=== PATIENT | female | born 1955 | race Two or more races ===

== ENCOUNTER 2018-07-08 11:31 | Inpatient (IN) | payer OTHER ==
--- NOTE | 2018-07-08 12:05 | ED ---
General Adult HPI <Zoltan Watt - Last Filed: 07/08/18 12:47> - General Source: patient, EMS, RN notes reviewed Mode of arrival: EMS Limitations: no limitations <Bryce Marshall - Last Filed: 07/08/18 12:53> - General Stated complaint: Abnormal Labs Time Seen by Provider: 07/08/18 11:36 - History of Present Illness Initial comments: This a 63-year-old female presents emergency department has a transfer from [facility] for elevated troponin. Patient states she has not felt well all week and states that this morning she got dizzy, diaphoretic, felt that she was in a pass out. She states she never loss conscious. Patient denied any chest pain or shortness of breath. Patient states she went to the hospital in which she had a complete workup and found to have and troponin of 0.124. She continues any current chest pain. Patient was given metoprolol, aspirin and started on heparin. Patient states she just feels rundown, denies weakness. Denies any headache or dizziness. Denies any abdominal pain this time. She does have a known history of hypertension though she has not been to a physician in a while. (Bryce Marshall) - Related Data Home Medications Medication Instructions Recorded Confirmed Acetaminophen Tab [Tylenol Tab] 1,000 mg PO Q6HR PRN 07/08/18 07/08/18 Valsartan/Hydrochlorothiazide 1 tab PO DAILY 07/08/18 07/08/18 [Diovan Hct 160-25 mg Tablet] Vitamin B Complex 1 cap PO DAILY 07/08/18 07/08/18 Allergies Allergy/AdvReac Type Severity Reaction Status Date / Time No Known Allergies Allergy Unverified 07/08/18 12:34 Review of Systems ROS Other: All systems not noted in ROS Statement are negative. <Zoltan Watt - Last Filed: 07/08/18 12:47> ROS Other: All systems not noted in ROS Statement are negative. <Bryce Marshall - Last Filed: 07/08/18 12:53> ROS Statement: Those systems with pertinent positive or pertinent negative responses have been documented in the HPI. General Exam General appearance: alert, in no apparent distress Head exam: Present: atraumatic, normocephalic, normal inspection Eye exam: Present: normal appearance, PERRL, EOMI. Absent: scleral icterus, conjunctival injection, periorbital swelling ENT exam: Present: normal exam, normal oropharynx, mucous membranes moist Neck exam: Present: normal inspection, full ROM. Absent: tenderness, meningismus, lymphadenopathy Respiratory exam: Present: normal lung sounds bilaterally. Absent: respiratory distress, wheezes, rales, rhonchi, stridor Cardiovascular Exam: Present: regular rate, normal rhythm, normal heart sounds. Absent: systolic murmur, diastolic murmur, rubs, gallop, clicks GI/Abdominal exam: Present: soft, normal bowel sounds. Absent: distended, tenderness, guarding, rebound, rigid Neurological exam: Present: alert, oriented X3, CN II-XII intact Skin exam: Present: warm, dry, intact, normal color. 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 Case was also discussed with Dr. Meneses, who will admit covered for hospital call. (Zoltan Watt) EKG Findings - EKG Comments: EKG Findings:: EKG performed at 12:42 sinus bradycardia with a rate of 49 [place] 146 QRS 100 QT/QTC 536/484 <Bryce Marshall - Last Filed: 07/08/18 12:53> Medical Decision Making <Bryce Marshall - Last Filed: 07/08/18 12:53> - Medical Decision Making 63-year-old female presented for generalized weakness as a transfer for [facility] Patient had elevated troponin patient will be admitted for unsteady, further evaluation. (Bryce Marshall) Disposition <Zoltan Watt - Last Filed: 07/08/18 12:47> <Bryce Marshall - Last Filed: 07/08/18 12:53> Clinical Impression: NSTEMI (non-ST elevated myocardial infarction), Weakness Disposition: ADMITTED IP TO THIS HOSP Condition: Fair Referrals: None,Stated [Primary Care Provider] - 1-2 days
[2018-07-08] MEDS ORDERED: NITROGLYCERIN SL TABS 0.4 MG TAB SUBLINGUAL PRN (12:54)
[2018-07-08] MEDS: HEPARIN SOD,PORK IN 0.45% NACL 25,000 UNIT in 0.45% NACL 1 250ML.BAG IV SCH (14:02)
[2018-07-09 04:09] LABS: Platelet Count 232 k/uL (150-450)
[2018-07-09 04:57] LABS: Cholesterol 144 mg/dL (<200); HDL Cholesterol 33 mg/dL (40-60); LDL Cholesterol,Calculated 95 mg/dL (0-99); Triglycerides 79 mg/dL (<150)
[2018-07-09] MEDS ORDERED: ASPIRIN 325 MG TAB PO STA (08:21)
[2018-07-09] MEDS ORDERED: ATORVASTATIN 80 MG TAB PO STA (08:21)
[2018-07-09] MEDS ORDERED: ALPRAZolam 0.5 MG TAB PO PRN (08:21)
[2018-07-09] MEDS ORDERED: SODIUM CHLORIDE 0.9% 1,000 ML in EMPTY BAG 1 BAG IV ONE (08:21)
[2018-07-09] MEDS ORDERED: NITROGLYCERIN SL TABS 0.4 MG TAB SUBLINGUAL PRN (08:21)
[2018-07-09] MEDS ORDERED: ALPRAZolam 0.25 MG TAB PO PRN (08:21)
--- NOTE | 2018-07-09 08:32 | P.CRDCN ---
History of Present Illness Consult date: 07/09/18 Requesting physician: Juvencio Meneses Reason for Consult (text): Abnormal troponin Chief complaint: Diaphoresis, lightheadedness History of present illness: This is a pleasant 63-year-old female with family history of premature coronary artery disease, she states that her father had a myocardial infarction in his 40s, she has also unfortunately lost 2 daughters one at the age of 38 and 1 at the age of 42 who both had myocardial infarctions, recently the patient has been told to have hypertension, prior TIA, she does not follow regularly with the physician. She denies any diabetes or hyperlipidemia, she does smoke a pack of cigarettes per day. 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 According to the patient, she states that over the weekend she had a cough and mild chills, yesterday morning, patient was getting ready to go to work and became extremely diaphoretic, had cold sweats, with associated lightheadedness and mild nausea. She denies any chest discomfort, and her breathing overall was unchanged from her normal. Patient went to [facility], influenza A and B were negative. White blood cell count 5.4, hemoglobin 14.2, platelet count 310, sodium 128, potassium 3.4, BUN 10 creatinine 0.7, UA was negative. Troponin 0.124. Chest x-ray was performed at [place] which revealed small area trace amount of fluid, no evidence of infiltrate or vascular decompensation. EKG performed on arrival here showed a normal sinus rhythm with inferior Q waves suggestive of old inferior wall myocardial infarction. EKG performed on arrival here showed a marked sinus bradycardia with inferior Q waves. Troponins 0.10, 0.08 .10 on arrival here. At the time of my examination this morning, patient denies any chest discomfort, she continues to have a cough. Past Medical History Past Medical History: CVA/TIA, Hypertension Additional Past Medical History / Comment(s): Uterine Cancer, TIA History of Any Multi-Drug Resistant Organisms: None Reported Past Surgical History: Section, Cholecystectomy, Hysterectomy Additional Past Surgical History / Comment(s): Oophorectomy (laterality unknown to pt) d/t large benign tumor. Past Anesthesia/Blood Transfusion Reactions: No Reported Reaction Additional Past Anesthesia/Blood Transfusion Reaction / Comment(s): Pt has clausterphobia Smoking Status: Current every day smoker - Past Family History Father Family Medical History: Myocardial Infarction (IA) Additional Family Medical History / Comment(s): Father at the age of 45yrs from a IA. He also had caratid artery disease. Mother Family Medical History: Liver Disease Additional Family Medical History / Comment(s): Mother had nonalcholic cirrhosis of the liver. Medications and Allergies Home Medications Medication Instructions Recorded Confirmed Type Acetaminophen Tab [Tylenol Tab] 1,000 mg PO Q6HR PRN 07/08/18 07/08/18 History Valsartan/Hydrochlorothiazide 1 tab PO DAILY 07/08/18 07/08/18 History [Diovan Hct 160-25 mg Tablet] Vitamin B Complex 1 cap PO DAILY 07/08/18 07/08/18 History Allergies Allergy/AdvReac Type Severity Reaction Status Date / Time No Known Allergies Allergy Unverified 07/08/18 12:34 Physical Exam Vitals: Vital Signs Temp Pulse Pulse Pulse Resp BP BP 07/09/18 03:23 18 07/09/18 03:22 98.2 F 63 18 144/75 07/08/18 23:09 67 18 124/71 07/08/18 20:00 98.4 F 61 18 140/73 07/08/18 17:45 98.2 F 62 16 129/72 07/08/18 17:00 97.8 F 62 18 124/67 07/08/18 15:30 60 18 110/65 07/08/18 14:00 97.9 F 56 L 18 113/67 07/08/18 11:45 98.3 F 52 L 52 L 18 129/71 Pulse Ox 07/09/18 03:23 07/09/18 03:22 95 07/08/18 23:09 95 07/08/18 20:00 95 07/08/18 17:45 96 07/08/18 17:00 96 07/08/18 15:30 97 07/08/18 14:00 97 07/08/18 11:45 94 L Intake and Output 07/08/18 07/09/18 07/09/18 22:59 06:59 14:59 Intake Total 292.051 60.858 Balance 292.051 60.858 Intake: Intake, IV Titration 52.051 60.858 Amount Heparin Sod,Pork in 0.45% 52.051 60.858 NaCl 25,000 unit In 0.45 % NaCl 1 250ml.bag @ 12 UNITS/KG/HR 6.804 mls/hr IV .Q24H RUEL Rx#: [id number] Oral 240 Other: Voiding Method Toilet Toilet # Voids 1 2 PHYSICAL EXAMINATION: GENERAL: 63-year-old female in no acute distress at the time of my examination HEENT: Head is atraumatic, normocephalic. Pupils equal, round. Sclera anicteric. Conjunctiva are clear. Mucous membranes of the mouth are moist. Neck is supple. There is no elevated jugular venous pressure. Left carotid bruit is heard. HEART EXAMINATION: Heart S1 and S2 with systolic murmur is heard at the base CHEST EXAMINATION: Lungs reveal scattered wheezing throughout. ABDOMEN: Soft, nontender. Bowel sounds are heard. No organomegaly noted. EXTREMITIES: 2+ peripheral pulses with no evidence of peripheral edema and no calf tenderness noted. NEUROLOGIC patient is awake, alert and oriented 3 . . Results 07/09/18 03:47 Cardiac Enzymes 07/08/18 07/08/18 07/09/18 Range/Units 12:00 19:01 00:13 Troponin I 0.107 H* 0.089 H* 0.103 H* (0.000-0.034) ng/mL Coagulation 07/08/18 07/09/18 Range/Units 19:01 03:47 APTT 40.9 H 45.6 H (22.0-30.0) sec Lipids 07/09/18 Range/Units 03:47 Triglycerides 79 (<150) mg/dL Cholesterol 144 (<200) mg/dL HDL Cholesterol 33 L (40-60) mg/dL CBC 07/09/18 Range/Units 03:47 Plt Count 232 (150-450) k/uL Current Medications Generic Name Dose Route Start Last Admin Trade Name Freq PRN Reason Stop Dose Admin Aspirin 325 mg 07/09/18 09:00 Aspirin PO DAILY [facility] Heparin Sodium/Sodium Chloride 250 mls @ 6.804 mls/hr 07/08/18 13:00 07/09/18 05:21 25,000 unit/ Sodium Chloride IV 16 units/kg/hr .Q24H RUEL 9.072 mls/hr Titration Protocol 12 UNITS/KG/HR Nitroglycerin 0.4 mg 07/08/18 12:54 Nitrostat SUBLINGUAL Q5M PRN Chest Pain Intake and Output 07/08/18 07/09/18 07/09/18 22:59 06:59 14:59 Intake Total 292.051 60.858 Balance 292.051 60.858 Intake: Intake, IV Titration 52.051 60.858 Amount Heparin Sod,Pork in 0.45% 52.051 60.858 NaCl 25,000 unit In 0.45 % NaCl 1 250ml.bag @ 12 UNITS/KG/HR 6.804 mls/hr IV .Q24H RUEL Rx#: [id number] Oral 240 Other: Voiding Method Toilet Toilet # Voids 1 2 07/09/18 03:47 EKG Interpretations (text) EKG shows a normal sinus rhythm with inferior Q waves Assessment and Plan Plan: Assessment and plan #1 symptoms of a recent cough and chills, influenza A and B- #2 episode of diaphoresis with associated clamminess, nausea and lightheadedness. Abnormality in troponin noted, 0.1, 0.1, 0.08, 0.1. EKG shows a normal sinus rhythm with inferior Q waves suggestive of old inferior wall my ocardial infarction #3 hypertension #4 strong family history of premature coronary artery disease #5 nicotine dependence Plan We will obtain a stat echocardiogram with Doppler study. With the patient on 80 mg of Lipitor now continue aspirin and heparin, the patient had been initiated on a beta brianda at [place], because of bradycardia this is been discontinued. Patient has been advised to undergo cardiac catheterization for more definitive diagnosis, the risks and benefits were explained to the patient in detail and she is willing to proceed. This will be performed today by Dr. Nicole William. DNP note has been reviewed, I agree with a documented findings and plan of care. Patient was seen and examined.
--- NOTE | 2018-07-09 09:22 | ECHOF ---
Referral Reason:assess lvf MEASUREMENTS -------- HEIGHT: 162.6 cm WEIGHT: 56.7 kg BP: RVIDd: 2.1 cm (< 3.3) IVSd: 1.0 cm (0.6 - 1.1) LVIDd: 4.4 cm (3.9 - 5.3) LVPWd: 1.4 cm (0.6 - 1.1) IVSs: 1.5 cm LVIDs: 3.4 cm LVPWs: 1.3 cm LA Diam: 3.6 cm (2.7 - 3.8) LAESV Index (A-L): 15.25 ml/m Ao Diam: 2.7 cm (2.0 - 3.7) AV Cusp: 1.7 cm (1.5 - 2.6) LA Diam: 4.2 cm (2.7 - 3.8) MV EXCURSION: 16.312 mm (> 18.000) MV EF SLOPE: 59 mm/s (70 - 150) EPSS: 1.1 cm MV E [place]: 0.69 m/s MV DecT: 266 ms MV A [place]: 0.98 m/s MV E/A Ratio: 0.70 RAP: 5.00 mmHg RVSP: 12.89 mmHg FINDINGS -------- Sinus rhythm. This was a technically adequate study. The left ventricular size is normal. Left ventricular wall thickness is normal. Overall left vent ricular systolic function is mild-moderately impaired with, an EF between 40 - 45 %. Inferiorlatera l Hypokinesis The right ventricle is normal in size. The left atrial size is normal. Normal LA size by volume 22+/-6 ml/m2. The right atrial size is normal. The aortic valve is trileaflet, and appears structurally normal. No aortic stenosis or regurgitation. Mild mitral annular calcification present. Mild mitral regurgitation is present. Mild tricuspid regurgitation present. There is no evidence of pulmonary hypertension. The right v entricular systolic pressure, as measured by Doppler, is 12.89mmHg. There is no pulmonic regurgitation present. The aortic root size is normal. Normal inferior vena cava with normal inspiratory collapse consistent with estimated right atrial pre ssure of 5 mmHg. There is no pericardial effusion. CONCLUSIONS -------- 1. The left ventricular size is normal. 2. Left ventricular wall thickness is normal. 3. Overall left ventricular systolic function is mild-moderately impaired with, an EF between 40 - 45 %. 4. Inferiorlateral Hypokinesis 5. The right ventricle is normal in size. 6. The left atrial size is normal. 7. Normal LA size by volume 22+/-6 ml/m2. 8. The right atrial size is normal. 9. The aortic valve is trileaflet, and appears structurally normal. No aortic stenosis or regurgitati on. 10. Mild mitral annular calcification present. 11. Mild mitral regurgitation is present. 12. Mild tricuspid regurgitation present. 13. There is no evidence of pulmonary hypertension. 14. The right ventricular systolic pressure, as measured by Doppler, is 12.89mmHg. 15. There is no pulmonic regurgitation present. 16. The aortic root size is normal. 17. Normal inferior vena cava with normal inspiratory collapse consistent with estimated right atrial pressure of 5 mmHg. 18. There is no pericardial effusion. LIEUTENANT GENERAL: Britt Martin RDCS
--- NOTE | 2018-07-09 09:36 | US ---
EXAMINATION TYPE: US carotid duplex BILAT DATE OF EXAM: 07/09/2018 COMPARISON: NONE CLINICAL HISTORY: carotid bruit. Bruit, HTN per patient, stroke in 2012 EXAM MEASUREMENTS: RIGHT: Peak Systolic Velocity (PSV) cm/sec ----- Right CCA: 63.3 ----- Right ICA: 131.8 ----- Right ECA: 83.6 ICA/CCA ratio: 2.1 RIGHT: End Diastole cm/sec ----- Right CCA: 16.2 ----- Right ICA: 41.3 ----- Right ECA: 12.4 LEFT: Peak Systolic Velocity (PSV) cm/sec ----- Left CCA: 86.4 ----- Left ICA: 201.2 ----- Left ECA: 198.98 ICA/CCA ratio: 2.3 LEFT: End Diastole cm/sec ----- Left CCA: 29.2 ----- Left ICA: 57.2 ----- Left ECA: 29.3 VERTEBRALS (direction of flow): Right Vertebral: Antegrade Left Vertebral: Antegrade Rhythm: Normal Bilateral wall thickening. Bilateral significant stenosis. Plaque seen in bilateral bulbs and right prox ICA. Elevated right distal ICA, left Proximal ICA, left bulb and left ECA. IMPRESSION: 1. Bilateral atherosclerotic disease with the findings suggestive of a 50-69% stenosis bilaterally. Criteria for Assigning % of Stenosis / Diameter reduction (Estimation based on the indirect measurements of the internal carotid artery velocities (ICA PSV). 1. Normal (no stenosis)=ICA PSV < 125 cm/s: ratio < 2.0: ICA EDV<40 cm/s. 2. Less than 50% stenosis=ICA PSV < 125 cm/s: ratio < 2.0: ICA EDV<40 cm/s. 3. 50 to 69% stenosis=ICA PSV of 125 to 230 cm/s: ration 2.0 ? 4.0: ICA EDV 40-100 cm/s. 4. Greater than 70% stenosis to near occlusion= ICA PSV > 230 cm/s: ratio > 4.0: ICA EDV > 100 cm/s. 5. Near occlusion= ICA PSV velocities may be low or undetectable: variable ratio and ICA EDV. 6. Total occlusion=unable to detect flow.
[2018-07-09] MEDS ORDERED: MIDAZOLAM 2 MG/2 ML VIAL IVP ONE ×2 (11:09→11:15)
[2018-07-09] MEDS ORDERED: LIDOCAINE 1% INJ 10MG/ML (20 ML MDV) SQ ONE ×2 (11:12→11:25)
[2018-07-09] MEDS ORDERED: VERAPAMIL SYRINGE (5 MG/10 ML) INTRAARTER ONE ×2 (11:13→11:55)
[2018-07-09] MEDS ORDERED: IOPAMIDOL-370 100ML BTL INJ ONE (11:48)
[2018-07-09] MEDS ORDERED: IV FLUID CONTINUATION 1,000 ML IV ONE (11:48)
[2018-07-09] MEDS ORDERED: HEPARIN SODIUM 1,000 UN/ML (10ML VL) IV ONE (12:00)
[2018-07-09] MEDS ORDERED: MD COMMUNICATION TO PHARMACY 1 EACH MISC PO ONE (12:08)
[2018-07-09] MEDS ORDERED: RX INFO: IV CONTRAST WAS GIVEN 1 EACH MISC MISCELLANE PRN (12:20)
[2018-07-09 12:52] LABS: Basophils % (A) 1 %; Eosinophils # (A) 0.1 k/uL (0-0.7); Eosinophils % (A) 2 %; HCT 37.9 % (34.0-46.0); HGB 12.2 gm/dL (11.4-16.0); Lymphocytes # (A) 1.9 k/uL (1.0-4.8); Lymphocytes % (A) 48 %; MCH 29.2 pg (25.0-35.0); MCHC 32.3 g/dL (31.0-37.0); MCV 90.5 fL (80.0-100.0); Mean Platelet Volume 7.3; Monocytes # (A) 0.2 k/uL (0-1.0); Monocytes % (A) 6 %; Neutrophils # (A) 1.6 k/uL (1.3-7.7); Neutrophils % (A) 42 %; Platelet Count 225 k/uL (150-450); RBC 4.18 m/uL (3.80-5.40); RDW 13.1 % (11.5-15.5); WBC 3.9 k/uL (3.8-10.6)
[2018-07-09 13:08] LABS: INR 0.9 (<1.2); Partial Thromboplastin Time 70.2 sec (22.0-30.0); Prothrombin Time 10.2 sec (9.0-12.0)
[2018-07-09 13:15] LABS: ALT 33 U/L (9-52); AST 33 U/L (14-36); Albumin 3.3 g/dL (3.5-5.0); Alkaline Phosphatase 63 U/L (38-126); Anion Gap 8 mmol/L; Blood Urea Nitrogen 8 mg/dL (7-17); Calcium 8.1 mg/dL (8.4-10.2); Carbon Dioxide 19 mmol/L (22-30); Chloride 106 mmol/L (98-107); Glucose 78 mg/dL (74-99); Magnesium 1.7 mg/dL (1.6-2.3); Sodium 133 mmol/L (137-145); Total Bilirubin 0.5 mg/dL (0.2-1.3); Total Protein 6.1 g/dL (6.3-8.2)
[2018-07-09 13:17] LABS: Potassium 3.9 mmol/L (3.5-5.1)
--- NOTE | 2018-07-09 13:35 | HP ---
HISTORY AND PHYSICAL DATE OF ADMISSION: 07/08/2018 DATE OF SERVICE: 07/08/2018 PRESENTING COMPLAINT: Perspiring. HISTORY OF PRESENTING COMPLAINT: This is a 63-year-old patient who does not have a family doctor. She has had a TIA in the past. She is unsure if she has had a heart attack in the past, maybe once in the past, hypertension and had hysterectomy for uterine cancer. The patient is long- standing smoker. The patient did get short of breath, wheezing sometimes, cough sometimes. Yesterday she broke out in a sweat and felt she was going to pass out. There was no chest pain, no pressure, baseline short of breath, decided presented to [facility]. She had a bit of a troponin leak. EKG showed some Q-waves. She was transferred down here. Because of her presentation, Dr. Sandra William decided to take her down to the labor relations teacher. The patient was found to have triple-vessel disease and now cardiothoracic surgery was consulted for a bypass. The patient denies any chest pain. There was no palpitation and patient is normally active and gets around, though she does get short of breath. REVIEW OF SYSTEMS: CONSTITUTIONAL: Tired. HEENT: Nasal stuffiness. RESPIRATORY: As above. CARDIOVASCULAR: As above. GASTROINTESTINAL: None. GENITOURINARY: None. MUSCULOSKELETAL: None. DERMATOLOGIC: None. HEMATOLOGIC: None. LYMPHATIC: None. PSYCHIATRY: None. NEUROLOGICAL: None. PAST MEDICAL HISTORY: TIA, hypertension, uterine cancer. PAST SURGERY HISTORY: , cholecystectomy, hysterectomy with oophorectomy for benign tumor. PSYCH HISTORY: Claustrophobia. SOCIAL HISTORY: Lives alone. 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 Smokes a pack a day for over 40 years. No alcohol. Denies use of recreational drugs. FAMILY HISTORY: Father of heart attack age of , myocardial infarction. Also had carotid artery disease. HOME MEDICATIONS: 1. Vitamin B complex 1 capsule p.o. daily. 2. Diovan hydrochlorothiazide 160/25 one tablet p.o. daily. 3. Tylenol 1,000 mg q.6 p.r.n. ALLERGIES: None. PHYSICAL EXAMINATION: On examination, vital signs on presentation, temperature 98.3, pulse 52, respiratory 18, blood pressure 129/71, pulse ox 94% on room air. GENERAL APPEARANCE: Average build, lying in bed, tired appearing. EYES: Pupils equal. Conjunctivae normal. HENT: External appearance of nose and ears normal. Oral cavity normal. NECK: JVD not raised. Mass not palpable. RESPIRATORY: Effort normal. Some expiratory wheezing. CARDIOVASCULAR: First and second sounds normal. No edema. ABDOMEN: Soft, nontender. Liver and spleen not palpable. LYMPHATIC: No lymph node palpable in the neck and axilla. PSYCHIATRY: Alert and oriented x3. Mood and affect normal. NEUROLOGICAL: Pupils equal. Cranial nerves grossly intact. Power and sensation grossly intact. INVESTIGATIONS: Troponin 0.1, 0.08, 0.1. LDL 95. EKG tracing personally reviewed by me shows normal sinus rhythm with Q-waves in the inferior leads. ASSESSMENT: 1. Possible acute non-Q-wave myocardial infarction. 2. Severe triple-vessel coronary artery disease per cardiac catheterization. 3. Chronic obstructive pulmonary disease in a current smoker. 4. Chronic nicotine dependence. Patient is a cigarette smoker. 5. Essential hypertension. PLAN: Patient is currently on aspirin, Lipitor, Cozaar, Lopressor. Will also consult Pulmonary as she will need preop clearance for the same. Cardiothoracic team is already consulted by Cardiology. Care was discussed with the patient. The patient advised against smoking. Will give a nicotine patch. MMODL / IJN: [id number] /
--- NOTE | 2018-07-09 16:26 | CC ---
CARDIAC CATHETERIZATION REPORT DATE OF SERVICE: 07/08/2018 PROCEDURE: Left heart catheterization and coronary angiography. PERFORMED BY: Dr. Sandra William. SEDATION: Moderate conscious sedation time was 42 minutes. Patient was administered Versed and oxygen saturation, hemodynamics and EKG were monitored closely. CLINICAL INFORMATION: Vivian Quinones is a 63-year-old lady who has history of smoking and a very strong family history of CAD. Has not seen a physician in a few years, came into [facility] with symptoms of chest discomfort, just not feeling well, weak and coughing up. After she in the hospital at [place], she was transferred because of elevated troponin. She had nondescript chest tightness, pressure and some diaphoresis, felt dizzy and lightheaded. She did not quite have syncope. Because of nondescript chest tightness, generalized weakness, lack of energy and cough which she had flu workup performed and she was negative for influenza A and B. However, the troponin profile suggests myocardial injury suggestive of non-ST elevation OK and therefore she was advised coronary angiography. She does have history of hypertension, family history of CAD and history smoking. She takes valsartan 160/25 1 tab daily. Risks, benefits, options, rationale were explained and patient was advised coronary angiography. PROCEDURE NOTE: Under local anesthesia and strict aseptic precautions, a 6-Nicaraguan introducer was placed in the right radial artery. There was a significant amount of spasm. I had difficulty advancing the wire and after advance the wire, I could not advance the right Smitha catheter because of spasm in the brachial area. Therefore I abandoned the procedure and after attempting intra-arterial verapamil and nitroglycerin, I abandoned the procedure and then proceeded to perform the procedure from right femoral approach. Under local anesthesia and strict aseptic precautions, a 6-Nicaraguan introducer was placed in the right femoral artery. Using standard Smitha catheters, I performed coronary angiography and a pigtail catheter was used to perform an LV-gram. The catheter and sheath was taken out and Angio-Seal device used to secure hemostasis. The right radial artery hemostasis was secured using a Vasc band. Saturation in the fingers of the right hand was 92%. The patient was sent to the room in stable condition. Results were explained to her. Given her multivessel disease, she was advised aortocoronary bypass surgery to be performed hopefully in the next 4-5 days. There were no other family members available for me to talk to. CARDIAC CATHETERIZATION FINDINGS: The left ventricle end-diastolic pressure was about 15 mmHg without any gradient across aortic valve. CORONARY ANGIOGRAPHY FINDINGS: RIGHT CORONARY ARTERY: This is probably a codominant vessel that is diffusely diseased. In the proximal portion, there is a 99% stenosis with sluggish flow and distally PLV appears to be occluded. PDA has also some competitive flow and is a small caliber vessel for antegrade injection. This could be a codominant vessel. The RCA therefore is diffusely disease and perhaps recanalized vessel. Distal branches have diffuse diseased and there is competitive flow suggestive of focal collateralization of this vessel from the left system. LEFT MAIN CORONARY ARTERY: Short patent disease-free vessel with mild calcification. No significant disease. Bifurcates into LAD and circumflex. LEFT ANTERIOR DESCENDING CORONARY ARTERY: Fair caliber vessel had moderate calcification, in the midportion gives off a large diagonal branch which is probably larger than the LAD in caliber. The diagonal again is a secondary branch. The ostium of the diagonal has a 70% stenosis. The midportion of the diagonal has another 70% stenosis. The LAD as it comes off from the diagonal has another 70% stenosis and there is moderate calcification. Both LAD and diagonal are graftable vessels. LEFT POSTERIOR CIRCUMFLEX CORONARY ARTERY: This is a technically nondominant vessel, probably codominant vessel, has obtuse marginal that is totally occluded and fills late by collaterals. Distally there is also diffuse disease in the circumflex and its branches. It offers limited collaterals to the distal branches of the LAD. Circumflex distally has diffuse disease. Obtuse marginal is totally occluded. The obtuse marginal is actually filled by collaterals. LEFT VENTRICULOGRAM: This was performed in 30 degree SAENZ projection, revealed left ventricle that is mildly enlarged with severe akinesia involving the inferobasal and mid inferior wall. The inferoapical wall contracts well, antral wall contracts well. Ejection fraction is 40%. There is mild mitral regurgitation noted. FINAL IMPRESSION: This patient has significant triple-vessel disease with ejection fraction of 40% with inferior wall hypokinesia and mild mitral regurgitation with normal filling pressures. No gradient across the aortic valve. RCA is a recanalized vessel, probably a codominant or codominant vessel. Circumflex marginal is totally occluded. Filling late. LAD and diagonal have both calcified disease. RECOMMENDATION: I am recommending that we optimize the patient's pulmonary status and she will need aortocoronary bypass surgery with grafts to LAD, diagonal and possibly to the obtuse marginal branch and distal branches of RCA if possible. Findings were discussed with the patient. There was no family available. I reviewed the images with Dr. Ortega who will be seeing the patient in consultation. We will in the meantime, optimize her pulmonary status and seek input from high school art teacher as well. MMODL / IJN: [id number] /
--- NOTE | 2018-07-09 16:27 | P.GSCN ---
History of Present Illness Consult date: 07/09/18 Reason for Consult: Severe triple vessel coronary artery disease, surgical revascularization recommendations. Requesting physician: Young William History of present illness: This is a 63-year-old female patient who does not follow with a physician on a regular basis. She has a previous medical history of hypertension, TIA, uterine cancer, current tobacco dependence, and family history of premature coronary artery disease with father at 45 years old from myocardial infarction as well as 2 daughters from myocardial infarction, one at 38 years old and one at 42 years old. Apparently over the weekend she began having cough with mild chills. On the morning she was up getting ready for work when she became lightheaded, nauseous, and diaphoretic. She denies ever having chest discomfort or increased shortness of breath. She presented to [facility] for evaluation and treatment. Workup did not indicate any infectious process. Troponin was drawn and was 0.124. Chest x-ray was performed demonstrating trace amount of fluid, no evidence of infiltrate or vascular decompensation. The patient was transferred to [facility] secondary to elevation in troponin, repeat troponins upon arrival were 0.107, 0.089, 0.103, and EKG demonstrated Q waves in the inferior leads. She was recommended to undergo heart catheterization which was completed today by Dr. William and which demonstrated severe triple-vessel coronary artery disease. Consultation was placed to Dr. Ortega for surgical revascularization recommendations. Review of Systems Review of systems was completed and was negative except as noted in the HPI. Past Medical History Past Medical History: CVA/TIA, Hypertension Additional Past Medical History / Comment(s): Uterine Cancer, TIA History of Any Multi-Drug Resistant Organisms: None Reported Past Surgical History: Section, Cholecystectomy, Hysterectomy Additional Past Surgical History / Comment(s): Oophorectomy (laterality unknown to pt) d/t large benign tumor. Past Anesthesia/Blood Transfusion Reactions: No Reported Reaction Additional Past Anesthesia/Blood Transfusion Reaction / Comm: Pt has clausterphobia Past Psychological History: No Psychological Hx Reported Smoking Status: Current every day smoker Past Alcohol Use History: None Reported Past Drug Use History: None Reported - Past Family History Father Family Medical History: Myocardial Infarction (CO) Additional Family Medical History / Comment(s): Father at the age of 45yrs from a CO. He also had carotid artery disease. Mother Family Medical History: Liver Disease Additional Family Medical History / Comment(s): Mother had nonalcholic cirrhosis of the liver. Daughter(s) Family Medical History: Coronary Artery Disease (CAD), Myocardial Infarction (CO) Additional Family Medical History / Comment(s): One daughter at 38 and one at 42, both from myocardial infarction Medications and Allergies Home Medications Medication Instructions Recorded Confirmed Type Acetaminophen Tab [Tylenol Tab] 1,000 mg PO Q6HR PRN 07/08/18 07/08/18 History Valsartan/Hydrochlorothiazide 1 tab PO DAILY 07/08/18 07/08/18 History [Diovan Hct 160-25 mg Tablet] Vitamin B Complex 1 cap PO DAILY 07/08/18 07/08/18 History Allergies Allergy/AdvReac Type Severity Reaction Status Date / Time No Known Allergies Allergy Unverified 07/08/18 12:34 Surgical - Exam Vital Signs Temp Pulse Resp BP Pulse Ox 98.3 F 52 L 18 129/71 94 L 07/08/18 11:45 07/08/18 11:45 07/08/18 11:45 07/08/18 11:45 07/08/18 11:45 - General well developed, well nourished, no distress, no pain - Eyes PERRL, normal ocular movement - ENT no hearing loss - Neck no masses, no bruits, trachea midline - Respiratory Lungs sounds diminished bilaterally. Respirations even, nonlabored. Currently on room air with oxygen saturation 92%. No chest wall deformities. - Cardiovascular S1, S2 present. Regular rate and rhythm, sinus rhythm on telemetry. Palpable peripheral pulses bilaterally. No edema present. No calf pain or tenderness noted. No varicosities noted. - Abdomen Abdomen: soft, non tender, bowel sounds - Genitourinary Deferred - Rectum Deferred - Integumentary no rash, no growths - Neurologic normal coordination, normal sensation - Musculoskeletal normal posture - Psychiatric oriented to time, oriented to person, oriented to place, speech is normal, memory intact Results - Labs 07/09/18 12:30 07/09/18 12:30 Abnormal Lab Results - Last 24 Hours (Table) 07/08/18 07/08/18 07/09/18 Range/Units 19:01 19:01 00:13 APTT 40.9 H (22.0-30.0) sec Sodium (137-145) mmol/L Carbon Dioxide (22-30) mmol/L Creatinine (0.52-1.04) mg/dL Calcium (8.4-10.2) mg/dL Troponin I 0.089 H* 0.103 H* (0.000-0.034) ng/mL Total Protein (6.3-8.2) g/dL Albumin (3.5-5.0) g/dL HDL Cholesterol (40-60) mg/dL 07/09/18 07/09/18 07/09/18 Range/Units 03:47 03:47 12:30 APTT 45.6 H 70.2 H (22.0-30.0) sec Sodium (137-145) mmol/L Carbon Dioxide (22-30) mmol/L Creatinine (0.52-1.04) mg/dL Calcium (8.4-10.2) mg/dL Troponin I (0.000-0.034) ng/mL Total Protein (6.3-8.2) g/dL Albumin (3.5-5.0) g/dL HDL Cholesterol 33 L (40-60) mg/dL 07/09/18 Range/Units 12:30 APTT (22.0-30.0) sec Sodium 133 L (137-145) mmol/L Carbon Dioxide 19 L (22-30) mmol/L Creatinine 0.46 L (0.52-1.04) mg/dL Calcium 8.1 L (8.4-10.2) mg/dL Troponin I (0.000-0.034) ng/mL Total Protein 6.1 L (6.3-8.2) g/dL Albumin 3.3 L (3.5-5.0) g/dL HDL Cholesterol (40-60) mg/dL Diabetes panel 07/09/18 07/09/18 Range/Units 03:47 12:30 Sodium 133 L (137-145) mmol/L Potassium 3.9 (3.5-5.1) mmol/L Chloride 106 (98-107) mmol/L Carbon Dioxide 19 L (22-30) mmol/L BUN 8 (7-17) mg/dL Creatinine 0.46 L (0.52-1.04) mg/dL Glucose 78 (74-99) mg/dL Calcium 8.1 L (8.4-10.2) mg/dL AST 33 (14-36) U/L ALT 33 (9-52) U/L Alkaline Phosphatase 63 (38-126) U/L Total Protein 6.1 L (6.3-8.2) g/dL Albumin 3.3 L (3.5-5.0) g/dL Triglycerides 79 (<150) mg/dL HDL Cholesterol 33 L (40-60) mg/dL Thyroid panel 07/09/18 Range/Units 12:30 TSH 1.500 (0.465-4.680) mIU/L Calcium panel 07/09/18 Range/Units 12:30 Calcium 8.1 L (8.4-10.2) mg/dL Albumin 3.3 L (3.5-5.0) g/dL Pituitary panel 07/09/18 Range/Units 12:30 Sodium 133 L (137-145) mmol/L Potassium 3.9 (3.5-5.1) mmol/L Chloride 106 (98-107) mmol/L Carbon Dioxide 19 L (22-30) mmol/L BUN 8 (7-17) mg/dL Creatinine 0.46 L (0.52-1.04) mg/dL Glucose 78 (74-99) mg/dL Calcium 8.1 L (8.4-10.2) mg/dL TSH 1.500 (0.465-4.680) mIU/L Adrenal panel 07/09/18 Range/Units 12:30 Sodium 133 L (137-145) mmol/L Potassium 3.9 (3.5-5.1) mmol/L Chloride 106 (98-107) mmol/L Carbon Dioxide 19 L (22-30) mmol/L BUN 8 (7-17) mg/dL Creatinine 0.46 L (0.52-1.04) mg/dL Glucose 78 (74-99) mg/dL Calcium 8.1 L (8.4-10.2) mg/dL Total Bilirubin 0.5 (0.2-1.3) mg/dL AST 33 (14-36) U/L ALT 33 (9-52) U/L Alkaline Phosphatase 63 (38-126) U/L Total Protein 6.1 L (6.3-8.2) g/dL Albumin 3.3 L (3.5-5.0) g/dL - Imaging EKG: image reviewed Additional studies: Heart catheterization films reviewed with Dr. Ortega and Dr. William Assessment and Plan Assessment: 1. Severe triple-vessel coronary artery disease 2. Mild to moderately impaired left ventricular systolic function with EF 40- 45% 3. Hypertension 4. Bilateral internal carotid artery stenosis 50-69% 5. History of TIA 6. History of uterine cancer 7. Current tobacco dependence 8. Significant family history of premature coronary artery disease Plan: The patient was seen and examined at the bedside with Dr. Ortega. Chart/diagnostics were reviewed. The usual perioperative course for open-heart surgery was discussed in detail with the patient, risks and benefits were reviewed, all questions were answered. Preoperative testing was initiated. We recommend maximizing medical therapy with aspirin, statin, beta brianda therapy. Will calculate STS risk score and discuss with the patient once preoperative testing is completed. Continue preoperative teaching. Continue medical therapy per primary care service. More recommendations follow. Thank you Dr. William for this consult. We look forward to working with you in the care of your patient.
[2018-07-09] MEDS: IPRATROPIUM-ALBUTEROL 3 ML NEB INHALATION SCH ×2 (16:55→21:16)
[2018-07-09] MEDS: SODIUM CHLORIDE 0.9% 1,000 ML IV SCH (17:49)
[2018-07-09] MEDS: HEPARIN SOD,PORK IN 0.45% NACL 25,000 UNIT in 0.45% NACL 1 250ML.BAG IV SCH (17:50)
[2018-07-09] MEDS: NICOTINE 21MG/24HR PATCH TRANSDERM SCH (18:17)
--- NOTE | 2018-07-09 19:25 | XR ---
EXAMINATION TYPE: XR chest 2V DATE OF EXAM: 07/09/2018 COMPARISON: NONE HISTORY: Preop cardiac surgery TECHNIQUE: Frontal and lateral views of the chest are obtained. FINDINGS: There is no heart failure nor confluent pneumonic infiltrate. Costophrenic angles are robby r. There is some emphysematous changes in the upper lobes. Thoracic aorta is atheromatous. Bony thora x is intact. IMPRESSION: COPD. Normal heart.
[2018-07-09 19:28] LABS: Hemoglobin A1C 5.9 % (4.0-6.0)
[2018-07-09] MEDS: METOPROLOL TARTRATE 12.5 MG TAB PO SCH (20:35)
[2018-07-09] MEDS: LOSARTAN 50 MG TAB PO SCH (20:35)
[2018-07-09] MEDS: MUPIROCIN 2% OINT 22 GM TUBE NASAL SCH (20:43)
[2018-07-09 21:08] LABS: Hepatitis A Antibody IgM Non-Reactive (Non-Reactive); Hepatitis B Core IgM Non-Reactive (Non-Reactive)
[2018-07-09 22:04] LABS: Appearance,Urine Clear (Clear); Bilirubin,Urine Negative (Negative); Blood,Urine Small (Negative); Color,Urine Yellow; Glucose,Urine (UA) Negative (Negative); Ketones,Urine Negative (Negative); Leukocyte Esterase,Urine Negative (Negative); Mucus,Urine Rare /hpf; Nitrite,Urine Negative (Negative); PH, Urine 5.5 (5.0-8.0); Protein,Urine Negative (Negative); RBC,Urine 3 /hpf (0-5); Specific Gravity,Urine 1.022 (1.001-1.035); Squamous Epithelial Cell,Urine 1 /hpf (0-4); Urobilinogen,Urine <2.0 mg/dL (<2.0); WBC,Urine 1 /hpf (0-5)
[2018-07-10] MEDS: SODIUM CHLORIDE 0.9% 1,000 ML IV SCH (05:05)
[2018-07-10] MEDS: IPRATROPIUM-ALBUTEROL 3 ML NEB INHALATION SCH ×4 (05:27→20:52)
[2018-07-10 06:51] LABS: Basophils % (A) 1 %; Eosinophils # (A) 0.1 k/uL (0-0.7); Eosinophils % (A) 2 %; HCT 36.1 % (34.0-46.0); Lymphocytes % (A) 45 %; MCH 30.2 pg (25.0-35.0); MCHC 33.2 g/dL (31.0-37.0); Mean Platelet Volume 7.5; Monocytes # (A) 0.2 k/uL (0-1.0); Monocytes % (A) 5 %; Neutrophils # (A) 1.9 k/uL (1.3-7.7); Neutrophils % (A) 44 %; Platelet Count 241 k/uL (150-450); RBC 3.97 m/uL (3.80-5.40); RDW 13.5 % (11.5-15.5); WBC 4.3 k/uL (3.8-10.6)
[2018-07-10 07:01] LABS: Anion Gap 9 mmol/L; Blood Urea Nitrogen 6 mg/dL (7-17); Calcium 8.2 mg/dL (8.4-10.2); Carbon Dioxide 21 mmol/L (22-30); Chloride 103 mmol/L (98-107); Glucose 102 mg/dL (74-99); Potassium 3.2 mmol/L (3.5-5.1); Sodium 133 mmol/L (137-145)
[2018-07-10] MEDS ORDERED: POTASSIUM CHLORIDE ER 20 MEQ TAB.ER PO STA (07:15)
[2018-07-10] MEDS: NICOTINE 21MG/24HR PATCH TRANSDERM SCH (08:24)
[2018-07-10] MEDS: METOPROLOL TARTRATE 12.5 MG TAB PO SCH ×2 (08:24→20:35)
[2018-07-10] MEDS: ASPIRIN 81 MG PO SCH (08:24)
[2018-07-10] MEDS: SPIRONOLACTONE 25 MG TAB PO SCH (08:24)
[2018-07-10] MEDS: ATORVASTATIN 80 MG TAB PO SCH (08:24)
[2018-07-10] MEDS ORDERED: ASPIRIN 325 MG TAB PO SCH (09:00)
--- NOTE | 2018-07-10 11:37 | P.PN ---
Subjective Progress Note Date: 07/10/18 This is a pleasant 63-year-old female with family history of premature coronary artery disease, she states that her father had a myocardial infarction in his 40s, she has also unfortunately lost 2 daughters one at the age of 38 and 1 at the age of 42 who both had myocardial infarctions, recently the patient has been told to have hypertension, prior TIA, she does not follow regularly with the physician. She denies any diabetes or hyperlipidemia, she does smoke a pack of cigarettes per day. 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 According to the patient, she states that over the weekend she had a cough and mild chills, yesterday morning, patient was getting ready to go to work and became extremely diaphoretic, had cold sweats, with associated lightheadedness and mild nausea. She denies any chest discomfort, and her breathing overall was unchanged from her normal. Patient went to [facility], influenza A and B were negative. White blood cell count 5.4, hemoglobin 14.2, platelet count 310, sodium 128, potassium 3.4, BUN 10 creatinine 0.7, UA was negative. Troponin 0.124. Chest x-ray was performed at [place] which revealed small area trace amount of fluid, no evidence of infiltrate or vascular decompensation. EKG performed on arrival here showed a normal sinus rhythm with inferior Q waves suggestive of old inferior wall myocardial infarction. EKG performed on arrival here showed a marked sinus bradycardia with inferior Q waves. Troponins 0.10, 0.08 .10 on arrival here. At the time of my examination this morning, patient denies any chest discomfort, she continues to have a cough. 07/10/2018 Patient underwent a cardiac catheterization yesterday which revealed significant triple vessel disease with an ejection fraction of 40% with inferior wall hypokinesia and mild mitral regurgitation. Surgical consultation has been requested. Pulmonary consultation has also been requested. Patient was seen and examined this morning denies any chest pain or difficulty in breathing. Cough is improving.blood pressure 120/50 with a heart rate in the 60s, 97% on 2 L of oxygen.White blood cell count 4.3, hemoglobin 12.0, platelet count 241. Sodium 133, potassium 3.2, BUN 6 and creatinine 0.4. Objective - Vital Signs Vital signs: Vital Signs Temp 97.8 F 07/10/18 08:00 Pulse 63 07/10/18 08:00 Resp 18 07/10/18 08:00 BP 119/54 07/10/18 08:00 Pulse Ox 97 07/10/18 08:00 Intake & Output 07/09/18 07/10/18 07/10/18 18:59 06:59 18:59 Intake Total 680 63 360 Balance 680 63 360 Weight 63.8 kg Intake: IV 200 Intake, IV Titration 63 Amount Sodium Chloride 0.9% 1, 63 000 ml In Empty Bag 1 bag @ 1 ML/KG/HR 56.699 mls/ hr IV .[id number] ONE Rx#: [id number] Oral 480 360 Other: Voiding Method Toilet Toilet Toilet # Voids 2 2 - Exam PHYSICAL EXAMINATION: GENERAL: 63-year-old female in no acute distress at the time of my examination HEENT: Head is atraumatic, normocephalic. Pupils equal, round. Sclera anicteric. Conjunctiva are clear. Mucous membranes of the mouth are moist. Neck is supple. There is no elevated jugular venous pressure. Left carotid bruit is heard. HEART EXAMINATION: Heart S1 and S2 with systolic murmur is heard at the base CHEST EXAMINATION: Lungs reveal improvement in air entry bilaterally. ABDOMEN: Soft, nontender. Bowel sounds are heard. No organomegaly noted. EXTREMITIES: 2+ peripheral pulses with no evidence of peripheral edema and no calf tenderness noted. Right radial site and right groin are soft, no evidence of any hematoma. NEUROLOGIC patient is awake, alert and oriented 3 . - Labs CBC & Chem 7: 07/10/18 06:09 07/10/18 06:09 Labs: Abnormal Lab Results - Last 24 Hours (Table) 07/09/18 07/09/18 07/09/18 Range/Units 12:30 12:30 22:00 APTT 70.2 H (22.0-30.0) sec Sodium 133 L (137-145) mmol/L Potassium (3.5-5.1) mmol/L Carbon Dioxide 19 L (22-30) mmol/L BUN (7-17) mg/dL Creatinine 0.46 L (0.52-1.04) mg/dL Glucose (74-99) mg/dL Calcium 8.1 L (8.4-10.2) mg/dL Total Protein 6.1 L (6.3-8.2) g/dL Albumin 3.3 L (3.5-5.0) g/dL Urine Blood Small H (Negative) Urine Mucus Rare H (None) /hpf 07/10/18 07/10/18 Range/Units 00:45 06:09 APTT 47.9 H (22.0-30.0) sec Sodium 133 L (137-145) mmol/L Potassium 3.2 L (3.5-5.1) mmol/L Carbon Dioxide 21 L (22-30) mmol/L BUN 6 L (7-17) mg/dL Creatinine 0.47 L (0.52-1.04) mg/dL Glucose 102 H (74-99) mg/dL Calcium 8.2 L (8.4-10.2) mg/dL Total Protein (6.3-8.2) g/dL Albumin (3.5-5.0) g/dL Urine Blood (Negative) Urine Mucus (None) /hpf Microbiology - Last 24 Hours (Table) 07/09/18 22:00 Urine Culture - Preliminary Urine,Clean Catch Assessment and Plan Plan: Assessment and plan #1 symptoms of a recent cough and chills, influenza A and B- #2 episode of diaphoresis with associated clamminess, nausea and lightheadedness. Abnormality in troponin noted, 0.1, 0.1, 0.08, 0.1. EKG shows a normal sinus rhythm with inferior Q waves suggestive of old inferior wall myocardial infarction #3 hypertension #4 strong family history of premature coronary artery disease #5 nicotine dependence Plan Patient underwent a cardiac catheterization yesterday which revealed severe triple-vessel coronary artery disease and she has been referred for coronary artery bypass grafting surgery.we'll replace her potassium today, optimize lung status and patient then will undergo coronary artery bypass grafting surgery. DNP note has been reviewed, I agree with a documented findings and plan of care. Patient was seen and examined.
--- NOTE | 2018-07-10 13:35 | P.PN ---
Subjective Progress Note Date: 07/10/18 Principal diagnosis: Severe triple vessel coronary artery disease, mild to moderately impaired left ventricular systolic function with EF 40-45%, elevation in troponins likely non- STEMI. Bilateral internal carotid artery stenosis 50-69%. Previous medical history of hypertension, TIA, uterine cancer, current tobacco dependence, moderate COPD with preoperative FEV1 57% of predicted, and family history of premature coronary artery disease. The patient was seen and examined with Dr. Ortega. She is currently sitting up in bed in no acute distress. Denies chest pain, shortness of breath. Remains in normal sinus rhythm, hemodynamically stable. All questions answered. Objective - Vital Signs Vital signs: Vital Signs Temp 98.1 F 07/10/18 12:15 Pulse 78 07/10/18 13:08 Resp 18 07/10/18 12:15 BP 128/63 07/10/18 12:15 Pulse Ox 94 L 07/10/18 12:15 Intake & Output 07/09/18 07/10/18 07/10/18 18:59 06:59 18:59 Intake Total 680 63 360 Balance 680 63 360 Weight 63.8 kg Intake: IV 200 Intake, IV Titration 63 Amount Sodium Chloride 0.9% 1, 63 000 ml In Empty Bag 1 bag @ 1 ML/KG/HR 56.699 mls/ hr IV .[id number] ONE Rx#: [id number] Oral 480 360 Other: Voiding Method Toilet Toilet Toilet # Voids 2 2 1 - Constitutional General appearance: Present: cooperative, no acute distress - Respiratory Details: Lungs sounds diminished bilaterally. Respirations even, nonlabored. Currently on room air with oxygen saturation 94%. Able to achieve 2000 mL with her incentive spirometry. Strong cough. - Cardiovascular Details: S1, S2 present. Regular rate and rhythm, sinus rhythm on telemetry. Palpable peripheral pulses bilaterally. No edema present. No calf pain or tenderness noted. - Gastrointestinal Gastrointestinal Comment(s): Abdomen soft, nontender, nondistended. Active sounds present 4 quadrants. Tolerating diet. - Genitourinary Genitourinary Comment(s): continues to void clear, yellow urine. - Integumentary Integumentary Comment(s): Skin is warm and dry with evidence of good perfusion. - Neurologic Neurologic: Present: CNII-XII intact - Musculoskeletal Musculoskeletal: Present: gait normal, strength equal bilaterally - Psychiatric Psychiatric: Present: A&O x's 3, appropriate affect, intact judgment & insight - Allied health notes Allied health notes reviewed: nursing - Labs CBC & Chem 7: 07/10/18 06:09 07/10/18 06:09 Labs: Abnormal Lab Results - Last 24 Hours (Table) 07/09/18 07/10/18 07/10/18 Range/Units 22:00 00:45 06:09 APTT 47.9 H (22.0-30.0) sec Sodium 133 L (137-145) mmol/L Potassium 3.2 L (3.5-5.1) mmol/L Carbon Dioxide 21 L (22-30) mmol/L BUN 6 L (7-17) mg/dL Creatinine 0.47 L (0.52-1.04) mg/dL Glucose 102 H (74-99) mg/dL Calcium 8.2 L (8.4-10.2) mg/dL Urine Blood Small H (Negative) Urine Mucus Rare H (None) /hpf Microbiology - Last 24 Hours (Table) 07/09/18 22:00 Urine Culture - Preliminary Urine,Clean Catch - Imaging and Cardiology Chest x-ray: report reviewed, image reviewed Results of carotid Dopplers, lower extremity vein mapping and upper extremity arterial mapping were reviewed with Dr. Ortega Assessment and Plan Assessment: 1. Severe triple-vessel coronary artery disease 2. Mild to moderately impaired left ventricular systolic function with EF 40- 45% 3. Elevation troponins, likely non-STEMI 4. Hypertension 5. Bilateral internal carotid artery stenosis 50-69% 6. History of TIA 7. History of uterine cancer 8. Current tobacco dependence 9. Moderate COPD with preoperative FEV1 57% of predicted 10. Significant family history of premature coronary artery disease Plan: 1. Continue maximizing medical therapy with aspirin, statin, ARB, aldactone, beta brianda therapy. 2. Encourage smoking cessation. Encourage incentive spirometry use 10 times every hour while awake. 3. Continue to reinforce preoperative teaching. 4. Our plan is for coronary artery bypass graft surgery with left internal mammary artery and left radial artery harvest by Dr. Ortega next 07/15/2018. 5. Continue medical therapy per primary care, cardiology services. 6. Increase activity, ambulate in hallway. 7. More recommendations to follow. Time with Patient: Greater than 30
--- NOTE | 2018-07-10 15:06 | P.CNPUL ---
History of Present Illness Consult date: 07/10/18 Requesting physician: Juvencio Meneses Reason for consult: dyspnea, COPD, other (Preop evaluation for CABG) Chief complaint: Near syncope, dyspnea History of present illness: This is a very pleasant 63-year-old female patient who follows with Dr. Gonzalez as her primary care physician. She has a history of hypertension and chronic and ongoing tobacco dependence of 40+ years at 1 pack per day. She has not been seen by a design engineer marine equipment in the past. No home oxygen. No home inhalers. 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 On 07/08/2018 she was getting ready for work she broke out in a cold sweat and had a funny sensation across her chest and developed some shortness of breath. She drove herself to [place] emergency room where she was found to have elevated troponins and was transferred here for further evaluation. She had undergone cardiac catheterization yesterday and was found to have significant triple- vessel disease and impaired left ventricular systolic function with ejection fraction of 40%. There was inferior wall hypokinesia. She has been recommended coronary artery bypass surgery. She is seen today in consultation on the selective care unit. She is awake and alert in no acute distress. She denies any chest pain, palpitations lightheadedness or dizziness. No shortness of breath, cough or congestion. She is maintaining O2 saturations in the 90s on room air. She's afebrile. Hemodynamically stable. Chest x-ray reveals evidence of chronic obstructive pulmonary disease but no acute pulmonary process. Bedside spirometry readings are pending. She has been educated regarding the incentive spirometer. She is on bronchodilators. A NicoDerm patch is in place. Review of Systems REVIEW OF SYSTEMS: CONSTITUTIONAL: Denies any recent significant weight loss or weight gain. EYES: Denies change in vision. EARS, NOSE, MOUTH, THROAT: Denies headaches, denies sore throat. CARDIOVASCULAR: Denies chest pain, palpitations or syncopal episodes. RESPIRATORY: Positive for shortness of breath, cough, congestion no hemoptysis. GASTROINTESTINAL: Denies change in appetite, denies abdominal pain GENITOURINARY: Denies hematuria, denies infections. MUSKULOSKELETAL: Denies pain, denies swelling. INTEGUMENTARY: Denies rash, denies eczema. NEUROLOGICAL: Episode of near-syncope suspect cardiac in nature Denies recent memory loss, no recent seizure activity. PSYCHIATRIC: Denies anxiety, denies depression. HEMATOLOGIC/LYMPHATIC: Denies anemia, denies enlarged lymph nodes. Past Medical History Past Medical History: CVA/TIA, Hypertension Additional Past Medical History / Comment(s): Uterine Cancer, TIA History of Any Multi-Drug Resistant Organisms: None Reported Past Surgical History: Section, Cholecystectomy, Hysterectomy Additional Past Surgical History / Comment(s): Oophorectomy (laterality unknown to pt) d/t large benign tumor. Past Anesthesia/Blood Transfusion Reactions: No Reported Reaction Additional Past Anesthesia/Blood Transfusion Reaction / Comment(s): Pt has clausterphobia Past Psychological History: No Psychological Hx Reported Smoking Status: Current every day smoker Past Alcohol Use History: None Reported Past Drug Use History: None Reported - Past Family History Father Family Medical History: Myocardial Infarction ([place]) Additional Family Medical History / Comment(s): Father at the age of 45yrs from a [place]. He also had carotid artery disease. Mother Family Medical History: Liver Disease Additional Family Medical History / Comment(s): Mother had nonalcholic cirrhosis of the liver. Daughter(s) Family Medical History: Coronary Artery Disease (CAD), Myocardial Infarction ([place]) Additional Family Medical History / Comment(s): One daughter at 38 and one at 42, both from myocardial infarction Medications and Allergies Home Medications Medication Instructions Recorded Confirmed Type Acetaminophen Tab [Tylenol Tab] 1,000 mg PO Q6HR PRN 07/08/18 07/08/18 History Valsartan/Hydrochlorothiazide 1 tab PO DAILY 07/08/18 07/08/18 History [Diovan Hct 160-25 mg Tablet] Vitamin B Complex 1 cap PO DAILY 07/08/18 07/08/18 History Allergies Allergy/AdvReac Type Severity Reaction Status Date / Time No Known Allergies Allergy Unverified 07/08/18 12:34 Physical Exam Vitals: Vital Signs Temp Pulse Pulse Pulse Resp BP Pulse Ox 07/10/18 13:08 78 07/10/18 12:55 78 07/10/18 12:15 98.1 F 67 16 128/63 94 L 07/10/18 08:00 97.8 F 63 18 119/54 97 07/10/18 05:38 65 07/10/18 05:28 64 07/10/18 03:05 98.1 F 57 L 16 134/66 94 L 07/10/18 00:00 98.8 F 62 67 18 128/70 95 07/09/18 21:35 62 07/09/18 21:17 64 07/09/18 20:00 98.4 F 62 69 19 134/75 93 L 07/09/18 17:13 60 07/09/18 17:04 98 07/09/18 16:56 60 07/09/18 16:05 62 62 16 150/86 95 07/09/18 15:05 61 16 147/86 95 Intake and Output 07/09/18 07/10/18 07/10/18 22:59 06:59 14:59 Intake Total 480 63 360 Balance 480 63 360 Intake: Intake, IV Titration 63 Amount Sodium Chloride 0.9% 1, 63 000 ml In Empty Bag 1 bag @ 1 ML/KG/HR 56.699 mls/ hr IV .[id number] ONE Rx#: [id number] Oral 480 360 Other: Voiding Method Toilet Toilet Toilet # Voids 2 1 Weight 63.8 kg GENERAL EXAM: Alert, active, comfortable in no apparent distress. On room air. HEAD: Normocephalic. EYES: Normal reaction of pupils, equal size. NOSE: Clear with pink turbinates. THROAT: No erythema or exudates. NECK: No masses, no JVD. CHEST: No chest wall deformity. LUNGS: Equal air entry with no crackles, wheeze, rhonchi or dullness. Diminished. CVS: S1 and S2 normal with no audible murmur, regular rhythm. ABDOMEN: No hepatosplenomegaly, normal bowel sounds, no guarding or rigidity. SPINE: No scoliosis or deformity SKIN: No rashes CENTRAL NERVOUS SYSTEM: No focal deficits, tone is normal in all 4 extremities. EXTREMITIES: There is no peripheral edema. No clubbing, no cyanosis. Peripheral pulses are intact. Results - Laboratory Findings CBC and BMP: 07/10/18 06:09 07/10/18 06:09 PT/INR, D-dimer PT 10.2 sec (9.0-12.0) 07/09/18 12:30 INR 0.9 (<1.2) 07/09/18 12:30 Abnormal lab findings: Abnormal Labs 07/08/18 07/08/18 07/08/18 12:00 19:01 19:01 APTT 40.9 H Sodium Potassium Carbon Dioxide BUN Creatinine Glucose Calcium Troponin I 0.107 H* 0.089 H* Total Protein Albumin HDL Cholesterol Urine Blood Urine Mucus 07/09/18 07/09/18 07/09/18 00:13 03:47 03:47 APTT 45.6 H Sodium Potassium Carbon Dioxide BUN Creatinine Glucose Calcium Troponin I 0.103 H* Total Protein Albumin HDL Cholesterol 33 L Urine Blood Urine Mucus 07/09/18 07/09/18 07/09/18 12:30 12:30 22:00 APTT 70.2 H Sodium 133 L Potassium Carbon Dioxide 19 L BUN Creatinine 0.46 L Glucose Calcium 8.1 L Troponin I Total Protein 6.1 L Albumin 3.3 L HDL Cholesterol Urine Blood Small H Urine Mucus Rare H 07/10/18 07/10/18 00:45 06:09 APTT 47.9 H Sodium 133 L Potassium 3.2 L Carbon Dioxide 21 L BUN 6 L Creatinine 0.47 L Glucose 102 H Calcium 8.2 L Troponin I Total Protein Albumin HDL Cholesterol Urine Blood Urine Mucus - Diagnostic Findings Chest x-ray: image reviewed Assessment and Plan Assessment: Impression: #1 Near syncope with shortness of breath suspect secondary to significant triple-vessel coronary artery disease found on cardiac catheterization yesterday . Plan is for revascularization. #2 Chronic and ongoing tobacco dependence with suspected chronic obstructive pulmonary disease, untreated in the outpatient setting. #3 Recent upper respiratory infection influenza screen negative. #4 Strong family history of coronary artery disease. #5 Hypertension. Plan: The patient was seen and evaluated by Dr. Mcleod. Chest x-ray and labs were reviewed. She remains on DuoNeb inhalations. Educated regarding the use of the incentive spirometer. Bedside spirometry is pending. Thus far no clear contraindications to surgery. She is educated regarding the importance of complete smoking cessation. NicoDerm patch is in place. We will continue to fo llow and make further recommendations based on her clinical status. I, the cosigning physician, performed a history & physical examination of the patient. Lungs sounds are clear, diminished. Maintaining good O2 saturations in the 90s on room air. I discussed the assessment and plan of care with my nurse practitioner, Gniny Carranza. I attest to the above note as dictated by her. Time with Patient: Greater than 30
[2018-07-10] MEDS: MUPIROCIN 2% OINT 22 GM TUBE NASAL SCH ×2 (16:59→20:35)
[2018-07-10] MEDS: HEPARIN SOD,PORK IN 0.45% NACL 25,000 UNIT in 0.45% NACL 1 250ML.BAG IV SCH (17:00)
[2018-07-10] MEDS ORDERED: HEPARIN SODIUM,PORCINE 5,000 UNIT/ML 1 ML VIAL IV PRN (18:48)
[2018-07-10] MEDS ORDERED: HEPARIN SODIUM,PORCINE 5,000 UNIT/ML 1 ML VIAL IV ONE (18:56)
[2018-07-10] MEDS ORDERED: HEPARIN SOD,PORK IN 0.45% NACL 25,000 UNIT in 0.45% NACL 1 250ML.BAG IV SCH (19:00)
[2018-07-10 19:14] LABS: INR 0.9 (<1.2); Prothrombin Time 9.7 sec (9.0-12.0)
[2018-07-10] MEDS: LOSARTAN 50 MG TAB PO SCH (20:35)
--- NOTE | 2018-07-10 20:44 | HP ---
HISTORY AND PHYSICAL ADDENDUM TO HISTORY AND PHYSICAL: DATE OF ADMISSION: 07/08/2018 ADDENDUM: Patient's H&P dictated on 07/09/2018 at 12:30. The correct date of service is 07/09/2018. MMODL / IJN: [id number] /
--- NOTE | 2018-07-10 20:44 | PN ---
PROGRESS NOTE DATE OF SERVICE: 07/10/2018 PRESENTING COMPLAINT: Short of breath. INTERVAL HISTORY: This patient presented with acute non-Q-wave GA. Cardiac cath showed severe triple- vessel disease. The patient has underlying COPD, is a smoker, pending coronary artery bypass. Sitting up. Breathing is stable. REVIEW OF SYSTEMS: Done for constitutional, cardiovascular, GI, pulmonary; relevant findings as above. CURRENT MEDICATIONS: Reviewed. They include: 1. DuoNeb. 2. Aspirin. 3. Lipitor. 4. IV heparin. 5. Aldactone. PHYSICAL EXAMINATION: Temperature 97.8, pulse 80, respirations 16, blood pressure 114/69. GENERAL APPEARANCE: Sitting up. Awake. EYES: Pupils equal. Conjunctivae normal. NECK: JVD not raised. Mass not palpable. RESPIRATORY: Effort normal. LUNGS: Decreased breath sounds. CARDIOVASCULAR: First and second sounds normal. No edema. ABDOMEN: Soft, non-tender. Liver and spleen not palpable. PSYCHIATRY: Alert and oriented x3. Mood and affect normal. INVESTIGATIONS: Potassium 3.2, BUN 6, creatinine 0.47. Hepatitis screen is negative. ASSESSMENT: 1. Acute non-Q-wave myocardial infarction. 2. Severe triple-vessel coronary artery disease, pending coronary artery bypass. 3. Chronic obstructive pulmonary disease in a current smoker. 4. Chronic nicotine dependence. Patient is a cigarette smoker. 5. Essential hypertension. PLAN: Continue current medication and treatment plan. Await coronary artery bypass. MMAUGUSTO / JAQUELINE: [id number] /
[2018-07-11] MEDS: HEPARIN SOD,PORK IN 0.45% NACL 25,000 UNIT in 0.45% NACL 1 250ML.BAG IV SCH (03:44)
[2018-07-11 07:30] LABS: Basophils % (A) 0 %; Eosinophils # (A) 0.1 k/uL (0-0.7); Eosinophils % (A) 1 %; HCT 32.1 % (34.0-46.0); HGB 10.5 gm/dL (11.4-16.0); Lymphocytes # (A) 2.2 k/uL (1.0-4.8); Lymphocytes % (A) 35 %; MCH 29.9 pg (25.0-35.0); MCHC 32.9 g/dL (31.0-37.0); Mean Platelet Volume 7.6; Monocytes # (A) 0.3 k/uL (0-1.0); Monocytes % (A) 5 %; Neutrophils # (A) 3.5 k/uL (1.3-7.7); Neutrophils % (A) 57 %; Platelet Count 216 k/uL (150-450); RBC 3.53 m/uL (3.80-5.40); RDW 13.2 % (11.5-15.5); WBC 6.2 k/uL (3.8-10.6)
[2018-07-11 07:43] LABS: Anion Gap 9 mmol/L; Blood Urea Nitrogen 5 mg/dL (7-17); Calcium 8.3 mg/dL (8.4-10.2); Carbon Dioxide 20 mmol/L (22-30); Chloride 103 mmol/L (98-107); Glucose 99 mg/dL (74-99); Potassium 3.7 mmol/L (3.5-5.1); Sodium 132 mmol/L (137-145)
[2018-07-11] MEDS: IPRATROPIUM-ALBUTEROL 3 ML NEB INHALATION SCH ×4 (08:47→20:58)
--- NOTE | 2018-07-11 08:53 | US ---
EXAMINATION TYPE: US lower ext pseudo artery RT DATE OF EXAM: 07/11/2018 COMPARISON: NONE CLINICAL HISTORY: hematoma post cath . Right groin edema, pain s/p right groin cath 2 days ago EXAM PERFORMED: Grayscale and color Doppler duplex imaging performed of the groin, post cardiac samia ter to assess for pseudoaneurysm. SIDE PERFORMED: Right Color and Waveform Doppler performed to assess for the presence of pseudoaneurysm Much edema within right groin, difficult to visualize vessels Two areas visualized near puncture site, one hypoechoic non-vascular area= 2.2 x 1.6 x 2.2 cm/ Another area just inferior where puncture site is there appears to be a pseudo with to-fro flow Is there evidence of AV shunting: No IMPRESSION: There is too small hypoechoic areas which are nonvascular the largest measuring 2.2 cm suggestive of a hematoma. There is a small questionable area of pseudoaneurysm along the inferior margin the puncture site catherine cent to the common femoral artery.
--- NOTE | 2018-07-11 09:06 | P.PN ---
Subjective Progress Note Date: 07/11/18 Principal diagnosis: Severe triple vessel coronary artery disease, mild to moderately impaired left ventricular systolic function with EF 40-45%, elevation in troponins likely non- STEMI. Bilateral internal carotid artery stenosis 50-69%. Previous medical history of hypertension, TIA, uterine cancer in 1984, current tobacco dependence, moderate COPD with preoperative FEV1 57% of predicted, history of pneumonia, and family history of premature coronary artery disease. Patient currently laying in bed in no acute distress. Did develop hematoma this morning in her right femoral artery cardiac catheterization site and has been on bedrest with FemoStop in place. Does complain of back discomfort from laying flat for the last few hours, denies any shortness of breath. Open heart teaching reinforce, no new questions. Objective - Vital Signs Vital signs: Vital Signs Temp 98.8 F 07/11/18 07:55 Pulse 69 07/11/18 07:55 Resp 20 07/11/18 08:14 BP 135/83 07/11/18 07:55 Pulse Ox 95 07/11/18 07:55 Intake & Output 07/10/18 07/11/18 07/11/18 18:59 06:59 18:59 Intake Total 360 257.091 Output Total 800 Balance -440 257.091 Weight 63.8 kg Intake: Intake, IV Titration 137.091 Amount Heparin Sod,Pork in 0.45% 137.091 NaCl 25,000 unit In 0.45 % NaCl 1 250ml.bag @ 12 UNITS/KG/HR 6.804 mls/hr IV .Q24H [facility] Rx#: [id number] Oral 360 120 Output: Urine 800 Other: Voiding Method Toilet Toilet Toilet # Voids 1 - Constitutional General appearance: Present: cooperative, no acute distress - Respiratory Details: Lungs sounds diminished bilaterally. Respirations even, nonlabored. Currently on room air with oxygen saturation 95%. Able to achieve 2000 mL with her incentive spirometry. Strong cough. - Cardiovascular Details: S1, S2 present. Regular rate and rhythm, sinus rhythm on telemetry. Palpable peripheral pulses bilaterally. No edema present. No calf pain or tenderness noted. - Gastrointestinal Gastrointestinal Comment(s): Abdomen soft, nontender, nondistended. Active sounds present 4 quadrants. Tolerating diet. - Genitourinary Genitourinary Comment(s): continues to void clear, yellow urine. - Integumentary Integumentary Comment(s): Skin is warm and dry with evidence of good perfusion. Right groin ecchymotic, soft. - Neurologic Neurologic: Present: CNII-XII intact - Musculoskeletal Musculoskeletal: Present: strength equal bilaterally - Psychiatric Psychiatric: Present: A&O x's 3, appropriate affect, intact judgment & insight - Allied health notes Allied health notes reviewed: nursing - Labs CBC & Chem 7: 07/11/18 07:00 07/11/18 07:00 Labs: Abnormal Lab Results - Last 24 Hours (Table) 07/10/18 07/11/18 07/11/18 Range/Units 18:30 00:41 07:00 RBC 3.53 L (3.80-5.40) m/uL Hgb 10.5 L (11.4-16.0) gm/dL Hct 32.1 L (34.0-46.0) % APTT 51.0 H 128.2 H* (22.0-30.0) sec Sodium (137-145) mmol/L Carbon Dioxide (22-30) mmol/L BUN (7-17) mg/dL Creatinine (0.52-1.04) mg/dL Calcium (8.4-10.2) mg/dL 07/11/18 Range/Units 07:00 RBC (3.80-5.40) m/uL Hgb (11.4-16.0) gm/dL Hct (34.0-46.0) % APTT (22.0-30.0) sec Sodium 132 L (137-145) mmol/L Carbon Dioxide 20 L (22-30) mmol/L BUN 5 L (7-17) mg/dL Creatinine 0.46 L (0.52-1.04) mg/dL Calcium 8.3 L (8.4-10.2) mg/dL Microbiology - Last 24 Hours (Table) 07/10/18 08:50 Nasal Screen MRSA/MSSA - Preliminary Nasal Swab Assessment and Plan Assessment: 1. Severe triple-vessel coronary artery disease 2. Mild to moderately impaired left ventricular systolic function with EF 40- 45% 3. Elevation troponins, likely non-STEMI 4. Hypertension 5. Bilateral internal carotid artery stenosis 50-69% 6. History of TIA 7. History of uterine cancerin 1984 8. Current tobacco dependence 9. Moderate COPD with preoperative FEV1 57% of predicted 10. Remote history of pneumonia 11. Significant family history of premature coronary artery disease Plan: 1. Continue maximizing medical therapy with aspirin, statin, ARB, aldactone, beta brianda therapy. 2. Encourage smoking cessation. Encourage incentive spirometry use 10 times every hour while awake. 3. Bronchodilators per pulmonology. 4. Continue to reinforce preoperative teaching. 5. Our plan is for coronary artery bypass graft surgery with left internal mammary artery and radial artery harvest by Dr. Ortega next 07/15/2018. 6. Continue medical therapy per primary care, cardiology services. 7. Increase activity, ambulate in hallway when off bed rest. 8. More recommendations to follow. Time with Patient: Greater than 30
[2018-07-11] MEDS ORDERED: HYDROcodone/APAP 5-325MG 1 EACH TAB PO STA (09:27)
[2018-07-11] MEDS: METOPROLOL TARTRATE 12.5 MG TAB PO SCH ×2 (11:50→20:06)
[2018-07-11] MEDS: ATORVASTATIN 80 MG TAB PO SCH (11:50)
[2018-07-11] MEDS: ASPIRIN 81 MG PO SCH (11:51)
[2018-07-11] MEDS: SPIRONOLACTONE 25 MG TAB PO SCH (11:51)
[2018-07-11] MEDS: NICOTINE 21MG/24HR PATCH TRANSDERM SCH (11:52)
[2018-07-11] MEDS: MUPIROCIN 2% OINT 22 GM TUBE NASAL SCH ×2 (11:52→20:06)
--- NOTE | 2018-07-11 12:15 | P.PN ---
Subjective Progress Note Date: 07/11/18 This is a pleasant 63-year-old female with family history of premature coronary artery disease, she states that her father had a myocardial infarction in his 40s, she has also unfortunately lost 2 daughters one at the age of 38 and 1 at the age of 42 who both had myocardial infarctions, recently the patient has been told to have hypertension, prior TIA, she does not follow regularly with the physician. She denies any diabetes or hyperlipidemia, she does smoke a pack of cigarettes per day. 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 According to the patient, she states that over the weekend she had a cough and mild chills, yesterday morning, patient was getting ready to go to work and became extremely diaphoretic, had cold sweats, with associated lightheadedness and mild nausea. She denies any chest discomfort, and her breathing overall was unchanged from her normal. Patient went to [facility], influenza A and B were negative. White blood cell count 5.4, hemoglobin 14.2, platelet count 310, sodium 128, potassium 3.4, BUN 10 creatinine 0.7, UA was negative. Troponin 0.124. Chest x-ray was performed at [place] which revealed small area trace amount of fluid, no evidence of infiltrate or vascular decompensation. EKG performed on arrival here showed a normal sinus rhythm with inferior Q waves suggestive of old inferior wall myocardial infarction. EKG performed on arrival here showed a marked sinus bradycardia with inferior Q waves. Troponins 0.10, 0.08 .10 on arrival here. At the time of my examination this morning, patient denies any chest discomfort, she continues to have a cough. 07/10/2018 Patient underwent a cardiac catheterization yesterday which revealed significant triple vessel disease with an ejection fraction of 40% with inferior wall hypokinesia and mild mitral regurgitation. Surgical consultation has been requested. Pulmonary consultation has also been requested. Patient was seen and examined this morning denies any chest pain or difficulty in breathing. Cough is improving.blood pressure 120/50 with a heart rate in the 60s, 97% on 2 L of oxygen.White blood cell count 4.3, hemoglobin 12.0, platelet count 241. Sodium 133, potassium 3.2, BUN 6 and creatinine 0.4. 07/11/2018 Patient was seen and examined this morning, she had developed a hematoma in the right groin earlier this morning requiring pressure to be held for about 20 minutes. A FemoStop was then applied. An ultrasound of the groin was performed this morning which revealed suggestion of a hematoma, there is also a small questionable area of pseudoaneurysm along the inferior margin of the puncture site adjacent to the common femoral artery. Dr. Nicole William's recommendation was to continue with the FemoStop for 4 hours, ultrasound of the groin to be repeated tomorrow morning and if necessary thrombin injection. We'll also repeat a CBC in the morning. hemoglobin today is 10.5, platelet count 216. Sodium 132, potassium 3.7, BUN 5 and creatinine 0.4. IV heparin has been discontinued. Objective - Vital Signs Vital signs: Vital Signs Temp 98.8 F 07/11/18 07:55 Pulse 69 07/11/18 07:55 Resp 20 07/11/18 08:14 BP 135/83 07/11/18 07:55 Pulse Ox 95 07/11/18 07:55 Intake & Output 07/10/18 07/11/18 07/11/18 18:59 06:59 18:59 Intake Total 360 257.091 Output Total 800 Balance -440 257.091 Weight 63.8 kg Intake: Intake, IV Titration 137.091 Amount Heparin Sod,Pork in 0.45% 137.091 NaCl 25,000 unit In 0.45 % NaCl 1 250ml.bag @ 12 UNITS/KG/HR 6.804 mls/hr IV .Q24H [facility] Rx#: [id number] Oral 360 120 Output: Urine 800 Other: Voiding Method Toilet Toilet Toilet # Voids 1 - Exam PHYSICAL EXAMINATION: GENERAL: 63-year-old female in no acute distress at the time of my examination HEENT: Head is atraumatic, normocephalic. Pupils equal, round. Sclera anicteric. Conjunctiva are clear. Mucous membranes of the mouth are moist. Neck is supple. There is no elevated jugular venous pressure. Left carotid bruit is heard. HEART EXAMINATION: Heart S1 and S2 with systolic murmur is heard at the base CHEST EXAMINATION: Lungs reveal improvement in air entry bilaterally. ABDOMEN: Soft, nontender. Bowel sounds are heard. No organomegaly noted. EXTREMITIES: 2+ peripheral pulses with no evidence of peripheral edema and no calf tenderness noted. Right groin does show presence of a hematoma, positive bruit, positive ecchymosis NEUROLOGIC patient is awake, alert and oriented 3 . - Labs CBC & Chem 7: 07/11/18 07:00 07/11/18 07:00 Labs: Abnormal Lab Results - Last 24 Hours (Table) 07/10/18 07/11/18 07/11/18 Range/Units 18:30 00:41 07:00 RBC 3.53 L (3.80-5.40) m/uL Hgb 10.5 L (11.4-16.0) gm/dL Hct 32.1 L (34.0-46.0) % APTT 51.0 H 128.2 H* (22.0-30.0) sec Sodium (137-145) mmol/L Carbon Dioxide (22-30) mmol/L BUN (7-17) mg/dL Creatinine (0.52-1.04) mg/dL Calcium (8.4-10.2) mg/dL 07/11/18 Range/Units 07:00 RBC (3.80-5.40) m/uL Hgb (11.4-16.0) gm/dL Hct (34.0-46.0) % APTT (22.0-30.0) sec Sodium 132 L (137-145) mmol/L Carbon Dioxide 20 L (22-30) mmol/L BUN 5 L (7-17) mg/dL Creatinine 0.46 L (0.52-1.04) mg/dL Calcium 8.3 L (8.4-10.2) mg/dL Microbiology - Last 24 Hours (Table) 07/10/18 08:50 Nasal Screen MRSA/MSSA - Preliminary Nasal Swab Assessment and Plan Plan: Assessment and plan #1 symptoms of a recent cough and chills, influenza A and B- #2 episode of diaphoresis with associated clamminess, nausea and lightheadedn ess. Abnormality in troponin noted, 0.1, 0.1, 0.08, 0.1. EKG shows a normal sinus rhythm with inferior Q waves suggestive of old inferior wall myocardial infarction #3 hypertension #4 strong family history of premature coronary artery disease #5 nicotine dependence Plan Patient underwent a cardiac catheterization which revealed severe triple-vessel coronary artery disease and she has been referred for coronary artery bypass grafting surgery. She developed a right groin hematoma this morning, ultrasound shows a small pseudoaneurysm. Recommendation from Dr. Nicole William is to continue the Femstop for 4 hours. Repeat the ultrasound of the groin in the morning, if a pseudoaneurysm remains, attempt thrombin injection. Repeat CBC in the morning. DNP note has been reviewed, I agree with a documented findings and plan of care. Patient was seen and examined.
--- NOTE | 2018-07-11 15:50 | P.PN ---
Subjective Progress Note Date: 07/11/18 Principal diagnosis: Near syncopal episode in a patient found to have significant triple-vessel coronary artery disease. This is a very pleasant 63-year-old female patient who follows with Dr. Gonzalez as her primary care physician. She has a history of hypertension and chronic and ongoing tobacco dependence of 40+ years at 1 pack per day. She has not been seen by a electronic commerce specialist in the past. No home oxygen. No home inhalers. 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 On 07/08/2018 she was getting ready for work she broke out in a cold sweat and had a funny sensation across her chest and developed some shortness of breath. She drove herself to [facility] emergency room where she was found to have elevated troponins and was transferred here for further evaluation. She had undergone cardiac catheterization yesterday and was found to have significant triple- vessel disease and impaired left ventricular systolic function with ejection fraction of 40%. There was inferior wall hypokinesia. She has been recommended coronary artery bypass surgery. She is seen today in consultation on the selective care unit. She is awake and alert in no acute distress. She denies any chest pain, palpitations lightheadedness or dizziness. No shortness of breath, cough or congestion. She is maintaining O2 saturations in the 90s on room air. She's afebrile. Hemodynamically stable. Chest x-ray reveals evidence of chronic obstructive pulmonary disease but no acute pulmonary process. Bedside spirometry readings are pending. She has been educated regarding the incentive spirometer. She is on bronchodilators. A NicoDerm patch is in place. The patient is seen today to July 11 2018 in follow-up on the selective care unit. She is currently awake and alert in no acute distress. She did have issues with her right groin pain and was found to have a hematoma with a small questionable area of pseudoaneurysm. FemStop is currently in paced. Otherwise no chest pain. No shortness of breath, cough or congestion. She continues to maintain good O2 saturations in the mid 90s on room air. She's been afebrile. Bedside spirometry did reveal moderate COPD with FEV1 value 1.3 L or 58% of predicted. This leaves her at moderate operative risk. White count 6.2. Hem oglobin 10.5. Creatinine 0.46. She remains on heparin drip. NicoDerm patch is in place. Objective - Vital Signs Vital signs: Vital Signs Temp 97.8 F 07/11/18 12:56 Pulse 95 07/11/18 12:56 Resp 19 07/11/18 12:56 BP 169/81 07/11/18 12:56 Pulse Ox 95 07/11/18 12:56 Intake & Output 07/10/18 07/11/18 07/11/18 18:59 06:59 18:59 Intake Total 360 257.091 Output Total 800 Balance -440 257.091 Weight 63.8 kg Intake: Intake, IV Titration 137.091 Amount Heparin Sod,Pork in 0.45% 137.091 NaCl 25,000 unit In 0.45 % NaCl 1 250ml.bag @ 12 UNITS/KG/HR 6.804 mls/hr IV .Q24H [facility] Rx#: [id number] Oral 360 120 Output: Urine 800 Other: Voiding Method Toilet Toilet Toilet # Voids 1 - Exam GENERAL EXAM: Alert, active, comfortable in no apparent distress. On room air. HEAD: Normocephalic. EYES: Normal reaction of pupils, equal size. NOSE: Clear with pink turbinates. THROAT: No erythema or exudates. NECK: No masses, no JVD. CHEST: No chest wall deformity. LUNGS: Equal air entry with no crackles, wheeze, rhonchi or dullness. CVS: S1 and S2 normal with no audible murmur, regular rhythm. ABDOMEN: No hepatosplenomegaly, normal bowel sounds, no guarding or rigidity. SPINE: No scoliosis or deformity SKIN: No rashes CENTRAL NERVOUS SYSTEM: No focal deficits, tone is normal in all 4 extremities. EXTREMITIES: FemStop to right groin hematoma. There is no peripheral edema. No clubbing, no cyanosis. Peripheral pulses are intact. - Labs CBC & Chem 7: 07/11/18 07:00 07/11/18 07:00 Labs: Abnormal Lab Results - Last 24 Hours (Table) 07/10/18 07/11/18 07/11/18 Range/Units 18:30 00:41 07:00 RBC 3.53 L (3.80-5.40) m/uL Hgb 10.5 L (11.4-16.0) gm/dL Hct 32.1 L (34.0-46.0) % APTT 51.0 H 128.2 H* (22.0-30.0) sec Sodium (137-145) mmol/L Carbon Dioxide (22-30) mmol/L BUN (7-17) mg/dL Creatinine (0.52-1.04) mg/dL Calcium (8.4-10.2) mg/dL 07/11/18 Range/Units 07:00 RBC (3.80-5.40) m/uL Hgb (11.4-16.0) gm/dL Hct (34.0-46.0) % APTT (22.0-30.0) sec Sodium 132 L (137-145) mmol/L Carbon Dioxide 20 L (22-30) mmol/L BUN 5 L (7-17) mg/dL Creatinine 0.46 L (0.52-1.04) mg/dL Calcium 8.3 L (8.4-10.2) mg/dL Microbiology - Last 24 Hours (Table) 07/10/18 08:50 Nasal Screen MRSA/MSSA - Preliminary Nasal Swab Assessment and Plan Assessment: Impression: #1 Near syncope with shortness of breath suspect secondary to significant triple-vessel coronary artery disease found on cardiac catheterization yest kerri. Plan is for revascularization on 07/15/2018. #2 Chronic and ongoing tobacco dependence with chronic obstructive pulmonary disease, untreated in the outpatient setting. FEV1 value 1.3 L/58% of predicted. Moderate operative risk. #3 Recent upper respiratory infection influenza screen negative. #4 Strong family history of coronary artery disease. #5 Hypertension. Plan: The patient was seen and evaluated by Dr. Mcleod. Plenty function testing reviewed. The patient is at moderate operative risk with FEV1 value 1.3 L/58% of predicted. She remains on DuoNeb inhalations. Add Pulmicort and Perforomist inhalations. Educated regarding the use of the incentive spirometer. She is aga in educated regarding the importance of complete smoking cessation. NicoDerm patch is in place. We will continue to follow and make further recommendations based on her clinical status. I, the cosigning physician, performed a history & physical examination of the patient. Lungs sounds are clear, diminished. Maintaining good O2 saturations in the 90s on room air. I discussed the assessment and plan of care with my nurse practitioner, Ginny Carranza. I attest to the above note as dictated by her.
--- NOTE | 2018-07-11 17:56 | P.PN ---
Subjective on-call hospitalist covering Dr. Meneses this is a pleasant 63 years old female with past medical history of CVA/TIA, hypertension, uterine cancer, hysterectomy.presents with lightheadedness and sweating. She had a mildly elevated troponin. Cardiac cath showed severe triple-vessel disease however her course was complicated by right groin pseudoaneurysm. Patient has been evaluated by vascular surgery for CABG on Sunday. patient currently lying in bed not in distress. no chest pain. Vitas is stable.hemoglobin is 10.5.and creatinine is 0.4 Objective - Vital Signs Vital signs: Vital Signs Temp 98.2 F 07/11/18 16:00 Pulse 68 07/11/18 17:05 Resp 16 07/11/18 17:05 BP 166/79 07/11/18 16:00 Pulse Ox 94 L 07/11/18 16:54 Intake & Output 07/10/18 07/11/18 07/11/18 18:59 06:59 18:59 Intake Total 360 257.091 Output Total 800 Balance -440 257.091 Weight 63.8 kg Intake: Intake, IV Titration 137.091 Amount Heparin Sod,Pork in 0.45% 137.091 NaCl 25,000 unit In 0.45 % NaCl 1 250ml.bag @ 12 UNITS/KG/HR 6.804 mls/hr IV .Q24H [facility] Rx#: [id number] Oral 360 120 Output: Urine 800 Other: Voiding Method Toilet Toilet Toilet # Voids 1 1 # Bowel Movements 1 - Exam GENERAL: The patient is alert and oriented x3, not in any acute distress. Well developed, well nourished. HEENT: Pupils are round and equally reacting to light. EOMI. No scleral icterus. No conjunctival pallor. Normocephalic, atraumatic. No pharyngeal erythema. No thyromegaly. CARDIOVASCULAR: S1 and S2 present. No murmurs, rubs, or gallops. PULMONARY: Chest is clear to auscultation, no wheezing or crackles. ABDOMEN: Soft, nontender, nondistended, normoactive bowel sounds. No palpable organomegaly. MUSCULOSKELETAL: No joint swelling or deformity. -EXTREMITIES: No cyanosis, clubbing, or pedal edema. right groin hematoma NEUROLOGICAL: Gross neurological examination did not reveal any focal deficits. SKIN: No rashes. - Labs CBC & Chem 7: 07/11/18 07:00 07/11/18 07:00 Labs: Abnormal Lab Results - Last 24 Hours (Table) 07/10/18 07/11/18 07/11/18 Range/Units 18:30 00:41 07:00 RBC 3.53 L (3.80-5.40) m/uL Hgb 10.5 L (11.4-16.0) gm/dL Hct 32.1 L (34.0-46.0) % APTT 51.0 H 128.2 H* (22.0-30.0) sec Sodium (137-145) mmol/L Carbon Dioxide (22-30) mmol/L BUN (7-17) mg/dL Creatinine (0.52-1.04) mg/dL Calcium (8.4-10.2) mg/dL 07/11/18 Range/Units 07:00 RBC (3.80-5.40) m/uL Hgb (11.4-16.0) gm/dL Hct (34.0-46.0) % APTT (22.0-30.0) sec Sodium 132 L (137-145) mmol/L Carbon Dioxide 20 L (22-30) mmol/L BUN 5 L (7-17) mg/dL Creatinine 0.46 L (0.52-1.04) mg/dL Calcium 8.3 L (8.4-10.2) mg/dL Microbiology - Last 24 Hours (Table) 07/10/18 08:50 Nasal Screen MRSA/MSSA - Preliminary Nasal Swab Assessment and Plan Assessment: non-STEMI severe coronary triple vessel disease. Patient planned to undergo coronary artery bypass grafting by vascular surgery mild systolic dysfunction with ejection fraction 40-45% history of coronary artery disease History of CVA/TIA Essential hypertension uterine cancer Plan: this is a pleasant 63 years old female who presents with coronary triple-vessel disease. Plan to have coronary artery bypass grafting on Sunday by vascular surgery.continue with aspirin, heparin drip. Continue with beta brianda, spironolactone and nicotine patch.Labs and medication were reviewed.. Continue same treatment. Continue with symptomatic treatment. Resume home medication. Monitor lytes and vitals. DVT and GI prophylaxis. Further recommendations of the clinical course of the patient DVT prophylaxis: heparin GI Prophylaxis: Pepcid Prognosis is guarded
--- NOTE | 2018-07-11 18:19 | P.PN ---
Subjective Progress Note Date: 07/11/18 Interval history: This a 63-year-old female admitted with near syncope, found to have significant triple vessel CAD and multiple other medical issues, in a patient with family history of CAD. Yesterday he underwent cardiac catheterization revealing significant triple vessel disease with EF 40%, inferior wall hypokinesia. This morning developed right groin hematoma, denies abdominal pain. FemoStop applied. Groin ultrasound suggestive small pseudoaneurysm. Heparin drip discontinued. Hemoglobin 10.5 , platelets 216 .Evaluated by cardiothoracic surgery, scheduled for CABG on Sunday. Objective - Vital Signs Vital signs: Vital Signs Temp 98.2 F 07/11/18 16:00 Pulse 68 07/11/18 17:05 Resp 16 07/11/18 17:05 BP 166/79 07/11/18 16:00 Pulse Ox 94 L 07/11/18 16:54 Intake & Output 07/10/18 07/11/18 07/11/18 18:59 06:59 18:59 Intake Total 360 257.091 Output Total 800 Balance -440 257.091 Weight 63.8 kg Intake: Intake, IV Titration 137.091 Amount Heparin Sod,Pork in 0.45% 137.091 NaCl 25,000 unit In 0.45 % NaCl 1 250ml.bag @ 12 UNITS/KG/HR 6.804 mls/hr IV .Q24H [facility] Rx#: [id number] Oral 360 120 Output: Urine 800 Other: Voiding Method Toilet Toilet Toilet # Voids 1 1 # Bowel Movements 1 - Exam PHYSICAL EXAM: VITAL SIGNS: As above GENERAL: Lying in bed with Femstop on, alert and oriented 3, no acute distress HEENT: Conjunctivae normal. eyes normal. NECK: No JVD. No thyroid enlargement. No LNs CARDIOVASCULAR: S1, S2 muffled. Systolic murmur. RESPIRATION: Breath sounds diminished in the bases. No rhonchi or crackles. No bronchial breathing. ABDOMEN: Soft, nontender . No guarding. no masses palpable. Bowel sounds heard. LEGS: No edema. no swelling . Right groin with Femstop present. Ecchymosis present. NERVOUS SYSTEM: Cranial N 2-12 grossly normal. Moves all 4 limbs. Diffuse weakness.No focal deficits. Skin: no ulcer no rash Joints: No active swelling. No inflammation. Lymphatic system. No LN neck axilla or groin. - Labs CBC & Chem 7: 07/11/18 07:00 07/11/18 07:00 Labs: Abnormal Lab Results - Last 24 Hours (Table) 07/10/18 07/11/18 07/11/18 Range/Units 18:30 00:41 07:00 RBC 3.53 L (3.80-5.40) m/uL Hgb 10.5 L (11.4-16.0) gm/dL Hct 32.1 L (34.0-46.0) % APTT 51.0 H 128.2 H* (22.0-30.0) sec Sodium (137-145) mmol/L Carbon Dioxide (22-30) mmol/L BUN (7-17) mg/dL Creatinine (0.52-1.04) mg/dL Calcium (8.4-10.2) mg/dL 07/11/18 Range/Units 07:00 RBC (3.80-5.40) m/uL Hgb (11.4-16.0) gm/dL Hct (34.0-46.0) % APTT (22.0-30.0) sec Sodium 132 L (137-145) mmol/L Carbon Dioxide 20 L (22-30) mmol/L BUN 5 L (7-17) mg/dL Creatinine 0.46 L (0.52-1.04) mg/dL Calcium 8.3 L (8.4-10.2) mg/dL Microbiology - Last 24 Hours (Table) 07/10/18 08:50 Nasal Screen MRSA/MSSA - Preliminary Nasal Swab Assessment and Plan Assessment: -Near syncope secondary to Severe triple vessel CAD, CABG pending -Pseudoaneurysm, small -Strong family history of CAD -Ongoing nicotine dependence -COPD -Essential hypertension- Plan: Continue on current medication regime ,monitoring and symptomatic treatment. Close monitoring of hemoglobin with repeat labs ordered for a.m. Groin ultrasound follow-up ordered for a.m. smoking cessation readdressed. Follow closely with multiple consults. The impression and plan of care has been dictated as directed. : I performed a history and examination of this patient, discussed the same with the dictator. I agree with the dictator's note ,documented as a scribe. Any additional findings or plans will be noted.
[2018-07-11] MEDS: FAMOTIDINE 20 MG/2 ML VIAL IV SCH (20:06)
[2018-07-11] MEDS: LOSARTAN 50 MG TAB PO SCH (20:06)
[2018-07-11] MEDS: FORMOTEROL FUMARATE 20 MCG/2 ML NEBU INHALATION SCH (20:58)
[2018-07-11] MEDS: BUDESONIDE 1 MG/2 ML NEBU INHALATION SCH (20:58)
[2018-07-12 07:04] LABS: Basophils % (A) 0 %; Eosinophils # (A) 0.1 k/uL (0-0.7); Eosinophils % (A) 1 %; HCT 32.8 % (34.0-46.0); HGB 11.1 gm/dL (11.4-16.0); Lymphocytes # (A) 1.6 k/uL (1.0-4.8); Lymphocytes % (A) 25 %; MCH 30.1 pg (25.0-35.0); MCHC 33.7 g/dL (31.0-37.0); MCV 89.3 fL (80.0-100.0); Mean Platelet Volume 7.2; Monocytes # (A) 0.4 k/uL (0-1.0); Monocytes % (A) 7 %; Neutrophils # (A) 4.1 k/uL (1.3-7.7); Neutrophils % (A) 65 %; Platelet Count 233 k/uL (150-450); RBC 3.67 m/uL (3.80-5.40); RDW 13.1 % (11.5-15.5); WBC 6.3 k/uL (3.8-10.6)
--- NOTE | 2018-07-12 08:05 | P.PN ---
Subjective Progress Note Date: 07/12/18 Principal diagnosis: Severe triple vessel coronary artery disease, mild to moderately impaired left ventricular systolic function with EF 40-45%, elevation in troponins likely non- STEMI. Bilateral internal carotid artery stenosis 50-69%. Previous medical history of hypertension, TIA, uterine cancer in 1984, current tobacco dependence, moderate COPD with preoperative FEV1 57% of predicted, history of pneumonia, and family history of premature coronary artery disease. Post c ardiac catheterization right groin hematoma, questionable small pseudoaneurysm. Patient currently laying in bed in no acute distress. Does complain of back discomfort from laying flat for the last few hours, denies chest pain, shortness of breath. Open heart teaching reinforce, no new questions. Currently receiving repeat ultrasound of the right groin for evaluation of hematoma/questionable small pseudoaneurysm. Patient has had repeated episodes of diarrhea. Appears quite frustrated. Objective - Vital Signs Vital signs: Vital Signs Temp 98.3 F 07/11/18 20:00 Pulse 74 07/12/18 03:36 Resp 16 07/12/18 03:36 BP 139/67 07/12/18 03:36 Pulse Ox 93 L 07/12/18 03:36 Intake & Output 07/11/18 07/12/18 07/12/18 18:59 06:59 18:59 Intake Total 360 Output Total 200 Balance 360 -200 Weight 73 kg Intake: Oral 360 Output: Urine 200 Other: Voiding Method Toilet Bedpan # Voids 1 3 # Bowel Movements 1 - Constitutional General appearance: Present: cooperative, no acute distress - Respiratory Details: Lungs sounds diminished bilaterally with coarse breath sounds in the bases. Respirations even, nonlabored. Currently on room air with oxygen saturation 93% . Able to achieve 1500 mL with her incentive spirometry. Strong cough. - Cardiovascular Details: S1, S2 present. Regular rate and rhythm, sinus rhythm on telemetry. Palpable peripheral pulses bilaterally. No edema present. No calf pain or tenderness noted. - Gastrointestinal Gastrointestinal Comment(s): Abdomen soft, nontender, nondistended. Active sounds present 4 quadrants. Tolerating diet. Positive multiple episodes of diarrhea. - Genitourinary Genitourinary Comment(s): Continues to void clear, yellow urine. - Integumentary Integumentary Comment(s): Skin is warm and dry with evidence of good perfusion. Right groin ecchymotic, soft. - Neurologic Neurologic: Present: CNII-XII intact - Musculoskeletal Musculoskeletal: Present: strength equal bilaterally - Psychiatric Psychiatric: Present: A&O x's 3, appropriate affect, intact judgment & insight - Allied health notes Allied health notes reviewed: nursing - Labs CBC & Chem 7: 07/12/18 06:46 07/11/18 07:00 Labs: Abnormal Lab Results - Last 24 Hours (Table) 07/12/18 Range/Units 06:46 RBC 3.67 L (3.80-5.40) m/uL Hgb 11.1 L (11.4-16.0) gm/dL Hct 32.8 L (34.0-46.0) % Microbiology - Last 24 Hours (Table) 07/09/18 22:00 Urine Culture - Final Urine,Clean Catch 07/10/18 08:50 Nasal Screen MRSA/MSSA - Final Nasal Swab - Imaging and Cardiology Ultrasound of right groin reviewed Assessment and Plan Assessment: 1. Severe triple-vessel coronary artery disease 2. Mild to moderately impaired left ventricular systolic function with EF 40- 45% 3. Elevation troponins, non-STEMI 4. Hypertension 5. Bilateral internal carotid artery stenosis 50-69% 6. History of TIA 7. History of uterine cancer in 1984 8. Current tobacco dependence 9. Moderate COPD with preoperative FEV1 57% of predicted 10. Remote history of pneumonia 11. Significant family history of premature coronary artery disease 12. Right groin hematoma post cardiac catheterization, questionable small pseudoaneurysm 13. Diarrhea Plan: 1. Continue maximizing medical therapy with aspirin, statin, ARB, aldactone, beta brianda therapy. 2. Encourage smoking cessation. Encourage incentive spirometry use 10 times every hour while awake. 3. Bronchodilators per pulmonology. 4. Continue to reinforce preoperative teaching. 5. Our plan is for coronary artery bypass graft surgery with left internal mamm wojciech artery, endovascular vein harvest by Dr. Ortega next 07/15/2018. STS risk score was calculated and discussed with patient. 6. Obtain C. diff sample. 7. Will follow ultrasound of right groin results. If the pseudoaneurysm present should obtain vascular consult. Will defer to cardiology. 8. Continue medical therapy per primary care, cardiology services. 9. Increase activity, ambulate in hallway when off bed rest. 10. More recommendations to follow. Time with Patient: Greater than 30
--- NOTE | 2018-07-12 08:33 | US ---
EXAMINATION TYPE: US lower ext pseudo artery RT DATE OF EXAM: 07/12/2018 COMPARISON: 07/11/2018 CLINICAL HISTORY: re evaluate right groin pseudoaneurysm. Re-evaluate right pseudoaneurysm, cardiac c ath 07/09/18 EXAM PERFORMED: Grayscale and color Doppler duplex imaging performed of the groin, post cardiac samia ter to assess for pseudoaneurysm. SIDE PERFORMED: right Color and Waveform Doppler performed to assess for the presence of pseudoaneurysm; Is there ultrasound evidence of a pseudoaneurysm: yes, right groin, suspect partially thrombosed wit h neck = 0.3cm Is there evidence of AV shunting: no Small hematoma measures up to 2.2 cm unchanged from the prior with additional smaller approximately 1 cm more superficial hematoma. IMPRESSION: Confirmation of a previously suspected small pseudoaneurysm with a narrow 3 mm neck suspected to be p artially thrombosed.
[2018-07-12] MEDS: BUDESONIDE 1 MG/2 ML NEBU INHALATION SCH ×2 (08:59→20:52)
[2018-07-12] MEDS: IPRATROPIUM-ALBUTEROL 3 ML NEB INHALATION SCH ×4 (08:59→20:52)
[2018-07-12] MEDS: FORMOTEROL FUMARATE 20 MCG/2 ML NEBU INHALATION SCH ×2 (08:59→20:52)
[2018-07-12] MEDS: SPIRONOLACTONE 25 MG TAB PO SCH (09:01)
[2018-07-12] MEDS: ATORVASTATIN 80 MG TAB PO SCH (09:01)
[2018-07-12] MEDS: ASPIRIN 81 MG PO SCH (09:01)
[2018-07-12] MEDS: METOPROLOL TARTRATE 12.5 MG TAB PO SCH ×2 (09:01→21:30)
[2018-07-12] MEDS: MUPIROCIN 2% OINT 22 GM TUBE NASAL SCH ×2 (09:01→21:30)
[2018-07-12] MEDS: FAMOTIDINE 20 MG/2 ML VIAL IV SCH ×2 (09:01→21:23)
[2018-07-12] MEDS: NICOTINE 21MG/24HR PATCH TRANSDERM SCH (09:01)
--- NOTE | 2018-07-12 10:58 | P.PN ---
Subjective Progress Note Date: 07/12/18 This is a pleasant 63-year-old female with family history of premature coronary artery disease, she states that her father had a myocardial infarction in his 40s, she has also unfortunately lost 2 daughters one at the age of 38 and 1 at the age of 42 who both had myocardial infarctions, recently the patient has been told to have hypertension, prior TIA, she does not follow regularly with the physician. She denies any diabetes or hyperlipidemia, she does smoke a pack of cigarettes per day. 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 According to the patient, she states that over the weekend she had a cough and mild chills, yesterday morning, patient was getting ready to go to work and became extremely diaphoretic, had cold sweats, with associated lightheadedness and mild nausea. She denies any chest discomfort, and her breathing overall was unchanged from her normal. Patient went to [facility], influenza A and B were negative. White blood cell count 5.4, hemoglobin 14.2, platelet count 310, sodium 128, potassium 3.4, BUN 10 creatinine 0.7, UA was negative. Troponin 0.124. Chest x-ray was performed at [facility] which revealed small area trace amount of fluid, no evidence of infiltrate or vascular decompensation. EKG performed on arrival here showed a normal sinus rhythm with inferior Q waves suggestive of old inferior wall myocardial infarction. EKG performed on arrival here showed a marked sinus bradycardia with inferior Q waves. Troponins 0.10, 0.08 .10 on arrival here. At the time of my examination this morning, patient denies any chest discomfort, she continues to have a cough. 07/10/2018 Patient underwent a cardiac catheterization yesterday which revealed significant triple vessel disease with an ejection fraction of 40% with inferior wall hypokinesia and mild mitral regurgitation. Surgical consultation has been requested. Pulmonary consultation has also been requested. Patient was seen and examined this morning denies any chest pain or difficulty in breathing. Cough is improving.blood pressure 120/50 with a heart rate in the 60s, 97% on 2 L of oxygen.White blood cell count 4.3, hemoglobin 12.0, platelet count 241. Sodium 133, potassium 3.2, BUN 6 and creatinine 0.4. 07/11/2018 Patient was seen and examined this morning, she had developed a hematoma in the right groin earlier this morning requiring pressure to be held for about 20 minutes. A FemoStop was then applied. An ultrasound of the groin was performed this morning which revealed suggestion of a hematoma, there is also a small questionable area of pseudoaneurysm along the inferior margin of the puncture site adjacent to the common femoral artery. Dr. Nicole William's recommendation was to continue with the FemoStop for 4 hours, ultrasound of the groin to be repeated tomorrow morning and if necessary thrombin injection. We'll also repeat a CBC in the morning. hemoglobin today is 10.5, platelet count 216. Sodium 132, potassium 3.7, BUN 5 and creatinine 0.4. IV heparin has been discontinued. 07/12/2018 Patient was seen and examined this morning, she does state that she slept better through the night last night. A repeat ultrasound of the groin was performed this morning which confirmed a previously suspected small pseudoaneurysm. An attempt is going to be made at compression with possible thrombin injection this morning. Patient has been having frequent loose stools every time she eats, denies abdominal discomfort this morning. Objective - Vital Signs Vital signs: Vital Signs Temp 98.3 F 07/11/18 20:00 Pulse 72 07/12/18 09:25 Resp 16 07/12/18 03:36 BP 139/67 07/12/18 03:36 Pulse Ox 93 L 07/12/18 03:36 Intake & Output 07/11/18 07/12/18 07/12/18 18:59 06:59 18:59 Intake Total 360 240 Output Total 200 Balance 360 -200 240 Weight 73 kg Intake: Oral 360 240 Output: Urine 200 Other: Voiding Method Toilet Bedpan # Voids 1 3 1 # Bowel Movements 1 1 - Exam PHYSICAL EXAMINATION: GENERAL: 63-year-old female in no acute distress at the time of my examination HEENT: Head is atraumatic, normocephalic. Pupils equal, round. Sclera anicteric. Conjunctiva are clear. Mucous membranes of the mouth are moist. Neck is supple. There is no elevated jugular venous pressure. Left carotid bruit is heard. HEART EXAMINATION: Heart S1 and S2 with systolic murmur is heard at the base CHEST EXAMINATION: Lungs reveal improvement in air entry bilaterally. ABDOMEN: Soft, nontender. Bowel sounds are heard. No organomegaly noted. EXTREMITIES: 2+ peripheral pulses with no evidence of peripheral edema and no calf tenderness noted. Right groin does show presence of a hematoma, positive bruit, positive ecchymosis NEUROLOGIC patient is awake, alert and oriented 3 . - Labs CBC & Chem 7: 07/12/18 06:46 07/11/18 07:00 Labs: Abnormal Lab Results - Last 24 Hours (Table) 07/12/18 Range/Units 06:46 RBC 3.67 L (3.80-5.40) m/uL Hgb 11.1 L (11.4-16.0) gm/dL Hct 32.8 L (34.0-46.0) % Microbiology - Last 24 Hours (Table) 07/09/18 22:00 Urine Culture - Final Urine,Clean Catch 07/10/18 08:50 Nasal Screen MRSA/MSSA - Final Nasal Swab Assessment and Plan Plan: Assessment and plan #1 symptoms of a recent cough and chills, influenza A and B- #2 episode of diaphoresis with associated clamminess, nausea and lightheadedness. Abnormality in troponin noted, 0.1, 0.1, 0.08, 0.1. EKG shows a normal sinus rhythm with inferior Q waves suggestive of old inferior wall myocardial infarction #3 hypertension #4 strong family history of premature coronary artery disease #5 nicotine dependence #6 diarrhea stools Plan Patient underwent a cardiac catheterization which revealed severe triple-vessel coronary artery disease and she has been referred for coronary artery bypass grafting surgery. She developed a right groin hematoma , repeat ultrasound continues to show a small pseudoaneurysm. An attempt will be made at compression and possible thrombin injection this morning. Stool will also be sent for C. diff. DNP note has been reviewed, I agree with a documented findings and plan of care. Patient was seen and examined.
[2018-07-12] MEDS ORDERED: MD COMMUNICATION TO PHARMACY 1 EACH MISC PO ONE (13:07)
--- NOTE | 2018-07-12 13:12 | P.CONS ---
History of Present Illness - Reason for Consult Consult date: 07/12/18 Diarrhea Requesting physician: Juvencio Meneses - History of Present Illness 63-year-old female admitted with near-syncope significant triple-vessel CAD total for CABG on Sunday. Consult requested for diarrhea. Patient states she's had 3-4 nonbloody intermittent loose bowel movements diarrhea since her 20s without colonoscopy evaluation. "I think it's IBS". Denies abdominal pain and weight loss hematemesis hematochezia or melena. Hemoglobin 11.1. White count 6.3. MCV 89. Platelet 233. No history of bowel surgeries. No history of known inflammatory bowel disease or colorectal cancers. Clostridium difficile testing requested. Status post heart catheterization with right groin hematoma pseudoaneurysm confirmed via ultrasound. Review of Systems Constitutional: Denies fever, chills, sweats, weight gain, or loss. HEENT: Negative for migraines, blurred vision or loss, earaches, drainage, tinnitus, oral mucosal lesions, dysphagia, or odynophagia. CARDIAC: Negative for chest pain, arrhythmias, or palpitation. RESPIRATORY: Negative for shortness of breath, hemoptysis, cough, or sputum production. GI: See HPI for pertinent findings. : Negative for hematuria, urgency, frequency, polyuria, or dysuria. GYNc: Denies possibility of . Negative vaginal discharge. MUSCULOSKELETAL: Negative for muscle aches, swelling, arthritis, and arthra lgias. NEUROLOGIC: Negative for stroke or TIA. ENDOCRINE: Negative for thyroid problems. SKIN: Negative for rash or itching. PSYCHIATRIC: Negative history for depression and anxiety Past Medical History Past Medical History: CVA/TIA, Hypertension Additional Past Medical History / Comment(s): Uterine Cancer, TIA History of Any Multi-Drug Resistant Organisms: None Reported Past Surgical History: Section, Cholecystectomy, Hysterectomy Additional Past Surgical History / Comment(s): Oophorectomy (laterality unknown to pt) d/t large benign tumor. Past Anesthesia/Blood Transfusion Reactions: No Reported Reaction Additional Past Anesthesia/Blood Transfusion Reaction / Comm: Pt has brandon sterphobia Past Psychological History: No Psychological Hx Reported Smoking Status: Current every day smoker Past Alcohol Use History: None Reported Past Drug Use History: None Reported - Past Family History Father Family Medical History: Myocardial Infarction ([place]) Additional Family Medical History / Comment(s): Father at the age of 45yrs from a [place]. He also had carotid artery disease. Mother Family Medical History: Liver Disease Additional Family Medical History / Comment(s): Mother had nonalcholic cirrhosis of the liver. Daughter(s) Family Medical History: Coronary Artery Disease (CAD), Myocardial Infarction ([place]) Additional Family Medical History / Comment(s): One daughter at 38 and one at 42, both from myocardial infarction Medications and Allergies Home Medications Medication Instructions Recorded Confirmed Type Acetaminophen Tab [Tylenol Tab] 1,000 mg PO Q6HR PRN 07/08/18 07/08/18 History Valsartan/Hydrochlorothiazide 1 tab PO DAILY 07/08/18 07/08/18 History [Diovan Hct 160-25 mg Tablet] Vitamin B Complex 1 cap PO DAILY 07/08/18 07/08/18 History Allergies Allergy/AdvReac Type Severity Reaction Status Date / Time No Known Allergies Allergy Unverified 07/08/18 12:34 Physical Exam Vitals: Vital Signs Temp Pulse Pulse Resp BP BP Pulse Ox 07/12/18 09:25 72 07/12/18 09:12 68 07/12/18 09:10 68 07/12/18 08:59 72 07/12/18 03:36 74 16 139/67 93 L 07/12/18 00:00 78 16 136/68 93 L 07/11/18 21:22 68 16 07/11/18 21:12 67 16 07/11/18 20:58 66 16 07/11/18 20:00 98.3 F 73 17 149/75 95 07/11/18 17:05 68 16 07/11/18 16:54 67 16 94 L 07/11/18 16:00 98.2 F 69 18 166/79 97 07/11/18 12:56 97.8 F 95 19 169/81 95 07/11/18 12:43 67 16 07/11/18 12:29 61 16 07/11/18 12:00 16 Intake and Output 07/11/18 07/12/18 07/12/18 22:59 06:59 14:59 Intake Total 360 240 Output Total 200 Balance 160 240 Intake: Oral 360 240 Output: Urine 200 Other: Voiding Method Bedpan # Voids 2 3 1 # Bowel Movements 1 1 Weight 73 kg General appearance: The patient is alert, oriented, in no acute distress. HET: Head is normocephalic and atraumatic. Pupils are equal and reactive. Oropharynx is clear without lesions. Neck: Supple without lymphadenopathy. Trachea midline. Heart: S1 S2. Regular rate and rhythm. Lungs: No crackles or wheezes are heard. Abdomen: Soft, nontender, nondistended with bowel sounds. No peritoneal signs. No palpable organomegaly or masses. Extremities: Right groin hematoma. Normal skin color and turgor. No cyanosis, rash, ulceration, clubbing, or edema. Radial and pedal pulses are 2/4 bilaterally. Neurological: No focal deficits. Strength and sensation are grossly intact. Results CBC & Chem 7: 07/12/18 06:46 07/11/18 07:00 Labs: Abnormal Lab Results - Last 24 Hours (Table) 07/12/18 Range/Units 06:46 RBC 3.67 L (3.80-5.40) m/uL Hgb 11.1 L (11.4-16.0) gm/dL Hct 32.8 L (34.0-46.0) % Microbiology - Last 24 Hours (Table) 07/09/18 22:00 Urine Culture - Final Urine,Clean Catch 07/10/18 08:50 Nasal Screen MRSA/MSSA - Final Nasal Swab Assessment and Plan (1) Chronic diarrhea Narrative/Plan: 63-year-old female with severe triple-vessel coronary disease scheduled for CABG on Sunday with a history of underlying chronic nonbloody diarrhea more than 30 years duration with no history of endoscopic evaluation. Differentials to consider but not excluded irritable bowel syndrome-D, inflammatory bowel disease, celiac sprue. Current Visit: Yes Status: Acute Code(s): K52.9 - NONINFECTIVE GASTROENTERITIS AND COLITIS, UNSPECIFIED SNOMED Code(s): 762391448 (2) Triple vessel coronary artery disease Current Visit: Yes Status: Acute Code(s): I25.10 - ATHSCL HEART DISEASE OF [place] CORONARY ARTERY W/O ANG PCTRS SNOMED Code(s): 251609817 (3) NSTEMI (non-ST elevated myocardial infarction) Current Visit: Yes Status: Acute Code(s): I21.4 - NON-ST ELEVATION (NSTEMI) MYOCARDIAL INFARCTION SNOMED Code(s): 82973467 Plan: 1. Clostridium difficile testing requested. Outpatient EGD colonoscopy advised after recovery from her open heart surgery. Patient states her intermittent loose bowel movements are functional not requiring antidiarrheals at this time. We'll obtain celiac sprue serology. Thank you for this kind referral and the opportunity to participate in the care of your patient. This consultation was discussed with Dr. Frost. The impression and plan of care have been directed as dictated.
--- NOTE | 2018-07-12 13:54 | US ---
EXAMINATION TYPE: US compress pseudoaneurysm RT DATE OF EXAM: 07/12/2018 COMPARISON: NONE CLINICAL HISTORY: see IR consult for ordering information. EXAM PERFORMED: Grayscale and color Doppler duplex imaging performed of the groin, post cardiac samia ter to assess for pseudoaneurysm. SIDE PERFORMED: Right Intermittent compression was performed over 35 minutes with the moderate of the pulses of the right l ower extremity. There is complete thrombosis of the pseudoaneurysm upon completion of the exam. Pulse s remained patent and unchanged from precompression scanning. IMPRESSION: Successful thrombosis of the right groin pseudoaneurysm with ultrasound compression
--- NOTE | 2018-07-12 17:55 | P.PN ---
Subjective Progress Note Date: 07/12/18 Interval history: This a 63-year-old female admitted with near syncope, found to have significant triple vessel CAD and multiple other medical issues, in a patient with family history of CAD. Yesterday he underwent cardiac catheterization revealing significant triple vessel disease with EF 40%, inferior wall hypokinesia. This morning developed right groin hematoma, denies abdominal pain. FemoStop applied. Groin ultrasound suggestive small pseudoaneurysm. Heparin drip discontinued. Hemoglobin 10.5 , platelets 216 .Evaluated by cardiothoracic surgery, scheduled for CABG on Sunday. 07/12/2018 reports chronic nonbloody diarrhea. Evaluated by GI and outpatient endoscopy planned. Repeat groin ultrasound performed, confirming small pseudoaneurysm. Ultrasound compression ordered. Denies any chest pain, palpitations or increasing shortness of breath. Objective - Vital Signs Vital signs: Vital Signs Temp 98.2 F 07/12/18 14:00 Pulse 78 07/12/18 14:00 Resp 18 07/12/18 15:26 BP 172/92 07/12/18 14:00 Pulse Ox 94 L 07/12/18 14:00 Intake & Output 07/11/18 07/12/18 07/12/18 18:59 06:59 18:59 Intake Total 360 480 Output Total 200 Balance 360 -200 480 Weight 73 kg Intake: Oral 360 480 Output: Urine 200 Other: Voiding Method Toilet Bedpan Bedpan # Voids 1 3 3 # Bowel Movements 1 3 - Exam PHYSICAL EXAM: VITAL SIGNS: As above GENERAL: alert and oriented 3, no acute distress HEENT: Conjunctivae normal. eyes normal. NECK: No JVD. No thyroid enlargement. No LNs CARDIOVASCULAR: S1, S2 muffled. Systolic murmur. RESPIRATION: Essentially clear, Breath sounds diminished in the bases. ABDOMEN: Soft, nontender . No guarding. no masses palpable. Bowel sounds heard. LEGS: No edema. no swelling . Right groin Ecchymosis present.POsitive pulses. NERVOUS SYSTEM: Cranial N 2-12 grossly normal. Moves all 4 limbs. Diffuse weakness.No focal deficits. Skin: no rash - Labs CBC & Chem 7: 07/12/18 06:46 07/11/18 07:00 Labs: Abnormal Lab Results - Last 24 Hours (Table) 07/12/18 Range/Units 06:46 RBC 3.67 L (3.80-5.40) m/uL Hgb 11.1 L (11.4-16.0) gm/dL Hct 32.8 L (34.0-46.0) % Microbiology - Last 24 Hours (Table) 07/09/18 22:00 Urine Culture - Final Urine,Clean Catch 07/10/18 08:50 Nasal Screen MRSA/MSSA - Final Nasal Swab Assessment and Plan Assessment: -Near syncope secondary to Severe triple vessel CAD, CABG pending. Inferior Q waves suggestive of old inferior wall [place] as per cardiology. -Pseudoaneurysm, small, ultrasound compression pending -Strong family history of CAD -Ongoing nicotine dependence -COPD -Essential hypertension- Plan: Continue on current medication regime ,monitoring and symptomatic treatmen t. Ultrasound compression pending. GI recommendations noted .smoking cessation readdressed. CABG scheduled for Sunday .Follow closely with multiple consults. The impression and plan of care has been dictated as directed. : I performed a history and examination of this patient, discussed the same with the dictator. I agree with the dictator's note ,documented as a scribe. Any additional findings or plans will be noted.
[2018-07-12] MEDS: HEPARIN SOD,PORK IN 0.45% NACL 25,000 UNIT in 0.45% NACL 1 250ML.BAG IV SCH (21:23)
[2018-07-12] MEDS: LOSARTAN 50 MG TAB PO SCH (21:30)
[2018-07-13 07:51] LABS: Basophils % (A) 0 %; Eosinophils # (A) 0.2 k/uL (0-0.7); Eosinophils % (A) 3 %; HCT 30.9 % (34.0-46.0); HGB 10.5 gm/dL (11.4-16.0); Lymphocytes # (A) 2.3 k/uL (1.0-4.8); Lymphocytes % (A) 35 %; MCH 30.3 pg (25.0-35.0); MCHC 33.9 g/dL (31.0-37.0); MCV 89.3 fL (80.0-100.0); Mean Platelet Volume 8.2; Monocytes # (A) 0.5 k/uL (0-1.0); Monocytes % (A) 8 %; Neutrophils # (A) 3.2 k/uL (1.3-7.7); Neutrophils % (A) 50 %; Platelet Count 245 k/uL (150-450); RBC 3.46 m/uL (3.80-5.40); RDW 13.4 % (11.5-15.5); WBC 6.5 k/uL (3.8-10.6)
[2018-07-13 08:06] LABS: Anion Gap 7 mmol/L; Blood Urea Nitrogen 6 mg/dL (7-17); Calcium 8.5 mg/dL (8.4-10.2); Carbon Dioxide 23 mmol/L (22-30); Chloride 105 mmol/L (98-107); Glucose 92 mg/dL (74-99); Potassium 3.7 mmol/L (3.5-5.1); Sodium 135 mmol/L (137-145)
--- NOTE | 2018-07-13 09:13 | US ---
EXAMINATION TYPE: US lower ext pseudo artery RT DATE OF EXAM: 07/13/2018 COMPARISON: NONE CLINICAL HISTORY: right groin pseudoaneurysm follow up after compression 07/12/2018 EXAM PERFORMED: Grayscale and color Doppler duplex imaging performed of the groin, post cardiac samia ter to assess for pseudoaneurysm. SIDE PERFORMED: Right Color and Waveform Doppler performed to assess for the presence of pseudoaneurysm; Is there ultrasound evidence of a pseudoaneurysm: No Is there evidence of AV shunting: No Is there a fluid collection present: NO Previous right groin pseudoaneurysm appears completely thrombosed on today's exam IMPRESSION: RESOLUTION OF THE PATIENT'S RIGHT-SIDED PSEUDOANEURYSM.
[2018-07-13] MEDS: ASPIRIN 81 MG PO SCH (09:15)
[2018-07-13] MEDS: MUPIROCIN 2% OINT 22 GM TUBE NASAL SCH ×2 (09:15→19:33)
[2018-07-13] MEDS: METOPROLOL TARTRATE 12.5 MG TAB PO SCH ×2 (09:15→19:32)
[2018-07-13] MEDS: SPIRONOLACTONE 25 MG TAB PO SCH (09:15)
[2018-07-13] MEDS: ATORVASTATIN 80 MG TAB PO SCH (09:15)
[2018-07-13] MEDS: FAMOTIDINE 20 MG/2 ML VIAL IV SCH ×2 (09:16→19:32)
[2018-07-13] MEDS: NICOTINE 21MG/24HR PATCH TRANSDERM SCH (09:16)
[2018-07-13] MEDS: HEPARIN SOD,PORK IN 0.45% NACL 25,000 UNIT in 0.45% NACL 1 250ML.BAG IV SCH ×2 (09:18→14:35)
--- NOTE | 2018-07-13 09:30 | P.PN ---
Subjective Progress Note Date: 07/13/18 Principal diagnosis: Severe triple vessel coronary artery disease, mild to moderately impaired left ventricular systolic function with an EF of 40-45%, elevation in troponins likel y non-STEMI. Bilateral internal carotid artery stenosis 50-69%. History of hypertension, TIA, uterine cancer in 1984, current tobacco dependence, moderate COPD with preoperative FEV1 57% of predicted, history of pneumonia, and a family history of premature coronary artery disease. Post cardiac catheterization right groin hematoma, with pseudoaneurysm. The patient is currently laying in bed in no acute distress. She denies any complaints of pain or shortness of breath at this time. The patient reports her right groin feels much improved today and denies any tenderness, post ultrasound compression to her right groin performed by interventional radiology. She denies any further episodes of diarrhea and reports that she did have a formed bowel movement this a.m. Preoperative teaching reinforced with the patient for open heart surgery on 07/15/2018. She is achieving 1500 mL on her incentive spirometry. Objective - Vital Signs Vital signs: Vital Signs Temp 97.9 F 07/13/18 04:00 Pulse 75 07/13/18 04:00 Resp 18 07/13/18 04:00 BP 150/85 07/13/18 04:00 Pulse Ox 97 07/13/18 04:00 Intake & Output 07/12/18 07/13/18 07/13/18 18:59 06:59 18:59 Intake Total 480 60 Output Total 500 125 Balance -20 -125 60 Weight 63.5 kg Intake: Oral 480 60 Output: Urine 500 125 Other: Voiding Method Bedpan Toilet # Voids 3 2 # Bowel Movements 3 - Constitutional General appearance: Present: cooperative, no acute distress, thin - Respiratory Details: Lungs sounds essentially clear throughout, dye house hand bilateral bases. Respirations are symmetrical and nonlabored. Oxygen saturation are 97% on room air. She is achieving 1500 mL on her incentive spirometry. - Cardiovascular Details: Regular rhythm and rate. S1 and S2 present, negative for S3, gallop or murmur. No edema present. Remote telemetry showing normal sinus rhythm heart rate 67. Sequential compression devices in place to bilateral lower extremities. - Gastrointestinal Gastrointestinal Comment(s): Abdomen is soft, nontender and nondistended. Active bowel sounds all 4 abdominal quadrants. Tolerating oral intake. No guarding or rigidity. Formed bowel movement this a.m. no diarrhea. - Genitourinary Genitourinary Comment(s): Voiding clear yellow urine. - Integumentary Integumentary Comment(s): Skin is warm and dry. No clubbing or cyanosis is present. Ecchymotic area to her right groin, soft and nontender. Small areas of ecchymosis to her bilateral upper extremities. - Neurologic Neurologic: Present: CNII-XII intact - Musculoskeletal Musculoskeletal: Present: gait normal, generalized weakness, strength equal bilaterally - Psychiatric Psychiatric: Present: A&O x's 3, appropriate affect, intact judgment & insight - Allied health notes Allied health notes reviewed: nursing - Labs CBC & Chem 7: 07/13/18 07:04 07/13/18 07:04 Labs: Abnormal Lab Results - Last 24 Hours (Table) 07/13/18 07/13/18 Range/Units 07:04 07:04 RBC 3.46 L (3.80-5.40) m/uL Hgb 10.5 L (11.4-16.0) gm/dL Hct 30.9 L (34.0-46.0) % Sodium 135 L (137-145) mmol/L BUN 6 L (7-17) mg/dL Creatinine 0.47 L (0.52-1.04) mg/dL Assessment and Plan Assessment: 1. Severe triple-vessel coronary artery disease. 2. Mild to moderately impaired left ventricular systolic function with an EF 40-45%. 3. Elevated troponins as high as 0.107, non-STEMI. 4. Hypertension. 5. Bilateral internal carotid artery stenosis 50-69%. 6. History of TIA. 7. History of uterine cancer in 1984. 8. Current tobacco dependence. 9. Moderate COPD with preoperative FEV1 57% of predicted value. 10. Remote history of pneumonia. 11. Significant family history of premature coronary artery disease. 12. Right groin hematoma post cardiac catheterization, with pseudoaneurysm. 13. Diarrhea, chronic in nature. Plan: 1. Continue maximizing medical therapy with aspirin, statin, ARB, aldactone and beta brianda. 2. Encourage smoking cessation, discussed the importance of smoking cessation. 3. Encourage use of her incentive spirometry 10 times every hour while awake. 4. Continue to reinforce preoperative teaching. 5. The patient is scheduled for coronary artery bypass grafting surgery with left internal mammary artery and endovascular vein harvest to be performed by Dr. Ortega on 07/15/2018. STS risk score was calculated and discussed with patient by Dr. Ortega. 6. Bronchodilators per pulmonology. 7. Stool for C. diff is pending. 8. Continue medical management per primary care, cardiology services. 9. Increase activity as tolerated, ambulate in hallway. 10. More recommendations to follow based on patient's clinical course. Time with Patient: Greater than 30
[2018-07-13] MEDS: FORMOTEROL FUMARATE 20 MCG/2 ML NEBU INHALATION SCH ×2 (11:03→21:04)
[2018-07-13] MEDS: BUDESONIDE 1 MG/2 ML NEBU INHALATION SCH ×2 (11:03→21:01)
[2018-07-13] MEDS: IPRATROPIUM-ALBUTEROL 3 ML NEB INHALATION SCH ×4 (11:04→21:01)
--- NOTE | 2018-07-13 11:06 | P.PN ---
Subjective Progress Note Date: 07/13/18 This is a pleasant 63-year-old female with family history of premature coronary artery disease, she states that her father had a myocardial infarction in his 40s, she has also unfortunately lost 2 daughters one at the age of 38 and 1 at the age of 42 who both had myocardial infarctions, recently the patient has been told to have hypertension, prior TIA, she does not follow regularly with the physician. She denies any diabetes or hyperlipidemia, she does smoke a pack of cigarettes per day. 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 According to the patient, she states that over the weekend she had a cough and mild chills, yesterday morning, patient was getting ready to go to work and became extremely diaphoretic, had cold sweats, with associated lightheadedness and mild nausea. She denies any chest discomfort, and her breathing overall was unchanged from her normal. Patient went to [facility], influenza A and B were negative. White blood cell count 5.4, hemoglobin 14.2, platelet count 310, sodium 128, potassium 3.4, BUN 10 creatinine 0.7, UA was negative. Troponin 0.124. Chest x-ray was performed at [place] which revealed small area trace amount of fluid, no evidence of infiltrate or vascular decompensation. EKG performed on arrival here showed a normal sinus rhythm with inferior Q waves suggestive of old inferior wall myocardial infarction. EKG performed on arrival here showed a marked sinus bradycardia with inferior Q waves. Troponins 0.10, 0.08 .10 on arrival here. At the time of my examination this morning, patient denies any chest discomfort, she continues to have a cough. 07/10/2018 Patient underwent a cardiac catheterization yesterday which revealed significant triple vessel disease with an ejection fraction of 40% with inferior wall hypokinesia and mild mitral regurgitation. Surgical consultation has been requested. Pulmonary consultation has also been requested. Patient was seen and examined this morning denies any chest pain or difficulty in breathing. Cough is improving.blood pressure 120/50 with a heart rate in the 60s, 97% on 2 L of oxygen.White blood cell count 4.3, hemoglobin 12.0, platelet count 241. Sodium 133, potassium 3.2, BUN 6 and creatinine 0.4. 07/11/2018 Patient was seen and examined this morning, she had developed a hematoma in the right groin earlier this morning requiring pressure to be held for about 20 minutes. A FemoStop was then applied. An ultrasound of the groin was performed this morning which revealed suggestion of a hematoma, there is also a small questionable area of pseudoaneurysm along the inferior margin of the puncture site adjacent to the common femoral artery. Dr. Nicole William's recommendation was to continue with the FemoStop for 4 hours, ultrasound of the groin to be repeated tomorrow morning and if necessary thrombin injection. We'll also repeat a CBC in the morning. hemoglobin today is 10.5, platelet count 216. Sodium 132, potassium 3.7, BUN 5 and creatinine 0.4. IV heparin has been discontinued. 07/12/2018 Patient was seen and examined this morning, she does state that she slept better through the night last night. A repeat ultrasound of the groin was performed this morning which confirmed a previously suspected small pseudoaneurysm. An attempt is going to be made at compression with possible thrombin injection this morning. Patient has been having frequent loose stools every time she eats, denies abdominal discomfort this morning. 07/13/2018 Patient was seen and examined this morning, overall doing well. Denies any chest pain and breathing is stable. Blood pressure 146/70 with a heart rate in the 80s, 95% on room air. White blood cell count 6.5, hemoglobin 10.5, platelet count 245. Sodium 135, potassium 3.7, BUN 6 and creatinine 0.4. Patient is wilbert eduled for coronary artery bypass grafting surgery on Sunday. Objective - Vital Signs Vital signs: Vital Signs Temp 97.9 F 07/13/18 04:00 Pulse 75 07/13/18 04:00 Resp 18 07/13/18 04:00 BP 150/85 07/13/18 04:00 Pulse Ox 97 07/13/18 04:00 Intake & Output 07/12/18 07/13/18 07/13/18 18:59 06:59 18:59 Intake Total 480 60 Output Total 500 125 Balance -20 -125 60 Weight 63.5 kg Intake: Oral 480 60 Output: Urine 500 125 Other: Voiding Method Bedpan Toilet # Voids 3 2 # Bowel Movements 3 - Exam PHYSICAL EXAMINATION: GENERAL: 63-year-old female in no acute distress at the time of my examination HEENT: Head is atraumatic, normocephalic. Pupils equal, round. Sclera anicteric. Conjunctiva are clear. Mucous membranes of the mouth are moist. Neck is supple. There is no elevated jugular venous pressure. Left carotid bruit is heard. HEART EXAMINATION: Heart S1 and S2 with systolic murmur is heard at the base CHEST EXAMINATION: Lungs reveal improvement in air entry bilaterally. ABDOMEN: Soft, nontender. Bowel sounds are heard. No organomegaly noted. EXTREMITIES: 2+ peripheral pulses with no evidence of peripheral edema and no calf tenderness noted. Right groin does show presence ecchymosis, no hematoma, no bruit NEUROLOGIC patient is awake, alert and oriented 3 . - Labs CBC & Chem 7: 07/13/18 07:04 07/13/18 07:04 Labs: Abnormal Lab Results - Last 24 Hours (Table) 07/13/18 07/13/18 Range/Units 07:04 07:04 RBC 3.46 L (3.80-5.40) m/uL Hgb 10.5 L (11.4-16.0) gm/dL Hct 30.9 L (34.0-46.0) % Sodium 135 L (137-145) mmol/L BUN 6 L (7-17) mg/dL Creatinine 0.47 L (0.52-1.04) mg/dL Assessment and Plan Plan: Assessment and plan #1 symptoms of a recent cough and chills, influenza A and B- #2 episode of diaphoresis with associated clamminess, nausea and lightheadedness. Abnormality in troponin noted, 0.1, 0.1, 0.08, 0.1. EKG shows a normal sinus rhythm with inferior Q waves suggestive of old inferior wall myocardial infarction #3 hypertension #4 strong family history of premature coronary artery disease #5 nicotine dependence #6 diarrhea stools Plan From cardiology's perspective, we would recommend to resume the Lasix at 800 mL per hour no bolus. Monitor daily hemoglobins. Patient is scheduled for coronary artery bypass grafting surgery on Sunday. We'll continue to follow DNP note has been reviewed, I agree with a documented findings and plan of care. Patient was seen and examined.
--- NOTE | 2018-07-13 11:27 | PN ---
PROGRESS NOTE DATE OF SERVICE: July 13, 2018 Patient is a 63-year-old pleasant white female who is presently in the hospital with severe triple-vessel coronary artery disease and acute PA. She is scheduled for a CABG this coming Sunday. In the meantime, the patient was complaining of intermittent diarrhea for the last 2 several years duration and hence we are consulted in regards to this issue. This morning, the patient today is very comfortable and states that she had 1 solid bowel movement today. No diarrhea. In the past, she has been having intermittent diarrhea, usually 3 to 4 bowel movements once or twice a week and she often now thinks this is related to irritable bowel syndrome. She was never investigated in the past for the chronic diarrhea. She denies any rectal bleeding. No abdominal pain. No nausea, vomiting. PHYSICAL EXAMINATION: Appears comfortable. No apparent distress. Vital signs are stable. Blood pressure is 146/72, pulse 88, temperature 97. HEENT examination remarkable. Conjunctivae pink. Sclerae anicteric. Oral cavity no lesions. Neck no jugular venous distention or lymph node enlargement. Chest was clear to auscultation. HEART: Regular rate and rhythm. ABDOMEN: Soft, nontender. Bowel sounds are positive. No organomegaly. Extremities: No pedal edema. Skin no rashes. NEUROLOGIC: Alert and oriented x3. No focal deficits. LABORATORY DATA: Lab from today WBC 6.2, hemoglobin 10.5, platelets are normal. Basic metabolic panel is within normal limits. IMPRESSION: 1. Chronic intermittent diarrhea almost 30 years duration with no other alarming symptoms. Most likely, she has irritable bowel syndrome but this was not investigated in the past. 2. Coronary artery disease/acute myocardial infarction. The patient is scheduled for coronary artery bypass grafting this coming Sunday. RECOMMENDATIONS: In regard to the chronic diarrhea we can give her Imodium as needed if she has loose bowel movements as per once she is discharged from the hospital, she can follow up on an outpatient basis at which time, we will consider further workup including a colonoscopy. The plan was discussed with the patient. She is agreeable to it. At this time, we will sign off. Please call us if needed. Thank you for this consultation. MMODL / IJN: [id number] /
[2018-07-13 13:02] LABS: INR 0.9 (<1.2); Partial Thromboplastin Time 22.2 sec (22.0-30.0); Prothrombin Time 9.7 sec (9.0-12.0)
--- NOTE | 2018-07-13 16:18 | P.PN ---
Subjective on-call hospitalist covering Dr. Meneses this is a pleasant 63 years old female with past medical history of CVA/TIA, hypertension, uterine cancer, hysterectomy.presents with lightheadedness and sweating. She had a mildly elevated troponin. Cardiac cath showed severe triple-vessel disease however her course was complicated by right groin pseudoaneurysm. Patient has been evaluated by vascular surgery for CABG on Sunday. patient currently lying in bed not in distress. no chest pain. Vitas is stable.hemoglobin is 10.5.and creatinine is 0.4 07/13/2018 Patient is without distress in bed. No chest pain or dyspnea.CBC and BMP without significant abnormality. Patient has been evaluated by display designer outside. She is planned to go for coronary angiography on Sunday Objective - Vital Signs Vital signs: Vital Signs Temp 97.8 F 07/13/18 12:00 Pulse 64 07/13/18 12:00 Resp 18 07/13/18 12:00 BP 126/69 07/13/18 12:00 Pulse Ox 94 L 07/13/18 12:00 Intake & Output 07/12/18 07/13/18 07/13/18 18:59 06:59 18:59 Intake Total 480 60 Output Total 500 125 Balance -20 -125 60 Weight 63.5 kg Intake: Oral 480 60 Output: Urine 500 125 Other: Voiding Method Bedpan Toilet Toilet # Voids 3 2 # Bowel Movements 3 - Exam GENERAL: The patient is alert and oriented x3, not in any acute distress. Well developed, well nourished. HEENT: Pupils are round and equally reacting to light. EOMI. No scleral icterus. No conjunctival pallor. Normocephalic, atraumatic. No pharyngeal erythema. No thyromegaly. CARDIOVASCULAR: S1 and S2 present. No murmurs, rubs, or gallops. PULMONARY: Chest is clear to auscultation, no wheezing or crackles. ABDOMEN: Soft, nontender, nondistended, normoactive bowel sounds. No palpable organomegaly. MUSCULOSKELETAL: No joint swelling or deformity. -EXTREMITIES: No cyanosis, clubbing, or pedal edema. right groin hematoma NEUROLOGICAL: Gross neurological examination did not reveal any focal deficits. SKIN: No rashes. - Labs CBC & Chem 7: 07/13/18 07:04 07/13/18 07:04 Labs: Abnormal Lab Results - Last 24 Hours (Table) 07/13/18 07/13/18 Range/Units 07:04 07:04 RBC 3.46 L (3.80-5.40) m/uL Hgb 10.5 L (11.4-16.0) gm/dL Hct 30.9 L (34.0-46.0) % Sodium 135 L (137-145) mmol/L BUN 6 L (7-17) mg/dL Creatinine 0.47 L (0.52-1.04) mg/dL Assessment and Plan Assessment: non-STEMI severe coronary triple vessel disease. Patient planned to undergo coronary artery bypass grafting by vascular surgery mild systolic dysfunction with ejection fraction 40-45% history of coronary artery disease History of CVA/TIA Essential hypertension uterine cancer Plan: this is a pleasant 63 years old female who presents with coronary triple-vessel disease. Plan to have coronary artery bypass grafting on Sunday by vascular surgery.continue with aspirin, heparin drip. Continue with beta brianda, spironolactone and nicotine patch.Labs and medication were reviewed.. Continue same treatment. Continue with symptomatic treatment. Resume home medication. Monitor lytes and vitals. DVT and GI prophylaxis. Further recommendations of the clinical course of the patient DVT prophylaxis: heparin GI Prophylaxis: Pepcid Prognosis is guarded
[2018-07-13] MEDS: LOSARTAN 50 MG TAB PO SCH (19:32)
[2018-07-13] MEDS: HEPARIN SODIUM,PORCINE 5,000 UNIT/ML 1 ML VIAL IV PRN (20:21)
[2018-07-14 03:04] LABS: Basophils # (A) 0.1 k/uL (0-0.2); Basophils % (A) 1 %; Eosinophils # (A) 0.4 k/uL (0-0.7); Eosinophils % (A) 4 %; HCT 30.6 % (34.0-46.0); Lymphocytes # (A) 3.5 k/uL (1.0-4.8); Lymphocytes % (A) 41 %; MCH 29.9 pg (25.0-35.0); MCHC 32.8 g/dL (31.0-37.0); Mean Platelet Volume 7.3; Monocytes # (A) 0.6 k/uL (0-1.0); Monocytes % (A) 7 %; Neutrophils # (A) 3.9 k/uL (1.3-7.7); Neutrophils % (A) 44 %; Platelet Count 300 k/uL (150-450); RBC 3.36 m/uL (3.80-5.40); RDW 13.2 % (11.5-15.5); WBC 8.7 k/uL (3.8-10.6)
[2018-07-14] MEDS: HEPARIN SODIUM,PORCINE 5,000 UNIT/ML 1 ML VIAL IV PRN (03:50)
[2018-07-14] MEDS: NICOTINE 21MG/24HR PATCH TRANSDERM SCH (08:38)
[2018-07-14] MEDS: ASPIRIN 81 MG PO SCH (08:38)
[2018-07-14] MEDS: FAMOTIDINE 20 MG/2 ML VIAL IV SCH ×2 (08:38→21:26)
[2018-07-14] MEDS: ATORVASTATIN 80 MG TAB PO SCH (08:38)
[2018-07-14] MEDS: METOPROLOL TARTRATE 12.5 MG TAB PO SCH ×2 (08:39→21:27)
[2018-07-14] MEDS: SPIRONOLACTONE 25 MG TAB PO SCH (08:39)
[2018-07-14] MEDS: MUPIROCIN 2% OINT 22 GM TUBE NASAL SCH ×2 (08:44→21:27)
[2018-07-14] MEDS: FORMOTEROL FUMARATE 20 MCG/2 ML NEBU INHALATION SCH ×2 (08:53→21:04)
[2018-07-14] MEDS: BUDESONIDE 1 MG/2 ML NEBU INHALATION SCH ×2 (08:53→21:04)
[2018-07-14] MEDS: IPRATROPIUM-ALBUTEROL 3 ML NEB INHALATION SCH ×4 (08:53→21:04)
--- NOTE | 2018-07-14 09:31 | P.PN ---
Subjective Progress Note Date: 07/14/18 Principal diagnosis: Severe triple vessel coronary artery disease, mild to moderately impaired left ventricular systolic function with an EF of 40-45%, elevation in troponins likel y non-STEMI. Bilateral internal carotid artery stenosis 50-69%. History of hypertension, TIA, uterine cancer in 1984, current tobacco dependence, moderate COPD with preoperative FEV1 57% of predicted, history of pneumonia, a family history of premature coronary artery disease and a history of diarrhea. Post cardiac catheterization right groin hematoma, with pseudoaneurysm. The patient is currently ambulating in her room. She is in no acute distress. She denies any complaints of pain or shortness of breath. Room air oxygen saturations are 96% and she is achieving 1500 mL on her incentive spirometry. Denies any further complaints of diarrhea. She remains afebrile. Questions answered regarding her open heart surgery scheduled for tomorrow 07/15/2018. Reviewed preoperative instructions with the patient. Heparin drip infusing per protocol and will be turned off at 2 AM on 07/15/2018. Objective - Vital Signs Vital signs: Vital Signs Temp 98.1 F 07/14/18 08:00 Pulse 72 07/14/18 09:17 Resp 14 07/14/18 08:00 BP 135/64 07/14/18 08:00 Pulse Ox 92 L 07/14/18 08:00 Intake & Output 07/13/18 07/14/18 07/14/18 18:59 06:59 18:59 Intake Total 512 125.966 298.6 Output Total 850 Balance -338 125.966 298.6 Weight 59 kg Intake: Intake, IV Titration 8 125.966 68.6 Amount Heparin Sod,Pork in 0.45% 8 125.966 68.6 NaCl 25,000 unit In 0.45 % NaCl 1 250ml.bag @ 800 UNITS/HR 8 mls/hr IV . Q24H [facility] Rx#:[id number] Oral 504 230 Output: Urine 850 Other: Voiding Method Toilet Toilet # Voids 1 # Bowel Movements 1 - Constitutional General appearance: Present: cooperative, no acute distress, thin - Respiratory Details: Lung sounds essentially clear throughout, diminished bilateral bases. Respirations are symmetrical and nonlabored. Oxygen saturation are 96% on room air. She is achieving 1500 mL on her incentive spirometry. - Cardiovascular Details: Regular rhythm and rate. S1 and S2 present, negative for S3, gallop or murmur. Remote telemetry showing normal sinus rhythm heart rate 65. No edema present. Heparin drip remains infusing at 1400 units per hour. - Gastrointestinal Gastrointestinal Comment(s): Abdomen is soft, nontender and nondistended. Active bowel sounds all 4 abdominal quadrants. No guarding or rigidity. No organomegaly. No diarrhea. - Genitourinary Genitourinary Comment(s): Voiding clear yellow urine. - Integumentary Integumentary Comment(s): Skin is warm and dry. No clubbing or cyanosis is present. Right groin with ecchymosis, soft touch and slightly tender. Small areas of scattered ecchymosis to her bilateral upper extremities. - Neurologic Neurologic: Present: CNII-XII intact - Musculoskeletal Musculoskeletal: Present: gait normal, strength equal bilaterally - Psychiatric Psychiatric: Present: A&O x's 3, appropriate affect, intact judgment & insight - Allied health notes Allied health notes reviewed: nursing - Labs CBC & Chem 7: 07/14/18 02:38 07/13/18 07:04 Labs: Abnormal Lab Results - Last 24 Hours (Table) 07/14/18 07/14/18 07/14/18 Range/Units 02:38 02:38 07:12 RBC 3.36 L (3.80-5.40) m/uL Hgb 10.0 L (11.4-16.0) gm/dL Hct 30.6 L (34.0-46.0) % APTT 31.1 H 95.7 H (22.0-30.0) sec Assessment and Plan Assessment: 1. Severe triple-vessel coronary artery disease. 2. Mild to moderately impaired left ventricular systolic function with an EF 40-45%. 3. Elevated troponins as high as 0.107, non-STEMI. 4. Hypertension. 5. Bilateral internal carotid artery stenosis 50-69%. 6. History of TIA. 7. History of uterine cancer in 1984. 8. Current tobacco dependence. 9. Moderate COPD with preoperative FEV1 57% of predicted value. 10. Remote history of pneumonia. 11. Significant family history of premature coronary artery disease. 12. Right groin hematoma post cardiac catheterization, with pseudoaneurysm. 13. Diarrhea, chronic in nature. Plan: 1. Continue maximizing medical therapy with aspirin, statin, ARB, aldactone and beta brianda. 2. Encourage smoking cessation, discussed the importance of smoking cessation. 3. Encourage use of her incentive spirometry 10 times every hour while awake. 4. Continue to reinforce preoperative teaching. 5. The patient is scheduled for coronary artery bypass grafting surgery with left internal mammary artery and endovascular vein harvest to be performed by Dr. Ortega on 07/15/2018. STS risk score was calculated and discussed with patient by Dr. Ortega. 6. Bronchodilators per pulmonology. 7. Stool for C. diff is pending, uncollected. 8. Continue medical management per primary care, cardiology services. 9. Increase activity as tolerated, ambulate in hallway. 10. 5 m walk test completed: Time 1: 3.63 seconds, time 2: 3.15 seconds, time 3:3.17 seconds. 11. Ultrasound of her lower extremities performed yesterday, resolution of patient's right sided pseudoaneurysm. 12. Stop heparin drip at 2 AM 07/15/2018. 13. Nothing by mouth after midnight. 14. More recommendations to follow based on patient's clinical course. Time with Patient: Greater than 30
--- NOTE | 2018-07-14 10:41 | P.PN ---
Subjective This is a pleasant 63-year-old female past medical history significant for hypertension and chronic nicotine dependence. She is scheduled to undergo coronary artery bypass grafting tomorrow. She is seen and examined resting comfortably in bed in no acute distress. She denies symptoms of chest discomfort, shortness of breath, dizziness or palpitations. Right femoral access site is clean, dry and intact with evidence of significant ecchymosis. Blood pressure 135/64 heart rate 63 afebrile maintaining oxygen saturation on room air. Laboratory data reviewed, WBC 8.7, hemoglobin 10, platelets 300. Currently maintained on aspirin 81 mg daily, atorvastatin 80 mg daily, heparin infusion, metoprolol 12.5 mg twice a day, Aldactone 25 mg daily. GENERAL: Well-appearing, well-nourished and in no acute distress. NECK: Supple without JVD or thyromegaly. LUNGS: Breath sounds clear to auscultation bilaterally. Respiration equal and un labored. No wheezes, rales or rhonchi. Diminished bilaterally. HEART: Regular rate and rhythm without murmurs, rubs or gallops. S1 and S2 heard. EXTREMITIES: Normal range of motion, no edema. No clubbing or cyanosis. Peripheral pulses intact. Right femoral access site clean, dry and intact with ecchymosis noted. ASSESSMENT Non-ST elevated myocardial infarction Severe underlying triple-vessel coronary artery disease Systolic heart failure, ejection fraction 40-45% Ischemic cardiomyopathy Hypertension COPD History of TIA Chronic nicotine dependence PLAN Continue current medical regimen. We will continue to follow make recommendations accordingly. Nurse Practitioner note has been reviewed, I agree with a documented findings and plan of care. Patient was seen and examined. Objective - Vital Signs Vital signs: Vital Signs Temp 98.1 F 07/14/18 08:00 Pulse 72 07/14/18 09:17 Resp 14 07/14/18 08:00 BP 135/64 07/14/18 08:00 Pulse Ox 92 L 07/14/18 08:00 Intake & Output 07/13/18 07/14/18 07/14/18 18:59 06:59 18:59 Intake Total 512 125.966 298.6 Output Total 850 Balance -338 125.966 298.6 Weight 59 kg Intake: Intake, IV Titration 8 125.966 68.6 Amount Heparin Sod,Pork in 0.45% 8 125.966 68.6 NaCl 25,000 unit In 0.45 % NaCl 1 250ml.bag @ 800 UNITS/HR 8 mls/hr IV . Q24H [facility] Rx#:[id number] Oral 504 230 Output: Urine 850 Other: Voiding Method Toilet Toilet # Voids 1 # Bowel Movements 1 - Labs CBC & Chem 7: 07/14/18 02:38 07/13/18 07:04 Labs: Abnormal Lab Results - Last 24 Hours (Table) 07/14/18 07/14/18 07/14/18 Range/Units 02:38 02:38 07:12 RBC 3.36 L (3.80-5.40) m/uL Hgb 10.0 L (11.4-16.0) gm/dL Hct 30.6 L (34.0-46.0) % APTT 31.1 H 95.7 H (22.0-30.0) sec
[2018-07-14] MEDS: HEPARIN SOD,PORK IN 0.45% NACL 25,000 UNIT in 0.45% NACL 1 250ML.BAG IV SCH (16:28)
--- NOTE | 2018-07-14 17:11 | P.PN ---
Subjective on-call hospitalist covering Dr. Meneses this is a pleasant 63 years old female with past medical history of CVA/TIA, hypertension, uterine cancer, hysterectomy.presents with lightheadedness and sweating. She had a mildly elevated troponin. Cardiac cath showed severe triple-vessel disease however her course was complicated by right groin pseudoaneurysm. Patient has been evaluated by vascular surgery for CABG on Sunday. patient currently lying in bed not in distress. no chest pain. Vitas is stable.hemoglobin is 10.5.and creatinine is 0.4 07/13/2018 Patient is without distress in bed. No chest pain or dyspnea.CBC and BMP without significant abnormality. Patient has been evaluated by tank cleaner. She is planned to go for coronary angiography on Sunday07/14/2018 Patient lying in bed with no distress. No chest pain or dyspnea. She is hemodynamically stable. She's been followed by several consultants, including cardiology and pulmonary and gastroenterology.. Hemoglobin is stable. She remains on heparin drip Objective - Vital Signs Vital signs: Vital Signs Temp 98.0 F 07/14/18 15:19 Pulse 78 07/14/18 16:42 Resp 14 07/14/18 15:19 BP 116/59 07/14/18 15:19 Pulse Ox 96 07/14/18 15:19 Intake & Output 07/13/18 07/14/18 07/14/18 18:59 06:59 18:59 Intake Total 512 125.966 576.034 Output Total 850 400 Balance -338 125.966 176.034 Weight 59 kg Intake: Intake, IV Titration 8 125.966 124.034 Amount Heparin Sod,Pork in 0.45% 8 125.966 124.034 NaCl 25,000 unit In 0.45 % NaCl 1 250ml.bag @ 800 UNITS/HR 8 mls/hr IV . Q24H [facility] Rx#:[id number] Oral 504 452 Output: Urine 850 400 Other: Voiding Method Toilet Toilet # Voids 1 2 # Bowel Movements 1 - Exam GENERAL: The patient is alert and oriented x3, not in any acute distress. Well developed, well nourished. HEENT: Pupils are round and equally reacting to light. EOMI. No scleral icterus. No conjunctival pallor. Normocephalic, atraumatic. No pharyngeal erythema. No thyromegaly. CARDIOVASCULAR: S1 and S2 present. No murmurs, rubs, or gallops. PULMONARY: Chest is clear to auscultation, no wheezing or crackles. ABDOMEN: Soft, nontender, nondistended, normoactive bowel sounds. No palpable organomegaly. MUSCULOSKELETAL: No joint swelling or deformity. -EXTREMITIES: No cyanosis, clubbing, or pedal edema. right groin hematoma NEUROLOGICAL: Gross neurological examination did not reveal any focal deficits. SKIN: No rashes. - Labs CBC & Chem 7: 07/14/18 02:38 07/13/18 07:04 Labs: Abnormal Lab Results - Last 24 Hours (Table) 07/14/18 07/14/18 07/14/18 Range/Units 02:38 02:38 07:12 RBC 3.36 L (3.80-5.40) m/uL Hgb 10.0 L (11.4-16.0) gm/dL Hct 30.6 L (34.0-46.0) % APTT 31.1 H 95.7 H (22.0-30.0) sec Crossmatch 07/14/18 07/14/18 Range/Units 07:12 14:38 RBC (3.80-5.40) m/uL Hgb (11.4-16.0) gm/dL Hct (34.0-46.0) % APTT 39.9 H (22.0-30.0) sec Crossmatch See Detail Assessment and Plan Assessment: non-STEMI severe coronary triple vessel disease. Patient planned to undergo coronary artery bypass grafting by vascular surgery mild systolic dysfunction with ejection fraction 40-45% history of coronary artery disease History of CVA/TIA Essential hypertension uterine cancer Plan: this is a pleasant 63 years old female who presents with coronary triple-vessel disease. Plan to have coronary artery bypass grafting on Sunday by vascular surgery.continue with aspirin, heparin drip. Continue with beta brianda, spironolactone and nicotine patch.Labs and medication were reviewed.. Continue same treatment. Continue with symptomatic treatment. Resume home medication. Monitor lytes and vitals. DVT and GI prophylaxis. Further recommendations of the clinical course of the patient DVT prophylaxis: heparin GI Prophylaxis: Pepcid Prognosis is guarded
[2018-07-14 20:36] LABS: Glucose,Whole Blood 118 mg/dL (75-99)
[2018-07-14] MEDS: LOSARTAN 50 MG TAB PO SCH (21:27)
[2018-07-15] MEDS ORDERED: TRANEXAMIC ACID 2,000 MG in SODIUM CHLORIDE 0.9% 80 ML IV ONE (05:00)
[2018-07-15] MEDS ORDERED: DEXTROSE 5% IN WATER 1,000 ML with POTASSIUM CHLORIDE 25 MEQ, SODIUM CHLORIDE 2.5MEQ/ML... IV SCH ×6 (05:00)
[2018-07-15] MEDS ORDERED: PAPAVERINE 360 MG in SODIUM CHLORIDE 0.9% 90 ML IV ONE (05:00)
[2018-07-15] MEDS ORDERED: ceFAZolin 2 GM in SODIUM CHLORIDE 0.9% 30 ML IVPB ONE (05:00)
[2018-07-15] MEDS ORDERED: METOPROLOL TARTRATE 12.5 MG TAB PO ONE (05:00)
[2018-07-15] MEDS ORDERED: ceFAZolin 1,000 MG in SODIUM CHLORIDE 0.9% IRRIGATIO 1,000 ML IRRIGATION ONE (05:00)
[2018-07-15] MEDS ORDERED: PROTAMINE SULFATE 250 MG in EMPTY BAG 1 BAG IV ONE (05:00)
[2018-07-15] MEDS ORDERED: NITROGLYCERIN-D5W PMX 25 MG/250 ML BTL IV ONE (05:00)
[2018-07-15] MEDS ORDERED: ALBUMIN HUMAN 5% 500 ML in EMPTY BAG 1 BAG IVPB ONE ×6 (05:00)
[2018-07-15] MEDS ORDERED: CALCIUM CHLORIDE 100 MG/ML 10 ML SYRINGE IVP ONE (05:00)
[2018-07-15] MEDS ORDERED: NOREPINEPHRINE 4 MG in SODIUM CHLORIDE 0.9% 250 ML IV SCH (05:00)
[2018-07-15] MEDS ORDERED: ALBUMIN HUMAN 25% 50 ML in EMPTY BAG 1 BAG IVPB ONE (05:00)
[2018-07-15] MEDS ORDERED: PROPOFOL 1,000 MG in EMPTY BAG 1 BAG IV PRN (05:00)
[2018-07-15] MEDS ORDERED: MAGNESIUM SULFATE SYG 4.06 MEQ/ML SYRINGE IV ONE (05:00)
[2018-07-15] MEDS ORDERED: ATORVASTATIN 10 MG TAB PO ONE (05:00)
[2018-07-15] MEDS ORDERED: ceFAZolin 2,000 MG in SODIUM CHLORIDE 0.9% 30 ML IVPB ONE (05:00)
[2018-07-15] MEDS ORDERED: ASPIRIN 325 MG TAB PO ONE (05:00)
[2018-07-15] MEDS ORDERED: CHLORHEXIDINE GLUCONATE 15 ML CUP MUCOUS MEM ONE (05:00)
[2018-07-15] MEDS ORDERED: INSULIN REGULAR 100 UNIT in SODIUM CHLORIDE 0.9% 100 ML IV SCH (05:00)
[2018-07-15] MEDS ORDERED: PHENYLEPHRINE 10 MG/ML VIAL IV ONE (05:00)
[2018-07-15] MEDS ORDERED: HEPARIN SODIUM 1,000 UN/ML (10ML VL) IV ONE (05:00)
[2018-07-15] MEDS ORDERED: SODIUM BICARB 8.4% 50 ML SYR (1 MEQ/ML) IV ONE (05:00)
[2018-07-15] MEDS ORDERED: PHENYLEPHRINE 40 MG in SODIUM CHLORIDE 0.9% 250 ML IV ONE (05:00)
[2018-07-15] MEDS ORDERED: PROTAMINE SULFATE 10 MG/ML 25 ML VIAL IV ONE ×2 (05:00→08:53)
[2018-07-15] MEDS ORDERED: DEXTROSE 5% IN WATER 1,000 ML with POTASSIUM CHLORIDE 110 MEQ, MAGNESIUM SULFATE 16 MEQ... IV SCH ×5 (05:00)
[2018-07-15] MEDS ORDERED: MANNITOL 25% 12.5 GM/50 ML VIAL IV ONE ×2 (05:00)
[2018-07-15] MEDS ORDERED: HEPARIN SODIUM,PORCINE 5,000 UNIT in SODIUM CHLORIDE 0.9% 500 ML 500 ML IV ONE (05:00)
[2018-07-15 05:17] LABS: Basophils # (A) 0.1 k/uL (0-0.2); Basophils % (A) 1 %; Eosinophils # (A) 0.6 k/uL (0-0.7); Eosinophils % (A) 6 %; HCT 32.4 % (34.0-46.0); HGB 11.2 gm/dL (11.4-16.0); Lymphocytes # (A) 4.1 k/uL (1.0-4.8); Lymphocytes % (A) 36 %; MCH 30.6 pg (25.0-35.0); MCHC 34.6 g/dL (31.0-37.0); MCV 88.4 fL (80.0-100.0); Mean Platelet Volume 7.7; Monocytes # (A) 0.6 k/uL (0-1.0); Monocytes % (A) 5 %; Neutrophils # (A) 5.8 k/uL (1.3-7.7); Neutrophils % (A) 50 %; Platelet Count 448 k/uL (150-450); RBC 3.66 m/uL (3.80-5.40); RDW 13.7 % (11.5-15.5); WBC 11.6 k/uL (3.8-10.6)
[2018-07-15 05:34] LABS: ALT 40 U/L (9-52); AST 23 U/L (14-36); Albumin 3.6 g/dL (3.5-5.0); Alkaline Phosphatase 85 U/L (38-126); Anion Gap 9 mmol/L; Blood Urea Nitrogen 5 mg/dL (7-17); Calcium 9.2 mg/dL (8.4-10.2); Carbon Dioxide 23 mmol/L (22-30); Chloride 105 mmol/L (98-107); Glucose 99 mg/dL (74-99); INR 0.9 (<1.2); Magnesium 1.7 mg/dL (1.6-2.3); Partial Thromboplastin Time 25.4 sec (22.0-30.0); Potassium 3.8 mmol/L (3.5-5.1); Prothrombin Time 9.6 sec (9.0-12.0); Sodium 137 mmol/L (137-145); Total Bilirubin 0.8 mg/dL (0.2-1.3); Total Protein 6.5 g/dL (6.3-8.2)
[2018-07-15] MEDS ORDERED: LACTATED RINGERS 1,000 ML IV SCH (05:39)
[2018-07-15] MEDS: IPRATROPIUM-ALBUTEROL 3 ML NEB INHALATION SCH ×3 (08:43→21:18)
[2018-07-15] MEDS: BUDESONIDE 1 MG/2 ML NEBU INHALATION SCH (08:43)
[2018-07-15] MEDS: FORMOTEROL FUMARATE 20 MCG/2 ML NEBU INHALATION SCH (08:43)
[2018-07-15] MEDS ORDERED: SODIUM CHLORIDE 0.9% IRRIG 1,000 ML BTL IRRIGATION ONE (08:53)
[2018-07-15] MEDS ORDERED: ALBUMIN HUMAN 5% (25gm) 500 ML VIAL IVPB ONE (08:53)
[2018-07-15] MEDS ORDERED: PROPOFOL 10 MG/ML 20 ML VIAL IV ONE (08:53)
[2018-07-15] MEDS ORDERED: fentaNYL (PF) 50 MCG/ML 2 ML AMP ONE (08:53)
[2018-07-15] MEDS ORDERED: MIDAZOLAM 2 MG/2 ML VIAL ONE (08:53)
[2018-07-15] MEDS ORDERED: SODIUM BICARB 8.4% 50 ML SYR (1 MEQ/ML) ONE (08:53)
[2018-07-15] MEDS ORDERED: ePHEDrine SULFATE/0.9% NACL/PF 50 MG/5 ML SYRINGE IV ONE (08:53)
[2018-07-15] MEDS ORDERED: PHENYLEPHRINE-0.9% NACL SYG 1 MG/10 ML SYRINGE ONE (08:53)
[2018-07-15] MEDS ORDERED: MAGNESIUM SULFATE 4 MEQ/ML 10ML VIAL ONE (08:53)
[2018-07-15] MEDS ORDERED: ELECTROLYTE-R (PH 7.4) 1,000 ML IV.SOLN IV ONE (08:53)
[2018-07-15] MEDS ORDERED: SODIUM CHLORIDE 0.9% 250 ML BAG ONE (08:53)
[2018-07-15] MEDS ORDERED: fentaNYL (PF) 50 MCG/ML 50 ML VIAL ONE (08:53)
[2018-07-15] MEDS ORDERED: VECURONIUM 10 MG VIAL IV ONE (08:53)
[2018-07-15] MEDS ORDERED: HEPARIN SODIUM,PORCINE 10,000 UNIT/ML 1 ML VIAL ONE (08:53)
[2018-07-15] MEDS ORDERED: TRANEXAMIC ACID 1,000 MG/10 ML VIAL ONE (08:53)
[2018-07-15] MEDS ORDERED: CALCIUM CHLORIDE 100 MG/ML 10 ML SYRINGE ONE (08:53)
[2018-07-15] MEDS ORDERED: LIDOCAINE 1% INJ 10MG/ML (20 ML MDV) ONE (08:53)
[2018-07-15 10:03] LABS: ABG Base Excess -1.1 mmol/L; ABG HCO3 24 mmol/L (21-25); ABG Oxygen Saturation 99.7 % (94-97); ABG PCO2 41 mmHg (35-45); ABG PH 7.38 (7.35-7.45); ABG PO2 189 mmHg (83-108); ABG Potassium Whole Blood 3.5 mmol/L (3.4-4.5); ABG Sodium Whole Blood 137 mmol/L (135-146); ABG TCO2 25 mmol/L (19-24)
[2018-07-15 11:59] LABS: ABG Base Excess -2.6 mmol/L; ABG HCO3 24 mmol/L (21-25); ABG Oxygen Saturation 99.8 % (94-97); ABG PCO2 52 mmHg (35-45); ABG PH 7.28 (7.35-7.45); ABG PO2 217 mmHg (83-108); ABG Potassium Whole Blood 3.8 mmol/L (3.4-4.5); ABG Sodium Whole Blood 137 mmol/L (135-146); ABG TCO2 26 mmol/L (19-24)
[2018-07-15 12:34] LABS: ABG Base Excess -3.9 mmol/L; ABG HCO3 23 mmol/L (21-25); ABG PCO2 50 mmHg (35-45); ABG PH 7.27 (7.35-7.45); ABG PO2 401 mmHg (83-108); ABG Potassium Whole Blood 4.2 mmol/L (3.4-4.5); ABG Sodium Whole Blood 135 mmol/L (135-146); ABG TCO2 24 mmol/L (19-24)
[2018-07-15 12:36] LABS: Gliadin AB IgA, Unit 12.8 U/mL
[2018-07-15 13:06] LABS: ABG Base Excess -2.2 mmol/L; ABG HCO3 22 mmol/L (21-25); ABG PCO2 35 mmHg (35-45); ABG PH 7.41 (7.35-7.45); ABG Potassium Whole Blood 5.3 mmol/L (3.4-4.5); ABG Sodium Whole Blood 131 mmol/L (135-146); ABG TCO2 23 mmol/L (19-24)
[2018-07-15 13:41] LABS: ABG Base Excess -2.3 mmol/L; ABG HCO3 22 mmol/L (21-25); ABG PCO2 37 mmHg (35-45); ABG PH 7.39 (7.35-7.45); ABG PO2 250 mmHg (83-108); ABG Potassium Whole Blood 4.4 mmol/L (3.4-4.5); ABG Sodium Whole Blood 131 mmol/L (135-146); ABG TCO2 24 mmol/L (19-24)
[2018-07-15 14:17] LABS: ABG Base Excess -2.9 mmol/L; ABG HCO3 23 mmol/L (21-25); ABG PCO2 41 mmHg (35-45); ABG PH 7.35 (7.35-7.45); ABG PO2 376 mmHg (83-108); ABG Potassium Whole Blood 4.5 mmol/L (3.4-4.5); ABG Sodium Whole Blood 132 mmol/L (135-146); ABG TCO2 24 mmol/L (19-24)
[2018-07-15 15:33] LABS: ABG Base Excess -6.5 mmol/L; ABG HCO3 20 mmol/L (21-25); ABG Oxygen Saturation 99.2 % (94-97); ABG PCO2 48 mmHg (35-45); ABG PH 7.24 (7.35-7.45); ABG PO2 151 mmHg (83-108); ABG Potassium Whole Blood 3.5 mmol/L (3.4-4.5); ABG Sodium Whole Blood 136 mmol/L (135-146); ABG TCO2 22 mmol/L (19-24)
[2018-07-15 16:04] LABS: ABG PO2 >420 mmHg (83-108)
[2018-07-15] MEDS ORDERED: Phosphorus Replacement Protoco 1 EACH MISC MISCELLANE PRN (16:26)
[2018-07-15] MEDS ORDERED: AMIODARONE 300 MG in DEXTROSE 5% IN WATER 250 ML IV PRN ×2 (16:26)
[2018-07-15] MEDS ORDERED: Potassium Replacement Protocol 1 EACH MISC MISCELLANE PRN (16:26)
[2018-07-15] MEDS ORDERED: IPRATROPIUM-ALBUTEROL 3 ML NEB INHALATION PRN (16:26)
[2018-07-15] MEDS ORDERED: PROPOFOL 1,000 MG in EMPTY BAG 1 BAG IV SCH (16:26)
[2018-07-15] MEDS ORDERED: AMIODARONE 360 MG in DEXTROSE 5% IN WATER 200 ML IV PRN ×2 (16:26)
[2018-07-15] MEDS ORDERED: DEXTROSE 5% IN WATER 100 ML with AMIODARONE 150 MG IV PRN (16:26)
[2018-07-15] MEDS ORDERED: Magnesium Replacement Protocol 1 EACH MISC MISCELLANE PRN (16:26)
[2018-07-15] MEDS ORDERED: CALCIUM CHLORIDE 1,000 MG in SODIUM CHLORIDE 0.9% 100 ML IV PRN (16:26)
[2018-07-15] MEDS ORDERED: BENZOCAINE/MENTHOL LOZENG 1 EACH LOZENGE MUCOUS MEM PRN (16:26)
[2018-07-15] MEDS ORDERED: ONDANSETRON 4 MG/2 ML VIAL IVP PRN (16:26)
[2018-07-15] MEDS: NITROGLYCERIN-D5W PMX 50 MG in DEXTROSE/WATER 1 250ML.BAG IV SCH (16:30)
--- NOTE | 2018-07-15 17:03 | XR ---
EXAMINATION TYPE: XR chest 1V portable DATE OF EXAM: 07/15/2018 CLINICAL HISTORY: Post open cardiac surgery. TECHNIQUE: Single AP portable supine view of the chest is obtained. COMPARISON: Chest x-ray from July 09, 2018 FINDINGS: There is new endotracheal tube at the aortic knob level, approximately 3 to 4 cm above car ty. There is new nasogastric tube projecting below left hemidiaphragm. There are bibasilar chest tub es. There is left internal jugular Quim[place]-Leandro catheter coiled in left pulmonary artery than projecting into right pulmonary artery. Cardiac silhouette size is more prominent measuring upper limits of nor mal. Central vascular congestion is still present. New left basilar opacity favors atelectasis. Osseous st ructures are intact. IMPRESSION: 1. Tubes and lines as detailed above. Some coiling of Quimby-Leandro catheter noted. 2. New mild central vascular congestion and patchy left basilar atelectasis with probable tiny left p leural effusion.
[2018-07-15 17:04] LABS: Ionized Calcium 4.9 mg/dL (4.5-5.3)
[2018-07-15 17:04] LABS: ABG Base Excess 0.7 mmol/L; ABG HCO3 27 mmol/L (21-25); ABG PCO2 57 mmHg (35-45); ABG PH 7.29 (7.35-7.45); ABG PO2 377 mmHg (83-108); ABG TCO2 29 mmol/L (19-24)
[2018-07-15 17:09] LABS: INR 1.3 (<1.2); Partial Thromboplastin Time 35.7 sec (22.0-30.0); Prothrombin Time 13.2 sec (9.0-12.0)
[2018-07-15 17:13] LABS: Glucose,Whole Blood 60 mg/dL (75-99)
[2018-07-15 17:13] LABS: Glucose,Whole Blood 133 mg/dL (75-99)
[2018-07-15 17:13] LABS: Basophils % (A) 0 %; Eosinophils # (A) 0.2 k/uL (0-0.7); Eosinophils % (A) 4 %; Lymphocytes # (A) 1.7 k/uL (1.0-4.8); Lymphocytes % (A) 31 %; MCH 31.9 pg (25.0-35.0); MCV 88.4 fL (80.0-100.0); Monocytes # (A) 0.3 k/uL (0-1.0); Monocytes % (A) 5 %; Neutrophils # (A) 3.2 k/uL (1.3-7.7); Neutrophils % (A) 59 %; RBC 2.22 m/uL (3.80-5.40); RDW 13.6 % (11.5-15.5); WBC 5.4 k/uL (3.8-10.6)
[2018-07-15 17:15] LABS: HGB 7.1 gm/dL (11.4-16.0)
[2018-07-15 17:16] LABS: Platelet Count 128 k/uL (150-450)
[2018-07-15 17:17] LABS: HCT 19.7 % (34.0-46.0)
[2018-07-15 17:18] LABS: ALT 24 U/L (9-52); AST 29 U/L (14-36); Albumin 2.3 g/dL (3.5-5.0); Alkaline Phosphatase 29 U/L (38-126); Anion Gap 4 mmol/L; Blood Urea Nitrogen 5 mg/dL (7-17); Calcium 7.7 mg/dL (8.4-10.2); Carbon Dioxide 26 mmol/L (22-30); Chloride 109 mmol/L (98-107); Glucose 50 mg/dL (74-99); Magnesium 2.5 mg/dL (1.6-2.3); Potassium 3.5 mmol/L (3.5-5.1); Sodium 139 mmol/L (137-145); Total Bilirubin 0.9 mg/dL (0.2-1.3); Total Protein 3.8 g/dL (6.3-8.2)
[2018-07-15] MEDS: CLEVIDIPINE BUTYRATE 25 MG in EMPTY BAG 1 BAG IV SCH (17:19)
[2018-07-15] MEDS: LACTATED RINGERS 1,000 ML IV SCH (17:20)
[2018-07-15] MEDS: ACETAMINOPHEN IV (For NPO) 1,000 MG in EMPTY BAG 1 BAG IVPB SCH ×2 (17:52→23:00)
[2018-07-15] MEDS: POTASSIUM CHLORIDE 20 MEQ in WATER FOR INJECTION 1 100ML.BAG IVPB SCH ×2 (17:56→21:14)
--- NOTE | 2018-07-15 18:18 | P.PN ---
Subjective on-call hospitalist covering Dr. Meneses this is a pleasant 63 years old female with past medical history of CVA/TIA, hypertension, uterine cancer, hysterectomy.presents with lightheadedness and sweating. She had a mildly elevated troponin. Cardiac cath showed severe triple-vessel disease however her course was complicated by right groin pseudoaneurysm. Patient has been evaluated by vascular surgery for CABG on Sunday. patient currently lying in bed not in distress. no chest pain. Vitas is stable.hemoglobin is 10.5.and creatinine is 0.4 07/13/2018 Patient is without distress in bed. No chest pain or dyspnea.CBC and BMP without significant abnormality. Patient has been evaluated by technical sales support manager. She is planned to go for coronary angiography on Sunday07/14/2018 Patient lying in bed with no distress. No chest pain or dyspnea. She is hemodynamically stable. She's been followed by several consultants, including cardiology and pulmonary and gastroenterology.. Hemoglobin is stable. She remains on heparin drip 07/15/2018 pt was going for myocardial revascularization surgery. post op pt is intubated , Vitas showing temperature 35.9, blood pressure 99/48. Hemoglobin is 7.1, patient receiving 1 unit of blood transfusion. Her INR is 1.3. BMP reviewed showing sodium 139, potassium 3.5, creatinine 0.46. Liver enzymes within normal limits. Objective - Vital Signs Vital signs: Vital Signs Temp 35.9 F L 07/15/18 17:37 Pulse 77 07/15/18 17:37 Resp 16 07/15/18 17:37 BP 94/46 07/15/18 17:37 Pulse Ox 98 07/15/18 17:37 Intake & Output 07/14/18 07/15/18 07/15/18 18:59 06:59 18:59 Intake Total 576.034 653 Output Total 263 745 4243 Balance 176 Weight 63.2 kg 63.2 kg Intake: IV 33 Intake, IV Titration 124.034 Amount Heparin Sod,Pork in 0.45% 124.034 NaCl 25,000 unit In 0.45 % NaCl 1 250ml.bag @ 800 UNITS/HR 8 mls/hr IV . Q24H [facility] Rx#:[id number] Oral 452 Blood Product 620 Rc As-1 Unit 0 [id number] Rc As-1 Unit 310 [id number] As-1 Unit 310 [id number] Output: Urine 400 400 650 Estimated Blood Loss 2000 Other: Voiding Method Toilet # Voids 2 2 - Exam -GENERAL: The patient is intubated HEENT: Pupils are round and equally reacting to light. EOMI. No scleral icterus. No conjunctival pallor. Normocephalic, atraumatic. No pharyngeal erythema. No thyromegaly. CARDIOVASCULAR: S1 and S2 present. No murmurs, rubs, or gallops. PULMONARY: Chest is clear to auscultation, no wheezing or crackles. ABDOMEN: Soft, nontender, nondistended, normoactive bowel sounds. No palpable organomegaly. MUSCULOSKELETAL: No joint swelling or deformity. -EXTREMITIES: No cyanosis, clubbing, or pedal edema. right groin hematoma NEUROLOGICAL: Gross neurological examination did not reveal any focal deficits. SKIN: No rashes. - Labs CBC & Chem 7: 07/15/18 16:47 07/15/18 16:47 Labs: Abnormal Lab Results - Last 24 Hours (Table) 07/14/18 07/14/18 07/14/18 Range/Units 07:12 20:34 22:33 WBC (3.8-10.6) k/uL RBC (3.80-5.40) m/uL Hgb (11.4-16.0) gm/dL Hct (34.0-46.0) % Plt Count (150-450) k/uL PT (9.0-12.0) sec INR (<1.2) APTT 57.7 H (22.0-30.0) sec ABG pH (7.35-7.45) ABG pCO2 (35-45) mmHg ABG pO2 (83-108) mmHg ABG HCO3 (21-25) mmol/L ABG Total CO2 (19-24) mmol/L ABG O2 Saturation (94-97) % ABG Hematocrit (34.0-46.0) % ABG Sodium (135-146) mmol/L ABG Potassium (3.4-4.5) mmol/L ABG Ionized Calcium (4.5-5.3) mg/dL ABG Glucose (75-99) mg/dL ABG Lactic Acid (0.5-1.6) mmol/L Hemoglobin (11.4-16.0) gm/dL Chloride (98-107) mmol/L BUN (7-17) mg/dL Creatinine (0.52-1.04) mg/dL Glucose (74-99) mg/dL POC Glucose (mg/dL) 118 H (75-99) mg/dL Calcium (8.4-10.2) mg/dL Magnesium (1.6-2.3) mg/dL Alkaline Phosphatase (38-126) U/L Total Protein (6.3-8.2) g/dL Albumin (3.5-5.0) g/dL Arterial Blood Potassium (3.4-4.5) mmol/L Arterial Blood Glucose (75-99) mg/dL Crossmatch See Detail 07/15/18 07/15/18 07/15/18 Range/Units 05:04 05:04 10:02 WBC 11.6 H (3.8-10.6) k/uL RBC 3.66 L (3.80-5.40) m/uL Hgb 11.2 L (11.4-16.0) gm/dL Hct 32.4 L (34.0-46.0) % Plt Count (150-450) k/uL PT (9.0-12.0) sec INR (<1.2) APTT (22.0-30.0) sec ABG pH (7.35-7.45) ABG pCO2 (35-45) mmHg ABG pO2 189 H (83-108) mmHg ABG HCO3 (21-25) mmol/L ABG Total CO2 25 H (19-24) mmol/L ABG O2 Saturation 99.7 H (94-97) % ABG Hematocrit 27 L (34.0-46.0) % ABG Sodium (135-146) mmol/L ABG Potassium (3.4-4.5) mmol/L ABG Ionized Calcium (4.5-5.3) mg/dL ABG Glucose 110 H (75-99) mg/dL ABG Lactic Acid (0.5-1.6) mmol/L Hemoglobin 8.9 L (11.4-16.0) gm/dL Chloride (98-107) mmol/L BUN 5 L (7-17) mg/dL Creatinine 0.49 L (0.52-1.04) mg/dL Glucose (74-99) mg/dL POC Glucose (mg/dL) (75-99) mg/dL Calcium (8.4-10.2) mg/dL Magnesium (1.6-2.3) mg/dL Alkaline Phosphatase (38-126) U/L Total Protein (6.3-8.2) g/dL Albumin (3.5-5.0) g/dL Arterial Blood Potassium (3.4-4.5) mmol/L Arterial Blood Glucose 110 H (75-99) mg/dL Crossmatch 07/15/18 07/15/18 07/15/18 Range/Units 11:58 12:34 13:05 WBC (3.8-10.6) k/uL RBC (3.80-5.40) m/uL Hgb (11.4-16.0) gm/dL Hct (34.0-46.0) % Plt Count (150-450) k/uL PT (9.0-12.0) sec INR (<1.2) APTT (22.0-30.0) sec ABG pH 7.28 L 7.27 L (7.35-7.45) ABG pCO2 52 H 50 H (35-45) mmHg ABG pO2 217 H 401 H >420 H (83-108) mmHg ABG HCO3 (21-25) mmol/L ABG Total CO2 26 H (19-24) mmol/L ABG O2 Saturation 99.8 H 100.0 H 100.0 H (94-97) % ABG Hematocrit 25 L 21 L 22 L (34.0-46.0) % ABG Sodium 131 L (135-146) mmol/L ABG Potassium 5.3 H (3.4-4.5) mmol/L ABG Ionized Calcium 4.2 L 4.0 L (4.5-5.3) mg/dL ABG Glucose 117 H 140 H 235 H (75-99) mg/dL ABG Lactic Acid (0.5-1.6) mmol/L Hemoglobin 8.1 L 6.8 L* 7.1 L (11.4-16.0) gm/dL Chloride (98-107) mmol/L BUN (7-17) mg/dL Creatinine (0.52-1.04) mg/dL Glucose (74-99) mg/dL POC Glucose (mg/dL) (75-99) mg/dL Calcium (8.4-10.2) mg/dL Magnesium (1.6-2.3) mg/dL Alkaline Phosphatase (38-126) U/L Total Protein (6.3-8.2) g/dL Albumin (3.5-5.0) g/dL Arterial Blood Potassium 5.3 H (3.4-4.5) mmol/L Arterial Blood Glucose 117 H 140 H 235 H (75-99) mg/dL Crossmatch 07/15/18 07/15/18 07/15/18 Range/Units 13:41 14:16 16:44 WBC (3.8-10.6) k/uL RBC (3.80-5.40) m/uL Hgb (11.4-16.0) gm/dL Hct (34.0-46.0) % Plt Count (150-450) k/uL PT (9.0-12.0) sec INR (<1.2) APTT (22.0-30.0) sec ABG pH (7.35-7.45) ABG pCO2 (35-45) mmHg ABG pO2 250 H 376 H (83-108) mmHg ABG HCO3 (21-25) mmol/L ABG Total CO2 (19-24) mmol/L ABG O2 Saturation 100.0 H 100.0 H (94-97) % ABG Hematocrit 21 L 20 L* (34.0-46.0) % ABG Sodium 131 L 132 L (135-146) mmol/L ABG Potassium (3.4-4.5) mmol/L ABG Ionized Calcium 4.2 L 4.3 L (4.5-5.3) mg/dL ABG Glucose 213 H 224 H (75-99) mg/dL ABG Lactic Acid 1.8 H (0.5-1.6) mmol/L Hemoglobin 6.9 L* 6.4 L* (11.4-16.0) gm/dL Chloride (98-107) mmol/L BUN (7-17) mg/dL Creatinine (0.52-1.04) mg/dL Glucose (74-99) mg/dL POC Glucose (mg/dL) 60 L (75-99) mg/dL Calcium (8.4-10.2) mg/dL Magnesium (1.6-2.3) mg/dL Alkaline Phosphatase (38-126) U/L Total Protein (6.3-8.2) g/dL Albumin (3.5-5.0) g/dL Arterial Blood Potassium (3.4-4.5) mmol/L Arterial Blood Glucose 213 H 224 H (75-99) mg/dL Crossmatch 07/15/18 07/15/18 07/15/18 Range/Units 16:47 16:47 16:47 WBC (3.8-10.6) k/uL RBC 2.22 L (3.80-5.40) m/uL Hgb 7.1 L D (11.4-16.0) gm/dL Hct 19.7 L* (34.0-46.0) % Plt Count 128 L D (150-450) k/uL PT 13.2 H (9.0-12.0) sec INR 1.3 H (<1.2) APTT 35.7 H (22.0-30.0) sec ABG pH (7.35-7.45) ABG pCO2 (35-45) mmHg ABG pO2 (83-108) mmHg ABG HCO3 (21-25) mmol/L ABG Total CO2 (19-24) mmol/L ABG O2 Saturation (94-97) % ABG Hematocrit (34.0-46.0) % ABG Sodium (135-146) mmol/L ABG Potassium (3.4-4.5) mmol/L ABG Ionized Calcium (4.5-5.3) mg/dL ABG Glucose (75-99) mg/dL ABG Lactic Acid (0.5-1.6) mmol/L Hemoglobin (11.4-16.0) gm/dL Chloride 109 H (98-107) mmol/L BUN 5 L (7-17) mg/dL Creatinine 0.46 L (0.52-1.04) mg/dL Glucose 50 L (74-99) mg/dL POC Glucose (mg/dL) (75-99) mg/dL Calcium 7.7 L (8.4-10.2) mg/dL Magnesium 2.5 H (1.6-2.3) mg/dL Alkaline Phosphatase 29 L (38-126) U/L Total Protein 3.8 L (6.3-8.2) g/dL Albumin 2.3 L (3.5-5.0) g/dL Arterial Blood Potassium (3.4-4.5) mmol/L Arterial Blood Glucose (75-99) mg/dL Crossmatch 07/15/18 07/15/18 Range/Units 17:00 17:02 WBC (3.8-10.6) k/uL RBC (3.80-5.40) m/uL Hgb (11.4-16.0) gm/dL Hct (34.0-46.0) % Plt Count (150-450) k/uL PT (9.0-12.0) sec INR (<1.2) APTT (22.0-30.0) sec ABG pH 7.29 L (7.35-7.45) ABG pCO2 57 H (35-45) mmHg ABG pO2 377 H (83-108) mmHg ABG HCO3 27 H (21-25) mmol/L ABG Total CO2 29 H (19-24) mmol/L ABG O2 Saturation 100.0 H (94-97) % ABG Hematocrit (34.0-46.0) % ABG Sodium (135-146) mmol/L ABG Potassium (3.4-4.5) mmol/L ABG Ionized Calcium (4.5-5.3) mg/dL ABG Glucose (75-99) mg/dL ABG Lactic Acid (0.5-1.6) mmol/L Hemoglobin (11.4-16.0) gm/dL Chloride (98-107) mmol/L BUN (7-17) mg/dL Creatinine (0.52-1.04) mg/dL Glucose (74-99) mg/dL POC Glucose (mg/dL) 133 H (75-99) mg/dL Calcium (8.4-10.2) mg/dL Magnesium (1.6-2.3) mg/dL Alkaline Phosphatase (38-126) U/L Total Protein (6.3-8.2) g/dL Albumin (3.5-5.0) g/dL Arterial Blood Potassium (3.4-4.5) mmol/L Arterial Blood Glucose (75-99) mg/dL Crossmatch Assessment and Plan Assessment: non-STEMI Status post myocardial surgery. severe coronary triple vessel disease. Patient planned to undergo coronary artery bypass grafting by vascular surgery mild systolic dysfunction with ejection fraction 40-45% history of coronary artery disease History of CVA/TIA Essential hypertension uterine cancer Plan: this is a pleasant 63 years old female who presents with coronary triple-vessel disease. Status post myocardial surgery. Patient remains in the ICU.Patient is being followed closely by the pulmonary/critical care team and cardiothoracic surgery team. Labs and medication were reviewed.. Transfuse 1 unit of blood. Continue current treatment. Continue Monitor lytes and vitals. DVT and GI prophylaxis. Further recommendations of the clinical course of the patient. Prognosis is guarded
[2018-07-15 18:19] LABS: Glucose,Whole Blood 79 mg/dL (75-99)
[2018-07-15 19:14] LABS: Glucose,Whole Blood 104 mg/dL (75-99)
[2018-07-15] MEDS ORDERED: IPRATROPIUM-ALBUTEROL 3 ML NEB INHALATION SCH (20:00)
[2018-07-15 20:07] LABS: Glucose,Whole Blood 120 mg/dL (75-99)
[2018-07-15 20:13] LABS: ABG Base Excess -0.8 mmol/L; ABG HCO3 25 mmol/L (21-25); ABG Oxygen Saturation 96.7 % (94-97); ABG PCO2 47 mmHg (35-45); ABG PH 7.34 (7.35-7.45); ABG PO2 82 mmHg (83-108); ABG TCO2 26 mmol/L (19-24)
[2018-07-15 21:10] LABS: Basophils % (A) 0 %; Eosinophils # (A) 0.1 k/uL (0-0.7); Eosinophils % (A) 1 %; HCT 26.9 % (34.0-46.0); Lymphocytes % (A) 11 %; MCH 30.5 pg (25.0-35.0); MCHC 35.1 g/dL (31.0-37.0); MCV 87.1 fL (80.0-100.0); Monocytes # (A) 0.4 k/uL (0-1.0); Monocytes % (A) 5 %; Neutrophils # (A) 7.7 k/uL (1.3-7.7); Neutrophils % (A) 82 %; Platelet Count 190 k/uL (150-450); RBC 3.09 m/uL (3.80-5.40); RDW 14.3 % (11.5-15.5); WBC 9.5 k/uL (3.8-10.6)
[2018-07-15] MEDS: DEXAMETHASONE SOD PHOSPHATE 4 MG/ML 1 ML VIAL IV SCH ×2 (21:14→23:36)
[2018-07-15 21:23] LABS: HGB 9.5 gm/dL (11.4-16.0)
[2018-07-15] MEDS: MUPIROCIN 2% OINT 22 GM TUBE NASAL SCH (22:12)
--- NOTE | 2018-07-15 22:53 | OP ---
OPERATIVE REPORT DATE OF SURGERY: 07/15/2018. SURGEON: Dr. Jerome Ortega. ASSISTANTS: 1. Dontae Tobias. 2. Micheline Engle. PREOPERATIVE DIAGNOSES: 1. Asu-EW-iccdrlcpc myocardial infarction. 2. Chronically occluded right coronary artery and circumflex system. 3. Moderate left ventricular dysfunction. 4. Hypertension. 5. Tobacco abuse. 6. History of transient ischemic attacks. POSTOPERATIVE DIAGNOSES: 1. Ivc-JD-rytdlzgff myocardial infarction. 2. Chronically occluded right coronary artery and circumflex system. 3. Moderate left ventricular dysfunction. 4. Hypertension. 5. Tobacco abuse. 6. History of transient ischemic attacks. PROCEDURE: 1. Quadruple coronary artery bypass grafting using the left internal mammary artery to the left anterior descending artery, reverse saphenous vein graft from the aorta to the diagonal artery, reverse saphenous vein graft from the aorta to a totally occluded, diffusely diseased first obtuse marginal artery, reverse saphenous vein graft from the aorta to a totally occluded posterior descending artery. 2. Endoscopic harvesting of bilateral greater saphenous vein. 3. Intraoperative transesophageal echocardiogram and epiaortic scanning. 4. Intraoperative graft flow measurements using the Novaledstim system. INDICATION FOR SURGERY: The patient is a 63-year-old lady with the above risk factors who presented with shortness of breath and chest pain and had positive cardiac markers. She was taken to the cardiac catheterization lab, where she had evidence of a chronically totally occluded right coronary artery system that was collateralized, occluded circumflex system also with some collateral flow, significant disease of the LAD and of a large diagonal artery. Her ejection fraction was estimated at 35% to 40%. The patient was and was found to have a right femoral pseudoaneurysm from cardiac catheterization that was treated by ultrasound compression. The patient has been brought in today for coronary artery bypass grafting. Her veins seem to be marginal. Her left radial artery is less than 2 mm and would not be used. She had cardiac catheterization attempt via the right radial artery. PROCEDURE DESCRIPTION: Patient was brought into the preoperative holding area, where initially and inadvertently a Cordis was inserted by Anesthesia via the right common carotid artery. Subsequently it was removed and compression was held before I was notified. At this point digital pressure had been implemented for around 25 minutes and there was no evidence of bleeding or expanding hematoma. With that, we decided to proceed with the case. A left internal jugular [place]-Leandro catheter was inserted. A right radial arterial line was placed. The patient had normal PA pressure. Cardiac index was 2.6. She was brought to the operating room, where general endotracheal anesthesia was induced uneventfully. She received 2 grams of cefazolin intravenously. The chest, abdomen and both lower extremities were prepped and draped using ChloraPrep after insertion of a Reina catheter. Transesophageal echocardiogram confirmed evidence of moderate left ventricular dysfunction with inferior akinesia and mild mitral valve regurgitation. Midline sternotomy was performed and the bone was osteoporotic. The left hemisternum was elevated and the left internal mammary artery was harvested in a somewhat skeletonized fashion. The mammary artery had evidence of wall disease in it. The left pleura was intentionally opened in this process and drained with a 19-[place] Antonio drain. The right pleura was also partially opened and was drained with another 19- [place] Antonio drain. In the same setting, the right then the left greater saphenous veins were harvested endoscopically from groin to just below knee level. The incisions on both sides were closed after placement of Antonio drains. The vein was prepared and we had finally just what we needed with good quality relatively although thin-walled. Mediastinal fat was transected between 2 ties and epiaortic scanning revealed concentric intimal thickening but no protruding atheroma in the ascending aorta. The pericardium was opened in an inverted T-fashion and a pericardial cradle was created. Findings included a normal soft, elongated aorta and normal-sized heart. There was evidence of diffuse coronary artery disease. After systemic heparinization and after placement of respective pledgeted pursestrings, aortic cannulation with a 21-[place] Softflow cannula and venous cannulation with a dual- stage 29-[place] cannula was performed via the right atrial appendage. Antegrade as well as retrograde cardioplegia catheters were placed. The mammary artery was clipped distally and transected. It had an excellent pulsatile flow in it. It was prepared. It was thin-walled, around 1.5 mm in diameter. Cardiopulmonary bypass was initiated and patient's temperature was allowed to drift down to 34 degrees Celsius. With the heart empty, we looked at the target. The LAD was intramyocardial and emerged very distally and that was suspected cardiac catheterization as the LAD took a variant course. We could identify a small vessel that was parallel to it more laterally, and the first diagonal artery was readily visible and was of good size. Looking at the lateral wall, there were some fibrotic changes. We identified visually the first obtuse marginal artery that was diffusely diseased and small. Looking at the inferior wall, which was also fibrotic, we could identify the proximal aspect of the posterior descending artery, which was also diffusely diseased. The aorta was clamped, and during aortic clamping myocardial protection was achieved with an initial dose of 700 mL of antegrade cold blood cardioplegia followed by 700 mL of retrograde cold blood cardioplegia. All subsequent doses were given retrograde as well as through the initially constructed vein graft to the posterior descending artery for optimal RV protection. The first distal anastomosis was between a segment of vein, thin-walled, around 3 mm in diameter, and the 1.5 mm thickened wall of the posterior descending artery using Prolene 7-0 in continuous fashion. There was adequate flow into the vein, which was cut to length and suspended. The second distal anastomosis was between another segment of vein of good quality, around 4 mm in diameter, and the 1.75 mm thin-walled diagonal artery using Prolene 7-0 in continuous fashion. The third distal anastomosis was between another segment of vein of smaller caliber, around 3 mm in diameter, and the 1.2 mm diffusely diseased first obtuse marginal artery. That artery was opened and it could accept a 1 mm probe around 1 cm proximally and around 2-3 cm distally. The anastomosis was completed using Prolene 7-0 in continuous fashion. There was reasonable flow as we pushed cardioplegia through the vein. The fourth and last distal anastomosis was between the left internal mammary artery and the thin-walled 1.5 mm left anterior descending artery in its distal aspect using Prolene 7-0 in continuous fashion. Satisfied with the distal anastomosis, rewarming was started as we punched out 3 buttons of the ascending aorta of 4 mm each, and the proximal anastomosis was completed using Prolene 6-0 in continuous fashion. De-airing maneuvers were followed. Unclamping followed. Flow was re-established in the mammary artery. The patient regained spontaneous sinus rhythm. After a period of re-perfusion, we were able to wean off cardiopulmonary bypass without the need of any inotropic or vasopressor support. Test-dose and then full-dose protamine were given. Decannulation followed. Two monopolar atrial pacing wires were affixed to the right atrial pursestrings and I did not place a ventricular wire, as the patient's tissues were very friable. One 19- [place] Antonio drain was left substernally. A groove was made in the left pleural pericardial fat to accommodate the mammary artery medial to the lung and away from the posterior sternal table. Pericardial and mediastinal fat was approximated loosely over the grafts and the heart. After ensuring adequate hemostasis and hemodynamics and after measuring flows, which showed excellent flow into the left internal mammary artery, and the vein to the posterior descending artery and into the vein to the diagonal artery and very minimal flow into the vein going to the diffusely disease, chronically occluded first obtuse marginal artery, probably due to lack of outflow, as I had placed a 1 mm shunt as well as performing that anastomosis, technical issues were ruled out. After that we proceeded with closing the sternum using 5 [id number] pineal cables after interposing Fibrillar between the sternal edges. Thorough irrigation with cefazolin followed. The rest of the closure proceeded in layers. Skin glue was applied. The patient received 2 units of packed red blood cells on pump and received 500 mL of Cell Saver blood. She was transferred to the ICU with a cardiac index of 3, mean artery pressure of 63, sinus rhythm at 72 with a normal PA pressure. MMODL / IJN: [id number] /
[2018-07-15] MEDS: ceFAZolin IN SWFI 2 GM/20 ML SYRINGE IVP SCH (23:00)
[2018-07-15] MEDS: HEPARIN SODIUM,PORCINE 5,000 UNIT/ML 1 ML VIAL SQ SCH (23:01)
[2018-07-15 23:21] LABS: Glucose,Whole Blood 116 mg/dL (75-99)
[2018-07-15 23:21] LABS: Glucose,Whole Blood 106 mg/dL (75-99)
[2018-07-16 00:23] LABS: Basophils % (A) 0 %; Eosinophils % (A) 0 %; HCT 28.3 % (34.0-46.0); HGB 9.4 gm/dL (11.4-16.0); Lymphocytes # (A) 0.7 k/uL (1.0-4.8); Lymphocytes % (A) 7 %; MCH 29.6 pg (25.0-35.0); MCHC 33.2 g/dL (31.0-37.0); Mean Platelet Volume 8.1; Monocytes # (A) 0.3 k/uL (0-1.0); Monocytes % (A) 3 %; Neutrophils # (A) 8.9 k/uL (1.3-7.7); Neutrophils % (A) 88 %; Platelet Count 203 k/uL (150-450); RBC 3.17 m/uL (3.80-5.40); RDW 14.3 % (11.5-15.5); WBC 10.1 k/uL (3.8-10.6)
[2018-07-16 00:26] LABS: Glucose,Whole Blood 128 mg/dL (75-99)
[2018-07-16 02:39] LABS: Glucose,Whole Blood 130 mg/dL (75-99)
[2018-07-16] MEDS: IPRATROPIUM-ALBUTEROL 3 ML NEB INHALATION SCH ×5 (03:47→20:04)
[2018-07-16 04:11] LABS: Basophils % (A) 0 %; Eosinophils % (A) 0 %; HCT 29.1 % (34.0-46.0); HGB 9.6 gm/dL (11.4-16.0); Lymphocytes # (A) 0.9 k/uL (1.0-4.8); Lymphocytes % (A) 8 %; MCH 29.5 pg (25.0-35.0); MCHC 33.1 g/dL (31.0-37.0); MCV 89.2 fL (80.0-100.0); Mean Platelet Volume 8.6; Monocytes # (A) 0.4 k/uL (0-1.0); Monocytes % (A) 3 %; Neutrophils # (A) 9.1 k/uL (1.3-7.7); Neutrophils % (A) 87 %; Platelet Count 223 k/uL (150-450); RBC 3.26 m/uL (3.80-5.40); RDW 14.5 % (11.5-15.5); WBC 10.4 k/uL (3.8-10.6)
[2018-07-16 04:11] LABS: Glucose,Whole Blood 129 mg/dL (75-99)
[2018-07-16 04:15] LABS: Ionized Calcium 4.8 mg/dL (4.5-5.3)
[2018-07-16 04:25] LABS: ALT 35 U/L (9-52); AST 34 U/L (14-36); Albumin 2.8 g/dL (3.5-5.0); Alkaline Phosphatase 45 U/L (38-126); Anion Gap 6 mmol/L; Blood Urea Nitrogen 6 mg/dL (7-17); Calcium 8.1 mg/dL (8.4-10.2); Carbon Dioxide 23 mmol/L (22-30); Chloride 108 mmol/L (98-107); Glucose 115 mg/dL (74-99); Potassium 5.1 mmol/L (3.5-5.1); Sodium 137 mmol/L (137-145); Total Bilirubin 0.8 mg/dL (0.2-1.3); Total Protein 4.7 g/dL (6.3-8.2)
[2018-07-16] MEDS: ALBUMIN HUMAN 5% 250 ML in EMPTY BAG 1 BAG IVPB PRN ×4 (05:56→18:55)
[2018-07-16] MEDS: CLEVIDIPINE BUTYRATE 25 MG in EMPTY BAG 1 BAG IV SCH (06:08)
[2018-07-16 06:18] LABS: Glucose,Whole Blood 128 mg/dL (75-99)
[2018-07-16] MEDS: DEXAMETHASONE SOD PHOSPHATE 4 MG/ML 1 ML VIAL IV SCH (06:28)
[2018-07-16] MEDS: NITROGLYCERIN-D5W PMX 50 MG in DEXTROSE/WATER 1 250ML.BAG IV SCH (07:18)
[2018-07-16] MEDS: METOPROLOL TARTRATE 25 MG TAB PO SCH ×2 (07:21→21:36)
[2018-07-16] MEDS: KETOROLAC 30 MG/ML 1 ML VIAL IVP SCH ×3 (07:21→18:48)
[2018-07-16] MEDS: HEPARIN SODIUM,PORCINE 5,000 UNIT/ML 1 ML VIAL SQ SCH ×2 (08:32→16:32)
[2018-07-16] MEDS: ASPIRIN 325 MG TAB PO SCH (08:32)
[2018-07-16] MEDS: CLOPIDOGREL 75 MG TAB PO SCH (08:32)
[2018-07-16] MEDS: PANTOPRAZOLE 40 MG TABLET PO SCH (08:32)
[2018-07-16] MEDS: ATORVASTATIN 40 MG TAB PO SCH (08:32)
[2018-07-16 08:50] LABS: Glucose,Whole Blood 153 mg/dL (75-99)
--- NOTE | 2018-07-16 08:50 | XR ---
EXAMINATION TYPE: XR chest 1V portable DATE OF EXAM: 07/16/2018 COMPARISON: Prior chest x-ray 07/15/2018 HISTORY: Postop cardiac surgery TECHNIQUE: Single frontal view of the chest is obtained. FINDINGS: Patient is post median sternotomy. Endotracheal tube and NG tube have been removed. Left j ugular central venous catheter shows the distal tip over the pulmonary artery. Right chest tube is ov erlying the mid chest. There is no pneumothorax. Median sternal drain is in place, there is tubing ov er the left lung base which was previously coursing towards the left hilum. There is persistent blunt ing of the left costophrenic angle. Interstitium and aeration are improved. IMPRESSION: Interval extubation. Probable small left pleural effusion. Suspect improvement in volume status.
[2018-07-16] MEDS ORDERED: METOPROLOL TARTRATE 12.5 MG TAB PO SCH (09:00)
[2018-07-16] MEDS ORDERED: PANTOPRAZOLE 40 MG/10 ML VIAL IVP SCH (09:00)
--- NOTE | 2018-07-16 09:34 | P.PN ---
Subjective on-call hospitalist covering Dr. Meneses this is a pleasant 63 years old female with past medical history of CVA/TIA, hypertension, uterine cancer, hysterectomy.presents with lightheadedness and sweating. She had a mildly elevated troponin. Cardiac cath showed severe triple-vessel disease however her course was complicated by right groin pseudoaneurysm. Patient has been evaluated by vascular surgery for CABG on Sunday. patient currently lying in bed not in distress. no chest pain. Vitas is stable.hemoglobin is 10.5.and creatinine is 0.4 07/13/2018 Patient is without distress in bed. No chest pain or dyspnea.CBC and BMP without significant abnormality. Patient has been evaluated by nnps. She is planned to go for coronary angiography on Sunday07/14/2018 Patient lying in bed with no distress. No chest pain or dyspnea. She is hemodynamically stable. She's been followed by several consultants, including cardiology and pulmonary and gastroenterology.. Hemoglobin is stable. She remains on heparin drip 07/15/2018 pt was going for myocardial revascularization surgery. post op pt is intubated , Vitas showing temperature 35.9, blood pressure 99/48. Hemoglobin is 7.1, patient receiving 1 unit of blood transfusion. Her INR is 1.3. BMP reviewed showing sodium 139, potassium 3.5, creatinine 0.46. Liver enzymes within normal limits. 07/16/2018 Patient is a status post coronary artery bypass grafting, 2 days post op day #1. Patient was intubated yesterday however she was extubated thereafter. Currently she is sitting in chair, awake but lethargic and tired. Patient developed some postural hypotension and needed albumin transfusion. Currently she is on a clear liquid diet. Hemodynamically stable and she is saturating 92% on 4 L oxygen via nasal cannula. Labs reviewed with blue WBC 10.4 K, hemoglobin 9.6. Creatinine 0.46. Electrolytes within normal limits. Sugar is controlled. Continue on aspirin and Plavix, patient has been followed by several teams including pulmonary, cardiology and cardiothoracic surgery. Review of systems CONSTITUTIONAL: No fever, no malaise, no fatigue. HEENT: No recent visual problems or hearing problems. Denied any sore throat. GASTROINTESTINAL: No diarrhea, no nausea, no vomiting, no abdominal pain. Normoactive bowel sounds. NEUROLOGICAL: No headaches, no weakness, no numbness. HEMATOLOGICAL: Denies any bleeding or petechiae. GENITOURINARY: Denies any burning micturition, frequency, or urgency. MUSCULOSKELETAL/RHEUMATOLOGICAL: Denies any joint pain, swelling, or any muscle pain. ENDOCRINE: Denies any polyuria or polydipsia. Medication: Palpable main, albuterol, amiodarone, aspirin, Plavix, Lipitor, Dulcolax, calcium chloride, cefazolin, Decadron, heparin, Humphreys, Bactroban ointment, Zofran, oxycodone, Protonix, Senokot. Objective - Vital Signs Vital signs: Vital Signs Temp 98.8 F 07/16/18 08:00 Pulse 80 07/16/18 08:00 Resp 19 07/16/18 08:00 BP 103/62 07/16/18 06:30 Pulse Ox 92 L 07/16/18 08:00 Intake & Output 07/15/18 07/16/18 07/16/18 18:59 06:59 18:59 Intake Total 3789.674 1099 69 Output Total 3515 1969 110 Balance -2487.410 -282 -41 Weight 63.2 kg 64.2 kg Intake: IV 91 917 69 0.9NS Cardiac Output 40 70 20 0.9NS Pressure Bag 18 117 9 ACETAMINOPHEN IV (For NPO 100 ) 1,000 mg In Empty Bag 1 bag @ 400 mls/hr IVPB Q6HR RUEL Rx#:[id number] Lactated Ringers 1,000 ml 530 40 @ 20 mls/hr IV .Q24H RUEL Rx#:[id number] Potassium Chloride 20 meq 100 In Water For Injection 1 100ml.bag @ 50 mls/hr IVPB Q2H RUEL Rx#: [id number] Intake, IV Titration 316.590 50 Amount ACETAMINOPHEN IV (For NPO 100 ) 1,000 mg In Empty Bag 1 bag @ 400 mls/hr IVPB Q6HR RUEL Rx#:[id number] Lactated Ringers 1,000 ml 100 50 @ 20 mls/hr IV .Q24H RUEL Rx#:[id number] Potassium Chloride 20 meq 100 In Water For Injection 1 100ml.bag @ 50 mls/hr IVPB Q2H RUEL Rx#: [id number] Propofol 1,000 mg In 16.590 Empty Bag 1 bag @ Titrate IV .Q0M PRN Rx#: [id number] Oral 100 Blood Product 620 620 Rc As-1 Unit 0 310 [id number] Rc As-1 Unit 310 [id number] Rc As-1 Unit 310 [id number] Output: Chest Tube Drainage 300 554 60 Left Pleural Chest Tube 40 272 30 Mediastinal Chest Tube 70 172 10 Right Pleural Chest Tube 190 110 20 Drainage 0 60 Left Leg 0 20 Right Leg 0 40 Urine 1215 1355 50 Estimated Blood Loss 1999 Other: Voiding Method Toilet Indwelling Catheter ABP, PAP, CO, CI - Last Documented Arterial Blood Pressure 102/54 Pulmonary Artery Pressure 24/4 Cardiac Output 4.9 Cardiac Index 3.0 - Exam -GENERAL: The patient is intubated HEENT: Pupils are round and equally reacting to light. EOMI. No scleral icterus. No conjunctival pallor. Normocephalic, atraumatic. No pharyngeal erythema. No thyromegaly. CARDIOVASCULAR: S1 and S2 present. No murmurs, rubs, or gallops. PULMONARY: Chest is clear to auscultation, no wheezing or crackles. ABDOMEN: Soft, nontender, nondistended, normoactive bowel sounds. No palpable organomegaly. MUSCULOSKELETAL: No joint swelling or deformity. -EXTREMITIES: No cyanosis, clubbing, or pedal edema. right groin hematoma NEUROLOGICAL: Gross neurological examination did not reveal any focal deficits. SKIN: No rashes. - Labs CBC & Chem 7: 07/16/18 04:00 07/16/18 04:00 Labs: Abnormal Lab Results - Last 24 Hours (Table) 07/14/18 07/15/18 07/15/18 Range/Units 07:12 10:02 11:58 RBC (3.80-5.40) m/uL Hgb (11.4-16.0) gm/dL Hct (34.0-46.0) % Plt Count (150-450) k/uL Neutrophils # (1.3-7.7) k/uL Lymphocytes # (1.0-4.8) k/uL PT (9.0-12.0) sec INR (<1.2) APTT (22.0-30.0) sec ABG pH 7.28 L (7.35-7.45) ABG pCO2 52 H (35-45) mmHg ABG pO2 189 H 217 H (83-108) mmHg ABG HCO3 (21-25) mmol/L ABG Total CO2 25 H 26 H (19-24) mmol/L ABG O2 Saturation 99.7 H 99.8 H (94-97) % ABG Hematocrit 27 L 25 L (34.0-46.0) % ABG Sodium (135-146) mmol/L ABG Potassium (3.4-4.5) mmol/L ABG Ionized Calcium (4.5-5.3) mg/dL ABG Glucose 110 H 117 H (75-99) mg/dL ABG Lactic Acid (0.5-1.6) mmol/L Hemoglobin 8.9 L 8.1 L (11.4-16.0) gm/dL Chloride (98-107) mmol/L BUN (7-17) mg/dL Creatinine (0.52-1.04) mg/dL Glucose (74-99) mg/dL POC Glucose (mg/dL) (75-99) mg/dL Calcium (8.4-10.2) mg/dL Magnesium (1.6-2.3) mg/dL Alkaline Phosphatase (38-126) U/L Total Protein (6.3-8.2) g/dL Albumin (3.5-5.0) g/dL Arterial Blood Potassium (3.4-4.5) mmol/L Arterial Blood Glucose 110 H 117 H (75-99) mg/dL Crossmatch See Detail 07/15/18 07/15/18 07/15/18 Range/Units 12:34 13:05 13:41 RBC (3.80-5.40) m/uL Hgb (11.4-16.0) gm/dL Hct (34.0-46.0) % Plt Count (150-450) k/uL Neutrophils # (1.3-7.7) k/uL Lymphocytes # (1.0-4.8) k/uL PT (9.0-12.0) sec INR (<1.2) APTT (22.0-30.0) sec ABG pH 7.27 L (7.35-7.45) ABG pCO2 50 H (35-45) mmHg ABG pO2 401 H >420 H 250 H (83-108) mmHg ABG HCO3 (21-25) mmol/L ABG Total CO2 (19-24) mmol/L ABG O2 Saturation 100.0 H 100.0 H 100.0 H (94-97) % ABG Hematocrit 21 L 22 L 21 L (34.0-46.0) % ABG Sodium 131 L 131 L (135-146) mmol/L ABG Potassium 5.3 H (3.4-4.5) mmol/L ABG Ionized Calcium 4.2 L 4.0 L 4.2 L (4.5-5.3) mg/dL ABG Glucose 140 H 235 H 213 H (75-99) mg/dL ABG Lactic Acid (0.5-1.6) mmol/L Hemoglobin 6.8 L* 7.1 L 6.9 L* (11.4-16.0) gm/dL Chloride (98-107) mmol/L BUN (7-17) mg/dL Creatinine (0.52-1.04) mg/dL Glucose (74-99) mg/dL POC Glucose (mg/dL) (75-99) mg/dL Calcium (8.4-10.2) mg/dL Magnesium (1.6-2.3) mg/dL Alkaline Phosphatase (38-126) U/L Total Protein (6.3-8.2) g/dL Albumin (3.5-5.0) g/dL Arterial Blood Potassium 5.3 H (3.4-4.5) mmol/L Arterial Blood Glucose 140 H 235 H 213 H (75-99) mg/dL Crossmatch 07/15/18 07/15/18 07/15/18 Range/Units 14:16 16:44 16:47 RBC 2.22 L (3.80-5.40) m/uL Hgb 7.1 L D (11.4-16.0) gm/dL Hct 19.7 L* (34.0-46.0) % Plt Count 128 L D (150-450) k/uL Neutrophils # (1.3-7.7) k/uL Lymphocytes # (1.0-4.8) k/uL PT (9.0-12.0) sec INR (<1.2) APTT (22.0-30.0) sec ABG pH (7.35-7.45) ABG pCO2 (35-45) mmHg ABG pO2 376 H (83-108) mmHg ABG HCO3 (21-25) mmol/L ABG Total CO2 (19-24) mmol/L ABG O2 Saturation 100.0 H (94-97) % ABG Hematocrit 20 L* (34.0-46.0) % ABG Sodium 132 L (135-146) mmol/L ABG Potassium (3.4-4.5) mmol/L ABG Ionized Calcium 4.3 L (4.5-5.3) mg/dL ABG Glucose 224 H (75-99) mg/dL ABG Lactic Acid 1.8 H (0.5-1.6) mmol/L Hemoglobin 6.4 L* (11.4-16.0) gm/dL Chloride (98-107) mmol/L BUN (7-17) mg/dL Creatinine (0.52-1.04) mg/dL Glucose (74-99) mg/dL POC Glucose (mg/dL) 60 L (75-99) mg/dL Calcium (8.4-10.2) mg/dL Magnesium (1.6-2.3) mg/dL Alkaline Phosphatase (38-126) U/L Total Protein (6.3-8.2) g/dL Albumin (3.5-5.0) g/dL Arterial Blood Potassium (3.4-4.5) mmol/L Arterial Blood Glucose 224 H (75-99) mg/dL Crossmatch 07/15/18 07/15/18 07/15/18 Range/Units 16:47 16:47 17:00 RBC (3.80-5.40) m/uL Hgb (11.4-16.0) gm/dL Hct (34.0-46.0) % Plt Count (150-450) k/uL Neutrophils # (1.3-7.7) k/uL Lymphocytes # (1.0-4.8) k/uL PT 13.2 H (9.0-12.0) sec INR 1.3 H (<1.2) APTT 35.7 H (22.0-30.0) sec ABG pH 7.29 L (7.35-7.45) ABG pCO2 57 H (35-45) mmHg ABG pO2 377 H (83-108) mmHg ABG HCO3 27 H (21-25) mmol/L ABG Total CO2 29 H (19-24) mmol/L ABG O2 Saturation 100.0 H (94-97) % ABG Hematocrit (34.0-46.0) % ABG Sodium (135-146) mmol/L ABG Potassium (3.4-4.5) mmol/L ABG Ionized Calcium (4.5-5.3) mg/dL ABG Glucose (75-99) mg/dL ABG Lactic Acid (0.5-1.6) mmol/L Hemoglobin (11.4-16.0) gm/dL Chloride 109 H (98-107) mmol/L BUN 5 L (7-17) mg/dL Creatinine 0.46 L (0.52-1.04) mg/dL Glucose 50 L (74-99) mg/dL POC Glucose (mg/dL) (75-99) mg/dL Calcium 7.7 L (8.4-10.2) mg/dL Magnesium 2.5 H (1.6-2.3) mg/dL Alkaline Phosphatase 29 L (38-126) U/L Total Protein 3.8 L (6.3-8.2) g/dL Albumin 2.3 L (3.5-5.0) g/dL Arterial Blood Potassium (3.4-4.5) mmol/L Arterial Blood Glucose (75-99) mg/dL Crossmatch 07/15/18 07/15/18 07/15/18 Range/Units 17:02 18:45 19:55 RBC (3.80-5.40) m/uL Hgb (11.4-16.0) gm/dL Hct (34.0-46.0) % Plt Count (150-450) k/uL Neutrophils # (1.3-7.7) k/uL Lymphocytes # (1.0-4.8) k/uL PT (9.0-12.0) sec INR (<1.2) APTT (22.0-30.0) sec ABG pH (7.35-7.45) ABG pCO2 (35-45) mmHg ABG pO2 (83-108) mmHg ABG HCO3 (21-25) mmol/L ABG Total CO2 (19-24) mmol/L ABG O2 Saturation (94-97) % ABG Hematocrit (34.0-46.0) % ABG Sodium (135-146) mmol/L ABG Potassium (3.4-4.5) mmol/L ABG Ionized Calcium (4.5-5.3) mg/dL ABG Glucose (75-99) mg/dL ABG Lactic Acid (0.5-1.6) mmol/L Hemoglobin (11.4-16.0) gm/dL Chloride (98-107) mmol/L BUN (7-17) mg/dL Creatinine (0.52-1.04) mg/dL Glucose (74-99) mg/dL POC Glucose (mg/dL) 133 H 104 H 120 H (75-99) mg/dL Calcium (8.4-10.2) mg/dL Magnesium (1.6-2.3) mg/dL Alkaline Phosphatase (38-126) U/L Total Protein (6.3-8.2) g/dL Albumin (3.5-5.0) g/dL Arterial Blood Potassium (3.4-4.5) mmol/L Arterial Blood Glucose (75-99) mg/dL Crossmatch 07/15/18 07/15/18 07/15/18 Range/Units 20:11 20:56 22:11 RBC 3.09 L (3.80-5.40) m/uL Hgb 9.5 L D (11.4-16.0) gm/dL Hct 26.9 L (34.0-46.0) % Plt Count (150-450) k/uL Neutrophils # (1.3-7.7) k/uL Lymphocytes # (1.0-4.8) k/uL PT (9.0-12.0) sec INR (<1.2) APTT (22.0-30.0) sec ABG pH 7.34 L (7.35-7.45) ABG pCO2 47 H (35-45) mmHg ABG pO2 82 L (83-108) mmHg ABG HCO3 (21-25) mmol/L ABG Total CO2 26 H (19-24) mmol/L ABG O2 Saturation (94-97) % ABG Hematocrit (34.0-46.0) % ABG Sodium (135-146) mmol/L ABG Potassium (3.4-4.5) mmol/L ABG Ionized Calcium (4.5-5.3) mg/dL ABG Glucose (75-99) mg/dL ABG Lactic Acid (0.5-1.6) mmol/L Hemoglobin (11.4-16.0) gm/dL Chloride (98-107) mmol/L BUN (7-17) mg/dL Creatinine (0.52-1.04) mg/dL Glucose (74-99) mg/dL POC Glucose (mg/dL) 106 H (75-99) mg/dL Calcium (8.4-10.2) mg/dL Magnesium (1.6-2.3) mg/dL Alkaline Phosphatase (38-126) U/L Total Protein (6.3-8.2) g/dL Albumin (3.5-5.0) g/dL Arterial Blood Potassium (3.4-4.5) mmol/L Arterial Blood Glucose (75-99) mg/dL Crossmatch 07/15/18 07/15/18 07/16/18 Range/Units 23:09 23:15 00:15 RBC 3.17 L (3.80-5.40) m/uL Hgb 9.4 L (11.4-16.0) gm/dL Hct 28.3 L (34.0-46.0) % Plt Count (150-450) k/uL Neutrophils # 8.9 H (1.3-7.7) k/uL Lymphocytes # 0.7 L (1.0-4.8) k/uL PT (9.0-12.0) sec INR (<1.2) APTT (22.0-30.0) sec ABG pH (7.35-7.45) ABG pCO2 (35-45) mmHg ABG pO2 (83-108) mmHg ABG HCO3 (21-25) mmol/L ABG Total CO2 (19-24) mmol/L ABG O2 Saturation (94-97) % ABG Hematocrit (34.0-46.0) % ABG Sodium (135-146) mmol/L ABG Potassium (3.4-4.5) mmol/L ABG Ionized Calcium (4.5-5.3) mg/dL ABG Glucose (75-99) mg/dL ABG Lactic Acid (0.5-1.6) mmol/L Hemoglobin (11.4-16.0) gm/dL Chloride (98-107) mmol/L BUN (7-17) mg/dL Creatinine (0.52-1.04) mg/dL Glucose (74-99) mg/dL POC Glucose (mg/dL) 116 H 128 H (75-99) mg/dL Calcium (8.4-10.2) mg/dL Magnesium (1.6-2.3) mg/dL Alkaline Phosphatase (38-126) U/L Total Protein (6.3-8.2) g/dL Albumin (3.5-5.0) g/dL Arterial Blood Potassium (3.4-4.5) mmol/L Arterial Blood Glucose (75-99) mg/dL Crossmatch 07/16/18 07/16/18 07/16/18 Range/Units 02:22 03:59 04:00 RBC 3.26 L (3.80-5.40) m/uL Hgb 9.6 L (11.4-16.0) gm/dL Hct 29.1 L (34.0-46.0) % Plt Count (150-450) k/uL Neutrophils # 9.1 H (1.3-7.7) k/uL Lymphocytes # 0.9 L (1.0-4.8) k/uL PT (9.0-12.0) sec INR (<1.2) APTT (22.0-30.0) sec ABG pH (7.35-7.45) ABG pCO2 (35-45) mmHg ABG pO2 (83-108) mmHg ABG HCO3 (21-25) mmol/L ABG Total CO2 (19-24) mmol/L ABG O2 Saturation (94-97) % ABG Hematocrit (34.0-46.0) % ABG Sodium (135-146) mmol/L ABG Potassium (3.4-4.5) mmol/L ABG Ionized Calcium (4.5-5.3) mg/dL ABG Glucose (75-99) mg/dL ABG Lactic Acid (0.5-1.6) mmol/L Hemoglobin (11.4-16.0) gm/dL Chloride (98-107) mmol/L BUN (7-17) mg/dL Creatinine (0.52-1.04) mg/dL Glucose (74-99) mg/dL POC Glucose (mg/dL) 130 H 129 H (75-99) mg/dL Calcium (8.4-10.2) mg/dL Magnesium (1.6-2.3) mg/dL Alkaline Phosphatase (38-126) U/L Total Protein (6.3-8.2) g/dL Albumin (3.5-5.0) g/dL Arterial Blood Potassium (3.4-4.5) mmol/L Arterial Blood Glucose (75-99) mg/dL Crossmatch 07/16/18 07/16/18 07/16/18 Range/Units 04:00 06:07 08:39 RBC (3.80-5.40) m/uL Hgb (11.4-16.0) gm/dL Hct (34.0-46.0) % Plt Count (150-450) k/uL Neutrophils # (1.3-7.7) k/uL Lymphocytes # (1.0-4.8) k/uL PT (9.0-12.0) sec INR (<1.2) APTT (22.0-30.0) sec ABG pH (7.35-7.45) ABG pCO2 (35-45) mmHg ABG pO2 (83-108) mmHg ABG HCO3 (21-25) mmol/L ABG Total CO2 (19-24) mmol/L ABG O2 Saturation (94-97) % ABG Hematocrit (34.0-46.0) % ABG Sodium (135-146) mmol/L ABG Potassium (3.4-4.5) mmol/L ABG Ionized Calcium (4.5-5.3) mg/dL ABG Glucose (75-99) mg/dL ABG Lactic Acid (0.5-1.6) mmol/L Hemoglobin (11.4-16.0) gm/dL Chloride 108 H (98-107) mmol/L BUN 6 L (7-17) mg/dL Creatinine 0.46 L (0.52-1.04) mg/dL Glucose 115 H (74-99) mg/dL POC Glucose (mg/dL) 128 H 153 H (75-99) mg/dL Calcium 8.1 L (8.4-10.2) mg/dL Magnesium (1.6-2.3) mg/dL Alkaline Phosphatase (38-126) U/L Total Protein 4.7 L (6.3-8.2) g/dL Albumin 2.8 L (3.5-5.0) g/dL Arterial Blood Potassium (3.4-4.5) mmol/L Arterial Blood Glucose (75-99) mg/dL Crossmatch Assessment and Plan Assessment: non-STEMI Status post myocardial surgery. severe coronary triple vessel disease. Status post coronary artery bypass grafting by vascular surgery mild systolic dysfunction with ejection fraction 40-45% history of coronary artery disease History of CVA/TIA Essential hypertension uterine cancer Plan: this is a pleasant 63 years old female who presents with coronary triple-vessel disease. Status post myocardial surgery. Patient remains in the ICU.Patient is being followed closely by the pulmonary/critical care team and cardiothoracic surgery team. Labs and medication were reviewed.. Transfuse 1 unit of blood. Continue current treatment. Continue Monitor lytes and vitals. DVT and GI prophylaxis. Further recommendations of the clinical course of the patient. Prognosis is guarded
--- NOTE | 2018-07-16 10:10 | P.PN ---
Subjective Progress Note Date: 07/16/18 Principal diagnosis: Near syncopal episode in a patient found to have significant triple-vessel coronary artery disease. This is a very pleasant 63-year-old female patient who follows with Dr. Gonzalez as her primary care physician. She has a history of hypertension and chronic and ongoing tobacco dependence of 40+ years at 1 pack per day. She has not been seen by a store director in the past. No home oxygen. No home inhalers. 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 On 07/08/2018 she was getting ready for work she broke out in a cold sweat and had a funny sensation across her chest and developed some shortness of breath. She drove herself to [facility] emergency room where she was found to have elevated troponins and was transferred here for further evaluation. She had undergone cardiac catheterization yesterday and was found to have significant triple- vessel disease and impaired left ventricular systolic function with ejection fraction of 40%. There was inferior wall hypokinesia. She has been recommended coronary artery bypass surgery. She is seen today in consultation on the selective care unit. She is awake and alert in no acute distress. She denies any chest pain, palpitations lightheadedness or dizziness. No shortness of breath, cough or congestion. She is maintaining O2 saturations in the 90s on room air. She's afebrile. Hemodynamically stable. Chest x-ray reveals evidence of chronic obstructive pulmonary disease but no acute pulmonary process. Bedside spirometry readings are pending. She has been educated regarding the incentive spirometer. She is on bronchodilators. A NicoDerm patch is in place. The patient is seen today in 07/16/2017 in follow-up in the intensive care unit. She did undergo quadruple coronary artery bypass grafting using the [place]O to the LAD, reverse saphenous vein grafts to the diagonal artery, first obtuse marginal artery and posterior descending artery. This is postoperative day #1. She is seen in the intensive care unit. Currently sitting up in a chair at the bedside. She was extubated and 6 hours 12 minutes postoperatively. She is currently on 5 L/m per nasal cannula maintaining good O2 saturations in the 90s. She is working well with the incentive spirometer. She has lactated Ringer's at 50 ML's per hour. White count 10.4. Hemoglobin 9.6. Creatinine 0.46. Currently on bronchodilators, Kefzol and Decadron. Hemodynamically stable. PA pressure 24 over 4. CVP 6. Objective - Vital Signs Vital signs: Vital Signs Temp 98.8 F 07/16/18 08:00 Pulse 80 07/16/18 08:00 Resp 19 07/16/18 08:00 BP 103/62 07/16/18 06:30 Pulse Ox 92 L 07/16/18 08:00 Intake & Output 07/15/18 07/16/18 07/16/18 18:59 06:59 18:59 Intake Total 7031.903 5422 69 Output Total 3515 1969 110 Balance -6097.410 -282 -41 Weight 63.2 kg 64.2 kg Intake: IV 91 917 69 0.9NS Cardiac Output 40 70 20 0.9NS Pressure Bag 18 117 9 ACETAMINOPHEN IV (For NPO 100 ) 1,000 mg In Empty Bag 1 bag @ 400 mls/hr IVPB Q6HR RUEL Rx#:[id number] Lactated Ringers 1,000 ml 530 40 @ 20 mls/hr IV .Q24H RUEL Rx#:[id number] Potassium Chloride 20 meq 100 In Water For Injection 1 100ml.bag @ 50 mls/hr IVPB Q2H RUEL Rx#: [id number] Intake, IV Titration 316.590 50 Amount ACETAMINOPHEN IV (For NPO 100 ) 1,000 mg In Empty Bag 1 bag @ 400 mls/hr IVPB Q6HR RUEL Rx#:[id number] Lactated Ringers 1,000 ml 100 50 @ 20 mls/hr IV .Q24H RUEL Rx#:[id number] Potassium Chloride 20 meq 100 In Water For Injection 1 100ml.bag @ 50 mls/hr IVPB Q2H RUEL Rx#: [id number] Propofol 1,000 mg In 16.590 Empty Bag 1 bag @ Titrate IV .Q0M PRN Rx#: [id number] Oral 100 Blood Product 620 620 Rc As-1 Unit 0 310 [id number] Rc As-1 Unit 310 [id number] Rc As-1 Unit 310 [id number] Output: Chest Tube Drainage 300 554 60 Left Pleural Chest Tube 40 272 30 Mediastinal Chest Tube 70 172 10 Right Pleural Chest Tube 190 110 20 Drainage 0 60 Left Leg 0 20 Right Leg 0 40 Urine 1215 1355 50 Estimated Blood Loss 1999 Other: Voiding Method Toilet Indwelling Catheter ABP, PAP, CO, CI - Last Documented Arterial Blood Pressure 102/54 Pulmonary Artery Pressure 24/4 Cardiac Output 4.9 Cardiac Index 3.0 - Exam GENERAL EXAM: Alert, fairly comfortable in no apparent distress. On 5 L/m per nasal cannula. HEAD: Normocephalic. EYES: Normal reaction of pupils, equal size. NOSE: Clear with pink turbinates. THROAT: No erythema or exudates. NECK: No masses, no JVD. CHEST: Heart other place. Sternum stable. Dressing intact. Chest tubes in place. LUNGS: Equal air entry with crackles in the bilateral posterior bases. CVS: S1 and S2 normal with no audible murmur, regular rhythm. ABDOMEN: No hepatosplenomegaly, normal bowel sounds, no guarding or rigidity. SPINE: No scoliosis or deformity SKIN: No rashes CENTRAL NERVOUS SYSTEM: No focal deficits, tone is normal in all 4 extremities. EXTREMITIES: There is trace peripheral edema. No clubbing, no cyanosis. Peripheral pulses are intact. SCDs in place. - Labs CBC & Chem 7: 07/16/18 04:00 07/16/18 04:00 Labs: Abnormal Lab Results - Last 24 Hours (Table) 07/14/18 07/15/18 07/15/18 Range/Units 07:12 10:02 11:58 RBC (3.80-5.40) m/uL Hgb (11.4-16.0) gm/dL Hct (34.0-46.0) % Plt Count (150-450) k/uL Neutrophils # (1.3-7.7) k/uL Lymphocytes # (1.0-4.8) k/uL PT (9.0-12.0) sec INR (<1.2) APTT (22.0-30.0) sec ABG pH 7.28 L (7.35-7.45) ABG pCO2 52 H (35-45) mmHg ABG pO2 189 H 217 H (83-108) mmHg ABG HCO3 (21-25) mmol/L ABG Total CO2 25 H 26 H (19-24) mmol/L ABG O2 Saturation 99.7 H 99.8 H (94-97) % ABG Hematocrit 27 L 25 L (34.0-46.0) % ABG Sodium (135-146) mmol/L ABG Potassium (3.4-4.5) mmol/L ABG Ionized Calcium (4.5-5.3) mg/dL ABG Glucose 110 H 117 H (75-99) mg/dL ABG Lactic Acid (0.5-1.6) mmol/L Hemoglobin 8.9 L 8.1 L (11.4-16.0) gm/dL Chloride (98-107) mmol/L BUN (7-17) mg/dL Creatinine (0.52-1.04) mg/dL Glucose (74-99) mg/dL POC Glucose (mg/dL) (75-99) mg/dL Calcium (8.4-10.2) mg/dL Magnesium (1.6-2.3) mg/dL Alkaline Phosphatase (38-126) U/L Total Protein (6.3-8.2) g/dL Albumin (3.5-5.0) g/dL Arterial Blood Potassium (3.4-4.5) mmol/L Arterial Blood Glucose 110 H 117 H (75-99) mg/dL Crossmatch See Detail 07/15/18 07/15/18 07/15/18 Range/Units 12:34 13:05 13:41 RBC (3.80-5.40) m/uL Hgb (11.4-16.0) gm/dL Hct (34.0-46.0) % Plt Count (150-450) k/uL Neutrophils # (1.3-7.7) k/uL Lymphocytes # (1.0-4.8) k/uL PT (9.0-12.0) sec INR (<1.2) APTT (22.0-30.0) sec ABG pH 7.27 L (7.35-7.45) ABG pCO2 50 H (35-45) mmHg ABG pO2 401 H >420 H 250 H (83-108) mmHg ABG HCO3 (21-25) mmol/L ABG Total CO2 (19-24) mmol/L ABG O2 Saturation 100.0 H 100.0 H 100.0 H (94-97) % ABG Hematocrit 21 L 22 L 21 L (34.0-46.0) % ABG Sodium 131 L 131 L (135-146) mmol/L ABG Potassium 5.3 H (3.4-4.5) mmol/L ABG Ionized Calcium 4.2 L 4.0 L 4.2 L (4.5-5.3) mg/dL ABG Glucose 140 H 235 H 213 H (75-99) mg/dL ABG Lactic Acid (0.5-1.6) mmol/L Hemoglobin 6.8 L* 7.1 L 6.9 L* (11.4-16.0) gm/dL Chloride (98-107) mmol/L BUN (7-17) mg/dL Creatinine (0.52-1.04) mg/dL Glucose (74-99) mg/dL POC Glucose (mg/dL) (75-99) mg/dL Calcium (8.4-10.2) mg/dL Magnesium (1.6-2.3) mg/dL Alkaline Phosphatase (38-126) U/L Total Protein (6.3-8.2) g/dL Albumin (3.5-5.0) g/dL Arterial Blood Potassium 5.3 H (3.4-4.5) mmol/L Arterial Blood Glucose 140 H 235 H 213 H (75-99) mg/dL Crossmatch 07/15/18 07/15/18 07/15/18 Range/Units 14:16 16:44 16:47 RBC 2.22 L (3.80-5.40) m/uL Hgb 7.1 L D (11.4-16.0) gm/dL Hct 19.7 L* (34.0-46.0) % Plt Count 128 L D (150-450) k/uL Neutrophils # (1.3-7.7) k/uL Lymphocytes # (1.0-4.8) k/uL PT (9.0-12.0) sec INR (<1.2) APTT (22.0-30.0) sec ABG pH (7.35-7.45) ABG pCO2 (35-45) mmHg ABG pO2 376 H (83-108) mmHg ABG HCO3 (21-25) mmol/L ABG Total CO2 (19-24) mmol/L ABG O2 Saturation 100.0 H (94-97) % ABG Hematocrit 20 L* (34.0-46.0) % ABG Sodium 132 L (135-146) mmol/L ABG Potassium (3.4-4.5) mmol/L ABG Ionized Calcium 4.3 L (4.5-5.3) mg/dL ABG Glucose 224 H (75-99) mg/dL ABG Lactic Acid 1.8 H (0.5-1.6) mmol/L Hemoglobin 6.4 L* (11.4-16.0) gm/dL Chloride (98-107) mmol/L BUN (7-17) mg/dL Creatinine (0.52-1.04) mg/dL Glucose (74-99) mg/dL POC Glucose (mg/dL) 60 L (75-99) mg/dL Calcium (8.4-10.2) mg/dL Magnesium (1.6-2.3) mg/dL Alkaline Phosphatase (38-126) U/L Total Protein (6.3-8.2) g/dL Albumin (3.5-5.0) g/dL Arterial Blood Potassium (3.4-4.5) mmol/L Arterial Blood Glucose 224 H (75-99) mg/dL Crossmatch 07/15/18 07/15/18 07/15/18 Range/Units 16:47 16:47 17:00 RBC (3.80-5.40) m/uL Hgb (11.4-16.0) gm/dL Hct (34.0-46.0) % Plt Count (150-450) k/uL Neutrophils # (1.3-7.7) k/uL Lymphocytes # (1.0-4.8) k/uL PT 13.2 H (9.0-12.0) sec INR 1.3 H (<1.2) APTT 35.7 H (22.0-30.0) sec ABG pH 7.29 L (7.35-7.45) ABG pCO2 57 H (35-45) mmHg ABG pO2 377 H (83-108) mmHg ABG HCO3 27 H (21-25) mmol/L ABG Total CO2 29 H (19-24) mmol/L ABG O2 Saturation 100.0 H (94-97) % ABG Hematocrit (34.0-46.0) % ABG Sodium (135-146) mmol/L ABG Potassium (3.4-4.5) mmol/L ABG Ionized Calcium (4.5-5.3) mg/dL ABG Glucose (75-99) mg/dL ABG Lactic Acid (0.5-1.6) mmol/L Hemoglobin (11.4-16.0) gm/dL Chloride 109 H (98-107) mmol/L BUN 5 L (7-17) mg/dL Creatinine 0.46 L (0.52-1.04) mg/dL Glucose 50 L (74-99) mg/dL POC Glucose (mg/dL) (75-99) mg/dL Calcium 7.7 L (8.4-10.2) mg/dL Magnesium 2.5 H (1.6-2.3) mg/dL Alkaline Phosphatase 29 L (38-126) U/L Total Protein 3.8 L (6.3-8.2) g/dL Albumin 2.3 L (3.5-5.0) g/dL Arterial Blood Potassium (3.4-4.5) mmol/L Arterial Blood Glucose (75-99) mg/dL Crossmatch 07/15/18 07/15/18 07/15/18 Range/Units 17:02 18:45 19:55 RBC (3.80-5.40) m/uL Hgb (11.4-16.0) gm/dL Hct (34.0-46.0) % Plt Count (150-450) k/uL Neutrophils # (1.3-7.7) k/uL Lymphocytes # (1.0-4.8) k/uL PT (9.0-12.0) sec INR (<1.2) APTT (22.0-30.0) sec ABG pH (7.35-7.45) ABG pCO2 (35-45) mmHg ABG pO2 (83-108) mmHg ABG HCO3 (21-25) mmol/L ABG Total CO2 (19-24) mmol/L ABG O2 Saturation (94-97) % ABG Hematocrit (34.0-46.0) % ABG Sodium (135-146) mmol/L ABG Potassium (3.4-4.5) mmol/L ABG Ionized Calcium (4.5-5.3) mg/dL ABG Glucose (75-99) mg/dL ABG Lactic Acid (0.5-1.6) mmol/L Hemoglobin (11.4-16.0) gm/dL Chloride (98-107) mmol/L BUN (7-17) mg/dL Creatinine (0.52-1.04) mg/dL Glucose (74-99) mg/dL POC Glucose (mg/dL) 133 H 104 H 120 H (75-99) mg/dL Calcium (8.4-10.2) mg/dL Magnesium (1.6-2.3) mg/dL Alkaline Phosphatase (38-126) U/L Total Protein (6.3-8.2) g/dL Albumin (3.5-5.0) g/dL Arterial Blood Potassium (3.4-4.5) mmol/L Arterial Blood Glucose (75-99) mg/dL Crossmatch 07/15/18 07/15/18 07/15/18 Range/Units 20:11 20:56 22:11 RBC 3.09 L (3.80-5.40) m/uL Hgb 9.5 L D (11.4-16.0) gm/dL Hct 26.9 L (34.0-46.0) % Plt Count (150-450) k/uL Neutrophils # (1.3-7.7) k/uL Lymphocytes # (1.0-4.8) k/uL PT (9.0-12.0) sec INR (<1.2) APTT (22.0-30.0) sec ABG pH 7.34 L (7.35-7.45) ABG pCO2 47 H (35-45) mmHg ABG pO2 82 L (83-108) mmHg ABG HCO3 (21-25) mmol/L ABG Total CO2 26 H (19-24) mmol/L ABG O2 Saturation (94-97) % ABG Hematocrit (34.0-46.0) % ABG Sodium (135-146) mmol/L ABG Potassium (3.4-4.5) mmol/L ABG Ionized Calcium (4.5-5.3) mg/dL ABG Glucose (75-99) mg/dL ABG Lactic Acid (0.5-1.6) mmol/L Hemoglobin (11.4-16.0) gm/dL Chloride (98-107) mmol/L BUN (7-17) mg/dL Creatinine (0.52-1.04) mg/dL Glucose (74-99) mg/dL POC Glucose (mg/dL) 106 H (75-99) mg/dL Calcium (8.4-10.2) mg/dL Magnesium (1.6-2.3) mg/dL Alkaline Phosphatase (38-126) U/L Total Protein (6.3-8.2) g/dL Albumin (3.5-5.0) g/dL Arterial Blood Potassium (3.4-4.5) mmol/L Arterial Blood Glucose (75-99) mg/dL Crossmatch 07/15/18 07/15/18 07/16/18 Range/Units 23:09 23:15 00:15 RBC 3.17 L (3.80-5.40) m/uL Hgb 9.4 L (11.4-16.0) gm/dL Hct 28.3 L (34.0-46.0) % Plt Count (150-450) k/uL Neutrophils # 8.9 H (1.3-7.7) k/uL Lymphocytes # 0.7 L (1.0-4.8) k/uL PT (9.0-12.0) sec INR (<1.2) APTT (22.0-30.0) sec ABG pH (7.35-7.45) ABG pCO2 (35-45) mmHg ABG pO2 (83-108) mmHg ABG HCO3 (21-25) mmol/L ABG Total CO2 (19-24) mmol/L ABG O2 Saturation (94-97) % ABG Hematocrit (34.0-46.0) % ABG Sodium (135-146) mmol/L ABG Potassium (3.4-4.5) mmol/L ABG Ionized Calcium (4.5-5.3) mg/dL ABG Glucose (75-99) mg/dL ABG Lactic Acid (0.5-1.6) mmol/L Hemoglobin (11.4-16.0) gm/dL Chloride (98-107) mmol/L BUN (7-17) mg/dL Creatinine (0.52-1.04) mg/dL Glucose (74-99) mg/dL POC Glucose (mg/dL) 116 H 128 H (75-99) mg/dL Calcium (8.4-10.2) mg/dL Magnesium (1.6-2.3) mg/dL Alkaline Phosphatase (38-126) U/L Total Protein (6.3-8.2) g/dL Albumin (3.5-5.0) g/dL Arterial Blood Potassium (3.4-4.5) mmol/L Arterial Blood Glucose (75-99) mg/dL Crossmatch 07/16/18 07/16/18 07/16/18 Range/Units 02:22 03:59 04:00 RBC 3.26 L (3.80-5.40) m/uL Hgb 9.6 L (11.4-16.0) gm/dL Hct 29.1 L (34.0-46.0) % Plt Count (150-450) k/uL Neutrophils # 9.1 H (1.3-7.7) k/uL Lymphocytes # 0.9 L (1.0-4.8) k/uL PT (9.0-12.0) sec INR (<1.2) APTT (22.0-30.0) sec ABG pH (7.35-7.45) ABG pCO2 (35-45) mmHg ABG pO2 (83-108) mmHg ABG HCO3 (21-25) mmol/L ABG Total CO2 (19-24) mmol/L ABG O2 Saturation (94-97) % ABG Hematocrit (34.0-46.0) % ABG Sodium (135-146) mmol/L ABG Potassium (3.4-4.5) mmol/L ABG Ionized Calcium (4.5-5.3) mg/dL ABG Glucose (75-99) mg/dL ABG Lactic Acid (0.5-1.6) mmol/L Hemoglobin (11.4-16.0) gm/dL Chloride (98-107) mmol/L BUN (7-17) mg/dL Creatinine (0.52-1.04) mg/dL Glucose (74-99) mg/dL POC Glucose (mg/dL) 130 H 129 H (75-99) mg/dL Calcium (8.4-10.2) mg/dL Magnesium (1.6-2.3) mg/dL Alkaline Phosphatase (38-126) U/L Total Protein (6.3-8.2) g/dL Albumin (3.5-5.0) g/dL Arterial Blood Potassium (3.4-4.5) mmol/L Arterial Blood Glucose (75-99) mg/dL Crossmatch 07/16/18 07/16/18 07/16/18 Range/Units 04:00 06:07 08:39 RBC (3.80-5.40) m/uL Hgb (11.4-16.0) gm/dL Hct (34.0-46.0) % Plt Count (150-450) k/uL Neutrophils # (1.3-7.7) k/uL Lymphocytes # (1.0-4.8) k/uL PT (9.0-12.0) sec INR (<1.2) APTT (22.0-30.0) sec ABG pH (7.35-7.45) ABG pCO2 (35-45) mmHg ABG pO2 (83-108) mmHg ABG HCO3 (21-25) mmol/L ABG Total CO2 (19-24) mmol/L ABG O2 Saturation (94-97) % ABG Hematocrit (34.0-46.0) % ABG Sodium (135-146) mmol/L ABG Potassium (3.4-4.5) mmol/L ABG Ionized Calcium (4.5-5.3) mg/dL ABG Glucose (75-99) mg/dL ABG Lactic Acid (0.5-1.6) mmol/L Hemoglobin (11.4-16.0) gm/dL Chloride 108 H (98-107) mmol/L BUN 6 L (7-17) mg/dL Creatinine 0.46 L (0.52-1.04) mg/dL Glucose 115 H (74-99) mg/dL POC Glucose (mg/dL) 128 H 153 H (75-99) mg/dL Calcium 8.1 L (8.4-10.2) mg/dL Magnesium (1.6-2.3) mg/dL Alkaline Phosphatase (38-126) U/L Total Protein 4.7 L (6.3-8.2) g/dL Albumin 2.8 L (3.5-5.0) g/dL Arterial Blood Potassium (3.4-4.5) mmol/L Arterial Blood Glucose (75-99) mg/dL Crossmatch Assessment and Plan Assessment: Impression: #1 Near syncope with shortness of breath suspect secondary to significant triple-vessel coronary artery disease. Status post coronary artery by bipass grafting 4 utilizing a [place] to the LAD, saphenous vein grafts to the diagonal, first obtuse marginal, and posterior descending artery. Postoperative day #1. Extubated yesterday and 6 hours 12 minutes. #2 Chronic and ongoing tobacco dependence with chronic obstructive pulmonary disease, untreated in the outpatient setting. FEV1 value 1.3 L/58% of predicted. Moderate operative risk. #3 Recent upper respiratory infection influenza screen negative. #4 Strong family history of coronary artery disease. #5 Hypertension. Plan: The patient was seen and evaluated by . Chest x-ray and labs were reviewed. She is working well with the incentive spirometer. Continue bronchodilators. Increase her activity as tolerated. We will continue to follow and make further recommendations based on her clinical status. I, the cosigning physician, performed a history & physical examination of the patient. Lungs sounds with faint crackles in the bilateral posterior bases left greater than right, diminished. Maintaining good O2 saturations in the 90s on 5 L/m per nasal cannula I discussed the assessment and plan of care with my nurse practitioner, Ginny Carranza. I attest to the above note as dictated by her. Time with Patient: Greater than 30
[2018-07-16] MEDS: ceFAZolin IN SWFI 2 GM/20 ML SYRINGE IVP SCH ×2 (10:23→16:32)
[2018-07-16] MEDS: MUPIROCIN 2% OINT 22 GM TUBE NASAL SCH ×2 (10:24→21:36)
[2018-07-16] MEDS ORDERED: ALBUMIN HUMAN 5% 250 ML in EMPTY BAG 1 BAG IVPB ONE (10:38)
--- NOTE | 2018-07-16 11:51 | P.PN ---
Subjective Progress Note Date: 07/16/18 Principal diagnosis: Severe triple vessel coronary artery disease, mild to moderately impaired left ventricular systolic function with an EF of 40-45%, non-ST elevated myocardial i nfarction this admission. Bilateral internal carotid artery stenosis 50-69%. History of hypertension, TIA, uterine cancer in 1984, current chronic tobacco dependence, moderate COPD with preoperative FEV1 57% of predicted, history of pneumonia, a family history of premature coronary artery disease and a history of diarrhea. Post cardiac catheterization right groin hematoma, with pseudoaneurysm. POD #1 urgent quadruple coronary artery bypass grafting using the left internal mammary artery to the left anterior descending coronary artery, a reverse greater saphenous vein graft from the aorta to the diagonal coronary artery, reverse greater saphenous vein graft from the aorta to the totally occluded, diffusely diseased first obtuse marginal coronary artery, a reverse greater saphenous vein graft from the aorta to the totally occluded posterior descending coronary artery. Endoscopic harvesting of bilateral greater saphenous veins. Intraoperative transesophageal echocardiogram, epi-aortic scanning and intraoperative graft flow measurement using the [employer] system. Patient is currently sitting up to the bedside chair. She is in no acute distress. Currently she is complaining of pain 3 out of 10 to her back, she denies any complaints of shortness of breath. The patient is hemodynamically stable and is on no pressor or inotropic support. The patient was successfully extubated within 6 hours and 12 minutes postoperatively, she is using her incentive spirometry and achieving 500 mL. Oxygen saturation are 93% on 5 L nasal cannula. Her left IJ Cordis with Newington-Leandro catheter is in place and currently her cardiac output is 5.1, cardiac index 3.1, PA pressures 17 /4, CVP is 2. Objective - Vital Signs Vital signs: Vital Signs Temp 98.8 F 07/16/18 08:00 Pulse 70 07/16/18 11:28 Resp 29 H 07/16/18 11:00 BP 103/62 07/16/18 06:30 Pulse Ox 91 L 07/16/18 11:00 Intake & Output 07/15/18 07/16/18 07/16/18 18:59 06:59 18:59 Intake Total 3463.738 6241 216 Output Total 6585 1969 220 Balance -2487.410 -282 -4 Weight 63.2 kg 64.2 kg Intake: IV 91 917 216 0.9NS Cardiac Output 40 70 20 0.9NS Pressure Bag 18 117 36 ACETAMINOPHEN IV (For NPO 100 ) 1,000 mg In Empty Bag 1 bag @ 400 mls/hr IVPB Q6HR RUEL Rx#:[id number] Lactated Ringers 1,000 ml 530 160 @ 20 mls/hr IV .Q24H RUEL Rx#:[id number] Potassium Chloride 20 meq 100 In Water For Injection 1 100ml.bag @ 50 mls/hr IVPB Q2H RUEL Rx#: [id number] Intake, IV Titration 316.590 50 Amount ACETAMINOPHEN IV (For NPO 100 ) 1,000 mg In Empty Bag 1 bag @ 400 mls/hr IVPB Q6HR RUEL Rx#:[id number] Lactated Ringers 1,000 ml 100 50 @ 20 mls/hr IV .Q24H RUEL Rx#:[id number] Potassium Chloride 20 meq 100 In Water For Injection 1 100ml.bag @ 50 mls/hr IVPB Q2H RUEL Rx#: [id number] Propofol 1,000 mg In 16.590 Empty Bag 1 bag @ Titrate IV .Q0M PRN Rx#: [id number] Oral 100 Blood Product 620 620 Rc As-1 Unit 0 310 [id number] Rc As-1 Unit 310 [id number] Rc As-1 Unit 310 [id number] Output: Chest Tube Drainage 300 554 110 Left Pleural Chest Tube 40 272 70 Mediastinal Chest Tube 70 172 10 Right Pleural Chest Tube 190 110 30 Drainage 0 60 Left Leg 0 20 Right Leg 0 40 Urine 1215 1355 110 Estimated Blood Loss 1999 Other: Voiding Method Toilet Indwelling Catheter ABP, PAP, CO, CI - Last Documented Arterial Blood Pressure 120/54 Pulmonary Artery Pressure 30/12 Cardiac Output 4.9 Cardiac Index 3.0 - Constitutional General appearance: Present: cooperative, no acute distress, thin - Respiratory Details: Lungs sounds essentially clear throughout, few scattered crackles to her bilateral bases. Respirations are symmetrical and nonlabored. Oxygen saturation are 93% on 5 L nasal cannula. Achieving 500 mL on her incentive spirometry with encouragement. Left, right and mediastinal chest tubes remain in place to low continuous wall suction at -20 cm H2O. No air leak is present. Draining thin serosanguineous drainage. Left pleural chest tubes drained 130 mL output in the last 8 hours, 310 mL since surgery. Mediastinal chest tubes drained 50 mL in the last 8 hours, 250 mL since surgery. Right pleural chest tube drained 65 mL in the last 8 hours, 300 mL since surgery. - Cardiovascular Details: Regular rhythm and rate. S1 and S2 present, negative for S3, gallop or murmur. Sternum is stable. Bedside telemetry showing normal sinus rhythm heart rate 93. Heart hugger is in place and she is demonstrating appropriate use. Left IJ Cordis with Newington-Leandro catheter in place and functioning. Current cardiac output 5.1, cardiac index 3.1, PA pressures 17/4, CVP 2 mmHg. Left radial arterial line in place and functioning. Knee-high DONNY hose and sequential compression devices in place to bilateral lower extremities. Atrial epicardial pacemaker wires in place and connected to back up pacemaker generator on an AAI of 60. - Gastrointestinal Gastrointestinal Comment(s): Abdomen soft, nontender and nondistended. Hypoactive bowel sounds present in all 4 abdominal quadrants. No guarding or rigidity. No organomegaly. - Genitourinary Genitourinary Comment(s): Reina catheter for accurate I&O. Draining clear yellow urine. 600 mL output in the last 8 hours. - Integumentary Integumentary Comment(s): Skin is warm and dry. No clubbing or cyanosis present. Midline sternal incision is clean, dry and approximated. No drainage or redness is present. Gauze dressing is clean and dry. Bilateral lower extremity EVH sites clean, dry and approximated. No drainage or redness present. Left lower extremity JESSICA drain in place and draining thin serosanguineous drainage 20 mL output since surgery. Right lower extremity JESSICA drain in place and functioning, draining thin serosanguineous drainage. 40 mL output since surgery. - Neurologic Neurologic: Present: CNII-XII intact - Musculoskeletal Musculoskeletal: Present: gait normal, generalized weakness, strength equal bilaterally - Psychiatric Psychiatric: Present: A&O x's 3, appropriate affect, intact judgment & insight - Allied health notes Allied health notes reviewed: nursing - Labs CBC & Chem 7: 07/16/18 04:00 07/16/18 04:00 Labs: Abnormal Lab Results - Last 24 Hours (Table) 07/14/18 07/15/18 07/15/18 Range/Units 07:12 10:02 11:58 RBC (3.80-5.40) m/uL Hgb (11.4-16.0) gm/dL Hct (34.0-46.0) % Plt Count (150-450) k/uL Neutrophils # (1.3-7.7) k/uL Lymphocytes # (1.0-4.8) k/uL PT (9.0-12.0) sec INR (<1.2) APTT (22.0-30.0) sec ABG pH 7.28 L (7.35-7.45) ABG pCO2 52 H (35-45) mmHg ABG pO2 189 H 217 H (83-108) mmHg ABG HCO3 (21-25) mmol/L ABG Total CO2 25 H 26 H (19-24) mmol/L ABG O2 Saturation 99.7 H 99.8 H (94-97) % ABG Hematocrit 27 L 25 L (34.0-46.0) % ABG Sodium (135-146) mmol/L ABG Potassium (3.4-4.5) mmol/L ABG Ionized Calcium (4.5-5.3) mg/dL ABG Glucose 110 H 117 H (75-99) mg/dL ABG Lactic Acid (0.5-1.6) mmol/L Hemoglobin 8.9 L 8.1 L (11.4-16.0) gm/dL Chloride (98-107) mmol/L BUN (7-17) mg/dL Creatinine (0.52-1.04) mg/dL Glucose (74-99) mg/dL POC Glucose (mg/dL) (75-99) mg/dL Calcium (8.4-10.2) mg/dL Magnesium (1.6-2.3) mg/dL Alkaline Phosphatase (38-126) U/L Total Protein (6.3-8.2) g/dL Albumin (3.5-5.0) g/dL Arterial Blood Potassium (3.4-4.5) mmol/L Arterial Blood Glucose 110 H 117 H (75-99) mg/dL Crossmatch See Detail 07/15/18 07/15/18 07/15/18 Range/Units 12:34 13:05 13:41 RBC (3.80-5.40) m/uL Hgb (11.4-16.0) gm/dL Hct (34.0-46.0) % Plt Count (150-450) k/uL Neutrophils # (1.3-7.7) k/uL Lymphocytes # (1.0-4.8) k/uL PT (9.0-12.0) sec INR (<1.2) APTT (22.0-30.0) sec ABG pH 7.27 L (7.35-7.45) ABG pCO2 50 H (35-45) mmHg ABG pO2 401 H >420 H 250 H (83-108) mmHg ABG HCO3 (21-25) mmol/L ABG Total CO2 (19-24) mmol/L ABG O2 Saturation 100.0 H 100.0 H 100.0 H (94-97) % ABG Hematocrit 21 L 22 L 21 L (34.0-46.0) % ABG Sodium 131 L 131 L (135-146) mmol/L ABG Potassium 5.3 H (3.4-4.5) mmol/L ABG Ionized Calcium 4.2 L 4.0 L 4.2 L (4.5-5.3) mg/dL ABG Glucose 140 H 235 H 213 H (75-99) mg/dL ABG Lactic Acid (0.5-1.6) mmol/L Hemoglobin 6.8 L* 7.1 L 6.9 L* (11.4-16.0) gm/dL Chloride (98-107) mmol/L BUN (7-17) mg/dL Creatinine (0.52-1.04) mg/dL Glucose (74-99) mg/dL POC Glucose (mg/dL) (75-99) mg/dL Calcium (8.4-10.2) mg/dL Magnesium (1.6-2.3) mg/dL Alkaline Phosphatase (38-126) U/L Total Protein (6.3-8.2) g/dL Albumin (3.5-5.0) g/dL Arterial Blood Potassium 5.3 H (3.4-4.5) mmol/L Arterial Blood Glucose 140 H 235 H 213 H (75-99) mg/dL Crossmatch 07/15/18 07/15/18 07/15/18 Range/Units 14:16 15:32 16:44 RBC (3.80-5.40) m/uL Hgb (11.4-16.0) gm/dL Hct (34.0-46.0) % Plt Count (150-450) k/uL Neutrophils # (1.3-7.7) k/uL Lymphocytes # (1.0-4.8) k/uL PT (9.0-12.0) sec INR (<1.2) APTT (22.0-30.0) sec ABG pH 7.24 L (7.35-7.45) ABG pCO2 48 H (35-45) mmHg ABG pO2 376 H 151 H (83-108) mmHg ABG HCO3 20 L (21-25) mmol/L ABG Total CO2 (19-24) mmol/L ABG O2 Saturation 100.0 H 99.2 H (94-97) % ABG Hematocrit 20 L* 20 L* (34.0-46.0) % ABG Sodium 132 L (135-146) mmol/L ABG Potassium (3.4-4.5) mmol/L ABG Ionized Calcium 4.3 L (4.5-5.3) mg/dL ABG Glucose 224 H 102 H (75-99) mg/dL ABG Lactic Acid 1.8 H 2.2 H* (0.5-1.6) mmol/L Hemoglobin 6.4 L* 6.4 L* (11.4-16.0) gm/dL Chloride (98-107) mmol/L BUN (7-17) mg/dL Creatinine (0.52-1.04) mg/dL Glucose (74-99) mg/dL POC Glucose (mg/dL) 60 L (75-99) mg/dL Calcium (8.4-10.2) mg/dL Magnesium (1.6-2.3) mg/dL Alkaline Phosphatase (38-126) U/L Total Protein (6.3-8.2) g/dL Albumin (3.5-5.0) g/dL Arterial Blood Potassium (3.4-4.5) mmol/L Arterial Blood Glucose 224 H 102 H (75-99) mg/dL Crossmatch 07/15/18 07/15/18 07/15/18 Range/Units 16:47 16:47 16:47 RBC 2.22 L (3.80-5.40) m/uL Hgb 7.1 L D (11.4-16.0) gm/dL Hct 19.7 L* (34.0-46.0) % Plt Count 128 L D (150-450) k/uL Neutrophils # (1.3-7.7) k/uL Lymphocytes # (1.0-4.8) k/uL PT 13.2 H (9.0-12.0) sec INR 1.3 H (<1.2) APTT 35.7 H (22.0-30.0) sec ABG pH (7.35-7.45) ABG pCO2 (35-45) mmHg ABG pO2 (83-108) mmHg ABG HCO3 (21-25) mmol/L ABG Total CO2 (19-24) mmol/L ABG O2 Saturation (94-97) % ABG Hematocrit (34.0-46.0) % ABG Sodium (135-146) mmol/L ABG Potassium (3.4-4.5) mmol/L ABG Ionized Calcium (4.5-5.3) mg/dL ABG Glucose (75-99) mg/dL ABG Lactic Acid (0.5-1.6) mmol/L Hemoglobin (11.4-16.0) gm/dL Chloride 109 H (98-107) mmol/L BUN 5 L (7-17) mg/dL Creatinine 0.46 L (0.52-1.04) mg/dL Glucose 50 L (74-99) mg/dL POC Glucose (mg/dL) (75-99) mg/dL Calcium 7.7 L (8.4-10.2) mg/dL Magnesium 2.5 H (1.6-2.3) mg/dL Alkaline Phosphatase 29 L (38-126) U/L Total Protein 3.8 L (6.3-8.2) g/dL Albumin 2.3 L (3.5-5.0) g/dL Arterial Blood Potassium (3.4-4.5) mmol/L Arterial Blood Glucose (75-99) mg/dL Crossmatch 07/15/18 07/15/18 07/15/18 Range/Units 17:00 17:02 18:45 RBC (3.80-5.40) m/uL Hgb (11.4-16.0) gm/dL Hct (34.0-46.0) % Plt Count (150-450) k/uL Neutrophils # (1.3-7.7) k/uL Lymphocytes # (1.0-4.8) k/uL PT (9.0-12.0) sec INR (<1.2) APTT (22.0-30.0) sec ABG pH 7.29 L (7.35-7.45) ABG pCO2 57 H (35-45) mmHg ABG pO2 377 H (83-108) mmHg ABG HCO3 27 H (21-25) mmol/L ABG Total CO2 29 H (19-24) mmol/L ABG O2 Saturation 100.0 H (94-97) % ABG Hematocrit (34.0-46.0) % ABG Sodium (135-146) mmol/L ABG Potassium (3.4-4.5) mmol/L ABG Ionized Calcium (4.5-5.3) mg/dL ABG Glucose (75-99) mg/dL ABG Lactic Acid (0.5-1.6) mmol/L Hemoglobin (11.4-16.0) gm/dL Chloride (98-107) mmol/L BUN (7-17) mg/dL Creatinine (0.52-1.04) mg/dL Glucose (74-99) mg/dL POC Glucose (mg/dL) 133 H 104 H (75-99) mg/dL Calcium (8.4-10.2) mg/dL Magnesium (1.6-2.3) mg/dL Alkaline Phosphatase (38-126) U/L Total Protein (6.3-8.2) g/dL Albumin (3.5-5.0) g/dL Arterial Blood Potassium (3.4-4.5) mmol/L Arterial Blood Glucose (75-99) mg/dL Crossmatch 07/15/18 07/15/18 07/15/18 Range/Units 19:55 20:11 20:56 RBC 3.09 L (3.80-5.40) m/uL Hgb 9.5 L D (11.4-16.0) gm/dL Hct 26.9 L (34.0-46.0) % Plt Count (150-450) k/uL Neutrophils # (1.3-7.7) k/uL Lymphocytes # (1.0-4.8) k/uL PT (9.0-12.0) sec INR (<1.2) APTT (22.0-30.0) sec ABG pH 7.34 L (7.35-7.45) ABG pCO2 47 H (35-45) mmHg ABG pO2 82 L (83-108) mmHg ABG HCO3 (21-25) mmol/L ABG Total CO2 26 H (19-24) mmol/L ABG O2 Saturation (94-97) % ABG Hematocrit (34.0-46.0) % ABG Sodium (135-146) mmol/L ABG Potassium (3.4-4.5) mmol/L ABG Ionized Calcium (4.5-5.3) mg/dL ABG Glucose (75-99) mg/dL ABG Lactic Acid (0.5-1.6) mmol/L Hemoglobin (11.4-16.0) gm/dL Chloride (98-107) mmol/L BUN (7-17) mg/dL Creatinine (0.52-1.04) mg/dL Glucose (74-99) mg/dL POC Glucose (mg/dL) 120 H (75-99) mg/dL Calcium (8.4-10.2) mg/dL Magnesium (1.6-2.3) mg/dL Alkaline Phosphatase (38-126) U/L Total Protein (6.3-8.2) g/dL Albumin (3.5-5.0) g/dL Arterial Blood Potassium (3.4-4.5) mmol/L Arterial Blood Glucose (75-99) mg/dL Crossmatch 07/15/18 07/15/18 07/15/18 Range/Units 22:11 23:09 23:15 RBC 3.17 L (3.80-5.40) m/uL Hgb 9.4 L (11.4-16.0) gm/dL Hct 28.3 L (34.0-46.0) % Plt Count (150-450) k/uL Neutrophils # 8.9 H (1.3-7.7) k/uL Lymphocytes # 0.7 L (1.0-4.8) k/uL PT (9.0-12.0) sec INR (<1.2) APTT (22.0-30.0) sec ABG pH (7.35-7.45) ABG pCO2 (35-45) mmHg ABG pO2 (83-108) mmHg ABG HCO3 (21-25) mmol/L ABG Total CO2 (19-24) mmol/L ABG O2 Saturation (94-97) % ABG Hematocrit (34.0-46.0) % ABG Sodium (135-146) mmol/L ABG Potassium (3.4-4.5) mmol/L ABG Ionized Calcium (4.5-5.3) mg/dL ABG Glucose (75-99) mg/dL ABG Lactic Acid (0.5-1.6) mmol/L Hemoglobin (11.4-16.0) gm/dL Chloride (98-107) mmol/L BUN (7-17) mg/dL Creatinine (0.52-1.04) mg/dL Glucose (74-99) mg/dL POC Glucose (mg/dL) 106 H 116 H (75-99) mg/dL Calcium (8.4-10.2) mg/dL Magnesium (1.6-2.3) mg/dL Alkaline Phosphatase (38-126) U/L Total Protein (6.3-8.2) g/dL Albumin (3.5-5.0) g/dL Arterial Blood Potassium (3.4-4.5) mmol/L Arterial Blood Glucose (75-99) mg/dL Crossmatch 07/16/18 07/16/18 07/16/18 Range/Units 00:15 02:22 03:59 RBC (3.80-5.40) m/uL Hgb (11.4-16.0) gm/dL Hct (34.0-46.0) % Plt Count (150-450) k/uL Neutrophils # (1.3-7.7) k/uL Lymphocytes # (1.0-4.8) k/uL PT (9.0-12.0) sec INR (<1.2) APTT (22.0-30.0) sec ABG pH (7.35-7.45) ABG pCO2 (35-45) mmHg ABG pO2 (83-108) mmHg ABG HCO3 (21-25) mmol/L ABG Total CO2 (19-24) mmol/L ABG O2 Saturation (94-97) % ABG Hematocrit (34.0-46.0) % ABG Sodium (135-146) mmol/L ABG Potassium (3.4-4.5) mmol/L ABG Ionized Calcium (4.5-5.3) mg/dL ABG Glucose (75-99) mg/dL ABG Lactic Acid (0.5-1.6) mmol/L Hemoglobin (11.4-16.0) gm/dL Chloride (98-107) mmol/L BUN (7-17) mg/dL Creatinine (0.52-1.04) mg/dL Glucose (74-99) mg/dL POC Glucose (mg/dL) 128 H 130 H 129 H (75-99) mg/dL Calcium (8.4-10.2) mg/dL Magnesium (1.6-2.3) mg/dL Alkaline Phosphatase (38-126) U/L Total Protein (6.3-8.2) g/dL Albumin (3.5-5.0) g/dL Arterial Blood Potassium (3.4-4.5) mmol/L Arterial Blood Glucose (75-99) mg/dL Crossmatch 07/16/18 07/16/18 07/16/18 Range/Units 04:00 04:00 06:07 RBC 3.26 L (3.80-5.40) m/uL Hgb 9.6 L (11.4-16.0) gm/dL Hct 29.1 L (34.0-46.0) % Plt Count (150-450) k/uL Neutrophils # 9.1 H (1.3-7.7) k/uL Lymphocytes # 0.9 L (1.0-4.8) k/uL PT (9.0-12.0) sec INR (<1.2) APTT (22.0-30.0) sec ABG pH (7.35-7.45) ABG pCO2 (35-45) mmHg ABG pO2 (83-108) mmHg ABG HCO3 (21-25) mmol/L ABG Total CO2 (19-24) mmol/L ABG O2 Saturation (94-97) % ABG Hematocrit (34.0-46.0) % ABG Sodium (135-146) mmol/L ABG Potassium (3.4-4.5) mmol/L ABG Ionized Calcium (4.5-5.3) mg/dL ABG Glucose (75-99) mg/dL ABG Lactic Acid (0.5-1.6) mmol/L Hemoglobin (11.4-16.0) gm/dL Chloride 108 H (98-107) mmol/L BUN 6 L (7-17) mg/dL Creatinine 0.46 L (0.52-1.04) mg/dL Glucose 115 H (74-99) mg/dL POC Glucose (mg/dL) 128 H (75-99) mg/dL Calcium 8.1 L (8.4-10.2) mg/dL Magnesium (1.6-2.3) mg/dL Alkaline Phosphatase (38-126) U/L Total Protein 4.7 L (6.3-8.2) g/dL Albumin 2.8 L (3.5-5.0) g/dL Arterial Blood Potassium (3.4-4.5) mmol/L Arterial Blood Glucose (75-99) mg/dL Crossmatch 07/16/18 Range/Units 08:39 RBC (3.80-5.40) m/uL Hgb (11.4-16.0) gm/dL Hct (34.0-46.0) % Plt Count (150-450) k/uL Neutrophils # (1.3-7.7) k/uL Lymphocytes # (1.0-4.8) k/uL PT (9.0-12.0) sec INR (<1.2) APTT (22.0-30.0) sec ABG pH (7.35-7.45) ABG pCO2 (35-45) mmHg ABG pO2 (83-108) mmHg ABG HCO3 (21-25) mmol/L ABG Total CO2 (19-24) mmol/L ABG O2 Saturation (94-97) % ABG Hematocrit (34.0-46.0) % ABG Sodium (135-146) mmol/L ABG Potassium (3.4-4.5) mmol/L ABG Ionized Calcium (4.5-5.3) mg/dL ABG Glucose (75-99) mg/dL ABG Lactic Acid (0.5-1.6) mmol/L Hemoglobin (11.4-16.0) gm/dL Chloride (98-107) mmol/L BUN (7-17) mg/dL Creatinine (0.52-1.04) mg/dL Glucose (74-99) mg/dL POC Glucose (mg/dL) 153 H (75-99) mg/dL Calcium (8.4-10.2) mg/dL Magnesium (1.6-2.3) mg/dL Alkaline Phosphatase (38-126) U/L Total Protein (6.3-8.2) g/dL Albumin (3.5-5.0) g/dL Arterial Blood Potassium (3.4-4.5) mmol/L Arterial Blood Glucose (75-99) mg/dL Crossmatch - Imaging and Cardiology Chest x-ray: report reviewed, image reviewed Assessment and Plan Assessment: 1. Status post quadruple coronary artery bypass grafting surgery. 2. Severe triple-vessel coronary artery disease. 3. Mild to moderately impaired left ventricular systolic function with an EF 40-45%. 4. Non-STEMI elevated myocardial infarction this admission. 5. Hypertension. 6. Bilateral internal carotid artery stenosis 50-69%. 7. History of TIA. 8. History of uterine cancer in 1984. 9. Current tobacco dependence. 10. Moderate COPD with preoperative FEV1 57% of predicted value. 11. Remote history of pneumonia. 12. Significant family history of premature coronary artery disease. 13. Right groin hematoma post cardiac catheterization, with pseudoaneurysm. 14. Diarrhea, chronic in nature. Plan: 1. Continue aspirin, statin, Plavix and beta brianda. Increase metoprolol tartrate 25 mg by mouth twice a day. 2. Encourage smoking cessation, discussed the importance of smoking cessation. 3. Encourage use of her incentive spirometry 10 times every hour while awake. 4. Pain control per current when necessary orders. We will add Toradol. 5. Encourage increase in activity as tolerated. Physical therapy/occupational therapy/cardiac rehab consulted. 6. Bronchodilators per pulmonology management. 7. Stool for C. diff is pending, uncollected. 8. Continue medical management per primary care, cardiology services. 9. Albumin 5% 250 mL 1 now for low urine output. 10. More recommendations to follow based on patient's clinical course. Time with Patient: Greater than 30
[2018-07-16] MEDS: MAGNESIUM HYDROXIDE 2,400 MG/10 ML CUP PO PRN (12:04)
--- NOTE | 2018-07-16 12:06 | P.PN ---
Subjective Patient is doing well and has been extubated following coronary artery bypass grafting. She underwent four-vessel bypass grafting Patient is sitting up in a chair. Mild chest discomfort but looks fairly comfortable in no respiratory distress Breath sounds are reduced currently with crackles at the bases Heart sounds are distant conductive sounds are audible Abdomen soft extremities warm Impression multivessel coronary artery disease, acute myocardial infarction Status post coronary artery bypass grafting Suggest Continue Antiplatelet therapy, metoprolol and statins Short course of amiodarone Objective - Vital Signs Vital signs: Vital Signs Temp 98.8 F 07/16/18 08:00 Pulse 70 07/16/18 11:28 Resp 29 H 07/16/18 11:00 BP 103/62 07/16/18 06:30 Pulse Ox 91 L 07/16/18 11:00 Intake & Output 07/15/18 07/16/18 07/16/18 18:59 06:59 18:59 Intake Total 8708.234 3880 216 Output Total 3515 1969 220 Balance -2487.410 -282 -4 Weight 63.2 kg 64.2 kg Intake: IV 91 917 216 0.9NS Cardiac Output 40 70 20 0.9NS Pressure Bag 18 117 36 ACETAMINOPHEN IV (For NPO 100 ) 1,000 mg In Empty Bag 1 bag @ 400 mls/hr IVPB Q6HR RUEL Rx#:[id number] Lactated Ringers 1,000 ml 530 160 @ 20 mls/hr IV .Q24H RUEL Rx#:[id number] Potassium Chloride 20 meq 100 In Water For Injection 1 100ml.bag @ 50 mls/hr IVPB Q2H RUEL Rx#: [id number] Intake, IV Titration 316.590 50 Amount ACETAMINOPHEN IV (For NPO 100 ) 1,000 mg In Empty Bag 1 bag @ 400 mls/hr IVPB Q6HR RUEL Rx#:[id number] Lactated Ringers 1,000 ml 100 50 @ 20 mls/hr IV .Q24H RUEL Rx#:[id number] Potassium Chloride 20 meq 100 In Water For Injection 1 100ml.bag @ 50 mls/hr IVPB Q2H RUEL Rx#: [id number] Propofol 1,000 mg In 16.590 Empty Bag 1 bag @ Titrate IV .Q0M PRN Rx#: [id number] Oral 100 Blood Product 620 620 Rc As-1 Unit 0 310 [id number] Rc As-1 Unit 310 [id number] As-1 Unit 310 [id number] Output: Chest Tube Drainage 300 554 110 Left Pleural Chest Tube 40 272 70 Mediastinal Chest Tube 70 172 10 Right Pleural Chest Tube 190 110 30 Drainage 0 60 Left Leg 0 20 Right Leg 0 40 Urine 1215 1355 110 Estimated Blood Loss 1999 Other: Voiding Method Toilet Indwelling Catheter ABP, PAP, CO, CI - Last Documented Arterial Blood Pressure 120/54 Pulmonary Artery Pressure 30/12 Cardiac Output 4.9 Cardiac Index 3.0 - Labs CBC & Chem 7: 07/16/18 04:00 07/16/18 04:00 Labs: Abnormal Lab Results - Last 24 Hours (Table) 07/14/18 07/15/18 07/15/18 Range/Units 07:12 10:02 11:58 RBC (3.80-5.40) m/uL Hgb (11.4-16.0) gm/dL Hct (34.0-46.0) % Plt Count (150-450) k/uL Neutrophils # (1.3-7.7) k/uL Lymphocytes # (1.0-4.8) k/uL PT (9.0-12.0) sec INR (<1.2) APTT (22.0-30.0) sec ABG pH 7.28 L (7.35-7.45) ABG pCO2 52 H (35-45) mmHg ABG pO2 189 H 217 H (83-108) mmHg ABG HCO3 (21-25) mmol/L ABG Total CO2 25 H 26 H (19-24) mmol/L ABG O2 Saturation 99.7 H 99.8 H (94-97) % ABG Hematocrit 27 L 25 L (34.0-46.0) % ABG Sodium (135-146) mmol/L ABG Potassium (3.4-4.5) mmol/L ABG Ionized Calcium (4.5-5.3) mg/dL ABG Glucose 110 H 117 H (75-99) mg/dL ABG Lactic Acid (0.5-1.6) mmol/L Hemoglobin 8.9 L 8.1 L (11.4-16.0) gm/dL Chloride (98-107) mmol/L BUN (7-17) mg/dL Creatinine (0.52-1.04) mg/dL Glucose (74-99) mg/dL POC Glucose (mg/dL) (75-99) mg/dL Calcium (8.4-10.2) mg/dL Magnesium (1.6-2.3) mg/dL Alkaline Phosphatase (38-126) U/L Total Protein (6.3-8.2) g/dL Albumin (3.5-5.0) g/dL Arterial Blood Potassium (3.4-4.5) mmol/L Arterial Blood Glucose 110 H 117 H (75-99) mg/dL Crossmatch See Detail 07/15/18 07/15/18 07/15/18 Range/Units 12:34 13:05 13:41 RBC (3.80-5.40) m/uL Hgb (11.4-16.0) gm/dL Hct (34.0-46.0) % Plt Count (150-450) k/uL Neutrophils # (1.3-7.7) k/uL Lymphocytes # (1.0-4.8) k/uL PT (9.0-12.0) sec INR (<1.2) APTT (22.0-30.0) sec ABG pH 7.27 L (7.35-7.45) ABG pCO2 50 H (35-45) mmHg ABG pO2 401 H >420 H 250 H (83-108) mmHg ABG HCO3 (21-25) mmol/L ABG Total CO2 (19-24) mmol/L ABG O2 Saturation 100.0 H 100.0 H 100.0 H (94-97) % ABG Hematocrit 21 L 22 L 21 L (34.0-46.0) % ABG Sodium 131 L 131 L (135-146) mmol/L ABG Potassium 5.3 H (3.4-4.5) mmol/L ABG Ionized Calcium 4.2 L 4.0 L 4.2 L (4.5-5.3) mg/dL ABG Glucose 140 H 235 H 213 H (75-99) mg/dL ABG Lactic Acid (0.5-1.6) mmol/L Hemoglobin 6.8 L* 7.1 L 6.9 L* (11.4-16.0) gm/dL Chloride (98-107) mmol/L BUN (7-17) mg/dL Creatinine (0.52-1.04) mg/dL Glucose (74-99) mg/dL POC Glucose (mg/dL) (75-99) mg/dL Calcium (8.4-10.2) mg/dL Magnesium (1.6-2.3) mg/dL Alkaline Phosphatase (38-126) U/L Total Protein (6.3-8.2) g/dL Albumin (3.5-5.0) g/dL Arterial Blood Potassium 5.3 H (3.4-4.5) mmol/L Arterial Blood Glucose 140 H 235 H 213 H (75-99) mg/dL Crossmatch 07/15/18 07/15/18 07/15/18 Range/Units 14:16 15:32 16:44 RBC (3.80-5.40) m/uL Hgb (11.4-16.0) gm/dL Hct (34.0-46.0) % Plt Count (150-450) k/uL Neutrophils # (1.3-7.7) k/uL Lymphocytes # (1.0-4.8) k/uL PT (9.0-12.0) sec INR (<1.2) APTT (22.0-30.0) sec ABG pH 7.24 L (7.35-7.45) ABG pCO2 48 H (35-45) mmHg ABG pO2 376 H 151 H (83-108) mmHg ABG HCO3 20 L (21-25) mmol/L ABG Total CO2 (19-24) mmol/L ABG O2 Saturation 100.0 H 99.2 H (94-97) % ABG Hematocrit 20 L* 20 L* (34.0-46.0) % ABG Sodium 132 L (135-146) mmol/L ABG Potassium (3.4-4.5) mmol/L ABG Ionized Calcium 4.3 L (4.5-5.3) mg/dL ABG Glucose 224 H 102 H (75-99) mg/dL ABG Lactic Acid 1.8 H 2.2 H* (0.5-1.6) mmol/L Hemoglobin 6.4 L* 6.4 L* (11.4-16.0) gm/dL Chloride (98-107) mmol/L BUN (7-17) mg/dL Creatinine (0.52-1.04) mg/dL Glucose (74-99) mg/dL POC Glucose (mg/dL) 60 L (75-99) mg/dL Calcium (8.4-10.2) mg/dL Magnesium (1.6-2.3) mg/dL Alkaline Phosphatase (38-126) U/L Total Protein (6.3-8.2) g/dL Albumin (3.5-5.0) g/dL Arterial Blood Potassium (3.4-4.5) mmol/L Arterial Blood Glucose 224 H 102 H (75-99) mg/dL Crossmatch 07/15/18 07/15/18 07/15/18 Range/Units 16:47 16:47 16:47 RBC 2.22 L (3.80-5.40) m/uL Hgb 7.1 L D (11.4-16.0) gm/dL Hct 19.7 L* (34.0-46.0) % Plt Count 128 L D (150-450) k/uL Neutrophils # (1.3-7.7) k/uL Lymphocytes # (1.0-4.8) k/uL PT 13.2 H (9.0-12.0) sec INR 1.3 H (<1.2) APTT 35.7 H (22.0-30.0) sec ABG pH (7.35-7.45) ABG pCO2 (35-45) mmHg ABG pO2 (83-108) mmHg ABG HCO3 (21-25) mmol/L ABG Total CO2 (19-24) mmol/L ABG O2 Saturation (94-97) % ABG Hematocrit (34.0-46.0) % ABG Sodium (135-146) mmol/L ABG Potassium (3.4-4.5) mmol/L ABG Ionized Calcium (4.5-5.3) mg/dL ABG Glucose (75-99) mg/dL ABG Lactic Acid (0.5-1.6) mmol/L Hemoglobin (11.4-16.0) gm/dL Chloride 109 H (98-107) mmol/L BUN 5 L (7-17) mg/dL Creatinine 0.46 L (0.52-1.04) mg/dL Glucose 50 L (74-99) mg/dL POC Glucose (mg/dL) (75-99) mg/dL Calcium 7.7 L (8.4-10.2) mg/dL Magnesium 2.5 H (1.6-2.3) mg/dL Alkaline Phosphatase 29 L (38-126) U/L Total Protein 3.8 L (6.3-8.2) g/dL Albumin 2.3 L (3.5-5.0) g/dL Arterial Blood Potassium (3.4-4.5) mmol/L Arterial Blood Glucose (75-99) mg/dL Crossmatch 07/15/18 07/15/18 07/15/18 Range/Units 17:00 17:02 18:45 RBC (3.80-5.40) m/uL Hgb (11.4-16.0) gm/dL Hct (34.0-46.0) % Plt Count (150-450) k/uL Neutrophils # (1.3-7.7) k/uL Lymphocytes # (1.0-4.8) k/uL PT (9.0-12.0) sec INR (<1.2) APTT (22.0-30.0) sec ABG pH 7.29 L (7.35-7.45) ABG pCO2 57 H (35-45) mmHg ABG pO2 377 H (83-108) mmHg ABG HCO3 27 H (21-25) mmol/L ABG Total CO2 29 H (19-24) mmol/L ABG O2 Saturation 100.0 H (94-97) % ABG Hematocrit (34.0-46.0) % ABG Sodium (135-146) mmol/L ABG Potassium (3.4-4.5) mmol/L ABG Ionized Calcium (4.5-5.3) mg/dL ABG Glucose (75-99) mg/dL ABG Lactic Acid (0.5-1.6) mmol/L Hemoglobin (11.4-16.0) gm/dL Chloride (98-107) mmol/L BUN (7-17) mg/dL Creatinine (0.52-1.04) mg/dL Glucose (74-99) mg/dL POC Glucose (mg/dL) 133 H 104 H (75-99) mg/dL Calcium (8.4-10.2) mg/dL Magnesium (1.6-2.3) mg/dL Alkaline Phosphatase (38-126) U/L Total Protein (6.3-8.2) g/dL Albumin (3.5-5.0) g/dL Arterial Blood Potassium (3.4-4.5) mmol/L Arterial Blood Glucose (75-99) mg/dL Crossmatch 07/15/18 07/15/18 07/15/18 Range/Units 19:55 20:11 20:56 RBC 3.09 L (3.80-5.40) m/uL Hgb 9.5 L D (11.4-16.0) gm/dL Hct 26.9 L (34.0-46.0) % Plt Count (150-450) k/uL Neutrophils # (1.3-7.7) k/uL Lymphocytes # (1.0-4.8) k/uL PT (9.0-12.0) sec INR (<1.2) APTT (22.0-30.0) sec ABG pH 7.34 L (7.35-7.45) ABG pCO2 47 H (35-45) mmHg ABG pO2 82 L (83-108) mmHg ABG HCO3 (21-25) mmol/L ABG Total CO2 26 H (19-24) mmol/L ABG O2 Saturation (94-97) % ABG Hematocrit (34.0-46.0) % ABG Sodium (135-146) mmol/L ABG Potassium (3.4-4.5) mmol/L ABG Ionized Calcium (4.5-5.3) mg/dL ABG Glucose (75-99) mg/dL ABG Lactic Acid (0.5-1.6) mmol/L Hemoglobin (11.4-16.0) gm/dL Chloride (98-107) mmol/L BUN (7-17) mg/dL Creatinine (0.52-1.04) mg/dL Glucose (74-99) mg/dL POC Glucose (mg/dL) 120 H (75-99) mg/dL Calcium (8.4-10.2) mg/dL Magnesium (1.6-2.3) mg/dL Alkaline Phosphatase (38-126) U/L Total Protein (6.3-8.2) g/dL Albumin (3.5-5.0) g/dL Arterial Blood Potassium (3.4-4.5) mmol/L Arterial Blood Glucose (75-99) mg/dL Crossmatch 07/15/18 07/15/18 07/15/18 Range/Units 22:11 23:09 23:15 RBC 3.17 L (3.80-5.40) m/uL Hgb 9.4 L (11.4-16.0) gm/dL Hct 28.3 L (34.0-46.0) % Plt Count (150-450) k/uL Neutrophils # 8.9 H (1.3-7.7) k/uL Lymphocytes # 0.7 L (1.0-4.8) k/uL PT (9.0-12.0) sec INR (<1.2) APTT (22.0-30.0) sec ABG pH (7.35-7.45) ABG pCO2 (35-45) mmHg ABG pO2 (83-108) mmHg ABG HCO3 (21-25) mmol/L ABG Total CO2 (19-24) mmol/L ABG O2 Saturation (94-97) % ABG Hematocrit (34.0-46.0) % ABG Sodium (135-146) mmol/L ABG Potassium (3.4-4.5) mmol/L ABG Ionized Calcium (4.5-5.3) mg/dL ABG Glucose (75-99) mg/dL ABG Lactic Acid (0.5-1.6) mmol/L Hemoglobin (11.4-16.0) gm/dL Chloride (98-107) mmol/L BUN (7-17) mg/dL Creatinine (0.52-1.04) mg/dL Glucose (74-99) mg/dL POC Glucose (mg/dL) 106 H 116 H (75-99) mg/dL Calcium (8.4-10.2) mg/dL Magnesium (1.6-2.3) mg/dL Alkaline Phosphatase (38-126) U/L Total Protein (6.3-8.2) g/dL Albumin (3.5-5.0) g/dL Arterial Blood Potassium (3.4-4.5) mmol/L Arterial Blood Glucose (75-99) mg/dL Crossmatch 07/16/18 07/16/18 07/16/18 Range/Units 00:15 02:22 03:59 RBC (3.80-5.40) m/uL Hgb (11.4-16.0) gm/dL Hct (34.0-46.0) % Plt Count (150-450) k/uL Neutrophils # (1.3-7.7) k/uL Lymphocytes # (1.0-4.8) k/uL PT (9.0-12.0) sec INR (<1.2) APTT (22.0-30.0) sec ABG pH (7.35-7.45) ABG pCO2 (35-45) mmHg ABG pO2 (83-108) mmHg ABG HCO3 (21-25) mmol/L ABG Total CO2 (19-24) mmol/L ABG O2 Saturation (94-97) % ABG Hematocrit (34.0-46.0) % ABG Sodium (135-146) mmol/L ABG Potassium (3.4-4.5) mmol/L ABG Ionized Calcium (4.5-5.3) mg/dL ABG Glucose (75-99) mg/dL ABG Lactic Acid (0.5-1.6) mmol/L Hemoglobin (11.4-16.0) gm/dL Chloride (98-107) mmol/L BUN (7-17) mg/dL Creatinine (0.52-1.04) mg/dL Glucose (74-99) mg/dL POC Glucose (mg/dL) 128 H 130 H 129 H (75-99) mg/dL Calcium (8.4-10.2) mg/dL Magnesium (1.6-2.3) mg/dL Alkaline Phosphatase (38-126) U/L Total Protein (6.3-8.2) g/dL Albumin (3.5-5.0) g/dL Arterial Blood Potassium (3.4-4.5) mmol/L Arterial Blood Glucose (75-99) mg/dL Crossmatch 07/16/18 07/16/18 07/16/18 Range/Units 04:00 04:00 06:07 RBC 3.26 L (3.80-5.40) m/uL Hgb 9.6 L (11.4-16.0) gm/dL Hct 29.1 L (34.0-46.0) % Plt Count (150-450) k/uL Neutrophils # 9.1 H (1.3-7.7) k/uL Lymphocytes # 0.9 L (1.0-4.8) k/uL PT (9.0-12.0) sec INR (<1.2) APTT (22.0-30.0) sec ABG pH (7.35-7.45) ABG pCO2 (35-45) mmHg ABG pO2 (83-108) mmHg ABG HCO3 (21-25) mmol/L ABG Total CO2 (19-24) mmol/L ABG O2 Saturation (94-97) % ABG Hematocrit (34.0-46.0) % ABG Sodium (135-146) mmol/L ABG Potassium (3.4-4.5) mmol/L ABG Ionized Calcium (4.5-5.3) mg/dL ABG Glucose (75-99) mg/dL ABG Lactic Acid (0.5-1.6) mmol/L Hemoglobin (11.4-16.0) gm/dL Chloride 108 H (98-107) mmol/L BUN 6 L (7-17) mg/dL Creatinine 0.46 L (0.52-1.04) mg/dL Glucose 115 H (74-99) mg/dL POC Glucose (mg/dL) 128 H (75-99) mg/dL Calcium 8.1 L (8.4-10.2) mg/dL Magnesium (1.6-2.3) mg/dL Alkaline Phosphatase (38-126) U/L Total Protein 4.7 L (6.3-8.2) g/dL Albumin 2.8 L (3.5-5.0) g/dL Arterial Blood Potassium (3.4-4.5) mmol/L Arterial Blood Glucose (75-99) mg/dL Crossmatch 07/16/18 Range/Units 08:39 RBC (3.80-5.40) m/uL Hgb (11.4-16.0) gm/dL Hct (34.0-46.0) % Plt Count (150-450) k/uL Neutrophils # (1.3-7.7) k/uL Lymphocytes # (1.0-4.8) k/uL PT (9.0-12.0) sec INR (<1.2) APTT (22.0-30.0) sec ABG pH (7.35-7.45) ABG pCO2 (35-45) mmHg ABG pO2 (83-108) mmHg ABG HCO3 (21-25) mmol/L ABG Total CO2 (19-24) mmol/L ABG O2 Saturation (94-97) % ABG Hematocrit (34.0-46.0) % ABG Sodium (135-146) mmol/L ABG Potassium (3.4-4.5) mmol/L ABG Ionized Calcium (4.5-5.3) mg/dL ABG Glucose (75-99) mg/dL ABG Lactic Acid (0.5-1.6) mmol/L Hemoglobin (11.4-16.0) gm/dL Chloride (98-107) mmol/L BUN (7-17) mg/dL Creatinine (0.52-1.04) mg/dL Glucose (74-99) mg/dL POC Glucose (mg/dL) 153 H (75-99) mg/dL Calcium (8.4-10.2) mg/dL Magnesium (1.6-2.3) mg/dL Alkaline Phosphatase (38-126) U/L Total Protein (6.3-8.2) g/dL Albumin (3.5-5.0) g/dL Arterial Blood Potassium (3.4-4.5) mmol/L Arterial Blood Glucose (75-99) mg/dL Crossmatch
[2018-07-16 12:28] LABS: Glucose,Whole Blood 153 mg/dL (75-99)
[2018-07-16] MEDS: INSULIN ASPART (NovoLOG) 100 UNIT/ML VIAL SQ SCH ×3 (12:33→21:36)
[2018-07-16] MEDS: LACTATED RINGERS 1,000 ML IV SCH (14:49)
[2018-07-16] MEDS ORDERED: HYDROcodone/APAP 5-325MG 1 EACH TAB PO PRN (16:20)
[2018-07-16] MEDS ORDERED: BISACODYL 10 MG SUPP RECTAL PRN (16:21)
[2018-07-16 17:27] LABS: Glucose,Whole Blood 128 mg/dL (75-99)
[2018-07-16 20:36] LABS: Glucose,Whole Blood 141 mg/dL (75-99)
[2018-07-16] MEDS: SENNOSIDES-DOCUSATE SODIUM 1 EACH TAB PO SCH (21:36)
[2018-07-16] MEDS ORDERED: FUROSEMIDE 10 MG/ML 2 ML VIAL IV STA (21:41)
[2018-07-17] MEDS: KETOROLAC 30 MG/ML 1 ML VIAL IVP SCH ×5 (00:54→23:20)
[2018-07-17] MEDS: HEPARIN SODIUM,PORCINE 5,000 UNIT/ML 1 ML VIAL SQ SCH ×4 (00:54→23:24)
[2018-07-17] MEDS: CLEVIDIPINE BUTYRATE 25 MG in EMPTY BAG 1 BAG IV SCH (04:28)
[2018-07-17 04:53] LABS: Basophils % (A) 0 %; Eosinophils # (A) 0.1 k/uL (0-0.7); Eosinophils % (A) 1 %; HCT 21.6 % (34.0-46.0); Lymphocytes # (A) 1.7 k/uL (1.0-4.8); Lymphocytes % (A) 17 %; MCH 30.5 pg (25.0-35.0); MCHC 34.7 g/dL (31.0-37.0); MCV 87.7 fL (80.0-100.0); Mean Platelet Volume 8.4; Monocytes # (A) 0.7 k/uL (0-1.0); Monocytes % (A) 7 %; Neutrophils # (A) 7.5 k/uL (1.3-7.7); Neutrophils % (A) 73 %; Platelet Count 223 k/uL (150-450); RBC 2.46 m/uL (3.80-5.40); WBC 10.2 k/uL (3.8-10.6)
[2018-07-17 05:10] LABS: Ionized Calcium 4.9 mg/dL (4.5-5.3)
[2018-07-17 05:19] LABS: ALT 28 U/L (9-52); AST 24 U/L (14-36); Albumin 3.2 g/dL (3.5-5.0); Alkaline Phosphatase 36 U/L (38-126); Anion Gap 4 mmol/L; Blood Urea Nitrogen 15 mg/dL (7-17); Calcium 8.5 mg/dL (8.4-10.2); Carbon Dioxide 26 mmol/L (22-30); Chloride 105 mmol/L (98-107); Glucose 102 mg/dL (74-99); Potassium 4.8 mmol/L (3.5-5.1); Sodium 135 mmol/L (137-145); Total Bilirubin 0.7 mg/dL (0.2-1.3); Total Protein 4.9 g/dL (6.3-8.2)
[2018-07-17] MEDS: HYDROcodone/APAP 5-325MG 1 EACH TAB PO PRN ×4 (05:36→23:26)
[2018-07-17 05:48] LABS: HGB 7.5 gm/dL (11.4-16.0)
[2018-07-17 07:15] LABS: Glucose,Whole Blood 121 mg/dL (75-99)
[2018-07-17] MEDS: INSULIN ASPART (NovoLOG) 100 UNIT/ML VIAL SQ SCH ×4 (07:15→20:30)
--- NOTE | 2018-07-17 08:28 | XR ---
EXAMINATION TYPE: XR chest 1V portable DATE OF EXAM: 07/17/2018 COMPARISON: Prior chest 07/16/2017 HISTORY: Chest tube, postop TECHNIQUE: Single frontal view of the chest is obtained. FINDINGS: Right-sided chest tube remains in place, patient is post median sternotomy. Central venous catheter has been removed. No pneumothorax. Bibasilar increased density shows a similar appearance l ikely due to subsegmental atelectasis or possibly small effusion. Heart size is stable. Catheter coil ed at the left lung base again noted. IMPRESSION: Interval central venous catheter removal. Basilar atelectasis, possible small effusion.
--- NOTE | 2018-07-17 08:38 | P.PN ---
Subjective Progress Note Date: 07/17/18 Principal diagnosis: Severe triple vessel coronary artery disease with chronically occluded right coronary artery and circumflex system, moderately impaired left ventricular systolic function with EF 40-45%, non-STEMI. Bilateral internal carotid artery stenosis 50-69%. Previous medical history of hypertension, TIA, uterine cancer in 1984, current tobacco dependence, moderate COPD with preoperative FEV1 57% of predicted, history of pneumonia, and family history of premature coronary artery disease. Post cardiac catheterization right groin hematoma, questionable small pseudoaneurysm. POD #2 urgent quadruple coronary artery bypass grafting using the left internal mammary artery to the left anterior descending artery, reverse saphenous vein graft from the aorta to the diagonal artery, reverse saphenous vein graft from the aorta to the totally occluded diffusely diseased first obtuse marginal artery, reverse saphenous vein graft from the aorta to the totally occluded posterior descending artery. Endoscopic harvesting of bilateral greater saphenous veins from the groins to just below the knee level. Intraoperative transesophageal echocardiogram and epi-aortic scanning. Intraoperative graft flow measurements using the [employer] system. Postoperative acute blood loss anemia, expected outcome of surgery given hemodilution and cardiopulmonary bypass pump. The patient is currently sitting up in a recliner in the intensive care unit in no acute distress eating breakfast. States pain is controlled with current medication regimen, denies shortness of breath. Remains in normal sinus rhythm, hemodynamically stable on no inotropes or pressors. Actively using incentive spirometry but not with great effort. She does state that she did not sleep well last night. Objective - Vital Signs Vital signs: Vital Signs Temp 97.8 F 07/17/18 04:00 Pulse 65 07/17/18 07:00 Resp 11 L 07/17/18 07:00 BP 80/52 07/17/18 07:00 Pulse Ox 92 L 07/17/18 07:00 Intake & Output 07/16/18 07/17/18 07/17/18 18:59 06:59 18:59 Intake Total 1040 912 Output Total 450 865 Balance 590 47 Weight 74 kg Intake: IV 540 462 0.9NS Cardiac Output 40 0.9NS Pressure Bag 90 72 Lactated Ringers 1,000 ml 410 390 @ 20 mls/hr IV .Q24H RUEL Rx#:[id number] Intake, IV Titration 500 250 Amount Albumin Human 5% 250 ml 500 250 In Empty Bag 1 bag @ 250 mls/hr IVPB ONCE ONE Rx#: [id number] Oral 100 Blood Product 100 Output: Chest Tube Drainage 190 260 Left Pleural Chest Tube 90 40 Mediastinal Chest Tube 30 40 Right Pleural Chest Tube 70 180 Drainage 30 Left Leg 20 Right Leg 10 Urine 260 575 Other: Voiding Method Indwelling Catheter Indwelling Catheter ABP, PAP, CO, CI - Last Documented Arterial Blood Pressure 92/42 Pulmonary Artery Pressure 21/7 Cardiac Output 4.1 Cardiac Index 2.5 - Constitutional General appearance: Present: cooperative, no acute distress - Respiratory Details: Lungs sounds diminished bilaterally. Respirations even, nonlabored. Currently on 2 L nasal cannula with oxygen saturation 94%. Only able to achieve 500 mL on her incentive spirometry. Strong cough. Mediastinal chest tube to continuous wall suction, 20 mL serosanguineous drainage overnight, 140 mL in the last 24 hours. Left pleural chest tube to continuous wall suction, 30 mL serosanguineous drainage overnight, 150 mL in the last 24 hours. Right pleural chest tube to continuous wall suction, 170 mL serosanguineous drainage overnight, 400 mL in the last 24 hours. No air leaks present. - Cardiovascular Details: S1, S2 present. Regular rate and rhythm, sinus rhythm on telemetry. Sternum stable. Atrial epicardial pacemaker wire present, grounded. Palpable periphe ral pulses bilaterally. No edema present. No calf pain or tenderness noted. Left internal jugular Cordis, left radial arterial line present. CVP 12-16 overnight, currently 6-7. Heart hugger in place with patient demonstrating appropriate use. Antiembolism stockings, SCDs present. - Gastrointestinal Gastrointestinal Comment(s): Abdomen soft, nontender, nondistended. Hypoactive bowel sounds present 4 quadrants. Tolerating clear liquids. Positive belching, negative flatus, negative bowel movement. - Genitourinary Genitourinary Comment(s): Reina present draining clear, yellow urine. Output 30 mL/h overnight, 300 mL diuresis after IV Lasix last night. - Integumentary Integumentary Comment(s): Skin is warm and dry with evidence of good perfusion. Anterior chest incision well approximated and covered with dry intact dressing. Bilateral lower extremity EVH sites well approximated, JESSICA drains present with minimal serous drainage. Right groin ecchymotic, expected. - Neurologic Neurologic: Present: CNII-XII intact - Musculoskeletal Musculoskeletal: Present: gait normal, strength equal bilaterally - Psychiatric Psychiatric: Present: A&O x's 3, appropriate affect, intact judgment & insight - Allied health notes Allied health notes reviewed: nursing - Labs CBC & Chem 7: 07/17/18 04:19 07/17/18 04:19 Labs: Abnormal Lab Results - Last 24 Hours (Table) 07/14/18 07/15/18 07/16/18 Range/Units 07:12 15:32 08:39 RBC (3.80-5.40) m/uL Hgb (11.4-16.0) gm/dL Hct (34.0-46.0) % ABG pH 7.24 L (7.35-7.45) ABG pCO2 48 H (35-45) mmHg ABG pO2 151 H (83-108) mmHg ABG HCO3 20 L (21-25) mmol/L ABG O2 Saturation 99.2 H (94-97) % ABG Hematocrit 20 L* (34.0-46.0) % ABG Glucose 102 H (75-99) mg/dL ABG Lactic Acid 2.2 H* (0.5-1.6) mmol/L Hemoglobin 6.4 L* (11.4-16.0) gm/dL Sodium (137-145) mmol/L Glucose (74-99) mg/dL POC Glucose (mg/dL) 153 H (75-99) mg/dL Alkaline Phosphatase (38-126) U/L Total Protein (6.3-8.2) g/dL Albumin (3.5-5.0) g/dL Arterial Blood Glucose 102 H (75-99) mg/dL Crossmatch See Detail 07/16/18 07/16/18 07/16/18 Range/Units 12:16 17:16 20:24 RBC (3.80-5.40) m/uL Hgb (11.4-16.0) gm/dL Hct (34.0-46.0) % ABG pH (7.35-7.45) ABG pCO2 (35-45) mmHg ABG pO2 (83-108) mmHg ABG HCO3 (21-25) mmol/L ABG O2 Saturation (94-97) % ABG Hematocrit (34.0-46.0) % ABG Glucose (75-99) mg/dL ABG Lactic Acid (0.5-1.6) mmol/L Hemoglobin (11.4-16.0) gm/dL Sodium (137-145) mmol/L Glucose (74-99) mg/dL POC Glucose (mg/dL) 153 H 128 H 141 H (75-99) mg/dL Alkaline Phosphatase (38-126) U/L Total Protein (6.3-8.2) g/dL Albumin (3.5-5.0) g/dL Arterial Blood Glucose (75-99) mg/dL Crossmatch 07/17/18 07/17/18 07/17/18 Range/Units 04:19 04:19 07:03 RBC 2.46 L (3.80-5.40) m/uL Hgb 7.5 L D (11.4-16.0) gm/dL Hct 21.6 L (34.0-46.0) % ABG pH (7.35-7.45) ABG pCO2 (35-45) mmHg ABG pO2 (83-108) mmHg ABG HCO3 (21-25) mmol/L ABG O2 Saturation (94-97) % ABG Hematocrit (34.0-46.0) % ABG Glucose (75-99) mg/dL ABG Lactic Acid (0.5-1.6) mmol/L Hemoglobin (11.4-16.0) gm/dL Sodium 135 L (137-145) mmol/L Glucose 102 H (74-99) mg/dL POC Glucose (mg/dL) 121 H (75-99) mg/dL Alkaline Phosphatase 36 L (38-126) U/L Total Protein 4.9 L (6.3-8.2) g/dL Albumin 3.2 L (3.5-5.0) g/dL Arterial Blood Glucose (75-99) mg/dL Crossmatch - Imaging and Cardiology Chest x-ray: report reviewed, image reviewed Assessment and Plan Assessment: 1. Severe triple-vessel coronary artery disease with chronically occluded right coronary artery and circumflex system, status post urgent quadruple coronary artery bypass grafting 2. Moderately impaired left ventricular systolic function with EF 40-45% 3. Non-STEMI 4. Hypertension 5. Bilateral internal carotid artery stenosis 50-69% 6. History of TIA 7. History of uterine cancer in 1984 8. Current tobacco dependence 9. Moderate COPD with preoperative FEV1 57% of predicted 10. Remote history of pneumonia 11. Significant family history of premature coronary artery disease 12. Right groin hematoma post cardiac catheterization, questionable small pseudoaneurysm 13. Diarrhea, chronic in nature 14. Postoperative acute blood loss anemia, expected Plan: 1. Continue maximizing medical therapy with aspirin, statin, Plavix, beta brianda therapy. Will increase beta brianda therapy as tolerated. Will add afterload reduction as BP tolerates. 2. Wean O2 as tolerated. Encourage incentive spirometry use 10 times every hour while awake. 3. Encourage smoking cessation. 4. Bronchodilators per pulmonology. 5. Increase activity, ambulate as tolerated. PT/OT/cardiac rehab following. 6. Will discontinue mediastinal, left pleural chest tubes, right and left JESSICA drain. 7. Will continue Reina catheter for now for accurate I and O's. 8. Pain control with current medication regimen. 9. Insulin management per primary care service. 10. Will monitor daily labs and x-rays. Electrolyte replacement per protocol. No transfusion. 11. More recommendations to follow based on patient's progress. Time with Patient: Greater than 30
[2018-07-17] MEDS: IPRATROPIUM-ALBUTEROL 3 ML NEB INHALATION SCH ×4 (09:17→20:57)
--- NOTE | 2018-07-17 09:25 | P.VSCSTY ---
Greater Saphenous Vein Mapping This is bilateral lower extremity greater saphenous vein mapping. Date of service 07/09/2018 Vein quality and ultrasound appearance we see no intraluminal thrombus. There appears to be a had dual system with mixed portions of each system being too small to utilize for conduit.. Vein size groin right 4.1 x 4.2 groin left 4.1 x 4.1 High thigh right 3.0 x 2.7 high thigh left 3.6 x 2.6 Mid thigh right anterior branch 2.5 x 2.6 mid thigh left 3.1 x 2.6 Above-knee right anterior branch 2.4 x 1.9 above-knee left very medial branch 2.7 x 2.5 Below knee right more posterior branch 2.1 x 1.0 below-knee left anterior branch 2.8 x 1.7 Mid calf right more posterior branch 3.2 x 2.5 mid calf left posterior branch 2.0 x 1.8 Ankle right 2.1 x 1.9 ankle left 4.2 x 2.4 Impression possibly some scattered usable vein bilaterally. Upper thigh bilaterally most promising especially on the left. Appears to be potentially a poor candidate for endovenous harvesting. Most likely to be successful would be to start at the groin on the left. Clinical correlation is strongly recommended..
--- NOTE | 2018-07-17 09:27 | P.ARTDOP ---
Arterial Doppler Bilateral radial artery studies: Date of study 07/10/2018 Findings: On imaging the left radial is consistently less than 2 mm and does not qualify. The right varies between 2.5 x 2.7 proximally and 2.6 x 2.9 distally. There are no right to left or segmental pressure gradients and there are no significant changes on digital plethysmography with radial artery compression. Impression: Right radial usable but left does not meet criteria .
[2018-07-17] MEDS: PANTOPRAZOLE 40 MG TABLET PO SCH (09:36)
[2018-07-17] MEDS: CLOPIDOGREL 75 MG TAB PO SCH (09:36)
[2018-07-17] MEDS: METOPROLOL TARTRATE 25 MG TAB PO SCH ×2 (09:36→21:18)
[2018-07-17] MEDS: ATORVASTATIN 40 MG TAB PO SCH (09:36)
[2018-07-17] MEDS: ASPIRIN 325 MG TAB PO SCH (09:36)
--- NOTE | 2018-07-17 09:38 | PN ---
PROGRESS NOTE DATE OF SERVICE: July 17, 2018 This is a 63-year-old female who is postop day #2, status post 4-vessel bypass grafting. The patient is doing much better. She was extubated 6 hours 12 minutes after leaving the operating room. The patient is feeling relatively well today. She is a little bit less alert and awake today. A bit more sleepy. Doing okay on her incentive spirometry. The patient has a history of hypertension, a strong family history of CAD, history of recent upper respiratory tract infection and a previous history of heavy tobacco use with evidence of COPD. Her FEV1 was 1.3 L or 58% of predicted, meaning that she has stage II COPD. She was also having some issues of near-syncope related to her underlying coronary artery disease. Currently as I mentioned, the patient is doing much better. She feels much better. We encouraged her to take deep breaths, cough, clear her secretions and use the incentive spirometer q.1 hour. She is getting 3 L nasal cannula and lactated Ringer's at 30 mL an hour. Current vital signs include temperature 97.8, heart rate 65, respiratory rate 11, blood pressure 92/42, central venous pressure 6, saturations 92% on 3 L. She appears in no acute distress. HEENT examination is grossly unremarkable. Mucous membranes are moist. No oral lesions. NECK: Supple. Full range of motion. No adenopathy or thyromegaly. Neck veins are flat. Cardiovascular examination reveals regular rhythm and rate. S1, S2 normal. No S3, S4, or murmur. Lungs are clear. Breath sounds are equal. No wheezes, rhonchi, or crackles. ABDOMEN: Soft. Bowel sounds are heard. There is no masses or tenderness. Extremities are intact. No cyanosis, clubbing, or edema. Skin without rash. Neurologic examination is brief but nonfocal. Chest x-ray shows improved aeration. There is some mild basilar atelectasis. Tubes and lines are noted. Labs are reviewed. White count 10.2, hemoglobin 7.5, hematocrit 21.6, platelet count is normal. Sodium 135, potassium, chloride and CO2 normal. Anion gap 4. BUN and creatinine were 15 and 0.61. Microbiologic studies are negative. Nasal screen for Staph is negative. Medications are reviewed. ASSESSMENT: 1. Postoperative day #2, status post 4-vessel bypass grafting. 2. Routine postoperative ventilator management, resolved. 3. History of near syncope and shortness of breath, secondary to significant coronary artery disease. 4. History of gold stage II chronic obstructive pulmonary disease with an FEV1 that is 1.3 L or 58% of predicted. 5. Previous history of tobacco use. 6. Recent upper respiratory tract infection. 7. Strong family history of coronary artery disease. 8. History of benign essential hypertension. PLAN: The patient continues to improve. We encouraged her to take deep breaths, cough, clear secretions and use her incentive spirometer q.1 hour. She continues on updraft treatment. We continue to follow her closely. Her x-ray and labs are reviewed. Her chest x-ray shows improved aeration, but some atelectasis at the bases. We will continue to follow. Prognosis is guarded. MMODL / IJN: [id number] /
[2018-07-17 09:51] VITALS: BMI 28.9
--- NOTE | 2018-07-17 11:18 | P.ARTDOP ---
Arterial Doppler LOWER EXTREMITY ARTERIAL DOPPLER: DATE OF SERVICE: 07/10/2018 Reason for study: Preop CABG. Doppler waveforms: Multiphasic bilaterally throughout. Pulse volume recording: []. Pressure gradients: Mild gradient distally on the left. Ankle-brachial indices: 0.94 on the right and 0.91 on the left. Toe pressures: [] on the right, [] on the left Impression: Suspect mild bilateral SFA disease..
--- NOTE | 2018-07-17 11:41 | P.PN ---
Subjective Patient is doing well. She is resting in a chair no shortness of breath Breath sounds are reduced bilaterally with crackles at the bases Heart sounds are distant Conduction sounds are audible Abdomen is soft Impression Coronary artery disease multivessel history of recent WI, status post coronary bypass grafting Plan Continue current medications and continue CT surgery/ ICU care Continue current medications Objective - Vital Signs Vital signs: Vital Signs Temp 98.3 F 07/17/18 08:00 Pulse 68 07/17/18 09:29 Resp 14 07/17/18 09:00 BP 80/52 07/17/18 07:00 Pulse Ox 93 L 07/17/18 09:00 Intake & Output 07/16/18 07/17/18 07/17/18 18:59 06:59 18:59 Intake Total 1040 912 Output Total 450 865 Balance 590 47 Weight 74 kg 74 kg Intake: IV 540 462 0.9NS Cardiac Output 40 0.9NS Pressure Bag 90 72 Lactated Ringers 1,000 ml 410 390 @ 20 mls/hr IV .Q24H [facility] Rx#:[id number] Intake, IV Titration 500 250 Amount Albumin Human 5% 250 ml 500 250 In Empty Bag 1 bag @ 250 mls/hr IVPB ONCE ONE Rx#: [id number] Oral 100 Blood Product 100 Output: Chest Tube Drainage 190 260 Left Pleural Chest Tube 90 40 Mediastinal Chest Tube 30 40 Right Pleural Chest Tube 70 180 Drainage 30 Left Leg 20 Right Leg 10 Urine 260 575 Other: Voiding Method Indwelling Catheter Indwelling Catheter ABP, PAP, CO, CI - Last Documented Arterial Blood Pressure 120/52 Pulmonary Artery Pressure 21/7 Cardiac Output 4.1 Cardiac Index 2.5 - Labs CBC & Chem 7: 07/17/18 04:19 07/17/18 04:19 Labs: Abnormal Lab Results - Last 24 Hours (Table) 07/14/18 07/16/18 07/16/18 Range/Units 07:12 12:16 17:16 RBC (3.80-5.40) m/uL Hgb (11.4-16.0) gm/dL Hct (34.0-46.0) % Sodium (137-145) mmol/L Glucose (74-99) mg/dL POC Glucose (mg/dL) 153 H 128 H (75-99) mg/dL Alkaline Phosphatase (38-126) U/L Total Protein (6.3-8.2) g/dL Albumin (3.5-5.0) g/dL Crossmatch See Detail 07/16/18 07/17/18 07/17/18 Range/Units 20:24 04:19 04:19 RBC 2.46 L (3.80-5.40) m/uL Hgb 7.5 L D (11.4-16.0) gm/dL Hct 21.6 L (34.0-46.0) % Sodium 135 L (137-145) mmol/L Glucose 102 H (74-99) mg/dL POC Glucose (mg/dL) 141 H (75-99) mg/dL Alkaline Phosphatase 36 L (38-126) U/L Total Protein 4.9 L (6.3-8.2) g/dL Albumin 3.2 L (3.5-5.0) g/dL Crossmatch 07/17/18 Range/Units 07:03 RBC (3.80-5.40) m/uL Hgb (11.4-16.0) gm/dL Hct (34.0-46.0) % Sodium (137-145) mmol/L Glucose (74-99) mg/dL POC Glucose (mg/dL) 121 H (75-99) mg/dL Alkaline Phosphatase (38-126) U/L Total Protein (6.3-8.2) g/dL Albumin (3.5-5.0) g/dL Crossmatch
[2018-07-17 12:03] LABS: Glucose,Whole Blood 113 mg/dL (75-99)
[2018-07-17] MEDS: MUPIROCIN 2% OINT 22 GM TUBE NASAL SCH ×2 (12:38→21:23)
[2018-07-17 17:06] LABS: Glucose,Whole Blood 120 mg/dL (75-99)
[2018-07-17] MEDS: LACTATED RINGERS 1,000 ML IV SCH (17:46)
[2018-07-17] MEDS ORDERED: FUROSEMIDE 10 MG/ML 4 ML VIAL IV STA (17:58)
[2018-07-17 20:33] LABS: Glucose,Whole Blood 129 mg/dL (75-99)
[2018-07-17] MEDS: SENNOSIDES-DOCUSATE SODIUM 1 EACH TAB PO SCH (21:17)
--- NOTE | 2018-07-17 21:18 | P.PN ---
Subjective on-call hospitalist covering Dr. Meneses this is a pleasant 63 years old female with past medical history of CVA/TIA, hypertension, uterine cancer, hysterectomy.presents with lightheadedness and sweating. She had a mildly elevated troponin. Cardiac cath showed severe triple-vessel disease however her course was complicated by right groin pseudoaneurysm. Patient has been evaluated by vascular surgery for CABG on Sunday. patient currently lying in bed not in distress. no chest pain. Vitas is stable.hemoglobin is 10.5.and creatinine is 0.4 07/13/2018 Patient is without distress in bed. No chest pain or dyspnea.CBC and BMP without significant abnormality. Patient has been evaluated by equity analyst. She is planned to go for coronary angiography on Sunday07/14/2018 Patient lying in bed with no distress. No chest pain or dyspnea. She is hemodynamically stable. She's been followed by several consultants, including cardiology and pulmonary and gastroenterology.. Hemoglobin is stable. She remains on heparin drip 07/15/2018 pt was going for myocardial revascularization surgery. post op pt is intubated , Vitas showing temperature 35.9, blood pressure 99/48. Hemoglobin is 7.1, patient receiving 1 unit of blood transfusion. Her INR is 1.3. BMP reviewed showing sodium 139, potassium 3.5, creatinine 0.46. Liver enzymes within normal limits. 07/16/2018 Patient is a status post coronary artery bypass grafting, 2 days post op day #1. Patient was intubated yesterday however she was extubated thereafter. Currently she is sitting in chair, awake but lethargic and tired. Patient developed some postural hypotension and needed albumin transfusion. Currently she is on a clear liquid diet. Hemodynamically stable and she is saturating 93% on 4 L oxygen via nasal cannula. Labs reviewed with blue WBC 10.4 K, hemoglobin 9.6. Creatinine 0.46. Electrolytes within normal limits. Sugar is controlled. Continue on aspirin and Plavix, patient has been followed by several teams including pulmonary, cardiology and cardiothoracic surgery. 07/17/2018 pt got on dose of lasix today. pt is status post coronary artery bypass grafting, 2 days post op day #1. Patient was intubated yesterday however she was extubated thereafter. Currently she is sitting in chair, awake but lethargic. Hemodynamically stable and oxygenation is improving. she is saturating 92% on 3 L oxygen via nasal cannula. Labs reviewed showing WBC 10.2 K, hemoglobin 9.6 dropped to 7.5, we will keep Hb monitoring, Creatinine 0.6. Electrolytes within normal limits. Sugar is controlled. Continue on aspirin and Plavix, patient has been followed by several teams including pulmonary, cardiology and cardiothoracic surgery. Review of systems CONSTITUTIONAL: No fever, no malaise, no fatigue. HEENT: No recent visual problems or hearing problems. Denied any sore throat. GASTROINTESTINAL: No diarrhea, no nausea, no vomiting, no abdominal pain. Normoactive bowel sounds. NEUROLOGICAL: No headaches, no weakness, no numbness. HEMATOLOGICAL: Denies any bleeding or petechiae. GENITOURINARY: Denies any burning micturition, frequency, or urgency. MUSCULOSKELETAL/RHEUMATOLOGICAL: Denies any joint pain, swelling, or any muscle pain. ENDOCRINE: Denies any polyuria or polydipsia. Medication: Palpable main, albuterol, amiodarone, aspirin, Plavix, Lipitor, Dulcolax, calcium chloride, cefazolin, Decadron, heparin, Baldwin, Bactroban ointment, Zofran, oxycodone, Protonix, Senokot. Objective - Vital Signs Vital signs: Vital Signs Temp 97.4 F L 07/17/18 16:00 Pulse 88 07/17/18 21:11 Resp 18 07/17/18 21:11 BP 124/74 07/17/18 20:00 Pulse Ox 93 L 07/17/18 20:00 Intake & Output 07/17/18 07/17/18 07/18/18 06:59 18:59 06:59 Intake Total 912 1368 20 Output Total 865 100 40 Balance 47 1268 -20 Weight 74 kg 74 kg Intake: IV 462 318 20 0.9NS Pressure Bag 72 18 Lactated Ringers 1,000 ml 390 300 20 @ 20 mls/hr IV .Q24H [facility] Rx#:[id number] Intake, IV Titration 250 Amount Albumin Human 5% 250 ml 250 In Empty Bag 1 bag @ 250 mls/hr IVPB ONCE ONE Rx#: [id number] Oral 100 1050 Blood Product 100 Output: Chest Tube Drainage 260 100 40 Left Pleural Chest Tube 40 Mediastinal Chest Tube 40 100 40 Right Pleural Chest Tube 180 Drainage 30 Left Leg 20 Right Leg 10 Urine 575 0 Other: Voiding Method Indwelling Catheter ABP, PAP, CO, CI - Last Documented Arterial Blood Pressure 122/52 Pulmonary Artery Pressure 21/7 Cardiac Output 4.1 Cardiac Index 2.5 - Exam -GENERAL: The patient is intubated HEENT: Pupils are round and equally reacting to light. EOMI. No scleral icterus. No conjunctival pallor. Normocephalic, atraumatic. No pharyngeal erythema. No thyromegaly. CARDIOVASCULAR: S1 and S2 present. No murmurs, rubs, or gallops. PULMONARY: Chest is clear to auscultation, no wheezing or crackles. ABDOMEN: Soft, nontender, nondistended, normoactive bowel sounds. No palpable organomegaly. MUSCULOSKELETAL: No joint swelling or deformity. -EXTREMITIES: No cyanosis, clubbing, or pedal edema. right groin hematoma NEUROLOGICAL: Gross neurological examination did not reveal any focal deficits. SKIN: No rashes. - Labs CBC & Chem 7: 07/17/18 04:19 07/17/18 04:19 Labs: Abnormal Lab Results - Last 24 Hours (Table) 07/14/18 07/17/18 07/17/18 Range/Units 07:12 04:19 04:19 RBC 2.46 L (3.80-5.40) m/uL Hgb 7.5 L D (11.4-16.0) gm/dL Hct 21.6 L (34.0-46.0) % Sodium 135 L (137-145) mmol/L Glucose 102 H (74-99) mg/dL POC Glucose (mg/dL) (75-99) mg/dL Alkaline Phosphatase 36 L (38-126) U/L Total Protein 4.9 L (6.3-8.2) g/dL Albumin 3.2 L (3.5-5.0) g/dL Crossmatch See Detail 07/17/18 07/17/18 07/17/18 Range/Units 07:03 11:52 17:03 RBC (3.80-5.40) m/uL Hgb (11.4-16.0) gm/dL Hct (34.0-46.0) % Sodium (137-145) mmol/L Glucose (74-99) mg/dL POC Glucose (mg/dL) 121 H 113 H 120 H (75-99) mg/dL Alkaline Phosphatase (38-126) U/L Total Protein (6.3-8.2) g/dL Albumin (3.5-5.0) g/dL Crossmatch 07/17/18 Range/Units 20:29 RBC (3.80-5.40) m/uL Hgb (11.4-16.0) gm/dL Hct (34.0-46.0) % Sodium (137-145) mmol/L Glucose (74-99) mg/dL POC Glucose (mg/dL) 129 H (75-99) mg/dL Alkaline Phosphatase (38-126) U/L Total Protein (6.3-8.2) g/dL Albumin (3.5-5.0) g/dL Crossmatch Assessment and Plan Assessment: non-STEMI Status post myocardial surgery. severe coronary triple vessel disease. Status post coronary artery bypass grafting by vascular surgery mild systolic dysfunction with ejection fraction 40-45% history of coronary artery disease History of CVA/TIA Essential hypertension uterine cancer Plan: this is a pleasant 63 years old female who presents with coronary triple-vessel disease. Status post myocardial surgery. Patient remains in the ICU.Patient is being followed closely by the pulmonary/critical care team and cardiothoracic surgery team. Labs and medication were reviewed.. Transfuse 1 unit of blood. Continue current treatment. Continue Monitor lytes and vitals. DVT and GI prophylaxis. Further recommendations of the clinical course of the patient. Prognosis is guarded
[2018-07-18 02:55] LABS: Glucose,Whole Blood 117 mg/dL (75-99)
[2018-07-18] MEDS: HYDROcodone/APAP 5-325MG 1 EACH TAB PO PRN ×2 (03:43→20:11)
[2018-07-18 05:11] LABS: Basophils % (A) 0 %; Eosinophils # (A) 0.1 k/uL (0-0.7); Eosinophils % (A) 1 %; HCT 22.9 % (34.0-46.0); Lymphocytes # (A) 2.9 k/uL (1.0-4.8); Lymphocytes % (A) 25 %; MCH 31.4 pg (25.0-35.0); MCHC 34.8 g/dL (31.0-37.0); MCV 90.1 fL (80.0-100.0); Monocytes # (A) 0.6 k/uL (0-1.0); Monocytes % (A) 5 %; Neutrophils # (A) 7.7 k/uL (1.3-7.7); Neutrophils % (A) 66 %; Platelet Count 289 k/uL (150-450); RBC 2.54 m/uL (3.80-5.40); WBC 11.5 k/uL (3.8-10.6)
[2018-07-18 05:32] LABS: Ionized Calcium 4.8 mg/dL (4.5-5.3)
[2018-07-18 05:41] LABS: ALT 28 U/L (9-52); AST 24 U/L (14-36); Albumin 3.1 g/dL (3.5-5.0); Alkaline Phosphatase 53 U/L (38-126); Anion Gap 7 mmol/L; Blood Urea Nitrogen 20 mg/dL (7-17); Calcium 8.6 mg/dL (8.4-10.2); Carbon Dioxide 25 mmol/L (22-30); Chloride 100 mmol/L (98-107); Glucose 85 mg/dL (74-99); Magnesium 2.1 mg/dL (1.6-2.3); Potassium 4.4 mmol/L (3.5-5.1); Sodium 132 mmol/L (137-145); Total Bilirubin 0.8 mg/dL (0.2-1.3); Total Protein 5.1 g/dL (6.3-8.2)
[2018-07-18] MEDS: KETOROLAC 30 MG/ML 1 ML VIAL IVP SCH ×4 (06:40→23:43)
[2018-07-18 07:04] LABS: Glucose,Whole Blood 110 mg/dL (75-99)
[2018-07-18] MEDS: INSULIN ASPART (NovoLOG) 100 UNIT/ML VIAL SQ SCH ×4 (07:29→21:35)
[2018-07-18] MEDS: IPRATROPIUM-ALBUTEROL 3 ML NEB INHALATION SCH ×4 (08:10→21:05)
[2018-07-18] MEDS: CLOPIDOGREL 75 MG TAB PO SCH (08:26)
[2018-07-18] MEDS: ASPIRIN 325 MG TAB PO SCH (08:26)
[2018-07-18] MEDS: PANTOPRAZOLE 40 MG TABLET PO SCH (08:26)
[2018-07-18] MEDS: HEPARIN SODIUM,PORCINE 5,000 UNIT/ML 1 ML VIAL SQ SCH ×3 (08:26→23:47)
[2018-07-18] MEDS: ATORVASTATIN 40 MG TAB PO SCH (08:26)
[2018-07-18] MEDS: METOPROLOL TARTRATE 25 MG TAB PO SCH ×2 (08:26→20:10)
--- NOTE | 2018-07-18 08:27 | XR ---
EXAMINATION TYPE: XR chest 1V portable DATE OF EXAM: 07/18/2018 COMPARISON: Prior chest x-ray 07/17/2018 HISTORY: Status post cardiac surgery, chest tube TECHNIQUE: Single frontal view of the chest is obtained. FINDINGS: Right-sided chest tube remains in place, left-sided chest tube is no longer seen. There is persistent blunting the left costophrenic angle. No pneumothorax. Patient is post median sternotomy, heart remains enlarged. The aorta is dense. IMPRESSION: Interval left-sided chest tube removal. No significant interval change. Probable small l eft effusion and associated atelectasis.
[2018-07-18] MEDS: MUPIROCIN 2% OINT 22 GM TUBE NASAL SCH ×2 (08:31→20:45)
[2018-07-18] MEDS: MAGNESIUM HYDROXIDE 2,400 MG/10 ML CUP PO PRN (08:39)
[2018-07-18] MEDS ORDERED: FUROSEMIDE 10 MG/ML 2 ML VIAL IV ONE (08:45)
--- NOTE | 2018-07-18 09:28 | P.PN ---
Subjective Progress Note Date: 07/18/18 Principal diagnosis: Severe triple vessel coronary artery disease with chronically occluded right coronary artery and circumflex system, moderately impaired left ventricular systolic function with EF 40-45%, non-STEMI. Bilateral internal carotid artery stenosis 50-69%. Previous medical history of hypertension, TIA, uterine cancer in 1984, current tobacco dependence, moderate COPD with preoperative FEV1 57% of predicted, history of pneumonia, and family history of premature coronary artery disease. Post cardiac catheterization right groin hematoma, questionable small pseudoaneurysm. POD #3 urgent quadruple coronary artery bypass grafting using the left internal mammary artery to the left anterior descending artery, reverse saphenous vein graft from the aorta to the diagonal artery, reverse saphenous vein graft from the aorta to the totally occluded diffusely diseased first obtuse marginal artery, reverse saphenous vein graft from the aorta to the totally occluded posterior descending artery. Endoscopic harvesting of bilateral greater saphenous veins from the groins to just below the knee level. Intraoperative transesophageal echocardiogram and epi-aortic scanning. Intraoperative graft flow measurements using the Agari system. Postoperative acute blood loss anemia, expected outcome of surgery given hemodilution and cardiopulmonary bypass pump. The patient is currently sitting up in a recliner in the intensive care unit in no acute distress eating breakfast. States pain is controlled with current medication regimen, denies shortness of breath. Remains in normal sinus rhythm, hemodynamically stable on no inotropes or pressors. Actively using incentive spirometry. Mediastinal, left pleural chest tubes, Reina catheter, arterial line, Cordis were discontinued yesterday. Objective - Vital Signs Vital signs: Vital Signs Temp 97.9 F 07/18/18 04:00 Pulse 77 07/18/18 08:20 Resp 12 07/18/18 07:00 BP 128/69 07/18/18 07:00 Pulse Ox 94 L 07/18/18 07:00 Intake & Output 07/17/18 07/18/18 07/18/18 18:59 06:59 18:59 Intake Total 1368 760 Output Total 100 855 Balance 1268 -95 Weight 74 kg 74.8 kg Intake: IV 318 260 0.9NS Pressure Bag 18 Lactated Ringers 1,000 ml 300 260 @ 20 mls/hr IV .Q24H [facility] Rx#:[id number] Oral 1050 500 Output: Chest Tube Drainage 100 130 Mediastinal Chest Tube 100 130 Urine 0 725 Other: Voiding Method Bedside Commode # Voids 0 ABP, PAP, CO, CI - Last Documented Arterial Blood Pressure 122/52 Pulmonary Artery Pressure 21/7 Cardiac Output 4.1 Cardiac Index 2.5 - Constitutional General appearance: Present: cooperative, no acute distress - Respiratory Details: Lungs sounds diminished bilaterally. Respirations even, nonlabored. Currently on 2 L nasal cannula with oxygen saturation 92%. Only able to achieve 500-1000 mL on her incentive spirometry. Strong cough. Right pleural chest tube to continuous wall suction, 50 mL serosanguineous drainage overnight, 200 mL in the last 24 hours. No air leaks present. - Cardiovascular Details: S1, S2 present. Regular rate and rhythm, sinus rhythm on telemetry. Sternum stable. Atrial epicardial pacemaker wire present, grounded. Palpable peripheral pulses bilaterally. No edema present. No calf pain or tenderness noted. .Heart hugger in place with patient demonstrating appropriate use. Antiembolism stockings, SCDs present. - Gastrointestinal Gastrointestinal Comment(s): Abdomen soft, nontender, nondistended. Active bowel sounds present 4 quadrants. Tolerating diet. Positive flatus, negative bowel movement. - Genitourinary Genitourinary Comment(s): Reina discontinued yesterday. Voided 400 mL last night. Excellent diuresis after IV Lasix given yesterday. - Integumentary Integumentary Comment(s): Skin is warm and dry with evidence of good perfusion. Anterior chest incision w ell approximated and covered with dry intact dressing. Bilateral lower extremity EVH sites well approximated. Right groin ecchymotic, expected. - Neurologic Neurologic: Present: CNII-XII intact - Musculoskeletal Musculoskeletal: Present: generalized weakness, strength equal bilaterally - Psychiatric Psychiatric: Present: A&O x's 3, appropriate affect, intact judgment & insight - Allied health notes Allied health notes reviewed: nursing - Labs CBC & Chem 7: 07/18/18 03:57 07/18/18 03:57 Labs: Abnormal Lab Results - Last 24 Hours (Table) 07/17/18 07/17/18 07/17/18 Range/Units 11:52 17:03 20:29 WBC (3.8-10.6) k/uL RBC (3.80-5.40) m/uL Hgb (11.4-16.0) gm/dL Hct (34.0-46.0) % Sodium (137-145) mmol/L BUN (7-17) mg/dL POC Glucose (mg/dL) 113 H 120 H 129 H (75-99) mg/dL Total Protein (6.3-8.2) g/dL Albumin (3.5-5.0) g/dL 07/18/18 07/18/18 07/18/18 Range/Units 02:52 03:57 03:57 WBC 11.5 H (3.8-10.6) k/uL RBC 2.54 L (3.80-5.40) m/uL Hgb 8.0 L (11.4-16.0) gm/dL Hct 22.9 L (34.0-46.0) % Sodium 132 L (137-145) mmol/L BUN 20 H (7-17) mg/dL POC Glucose (mg/dL) 117 H (75-99) mg/dL Total Protein 5.1 L (6.3-8.2) g/dL Albumin 3.1 L (3.5-5.0) g/dL 07/18/18 Range/Units 06:49 WBC (3.8-10.6) k/uL RBC (3.80-5.40) m/uL Hgb (11.4-16.0) gm/dL Hct (34.0-46.0) % Sodium (137-145) mmol/L BUN (7-17) mg/dL POC Glucose (mg/dL) 110 H (75-99) mg/dL Total Protein (6.3-8.2) g/dL Albumin (3.5-5.0) g/dL - Imaging and Cardiology Chest x-ray: report reviewed, image reviewed Assessment and Plan Assessment: 1. Severe triple-vessel coronary artery disease with chronically occluded right coronary artery and circumflex system, status post urgent quadruple coronary artery bypass grafting 2. Moderately impaired left ventricular systolic function with EF 40-45% 3. Non-STEMI 4. Hypertension 5. Bilateral internal carotid artery stenosis 50-69% 6. History of TIA 7. History of uterine cancer in 1984 8. Current tobacco dependence 9. Moderate COPD with preoperative FEV1 57% of predicted 10. Remote history of pneumonia 11. Significant family history of premature coronary artery disease 12. Right groin hematoma post cardiac catheterization, questionable small pseudoaneurysm 13. Diarrhea, chronic in nature 14. Postoperative acute blood loss anemia, expected Plan: 1. Continue maximizing medical therapy with aspirin, statin, Plavix, beta brianda therapy. Will increase beta brianda therapy as tolerated. Will add low dose lisinopril for afterload reduction. 2. Will give Lasix 20 mg IV push today. 3. Wean O2 as tolerated. Encourage incentive spirometry use 10 times every hour while awake. 4. Encourage smoking cessation. 5. Bronchodilators per pulmonology. 6. Increase activity, ambulate as tolerated. PT/OT/cardiac rehab following. 7. Will discontinue right pleural chest tube. 8. Will discontinue atrial epicardial wires. 9. Pain control with current medication regimen. 10. Insulin management per primary care service. 11. Will monitor daily labs and x-rays. Electrolyte replacement per protocol. No transfusion. 12. Transfer orders placed for 3 cells cardiac stepdown unit. May transfer when bed available. 13. Discharge planning in progress. Hopeful for discharge to home with home care in the next 48 hours. 14. More recommendations to follow based on patient's progress. Time with Patient: Greater than 30
--- NOTE | 2018-07-18 09:51 | P.PN ---
Subjective Progress Note Date: 07/18/18 Principal diagnosis: Near syncopal episode in a patient found to have significant triple-vessel coronary artery disease. This is a very pleasant 63-year-old female patient who follows with Dr. Gonzalez as her primary care physician. She has a history of hypertension and chronic and ongoing tobacco dependence of 40+ years at 1 pack per day. She has not been seen by a cook ice cream in the past. No home oxygen. No home inhalers. 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 On 07/08/2018 she was getting ready for work she broke out in a cold sweat and had a funny sensation across her chest and developed some shortness of breath. She drove herself to [place] emergency room where she was found to have elevated troponins and was transferred here for further evaluation. She had undergone cardiac catheterization yesterday and was found to have significant triple- vessel disease and impaired left ventricular systolic function with ejection fraction of 40%. There was inferior wall hypokinesia. She has been recommended coronary artery bypass surgery. She is seen today in consultation on the selective care unit. She is awake and alert in no acute distress. She denies any chest pain, palpitations lightheadedness or dizziness. No shortness of breath, cough or congestion. She is maintaining O2 saturations in the 90s on room air. She's afebrile. Hemodynamically stable. Chest x-ray reveals evidence of chronic obstructive pulmonary disease but no acute pulmonary process. Bedside spirometry readings are pending. She has been educated regarding the incentive spirometer. She is on bronchodilators. A NicoDerm patch is in place. The patient is seen today in 07/18/2018 in follow-up in the intensive care unit. She did undergo quadruple coronary artery bypass grafting using the [place] to the LAD, reverse saphenous vein grafts to the diagonal artery, first obtuse marginal artery and posterior descending artery. She is currently sitting up in a chair at the bedside. She is awake and alert in no acute distress. Her only complaint today is that of some constipation. Her pain is well controlled. She does have a loose nonproductive cough. She does not increased encouragement regarding use of incentive spirometer. She is pulling only about 500 ML's. Chest x-ray reveals evidence of a right-sided chest tube. Left-sided been removed. There is no significant interval change compared to previous. There is small left effusion/atelectasis. Continue good O2 saturations in the 90s on 2 L/m per nasal cannula white count 11.5. Hemoglobin 8.0. Creatinine 0.61. Objective - Vital Signs Vital signs: Vital Signs Temp 97.9 F 07/18/18 04:00 Pulse 77 07/18/18 08:20 Resp 12 07/18/18 07:00 BP 128/69 07/18/18 07:00 Pulse Ox 94 L 07/18/18 07:00 Intake & Output 07/17/18 07/18/18 07/18/18 18:59 06:59 18:59 Intake Total 1368 760 Output Total 100 855 Balance 1268 -95 Weight 74 kg 74.8 kg Intake: IV 318 260 0.9NS Pressure Bag 18 Lactated Ringers 1,000 ml 300 260 @ 20 mls/hr IV .Q24H [facility] Rx#:[id number] Oral 1050 500 Output: Chest Tube Drainage 100 130 Mediastinal Chest Tube 100 130 Urine 0 725 Other: Voiding Method Bedside Commode # Voids 0 ABP, PAP, CO, CI - Last Documented Arterial Blood Pressure 122/52 Pulmonary Artery Pressure 21/7 Cardiac Output 4.1 Cardiac Index 2.5 - Exam GENERAL EXAM: Alert, fairly comfortable in no apparent distress. On 2 L/m per nasal cannula. HEAD: Normocephalic. EYES: Normal reaction of pupils, equal size. NOSE: Clear with pink turbinates. THROAT: No erythema or exudates. NECK: No masses, no JVD. CHEST: Heart hugger in place. Sternum stable. Dressing intact. Chest tubes in place. LUNGS: Equal air entry with crackles in the bilateral posterior bases. CVS: S1 and S2 normal with no audible murmur, regular rhythm. ABDOMEN: No hepatosplenomegaly, normal bowel sounds, no guarding or rigidity. SPINE: No scoliosis or deformity SKIN: No rashes CENTRAL NERVOUS SYSTEM: No focal deficits, tone is normal in all 4 extremities. EXTREMITIES: There is trace peripheral edema. No clubbing, no cyanosis. Peripheral pulses are intact. SCDs in place. - Labs CBC & Chem 7: 07/18/18 03:57 04/04/19 03:57 Labs: Abnormal Lab Results - Last 24 Hours (Table) 07/17/18 07/17/18 07/17/18 Range/Units 11:52 17:03 20:29 WBC (3.8-10.6) k/uL RBC (3.80-5.40) m/uL Hgb (11.4-16.0) gm/dL Hct (34.0-46.0) % Sodium (137-145) mmol/L BUN (7-17) mg/dL POC Glucose (mg/dL) 113 H 120 H 129 H (75-99) mg/dL Total Protein (6.3-8.2) g/dL Albumin (3.5-5.0) g/dL 07/18/18 07/18/18 07/18/18 Range/Units 02:52 03:57 03:57 WBC 11.5 H (3.8-10.6) k/uL RBC 2.54 L (3.80-5.40) m/uL Hgb 8.0 L (11.4-16.0) gm/dL Hct 22.9 L (34.0-46.0) % Sodium 132 L (137-145) mmol/L BUN 20 H (7-17) mg/dL POC Glucose (mg/dL) 117 H (75-99) mg/dL Total Protein 5.1 L (6.3-8.2) g/dL Albumin 3.1 L (3.5-5.0) g/dL 07/18/18 Range/Units 06:49 WBC (3.8-10.6) k/uL RBC (3.80-5.40) m/uL Hgb (11.4-16.0) gm/dL Hct (34.0-46.0) % Sodium (137-145) mmol/L BUN (7-17) mg/dL POC Glucose (mg/dL) 110 H (75-99) mg/dL Total Protein (6.3-8.2) g/dL Albumin (3.5-5.0) g/dL Assessment and Plan Assessment: Impression: #1 Near syncope with shortness of breath suspect secondary to significant triple-vessel coronary artery disease. Status post coronary artery by bipass grafting 4 utilizing a [place] to the LAD, saphenous vein grafts to the diagonal, first obtuse marginal, and posterior descending artery. #2 Chronic and ongoing tobacco dependence with chronic obstructive pulmonary disease, untreated in the outpatient setting. FEV1 value 1.3 L/58% of predicted. Moderate operative risk. #3 Recent upper respiratory infection influenza screen negative. #4 Strong family history of coronary artery disease. #5 Hypertension. Plan: The patient was seen and evaluated by . Chest x-ray and labs were reviewed. She needs increased encouragement regarding these to incentive spirometer and cough and deep breathing exercises. Continue bronchodilators. Increase her activity as tolerated. She is again educated regarding the importance of complete smoking cessation. Probable out to the selective care unit today. We will continue to follow and make further recommendations based on her clinical status. I, the cosigning physician, performed a history & physical examination of the patient. Lungs sounds with faint crackles in the bilateral posterior bases left greater than right, diminished. Maintaining good O2 saturations in the 90s on 2 L/m per nasal cannula I discussed the assessment and plan of care with my nurse practitioner, Ginny Carranza. I attest to the above note as dictated by her.
[2018-07-18] MEDS ORDERED: LISINOPRIL 2.5 MG TAB PO SCH (12:00)
[2018-07-18 12:08] LABS: Glucose,Whole Blood 104 mg/dL (75-99)
[2018-07-18] MEDS ORDERED: ACETAMINOPHEN TAB 325 MG TAB PO PRN ×2 (14:24)
--- NOTE | 2018-07-18 16:34 | P.PN ---
Subjective on-call hospitalist covering Dr. Meneses this is a pleasant 63 years old female with past medical history of CVA/TIA, hypertension, uterine cancer, hysterectomy.presents with lightheadedness and sweating. She had a mildly elevated troponin. Cardiac cath showed severe triple-vessel disease however her course was complicated by right groin pseudoaneurysm. Patient has been evaluated by vascular surgery for CABG on Sunday. patient currently lying in bed not in distress. no chest pain. Vitas is stable.hemoglobin is 10.5.and creatinine is 0.4 07/13/2018 Patient is without distress in bed. No chest pain or dyspnea.CBC and BMP without significant abnormality. Patient has been evaluated by manager therapy. She is planned to go for coronary angiography on Sunday07/14/2018 Patient lying in bed with no distress. No chest pain or dyspnea. She is hemodynamically stable. She's been followed by several consultants, including cardiology and pulmonary and gastroenterology.. Hemoglobin is stable. She remains on heparin drip 07/15/2018 pt was going for myocardial revascularization surgery. post op pt is intubated , Vitas showing temperature 35.9, blood pressure 99/48. Hemoglobin is 7.1, patient receiving 1 unit of blood transfusion. Her INR is 1.3. BMP reviewed showing sodium 139, potassium 3.5, creatinine 0.46. Liver enzymes within normal limits. 07/16/2018 Patient is a status post coronary artery bypass grafting, 2 days post op day #1. Patient was intubated yesterday however she was extubated thereafter. Currently she is sitting in chair, awake but lethargic and tired. Patient developed some postural hypotension and needed albumin transfusion. Currently she is on a clear liquid diet. Hemodynamically stable and she is saturating 93% on 4 L oxygen via nasal cannula. Labs reviewed with blue WBC 10.4 K, hemoglobin 9.6. Creatinine 0.46. Electrolytes within normal limits. Sugar is controlled. Continue on aspirin and Plavix, patient has been followed by several teams including pulmonary, cardiology and cardiothoracic surgery. 07/17/2018 pt got on dose of lasix today. pt is status post coronary artery bypass grafting, 2 days post op day #1. Patient was intubated yesterday however she was extubated thereafter. Currently she is sitting in chair, awake but lethargic. Hemodynamically stable and oxygenation is improving. she is saturating 92% on 3 L oxygen via nasal cannula. Labs reviewed showing WBC 10.2 K, hemoglobin 9.6 dropped to 7.5, we will keep Hb monitoring, Creatinine 0.6. Electrolytes within normal limits. Sugar is controlled. Continue on aspirin and Plavix, patient has been followed by several teams including pulmonary, cardiology and cardiothoracic surgery. 07/18/2018 Patient remains in the ICU under close monitoring, however she is improving and progressing slowly. She is able to eat little movement, she has good bowel movement. Denies chest pain or dyspnea. No abdominal pain. No nausea or vomiting. And she is moving her lipids are round. But she needs more encourage ment to increase mobility. Vitas looks stable send labs reviewed. Possible discharge home with home care on Sunday as per surgical team Review of systems CONSTITUTIONAL: No fever, no malaise, no fatigue. HEENT: No recent visual problems or hearing problems. Denied any sore throat. GASTROINTESTINAL: No diarrhea, no nausea, no vomiting, no abdominal pain. Normoactive bowel sounds. NEUROLOGICAL: No headaches, no weakness, no numbness. HEMATOLOGICAL: Denies any bleeding or petechiae. GENITOURINARY: Denies any burning micturition, frequency, or urgency. MUSCULOSKELETAL/RHEUMATOLOGICAL: Denies any joint pain, swelling, or any muscle pain. ENDOCRINE: Denies any polyuria or polydipsia. Medication: Palpable main, albuterol, amiodarone, aspirin, Plavix, Lipitor, Dulcolax, calcium chloride, cefazolin, Decadron, heparin, [place], Bactroban ointment, Zofran, oxycodone, Protonix, Senokot. Objective - Vital Signs Vital signs: Vital Signs Temp 98.2 F 07/18/18 12:00 Pulse 76 07/18/18 15:56 Resp 14 07/18/18 13:00 BP 141/82 07/18/18 13:00 Pulse Ox 95 07/18/18 13:00 Intake & Output 07/17/18 07/18/18 07/18/18 18:59 06:59 18:59 Intake Total 1368 760 40 Output Total 100 855 100 Balance 1268 -95 -60 Weight 74 kg 74.8 kg Intake: IV 318 260 40 0.9NS Pressure Bag 18 Lactated Ringers 1,000 ml 300 260 40 @ 20 mls/hr IV .Q24H [facility] Rx#:[id number] Oral 1050 500 Output: Chest Tube Drainage 100 130 Mediastinal Chest Tube 100 130 Urine 0 725 100 Other: Voiding Method Bedside Commode # Voids 0 ABP, PAP, CO, CI - Last Documented Arterial Blood Pressure 122/52 Pulmonary Artery Pressure 21/7 Cardiac Output 4.1 Cardiac Index 2.5 - Exam -GENERAL: The patient is intubated HEENT: Pupils are round and equally reacting to light. EOMI. No scleral icterus. No conjunctival pallor. Normocephalic, atraumatic. No pharyngeal erythema. No thyromegaly. CARDIOVASCULAR: S1 and S2 present. No murmurs, rubs, or gallops. PULMONARY: Chest is clear to auscultation, no wheezing or crackles. ABDOMEN: Soft, nontender, nondistended, normoactive bowel sounds. No palpable organomegaly. MUSCULOSKELETAL: No joint swelling or deformity. -EXTREMITIES: No cyanosis, clubbing, or pedal edema. right groin hematoma NEUROLOGICAL: Gross neurological examination did not reveal any focal deficits. SKIN: No rashes. - Labs CBC & Chem 7: 07/18/18 03:57 07/18/18 03:57 Labs: Abnormal Lab Results - Last 24 Hours (Table) 07/17/18 07/17/18 07/18/18 Range/Units 17:03 20:29 02:52 WBC (3.8-10.6) k/uL RBC (3.80-5.40) m/uL Hgb (11.4-16.0) gm/dL Hct (34.0-46.0) % Sodium (137-145) mmol/L BUN (7-17) mg/dL POC Glucose (mg/dL) 120 H 129 H 117 H (75-99) mg/dL Total Protein (6.3-8.2) g/dL Albumin (3.5-5.0) g/dL 07/18/18 07/18/18 07/18/18 Range/Units 03:57 03:57 06:49 WBC 11.5 H (3.8-10.6) k/uL RBC 2.54 L (3.80-5.40) m/uL Hgb 8.0 L (11.4-16.0) gm/dL Hct 22.9 L (34.0-46.0) % Sodium 132 L (137-145) mmol/L BUN 20 H (7-17) mg/dL POC Glucose (mg/dL) 110 H (75-99) mg/dL Total Protein 5.1 L (6.3-8.2) g/dL Albumin 3.1 L (3.5-5.0) g/dL 07/18/18 Range/Units 12:05 WBC (3.8-10.6) k/uL RBC (3.80-5.40) m/uL Hgb (11.4-16.0) gm/dL Hct (34.0-46.0) % Sodium (137-145) mmol/L BUN (7-17) mg/dL POC Glucose (mg/dL) 104 H (75-99) mg/dL Total Protein (6.3-8.2) g/dL Albumin (3.5-5.0) g/dL Assessment and Plan Assessment: non-STEMI Status post myocardial surgery. severe coronary triple vessel disease. Status post coronary artery bypass grafting by vascular surgery mild systolic dysfunction with ejection fraction 40-45% history of coronary artery disease History of CVA/TIA Essential hypertension uterine cancer Plan: this is a pleasant 63 years old female who presents with coronary triple-vessel disease. Status post myocardial surgery. Patient remains in the ICU.Patient is being followed closely by the pulmonary/critical care team and cardiothoracic surgery team. Labs and medication were reviewed.. Transfuse 1 unit of blood. Continue current treatment. Continue Monitor lytes and vitals. DVT and GI prophylaxis. Further recommendations of the clinical course of the patient. Prognosis is guarded
[2018-07-18 16:38] LABS: Glucose,Whole Blood 89 mg/dL (75-99)
--- NOTE | 2018-07-18 19:10 | P.PN ---
Subjective Patient is doing well. She was sitting up in a chair all day but now it was in bed no orthopnea no PND to chest discomfort Normal heart sounds normal S1 normal S2 Breath sounds reduced bilaterally with some crackles at the bases Abdomen soft nontender Extremities warm no edema Her rhythm is normal Suggest Continue post CT surgery care and ICU care and transferred to telemetry Continue current medications Labs are reviewed hemoglobin is 8.0 sodium 132 potassium normal. Creatinine normal magnesium 2.1 Objective - Vital Signs Vital signs: Vital Signs Temp 98.2 F 07/18/18 12:00 Pulse 76 07/18/18 15:56 Resp 14 07/18/18 13:00 BP 141/82 07/18/18 13:00 Pulse Ox 95 07/18/18 13:00 Intake & Output 07/18/18 07/18/18 07/19/18 06:59 18:59 06:59 Intake Total 760 40 Output Total 855 250 Balance -95 -210 Weight 74.8 kg Intake: IV 260 40 Lactated Ringers 1,000 ml 260 40 @ 20 mls/hr IV .Q24H [facility] Rx#:[id number] Oral 500 Output: Chest Tube Drainage 130 Mediastinal Chest Tube 130 Urine 725 100 Urine/Stool Mix 150 Other: Voiding Method Bedside Commode # Voids 0 ABP, PAP, CO, CI - Last Documented Arterial Blood Pressure 122/52 Pulmonary Artery Pressure 21/7 Cardiac Output 4.1 Cardiac Index 2.5 - Labs CBC & Chem 7: 07/18/18 03:57 07/18/18 03:57 Labs: Abnormal Lab Results - Last 24 Hours (Table) 07/17/18 07/18/18 07/18/18 Range/Units 20:29 02:52 03:57 WBC 11.5 H (3.8-10.6) k/uL RBC 2.54 L (3.80-5.40) m/uL Hgb 8.0 L (11.4-16.0) gm/dL Hct 22.9 L (34.0-46.0) % Sodium (137-145) mmol/L BUN (7-17) mg/dL POC Glucose (mg/dL) 129 H 117 H (75-99) mg/dL Total Protein (6.3-8.2) g/dL Albumin (3.5-5.0) g/dL 04/08/0207/18/18 07/18/18 Range/Units 03:57 06:49 12:05 WBC (3.8-10.6) k/uL RBC (3.80-5.40) m/uL Hgb (11.4-16.0) gm/dL Hct (34.0-46.0) % Sodium 132 L (137-145) mmol/L BUN 20 H (7-17) mg/dL POC Glucose (mg/dL) 110 H 104 H (75-99) mg/dL Total Protein 5.1 L (6.3-8.2) g/dL Albumin 3.1 L (3.5-5.0) g/dL
[2018-07-18] MEDS: SENNOSIDES-DOCUSATE SODIUM 1 EACH TAB PO SCH (20:03)
[2018-07-18 20:51] LABS: Glucose,Whole Blood 104 mg/dL (75-99)
[2018-07-19 02:10] LABS: Glucose,Whole Blood 95 mg/dL (75-99)
[2018-07-19 06:19] LABS: HCT 23.7 % (34.0-46.0); HGB 7.9 gm/dL (11.4-16.0); MCH 29.3 pg (25.0-35.0); MCHC 33.3 g/dL (31.0-37.0); MCV 88.1 fL (80.0-100.0); Mean Platelet Volume 9.1; Platelet Count 352 k/uL (150-450); RBC 2.69 m/uL (3.80-5.40); RDW 15.4 % (11.5-15.5); WBC 10.6 k/uL (3.8-10.6)
[2018-07-19] MEDS: KETOROLAC 30 MG/ML 1 ML VIAL IVP SCH ×4 (06:26→23:52)
[2018-07-19 06:39] LABS: Anion Gap 7 mmol/L; Blood Urea Nitrogen 16 mg/dL (7-17); Calcium 8.4 mg/dL (8.4-10.2); Carbon Dioxide 27 mmol/L (22-30); Chloride 100 mmol/L (98-107); Glucose 83 mg/dL (74-99); Potassium 4.2 mmol/L (3.5-5.1); Sodium 134 mmol/L (137-145)
[2018-07-19 07:43] LABS: Glucose,Whole Blood 98 mg/dL (75-99)
[2018-07-19] MEDS: IPRATROPIUM-ALBUTEROL 3 ML NEB INHALATION SCH ×4 (07:57→21:04)
--- NOTE | 2018-07-19 08:09 | XR ---
EXAMINATION TYPE: XR chest 2V DATE OF EXAM: 07/19/2018 COMPARISON: 07/18/2018 TECHNIQUE: PA and lateral views submitted. HISTORY: Post cardiac surgery FINDINGS: Postoperative changes seen with bilateral consolidation and pleural effusion. Hyperinflation is COPD. No pneumothorax. Heart size stable. IMPRESSION: 1. COPD with bilateral consolidation and small effusion stable in appearance.
[2018-07-19] MEDS: ASPIRIN 325 MG TAB PO SCH (08:32)
[2018-07-19] MEDS: HEPARIN SODIUM,PORCINE 5,000 UNIT/ML 1 ML VIAL SQ SCH ×3 (08:32→23:54)
[2018-07-19] MEDS: ATORVASTATIN 40 MG TAB PO SCH (08:32)
[2018-07-19] MEDS: PANTOPRAZOLE 40 MG TABLET PO SCH (08:33)
[2018-07-19] MEDS: METOPROLOL TARTRATE 25 MG TAB PO SCH ×3 (08:33→23:54)
[2018-07-19] MEDS: CLOPIDOGREL 75 MG TAB PO SCH (08:33)
--- NOTE | 2018-07-19 08:49 | P.PN ---
Subjective Progress Note Date: 07/19/18 Principal diagnosis: Severe triple vessel coronary artery disease with chronically occluded right coronary artery and circumflex system, moderately impaired left ventricular systolic function with EF 40-45%, non-STEMI. Bilateral internal carotid artery stenosis 50-69%. Previous medical history of hypertension, TIA, uterine cancer in 1984, current tobacco dependence, moderate COPD with preoperative FEV1 57% of predicted, history of pneumonia, and family history of premature coronary artery disease. Post cardiac catheterization right groin hematoma, questionable small pseudoaneurysm. POD #4 urgent quadruple coronary artery bypass grafting using the left internal mammary artery to the left anterior descending artery, reverse saphenous vein graft from the aorta to the diagonal artery, reverse saphenous vein graft from the aorta to the totally occluded diffusely diseased first obtuse marginal artery, reverse saphenous vein graft from the aorta to the totally occluded posterior descending artery. Endoscopic harvesting of bilateral greater saphenous veins from the groins to just below the knee level. Intraoperative transesophageal echocardiogram and epi-aortic scanning. Intraoperative graft flow measurements using the Class Central[employer] system. Postoperative acute blood loss anemia, expected outcome of surgery given hemodilution and cardiopulmonary bypass pump. The patient is currently sitting up in a recliner in the intensive care unit in no acute distress eating breakfast. States pain is controlled with current medication regimen, denies shortness of breath. Remains in normal sinus rhythm, hemodynamically stable on no inotropes or pressors. Actively using incentive spirometry. Right pleural chest tube and epicardial pacemaker wire discontinued yesterday. Transfer orders were placed for 3 S. cardiac stepdown unit. Patient ambulated in the hallway 3 times yesterday getting farther each time. Objective - Vital Signs Vital signs: Vital Signs Temp 97.7 F 07/19/18 00:00 Pulse 81 07/19/18 07:59 Resp 20 07/19/18 00:00 BP 134/70 07/19/18 00:00 Pulse Ox 94 L 07/19/18 00:00 Intake & Output 07/18/18 07/19/18 07/19/18 18:59 06:59 18:59 Intake Total 40 1100 Output Total 250 875 Balance -210 225 Weight 75 kg Intake: IV 40 Lactated Ringers 1,000 ml 40 @ 20 mls/hr IV .Q24H [facility] Rx#:[id number] Oral 1100 Output: Urine 100 875 Urine/Stool Mix 150 Other: Voiding Method Bedside Commode # Voids 1 ABP, PAP, CO, CI - Last Documented Arterial Blood Pressure 122/52 Pulmonary Artery Pressure 21/7 Cardiac Output 4.1 Cardiac Index 2.5 - Constitutional General appearance: Present: cooperative, no acute distress - Respiratory Details: Lungs sounds diminished bilaterally. Respirations even, nonlabored. Currently on 2 L nasal cannula with oxygen saturation 94%. Only able to achieve 1000 mL on her incentive spirometry. Strong cough. - Cardiovascular Details: S1, S2 present. Regular rate and rhythm, sinus rhythm on telemetry. Sternum stable. Palpable peripheral pulses bilaterally. No edema present. No calf pain or tenderness noted. Heart hugger in place with patient demonstrating appropriate use. Antiembolism stockings, SCDs present. - Gastrointestinal Gastrointestinal Comment(s): Abdomen soft, nontender, nondistended. Active bowel sounds present 4 quadrants. Tolerating diet. Positive bowel movement. - Genitourinary Genitourinary Comment(s): Continues to void clear, yellow urine. - Integumentary Integumentary Comment(s): Skin is warm and dry with evidence of good perfusion. Anterior chest incision well approximated and covered with dry intact dressing. Bilateral lower ex tremity EVH sites well approximated. Right groin ecchymotic, expected. - Neurologic Neurologic: Present: CNII-XII intact - Musculoskeletal Musculoskeletal: Present: gait normal, strength equal bilaterally - Psychiatric Psychiatric: Present: A&O x's 3, appropriate affect, intact judgment & insight - Allied health notes Allied health notes reviewed: nursing - Labs CBC & Chem 7: 07/19/18 05:16 07/19/18 05:16 Labs: Abnormal Lab Results - Last 24 Hours (Table) 07/18/18 07/18/18 07/19/18 Range/Units 12:05 20:48 05:16 RBC 2.69 L (3.80-5.40) m/uL Hgb 7.9 L (11.4-16.0) gm/dL Hct 23.7 L (34.0-46.0) % Sodium (137-145) mmol/L POC Glucose (mg/dL) 104 H 104 H (75-99) mg/dL 07/19/18 Range/Units 05:16 RBC (3.80-5.40) m/uL Hgb (11.4-16.0) gm/dL Hct (34.0-46.0) % Sodium 134 L (137-145) mmol/L POC Glucose (mg/dL) (75-99) mg/dL - Imaging and Cardiology Chest x-ray: report reviewed, image reviewed Assessment and Plan Assessment: 1. Severe triple-vessel coronary artery disease with chronically occluded right coronary artery and circumflex system, status post urgent quadruple coronary artery bypass grafting 2. Moderately impaired left ventricular systolic function with EF 40-45% 3. Non-STEMI 4. Hypertension 5. Bilateral internal carotid artery stenosis 50-69% 6. History of TIA 7. History of uterine cancer in 1984 8. Current tobacco dependence 9. Moderate COPD with preoperative FEV1 57% of predicted 10. Remote history of pneumonia 11. Significant family history of premature coronary artery disease 12. Right groin hematoma post cardiac catheterization, questionable small pseudoaneurysm 13. Diarrhea, chronic in nature 14. Postoperative acute blood loss anemia, expected Plan: 1. Continue maximizing medical therapy with aspirin, statin, Plavix, NAYAN inhibitor, beta briadna therapy. Will increase beta brianda therapy as tolerated. 2. Wean O2 as tolerated. Encourage incentive spirometry use 10 times every hour while awake. Home oxygen evaluation today. 3. Encourage smoking cessation. 4. Bronchodilators per pulmonology. 5. Increase activity, ambulate as tolerated. PT/OT/cardiac rehab following. First shower today. 6. Pain control with current medication regimen. 7. Insulin management per primary care service. 8. Will monitor daily labs and x-rays. Electrolyte replacement per protocol. No transfusion. 9. Transfer orders placed for 3 cells cardiac stepdown unit. May transfer when bed available. 10. Discharge planning in progress. Hopeful for discharge to home with home care in the next 24-48 hours. 11. More recommendations to follow based on patient's progress. Time with Patient: Greater than 30
--- NOTE | 2018-07-19 09:37 | P.PN ---
Subjective Progress Note Date: 07/19/18 Principal diagnosis: Near syncopal episode in a patient found to have significant triple-vessel coronary artery disease. This is a very pleasant 63-year-old female patient who follows with Dr. Gonzalez as her primary care physician. She has a history of hypertension and chronic and ongoing tobacco dependence of 40+ years at 1 pack per day. She has not been seen by a marine service manager in the past. No home oxygen. No home inhalers. 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 On 07/08/2018 she was getting ready for work she broke out in a cold sweat and had a funny sensation across her chest and developed some shortness of breath. She drove herself to [facility] emergency room where she was found to have elevated troponins and was transferred here for further evaluation. She had undergone cardiac catheterization yesterday and was found to have significant triple- vessel disease and impaired left ventricular systolic function with ejection fraction of 40%. There was inferior wall hypokinesia. She has been recommended coronary artery bypass surgery. She is seen today in consultation on the selective care unit. She is awake and alert in no acute distress. She denies any chest pain, palpitations lightheadedness or dizziness. No shortness of breath, cough or congestion. She is maintaining O2 saturations in the 90s on room air. She's afebrile. Hemodynamically stable. Chest x-ray reveals evidence of chronic obstructive pulmonary disease but no acute pulmonary process. Bedside spirometry readings are pending. She has been educated regarding the incentive spirometer. She is on bronchodilators. A NicoDerm patch is in place. The patient is seen today in 07/18/2018 in follow-up in the intensive care unit. She did undergo quadruple coronary artery bypass grafting using the [place] to the LAD, reverse saphenous vein grafts to the diagonal artery, first obtuse marginal artery and posterior descending artery. She is currently sitting up in a chair at the bedside. She is awake and alert in no acute distress. Her only complaint today is that of some constipation. Her pain is well controlled. She does have a loose nonproductive cough. She does not increased encouragement regarding use of incentive spirometer. She is pulling only about 500 ML's. Chest x-ray reveals evidence of a right-sided chest tube. Left-sided been removed. There is no significant interval change compared to previous. There is small left effusion/atelectasis. Continue good O2 saturations in the 90s on 2 L/m per nasal cannula white count 11.5. Hemoglobin 8.0. Creatinine 0.61. The patient is seen today 07/19/2017 in follow-up in the intensive care unit. She is currently sitting up in a chair at the bedside. She is awake and alert in no acute distress. She is breathing easier today as compared to yesterday. She did have a bowel movement which helped her abdominal discomfort. He is now maintaining O2 saturations in the 90s on 2 L/m per nasal cannula. She struggles to do well with the incentive spirometer. Still only pulling about 500 ML's. Remains on DuoNeb inhalations. Today's chest x-ray reveals evidence of COPD with bilateral consolidation and small effusions which remained stable compared to yesterday. White count 10.6. Hemoglobin 7.9. Creatinine 0.52. Objective - Vital Signs Vital signs: Vital Signs Temp 97.6 F 07/19/18 04:00 Pulse 80 07/19/18 08:10 Resp 20 07/19/18 04:00 BP 154/83 07/19/18 04:00 Pulse Ox 94 L 07/19/18 04:00 Intake & Output 07/18/18 07/19/18 07/19/18 18:59 06:59 18:59 Intake Total 40 1100 Output Total 250 1225 Balance -210 -125 Weight 75 kg Intake: IV 40 Lactated Ringers 1,000 ml 40 @ 20 mls/hr IV .Q24H [facility] Rx#:[id number] Oral 1100 Output: Urine 100 1225 Urine/Stool Mix 150 Other: Voiding Method Bedside Commode # Voids 1 ABP, PAP, CO, CI - Last Documented Arterial Blood Pressure 122/52 Pulmonary Artery Pressure 21/7 Cardiac Output 4.1 Cardiac Index 2.5 - Exam GENERAL EXAM: Alert, fairly comfortable in no apparent distress. On 2 L/m per nasal cannula. HEAD: Normocephalic. EYES: Normal reaction of pupils, equal size. NOSE: Clear with pink turbinates. THROAT: No erythema or exudates. NECK: No masses, no JVD. CHEST: Heart hugger in place. Sternum stable. Dressing intact. LUNGS: Equal air entry with crackles in the bilateral posterior bases. CVS: S1 and S2 normal with no audible murmur, regular rhythm. ABDOMEN: No hepatosplenomegaly, normal bowel sounds, no guarding or rigidity. SPINE: No scoliosis or deformity SKIN: No rashes CENTRAL NERVOUS SYSTEM: No focal deficits, tone is normal in all 4 extremities. EXTREMITIES: There is trace peripheral edema. No clubbing, no cyanosis. Peripheral pulses are intact. SCDs in place. - Labs CBC & Chem 7: 07/19/18 05:16 07/19/18 05:16 Labs: Abnormal Lab Results - Last 24 Hours (Table) 07/18/18 07/18/18 07/19/18 Range/Units 12:05 20:48 05:16 RBC 2.69 L (3.80-5.40) m/uL Hgb 7.9 L (11.4-16.0) gm/dL Hct 23.7 L (34.0-46.0) % Sodium (137-145) mmol/L POC Glucose (mg/dL) 104 H 104 H (75-99) mg/dL 07/19/18 Range/Units 05:16 RBC (3.80-5.40) m/uL Hgb (11.4-16.0) gm/dL Hct (34.0-46.0) % Sodium 134 L (137-145) mmol/L POC Glucose (mg/dL) (75-99) mg/dL Assessment and Plan Assessment: Impression: #1 Near syncope with shortness of breath suspect secondary to significant triple-vessel coronary artery disease. Status post coronary artery by bipass grafting 4 utilizing a [place] to the LAD, saphenous vein grafts to the diagonal, first obtuse marginal, and posterior descending artery. #2 Chronic and ongoing tobacco dependence with chronic obstructive pulmonary disease, untreated in the outpatient setting. FEV1 value 1.3 L/58% of predicted. #3 Recent upper respiratory infection influenza screen negative. #4 Strong family history of coronary artery disease. #5 Hypertension. Plan: The patient was seen and evaluated by . Chest x-ray and labs were reviewed. She is doing well from the pulmonary standpoint. To be transferred out of the ICU today. She needs increased encouragement regarding these to incentive spirometer and cough and deep breathing exercises. Continue bronchodilators. Increase her activity as tolerated. She is again educated regarding the importance of complete smoking cessation. We will continue to follow and make further recommendations based on her clinical status. I, the cosigning physician, performed a history & physical examination of the p atient. Lungs sounds with faint crackles in the bilateral posterior bases left greater than right, diminished. Maintaining good O2 saturations in the 90s on 2 L/m per nasal cannula I discussed the assessment and plan of care with my nurse practitioner, Ginny Carranza. I attest to the above note as dictated by her.
[2018-07-19] MEDS: INSULIN ASPART (NovoLOG) 100 UNIT/ML VIAL SQ SCH ×4 (12:08→23:27)
[2018-07-19] MEDS: LISINOPRIL 5 MG TAB PO SCH (12:13)
[2018-07-19 12:14] LABS: Glucose,Whole Blood 108 mg/dL (75-99)
--- NOTE | 2018-07-19 14:02 | P.PN ---
Subjective Patient is doing well. She is sitting comfortably in a chair Breath sounds are clear Heart sounds S1 and S2 are normal no murmurs or gallops or rub Rhythm is regular Vitals are stable Blood pressure 131/65 mmHg respirations 18-20 Heart sounds are normal Heart rate is normal 70s Abdomen is soft Impression Coronary artery disease status post coronary artery bypass grafting and doing very well postoperatively Suggest continue current cardiac medications and patient is awaiting discharge over the next 24-48 hours Follow-up with primary geological e logger as an outpatient Objective - Vital Signs Vital signs: Vital Signs Temp 97.6 F 07/19/18 09:00 Pulse 78 07/19/18 12:00 Resp 22 07/19/18 12:00 BP 131/65 07/19/18 12:00 Pulse Ox 94 L 07/19/18 04:00 Intake & Output 07/18/18 07/19/18 07/19/18 18:59 06:59 18:59 Intake Total 40 1100 720 Output Total 250 1225 500 Balance -210 -125 220 Weight 75 kg Intake: IV 40 Lactated Ringers 1,000 ml 40 @ 20 mls/hr IV .Q24H [facility] Rx#:[id number] Oral 1100 720 Output: Urine 100 1225 500 Urine/Stool Mix 150 Other: Voiding Method Bedside Commode Toilet # Voids 1 ABP, PAP, CO, CI - Last Documented Arterial Blood Pressure 122/52 Pulmonary Artery Pressure 21/7 Cardiac Output 4.1 Cardiac Index 2.5 - Labs CBC & Chem 7: 07/19/18 05:16 07/19/18 05:16 Labs: Abnormal Lab Results - Last 24 Hours (Table) 07/18/18 07/19/18 07/19/18 Range/Units 20:48 05:16 05:16 RBC 2.69 L (3.80-5.40) m/uL Hgb 7.9 L (11.4-16.0) gm/dL Hct 23.7 L (34.0-46.0) % Sodium 134 L (137-145) mmol/L POC Glucose (mg/dL) 104 H (75-99) mg/dL 07/19/18 Range/Units 12:09 RBC (3.80-5.40) m/uL Hgb (11.4-16.0) gm/dL Hct (34.0-46.0) % Sodium (137-145) mmol/L POC Glucose (mg/dL) 108 H (75-99) mg/dL
[2018-07-19] MEDS ORDERED: FUROSEMIDE 10 MG/ML 2 ML VIAL IV ONE (15:06)
[2018-07-19 21:27] LABS: Glucose,Whole Blood 108 mg/dL (75-99)
[2018-07-19] MEDS: HYDROcodone/APAP 5-325MG 1 EACH TAB PO PRN (23:54)
[2018-07-19] MEDS: SENNOSIDES-DOCUSATE SODIUM 1 EACH TAB PO SCH (23:55)
--- NOTE | 2018-07-20 06:45 | XR ---
EXAMINATION TYPE: XR chest 2V DATE OF EXAM: 07/20/2018 HISTORY: post cardiac surgery. REFERENCE: Previous study dated 07/19/2018. FINDINGS: There has been a midline sternotomy. The lungs are overinflated. The heart is mildly enlarged. There are bilateral effusions. IMPRESSION: 1. COPD. 2. CARDIOMEGALY. 3. SMALL, BILATERAL EFFUSIONS, GREATER ON THE LEFT THAN THE RIGHT.
[2018-07-20 07:15] LABS: Anisocytosis Slight; HCT 25.2 % (34.0-46.0); HGB 8.7 gm/dL (11.4-16.0); MCH 30.5 pg (25.0-35.0); MCHC 34.6 g/dL (31.0-37.0); MCV 88.1 fL (80.0-100.0); Mean Platelet Volume 9.4; Platelet Count 424 k/uL (150-450); RBC 2.86 m/uL (3.80-5.40); RDW 16.8 % (11.5-15.5); WBC 9.8 k/uL (3.8-10.6)
[2018-07-20 07:16] LABS: Glucose,Whole Blood 103 mg/dL (75-99)
[2018-07-20 07:53] LABS: Anion Gap 8 mmol/L; Blood Urea Nitrogen 12 mg/dL (7-17); Calcium 8.5 mg/dL (8.4-10.2); Carbon Dioxide 25 mmol/L (22-30); Chloride 99 mmol/L (98-107); Glucose 88 mg/dL (74-99); Sodium 132 mmol/L (137-145)
[2018-07-20] MEDS: IPRATROPIUM-ALBUTEROL 3 ML NEB INHALATION SCH ×2 (07:55→12:11)
[2018-07-20] MEDS: KETOROLAC 30 MG/ML 1 ML VIAL IVP SCH (08:01)
[2018-07-20] MEDS: INSULIN ASPART (NovoLOG) 100 UNIT/ML VIAL SQ SCH ×2 (08:01→13:56)
[2018-07-20] MEDS ORDERED: FUROSEMIDE 10 MG/ML 2 ML VIAL IV ONE (08:27)
--- NOTE | 2018-07-20 08:33 | P.PN ---
Subjective Progress Note Date: 07/20/18 Principal diagnosis: Severe triple vessel coronary artery disease with chronically occluded right coronary artery and circumflex system, moderately impaired left ventricular systolic function with EF 40-45%, non-STEMI. Bilateral internal carotid artery stenosis 50-69%. Previous medical history of hypertension, TIA, uterine cancer in 1984, current tobacco dependence, moderate COPD with preoperative FEV1 57% of predicted, history of pneumonia, and family history of premature coronary artery disease. Post cardiac catheterization right groin hematoma, questionable small pseudoaneurysm. POD #5 urgent quadruple coronary artery bypass grafting using the left internal mammary artery to the left anterior descending artery, reverse saphenous vein graft from the aorta to the diagonal artery, reverse saphenous vein graft from the aorta to the totally occluded diffusely diseased first obtuse marginal artery, reverse saphenous vein graft from the aorta to the totally occluded posterior descending artery. Endoscopic harvesting of bilateral greater saphenous veins from the groins to just below the knee level. Intraoperative transesophageal echocardiogram and epi-aortic scanning. Intraoperative graft flow measurements using the [employer] system. Postoperative acute blood loss anemia, expected outcome of surgery given hemodilution and cardiopulmonary bypass pump. The patient is currently sitting up in a recliner in the intensive care unit in no acute distress eating breakfast. States pain is controlled with current medication regimen, denies shortness of breath. Remains in normal sinus rhythm, hemodynamically stable on no inotropes or pressors. Actively using incentive spirometry. Transfer orders were placed for 3 S. cardiac stepdown unit, no beds available. Patient ambulated in the hallway multiple times yesterday and was in the shower this morning. Objective - Vital Signs Vital signs: Vital Signs Temp 97.8 F 07/20/18 04:00 Pulse 78 07/20/18 08:07 Resp 16 07/20/18 04:00 BP 135/73 07/20/18 04:00 Pulse Ox 95 07/20/18 07:55 Intake & Output 07/19/18 07/20/18 07/20/18 18:59 06:59 18:59 Intake Total 1080 Output Total 900 Balance 180 Weight 74.1 kg Intake: Oral 1080 Output: Urine 900 Other: Voiding Method Toilet Toilet # Voids 1 ABP, PAP, CO, CI - Last Documented Arterial Blood Pressure 122/52 Pulmonary Artery Pressure 21/7 Cardiac Output 4.1 Cardiac Index 2.5 - Constitutional General appearance: Present: cooperative, no acute distress - Respiratory Details: Lungs sounds diminished bilaterally. Respirations even, nonlabored. Currently on room air with oxygen saturation 94%. Only able to achieve 1000 mL on her incentive spirometry. Strong cough. - Cardiovascular Details: S1, S2 present. Regular rate and rhythm, sinus rhythm on telemetry. Sternum stable. Palpable peripheral pulses bilaterally. No edema present. No calf francisca n or tenderness noted. Heart hugger in place with patient demonstrating appropriate use. Antiembolism stockings, SCDs present. - Gastrointestinal Gastrointestinal Comment(s): Abdomen soft, nontender, nondistended. Active bowel sounds present 4 quadrants. Tolerating diet. Positive bowel movement. - Genitourinary Genitourinary Comment(s): Continues to void clear, yellow urine. - Integumentary Integumentary Comment(s): Skin is warm and dry with evidence of good perfusion. Anterior chest incision well approximated and covered with dry intact dressing. Bilateral lower extremity EVH sites well approximated. Right groin ecchymotic, expected. - Neurologic Neurologic: Present: CNII-XII intact - Musculoskeletal Musculoskeletal: Present: gait normal, strength equal bilaterally - Psychiatric Psychiatric: Present: A&O x's 3, appropriate affect, intact judgment & insight - Allied health notes Allied health notes reviewed: nursing - Labs CBC & Chem 7: 07/20/18 05:54 07/20/18 05:54 Labs: Abnormal Lab Results - Last 24 Hours (Table) 07/19/18 07/19/18 07/20/18 Range/Units 12:09 21:12 05:54 RBC 2.86 L (3.80-5.40) m/uL Hgb 8.7 L (11.4-16.0) gm/dL Hct 25.2 L (34.0-46.0) % RDW 16.8 H (11.5-15.5) % Sodium (137-145) mmol/L POC Glucose (mg/dL) 108 H 108 H (75-99) mg/dL 07/20/18 07/20/18 Range/Units 05:54 07:12 RBC (3.80-5.40) m/uL Hgb (11.4-16.0) gm/dL Hct (34.0-46.0) % RDW (11.5-15.5) % Sodium 132 L (137-145) mmol/L POC Glucose (mg/dL) 103 H (75-99) mg/dL - Imaging and Cardiology Chest x-ray: report reviewed, image reviewed Assessment and Plan Assessment: 1. Severe triple-vessel coronary artery disease with chronically occluded right coronary artery and circumflex system, status post urgent quadruple coronary artery bypass grafting 2. Moderately impaired left ventricular systolic function with EF 40-45% 3. Non-STEMI 4. Hypertension 5. Bilateral internal carotid artery stenosis 50-69% 6. History of TIA 7. History of uterine cancer in 1984 8. Current tobacco dependence 9. Moderate COPD with preoperative FEV1 57% of predicted 10. Remote history of pneumonia 11. Significant family history of premature coronary artery disease 12. Right groin hematoma post cardiac catheterization, questionable small pseudoaneurysm 13. Diarrhea, chronic in nature 14. Postoperative acute blood loss anemia, expected Plan: 1. Continue maximizing medical therapy with aspirin, statin, Plavix, NAYAN inhibitor, beta brianda therapy. Will increase beta brianda therapy as tolerated. 2. Encourage incentive spirometry use 10 times every hour while awake. 3. Encourage smoking cessation. 4. Bronchodilators per pulmonology. 5. Will give 20 mg IV push Lasix today, will sent home on oral Lasix daily. 6. Increase activity, ambulate as tolerated. PT/OT/cardiac rehab following. 7. Pain control with current medication regimen. 8. Insulin management per primary care service. 9. Will monitor daily labs and x-rays. Electrolyte replacement per protocol. No transfusion. 10. Transfer orders placed for 3 cells cardiac stepdown unit, no beds available. 11. Discharge planning in progress. Plan for discharge to home with home care later today. Time with Patient: Greater than 30
[2018-07-20] MEDS ORDERED: METOPROLOL TARTRATE 50 MG TAB PO SCH (09:00)
[2018-07-20] MEDS: ASPIRIN 325 MG TAB PO SCH (09:23)
[2018-07-20] MEDS: HEPARIN SODIUM,PORCINE 5,000 UNIT/ML 1 ML VIAL SQ SCH (09:23)
[2018-07-20] MEDS: PANTOPRAZOLE 40 MG TABLET PO SCH (09:23)
[2018-07-20] MEDS: ATORVASTATIN 40 MG TAB PO SCH (09:23)
[2018-07-20] MEDS: CLOPIDOGREL 75 MG TAB PO SCH (09:24)
--- NOTE | 2018-07-20 09:40 | P.PN ---
Subjective Progress Note Date: 07/20/18 Principal diagnosis: Near syncopal episode in a patient found to have significant triple-vessel coronary artery disease. This is a very pleasant 63-year-old female patient who follows with Dr. Gonzalez as her primary care physician. She has a history of hypertension and chronic and ongoing tobacco dependence of 40+ years at 1 pack per day. She has not been seen by a glass cutting machine feeder in the past. No home oxygen. No home inhalers. 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 On 07/08/2018 she was getting ready for work she broke out in a cold sweat and had a funny sensation across her chest and developed some shortness of breath. She drove herself to [facility] emergency room where she was found to have elevated troponins and was transferred here for further evaluation. She had undergone cardiac catheterization yesterday and was found to have significant triple- vessel disease and impaired left ventricular systolic function with ejection fraction of 40%. There was inferior wall hypokinesia. She has been recommended coronary artery bypass surgery. She is seen today in consultation on the selective care unit. She is awake and alert in no acute distress. She denies any chest pain, palpitations lightheadedness or dizziness. No shortness of breath, cough or congestion. She is maintaining O2 saturations in the 90s on room air. She's afebrile. Hemodynamically stable. Chest x-ray reveals evidence of chronic obstructive pulmonary disease but no acute pulmonary process. Bedside spirometry readings are pending. She has been educated regarding the incentive spirometer. She is on bronchodilators. A NicoDerm patch is in place. The patient is seen today in 07/18/2018 in follow-up in the intensive care unit. She did undergo quadruple coronary artery bypass grafting using the [place] to the LAD, reverse saphenous vein grafts to the diagonal artery, first obtuse marginal artery and posterior descending artery. She is currently sitting up in a chair at the bedside. She is awake and alert in no acute distress. Her only complaint today is that of some constipation. Her pain is well controlled. She does have a loose nonproductive cough. She does not increased encouragement regarding use of incentive spirometer. She is pulling only about 500 ML's. Chest x-ray reveals evidence of a right-sided chest tube. Left-sided been removed. There is no significant interval change compared to previous. There is small left effusion/atelectasis. Continue good O2 saturations in the 90s on 2 L/m per nasal cannula white count 11.5. Hemoglobin 8.0. Creatinine 0.61. The patient is seen today 07/19/2018 in follow-up in the intensive care unit. She is currently sitting up in a chair at the bedside. She is awake and alert in no acute distress. She is breathing easier today as compared to yesterday. She did have a bowel movement which helped her abdominal discomfort. He is now maintaining O2 saturations in the 90s on 2 L/m per nasal cannula. She struggles to do well with the incentive spirometer. Still only pulling about 500 ML's. Remains on DuoNeb inhalations. Today's chest x-ray reveals evidence of COPD with bilateral consolidation and small effusions which remained stable compared to yesterday. White count 10.6. Hemoglobin 7.9. Creatinine 0.52. The patient is seen today 07/20/2018 in follow-up in the intensive care unit. She's been a selective overflow. She is currently sitting up in a chair at the bedside. Awake and alert in no acute distress. No worsening shortness of breath, cough or congestion. 18 in good O2 saturations in the mid 90s on room air. Chest x-ray shows evidence of COPD, cardiomegaly and small bilateral pleural effusions left greater than right. White count 9.8. Hemoglobin 8.7. Creatinine 0.53. He is doing better with the incentive spirometer. Remains on bronchodilators. Objective - Vital Signs Vital signs: Vital Signs Temp 97.8 F 07/20/18 04:00 Pulse 78 07/20/18 08:07 Resp 16 07/20/18 04:00 BP 135/73 07/20/18 04:00 Pulse Ox 95 07/20/18 07:55 Intake & Output 07/19/18 07/20/18 07/20/18 18:59 06:59 18:59 Intake Total 1080 Output Total 900 Balance 180 Weight 74.1 kg Intake: Oral 1080 Output: Urine 900 Other: Voiding Method Toilet Toilet # Voids 1 ABP, PAP, CO, CI - Last Documented Arterial Blood Pressure 122/52 Pulmonary Artery Pressure 21/7 Cardiac Output 4.1 Cardiac Index 2.5 - Exam GENERAL EXAM: Alert, fairly comfortable in no apparent distress. On room air. HEAD: Normocephalic. EYES: Normal reaction of pupils, equal size. NOSE: Clear with pink turbinates. THROAT: No erythema or exudates. NECK: No masses, no JVD. CHEST: Heart hugger in place. Sternum stable. Dressing intact. LUNGS: Equal air entry with crackles in the bilateral posterior bases. CVS: S1 and S2 normal with no audible murmur, regular rhythm. ABDOMEN: No hepatosplenomegaly, normal bowel sounds, no guarding or rigidity. SPINE: No scoliosis or deformity SKIN: No rashes CENTRAL NERVOUS SYSTEM: No focal deficits, tone is normal in all 4 extremities. EXTREMITIES: There is trace peripheral edema. No clubbing, no cyanosis. Peripheral pulses are intact. SCDs in place. - Labs CBC & Chem 7: 07/20/18 05:54 07/20/18 05:54 Labs: Abnormal Lab Results - Last 24 Hours (Table) 07/19/18 07/19/18 07/20/18 Range/Units 12:09 21:12 05:54 RBC 2.86 L (3.80-5.40) m/uL Hgb 8.7 L (11.4-16.0) gm/dL Hct 25.2 L (34.0-46.0) % RDW 16.8 H (11.5-15.5) % Sodium (137-145) mmol/L POC Glucose (mg/dL) 108 H 108 H (75-99) mg/dL 07/20/18 07/20/18 Range/Units 05:54 07:12 RBC (3.80-5.40) m/uL Hgb (11.4-16.0) gm/dL Hct (34.0-46.0) % RDW (11.5-15.5) % Sodium 132 L (137-145) mmol/L POC Glucose (mg/dL) 103 H (75-99) mg/dL Assessment and Plan Assessment: Impression: #1 Near syncope with shortness of breath suspect secondary to significant triple-vessel coronary artery disease. Status post coronary artery by bipass grafting 4 utilizing a [place] to the LAD, saphenous vein grafts to the diagonal, first obtuse marginal, and posterior descending artery. #2 Chronic and ongoing tobacco dependence with chronic obstructive pulmonary disease, untreated in the outpatient setting. FEV1 value 1.3 L/58% of predicted. #3 Recent upper respiratory infection influenza screen negative. #4 Strong family history of coronary artery disease. #5 Hypertension. Plan: The patient was seen and evaluated by . Chest x-ray and labs were reviewed. She is doing well from the pulmonary standpoint. May be discharged home later today. She is again educated regarding the importance of complete smoking cessation. I, the cosigning physician, performed a history & physical examination of the patient. Lungs sounds with faint crackles in the bilateral posterior bases left greater than right, diminished. Maintaining good O2 saturations in the 90s on room air. I discussed the assessment and plan of care with my nurse practitioner, Ginny Carranza. I attest to the above note as dictated by her.
--- NOTE | 2018-07-20 10:31 | P.PN ---
Subjective Progress Note Date: 07/19/18 Principal diagnosis: Severe triple-vessel CAD 63-year-old female, history of hypertension and chronic and ongoing tobacco dependence of 40+ years at 1 pack per day. On 07/08/2018 she was getting ready for work she broke out in a cold sweat and had a funny sensation across her vicky st and developed some shortness of breath. She drove herself to [place] emergency room where she was found to have elevated troponins and was transferred here for further evaluation. She had undergone cardiac catheterization yesterday and was found to have significant triple-vessel disease and impaired left ventricular systolic function with ejection fraction of 40%. There was inferior wall hypokinesia. She has been recommended coronary artery bypass surgery. 07/19/2017 in follow-up in the intensive care unit. She is currently sitting up in a chair at the bedside. She is awake and alert in no acute distress. She is breathing easier today as compared to yesterday. She did have a bowel movement which helped her abdominal discomfort. He is now maintaining O2 saturations in the 90s on 2 L/m per nasal cannula. She struggles to do well with the incentive spirometer. Still only pulling about 500 ML's. Remains on DuoNeb inhalations. Today's chest x-ray reveals evidence of COPD with bilateral consolidation and small effusions which remained stable compared to yesterday. White count 10.6. Hemoglobin 7.9. Creatinine 0.52. Objective - Vital Signs Vital signs: Vital Signs Temp 97.6 F 07/19/18 04:00 Pulse 80 07/19/18 08:10 Resp 20 07/19/18 04:00 BP 154/83 07/19/18 04:00 Pulse Ox 94 L 07/19/18 04:00 Intake & Output 07/18/18 07/19/18 07/19/18 18:59 06:59 18:59 Intake Total 40 1100 Output Total 250 1225 Balance -210 -125 Weight 75 kg Intake: IV 40 Lactated Ringers 1,000 ml 40 @ 20 mls/hr IV .Q24H RUEL Rx#:[id number] Oral 1100 Output: Urine 100 1225 Urine/Stool Mix 150 Other: Voiding Method Bedside Commode # Voids 1 ABP, PAP, CO, CI - Last Documented Arterial Blood Pressure 122/52 Pulmonary Artery Pressure 21/7 Cardiac Output 4.1 Cardiac Index 2.5 - Exam GENERAL EXAM: Alert, fairly comfortable in no apparent distress. On 2 L/m per nasal cannula. HEAD: Normocephalic. EYES: Normal reaction of pupils, equal size. NECK: No masses, no JVD. LUNGS: Equal air entry with crackles in the bilateral posterior bases. CVS: S1 and S2 normal with no audible murmur, regular rhythm. ABDOMEN: No hepatosplenomegaly, normal bowel sounds, no guarding or rigidity. SKIN: No rashes - Labs CBC & Chem 7: 07/20/18 05:54 07/20/18 05:54 Labs: Abnormal Lab Results - Last 24 Hours (Table) 07/18/18 07/18/18 07/19/18 Range/Units 12:05 20:48 05:16 RBC 2.69 L (3.80-5.40) m/uL Hgb 7.9 L (11.4-16.0) gm/dL Hct 23.7 L (34.0-46.0) % Sodium (137-145) mmol/L POC Glucose (mg/dL) 104 H 104 H (75-99) mg/dL 07/19/18 Range/Units 05:16 RBC (3.80-5.40) m/uL Hgb (11.4-16.0) gm/dL Hct (34.0-46.0) % Sodium 134 L (137-145) mmol/L POC Glucose (mg/dL) (75-99) mg/dL Assessment and Plan Assessment: 1. Non-ST elevation ID; status post cardiac catheterization showing severe triple-vessel CAD; status post urgent CABG - Moderately impaired left ventricular systolic function which EF 40-45% - Cardiology is following and recommending to continue current cardiac medications; aspirin, statin, Plavix, NAYAN inhibitor and beta blockers; plan is t o escalate beta brianda therapy as tolerated - Patient encouraged to use incentive spirometry every hour while awake - Recommended to increase activity with ambulation as tolerated; PT/OT/cardiac rehabilitation recommended 2. Hypertension; fairly controlled on current regimen 3. Bilateral internal carotid artery stenosis; 50-69%; close monitoring is recommended 4. Postoperative acute blood loss anemia; stable 5. Current tobacco dependence; counseling done to encourage smoking cessation 6. DVT prophylaxis CODE STATUS; full code Disposition; Patient possibly be discharged in next 24-48 hours pending clinical progress with home health care Time with Patient: Greater than 30
[2018-07-20 10:34] VITALS: BP 122/74; PULSE 80; RESP 15; TEMP 97.9
[2018-07-20 12:20] LABS: Glucose,Whole Blood 106 mg/dL (75-99)
[2018-07-20] MEDS: LISINOPRIL 5 MG TAB PO SCH (13:17)
--- NOTE | 2018-07-20 13:31 | P.PN ---
Subjective Patient is doing well. She denies any chest discomfort dizziness lightheadedness palpitations She is sitting up in a chair and is waiting to go home On examination blood pressure is 122/74 mmHg pulse rate is in the 70s she's afebrile Breath sounds are clear no rhonchi no crackles Heart sounds. Soft no murmurs or gallop Extremities warm no edema IMPRESSION Coronary artery disease status post coronary artery bypass grafting in stable Suggest Discharge home on current cardiac medications including dual antiplatelet therapy statins beta blockers Objective - Vital Signs Vital signs: Vital Signs Temp 97.9 F 07/20/18 08:00 Pulse 80 07/20/18 12:22 Resp 15 07/20/18 08:00 BP 122/74 07/20/18 08:00 Pulse Ox 95 07/20/18 08:00 Intake & Output 07/19/18 07/20/18 07/20/18 18:59 06:59 18:59 Intake Total 1080 Output Total 900 Balance 180 Weight 74.1 kg Intake: Oral 1080 Output: Urine 900 Other: Voiding Method Toilet Toilet # Voids 1 1 ABP, PAP, CO, CI - Last Documented Arterial Blood Pressure 122/52 Pulmonary Artery Pressure 21/7 Cardiac Output 4.1 Cardiac Index 2.5 - Labs CBC & Chem 7: 07/20/18 05:54 07/20/18 05:54 Labs: Abnormal Lab Results - Last 24 Hours (Table) 07/19/18 07/20/18 07/20/18 Range/Units 21:12 05:54 05:54 RBC 2.86 L (3.80-5.40) m/uL Hgb 8.7 L (11.4-16.0) gm/dL Hct 25.2 L (34.0-46.0) % RDW 16.8 H (11.5-15.5) % Sodium 132 L (137-145) mmol/L POC Glucose (mg/dL) 108 H (75-99) mg/dL 07/20/18 07/20/18 Range/Units 07:12 11:56 RBC (3.80-5.40) m/uL Hgb (11.4-16.0) gm/dL Hct (34.0-46.0) % RDW (11.5-15.5) % Sodium (137-145) mmol/L POC Glucose (mg/dL) 103 H 106 H (75-99) mg/dL
--- NOTE | 2018-07-21 10:59 | P.DS ---
Providers Date of admission: 07/08/18 12:54 Expected date of discharge: 07/20/18 Attending physician: Jerome Ortega Consults: 07/08/18 12:54 Consult Physician Urgent Consulting Provider: Vito Bird Consult Reason/Comments: chest pain Do you want consulting provider notified?: Yes 07/09/18 12:09 Consult Physician Routine Consulting Provider: Kenney Mcleod Consult Reason/Comments: pulm clearence, preop cabg Do you want consulting provider notified?: Yes Consult to Anesthesia Routine Consulting Provider: Anesthesia,Services Consult Reason/Comments: Cardiac Surgery Pre-Op 07/09/18 13:44 Consult Physician Urgent Consulting Provider: Jerome Ortega Consult Reason/Comments: cad Do you want consulting provider notified?: Already Contacted 07/15/18 16:26 Consult Physician Routine Consulting Provider: Rey Barajas Consult Reason/Comments: Medical management Do you want consulting provider notified?: Yes Primary care physician: Stated None Hospital Course: FINAL DIAGNOSIS: 1. Severe triple-vessel coronary artery disease with chronically occluded right coronary artery and circumflex system 2. Moderately impaired left ventricular systolic function with EF 40-45% 3. Non-STEMI 4. Bilateral internal carotid artery stenosis 50-69% 5. History of hypertension 6. History of TIA 7. Uterine cancer in 1984 8. Current tobacco dependence 9. Moderate COPD with preoperative FEV1 57% of predicted 10. Remote history of pneumonia 11. Family history of premature coronary artery disease 12. Post cardiac catheterization right groin hematoma with small pseudoaneurysm 13. Postoperative acute blood loss anemia PRINCIPAL PROCEDURE: 1. Left heart catheterization 2. Urgent quadruple coronary artery bypass grafting using the left internal m ammary artery to the left anterior descending artery, reverse saphenous vein graft from the aorta to the diagonal artery, reverse saphenous vein graft from the aorta to the totally occluded diffusely diseased first obtuse marginal artery, reverse saphenous vein graft from the aorta to the totally occluded posterior descending artery 3. Endoscopic harvesting of bilateral greater saphenous veins from the groins to below the knee level 4. Intraoperative transesophageal echocardiogram and epi-aortic scanning 5. Intraoperative graft flow measurements using the [employer] system HISTORY OF PRESENT ILLNESS: This is a 63-year-old female patient who does not follow with a physician on a regular basis. She began having coughing spells with mild chills for a few days, upon getting ready for work she became lightheaded, nauseous, diaphoretic. She denied ever having chest discomfort or increasing shortness of breath. She presented to [facility] for evaluation and treatment. Workup did not indicate any infectious process. Troponin was elevated at 0.124, chest x-ray was performed demonstrating trace on a fluid, no evidence of infiltrate or vascular decompensation. She was transfer red to [facility] secondary to elevation of troponins, repeat troponins upon arrival were 0.107, 0.089, 0.103, and EKG demonstrated Q waves in the inferior leads, she was ruled in for non-STEMI. She was admitted for cardiac evaluation and treatment. It was recommended that she undergo heart catheterization which demonstrated severe triple-vessel coronary artery disease with chronically occluded right coronary artery and circumflex system. Consultation was placed for Dr. Ortega from cardiothoracic surgery from cardiothoracic surgery. She was recommended to undergo coronary artery bypass graft surgery. The usual perioperative course was discussed in detail with the patient and her family, all risks and benefits were explained, all questions were answered, and consent was obtained to proceed with surgery. The patient was kept inpatient due to the nature of her disease process. HOSPITAL COURSE: The patient was brought to the preoperative area on 07/15/2018, prepared in the usual fashion, and subsequently taken to the operating room where Dr. Ortega performed urgent quadruple coronary artery bypass grafting using the left internal mammary artery to the left anterior descending artery, reverse saphenous vein graft from the aorta to the diagonal artery, reverse saphenous vein graft from the aorta to the totally occluded diffusely diseased first obtuse marginal artery, reverse saphenous vein graft from the aorta to the totally occluded posterior descending artery, endoscopic harvesting of bilateral greater saphenous veins from the groins to below the knee level, intraoperative transesophageal echocardiogram and epi-aortic scanning, and intraoperative graft flow measurements using the [employer] system. Upon completion of surgery the patient was transferred to the cardiovascular intensive care unit where she was recovered, monitored hemodynamically, and where she progressed to cardiac rehabilitation phase 1. She was extubated, all lines, tubes, and drips were dis continued when appropriate, and transfer orders were placed for 3 S. cardiac stepdown unit, however there was no bed availability and the patient remained on ICU as a stepdown patient until discharge. She did experience acute blood loss anemia and did receive transfusion of packed red blood cells. Her oxygen was titrated down, she continued to work with physical and occupational therapy, she was tolerating oral diet, her pain was controlled, and she was ready to be discharged to home with [facility] care on postoperative day #5. She received written and verbal instruction regarding her medications, activity restrictions, signs and symptoms requiring physician notification, and follow-up appointments. COMPLICATIONS: The patient experienced postoperative acute blood loss anemia which was treated accordingly. Patient Condition at Discharge: Fair Plan - Discharge Summary Discharge Rx Participant: No New Discharge Prescriptions: New Aspirin 325 mg PO DAILY #30 tab Furosemide [Lasix] 20 mg PO DAILY #7 tab Atorvastatin [Lipitor] 40 mg PO DAILY #30 tab Metoprolol Tartrate [Lopressor] 50 mg PO BID #60 tab HYDROcodone/APAP 5-325MG [Denver 5-325] 1 each PO Q6HR PRN #20 tab PRN Reason: SEVERE Pain Clopidogrel [Plavix] 75 mg PO DAILY #30 tab Pantoprazole [Protonix] 40 mg PO AC-BRKFST #30 tablet.dr Conway-Docusate Sodium [Senokot-S] 2 each PO HS #14 tab Acetaminophen Tab [Tylenol] 325 mg PO Q4HR PRN #120 tab PRN Reason: Fever and/ or MILD Pain Lisinopril [Zestril] 5 mg PO DAILY@1200 #30 tab Continue Vitamin B Complex 1 cap PO DAILY Discontinued Valsartan/Hydrochlorothiazide [Diovan Hct 160-25 mg Tablet] 1 tab PO DAILY Acetaminophen Tab [Tylenol Tab] 1,000 mg PO Q6HR PRN PRN Reason: Pain Discharge Medication List Vitamin B Complex 1 cap PO DAILY 07/08/18 [History] Acetaminophen Tab [Tylenol] 325 mg PO Q4HR PRN #120 tab 07/20/18 [Rx] Aspirin 325 mg PO DAILY #30 tab 07/20/18 [Rx] Atorvastatin [Lipitor] 40 mg PO DAILY #30 tab 07/20/18 [Rx] Clopidogrel [Plavix] 75 mg PO DAILY #30 tab 07/20/18 [Rx] Furosemide [Lasix] 20 mg PO DAILY #7 tab 07/20/18 [Rx] HYDROcodone/APAP 5-325MG [Denver 5-325] 1 each PO Q6HR PRN #20 tab 07/20/18 [Rx] Lisinopril [Zestril] 5 mg PO DAILY@1200 #30 tab 07/20/18 [Rx] Metoprolol Tartrate [Lopressor] 50 mg PO BID #60 tab 07/20/18 [Rx] Pantoprazole [Protonix] 40 mg PO AC-BRKFST #30 tablet. 07/20/18 [Rx] Sennosides-Docusate Sodium [Senokot-S] 2 each PO HS #14 tab 07/20/18 [Rx] Follow up Appointment(s)/Referral(s): Kenney Mcleod MD [STAFF PHYSICIAN] - 08/08/18 9:45 am Venecia Velásquez NPC [Nurse Practitioner] - 07/24/18 1:00 pm Young William MD [STAFF PHYSICIAN] - 08/02/18 3:00 pm Jerome Ortega MD [STAFF PHYSICIAN] - 08/16/18 10:00 am [facility] [NON-STAFF] - As Needed [facility], [NON-STAFF] - 1-2 Days France Hough MD [STAFF PHYSICIAN] - 2 Weeks Jimmy Frost MD [STAFF PHYSICIAN] - 6 Weeks Ambulatory/Diagnostic Orders: Complete Blood Count w/diff [LAB.AMB] Time Frame: 3 Days, Location: None Selected Comprehensive Metabolic Panel [LAB.AMB] Time Frame: 3 Days, Location: None Selected Patient Instructions/Handouts: Coronary Artery Bypass Graft (DC) Activity/Diet/Wound Care/Special Instructions: DISCHARGE INSTRUCTIONS: 1. No driving for 4 weeks, or until physician gives their ok. 2. The patient should sleep in their own bed, no medical bed needed. 3. Stairs are not an issue. If the bedroom is upstairs, it is advised that the patient go up at night and down in the morning for the first week. Go slowly, using handrail and take 1 step at a time. 4. DONNY hose are to be worn for 30 days or until physician discontinues. 5. Heart hugger is to be worn 100% of the time until physician discontinues.(except when showering) 6. No lifting, pushing, or pulling more than 10 pounds for 12 weeks. The physician will advise of any restriction changes. 7. The patient is expected to continue the prescribed walking program. 8. Continue pain control per as needed orders. 9. Continue with incentive spirometry and splinting/heart hugger until otherwise directed by the physician. 10. Must shower daily using liquid antibacterial soap and a separate white washcloth for each individual incision. 11. Routine sternal incision care. No powders, lotions, ointments on incisions. 12. Please call surgeon/PHP PROGRAMMER for temp greater than 101 F or purulent drainage from incisions. 13. Narcotic medications were discussed with the patient, including the potential for misuse, addiction, and abuse. Opiod Start Talking form was reviewed with the patient. 14. All prescriptions given by surgeon for 30 days. Refills need to be filled through bus dispatcher interstate/primary care physician. 15. A Red armband has been placed on the patient. It should be worn for 30 days post surgery and will be removed by the cardiac surgeons. If an ER visit is necessary, please make sure the number on the Red armband is called. HOME HEALTH SERVICES TO PROVIDE: RN SKILLED HOME CARE SERVICES FOR POST-OP SURGICAL PATIENTS WITH THE FOLLOWING: Coronary Artery Bypass Surgery (CABG), Mitral Valve Replacement/Repair ( MVR), Aortic Valve Replacement/Repair (AVR) RN TO CONTINUE EDUCATION FROM ``ROAD TO A HEALTH HEART PATIENT EDUCATION MANUAL (GIVEN TO PATIENT IN THE HOSPITAL) MEDICATION RECONCILIATION WITH EDUCATION NEEDED ON FIRST HOME VISIT EMPHASIZE IMPORTANCE OF WEARING BREAST SUPPORT/HEART HUGGER ENCOURAGE USE OF INCENTIVE SPIROMETER 10 X EVERY HOUR WHILE AWAKE ENCOURAGE UTILIZATION OF LOWER EXTREMITY COMPRESSION STOCKINGS/DONNY HOSE and ELEVATE LEGS ABOVE LEVEL OF HEART WHILE AT REST. ENCOURAGE AMBULATION 3-5x/day INCREASING TOLERATES, WHILE AVOID EXTREMES IN TEMPERATURE FREQUENCY: RN TO OPEN THE PATIENT WITHIN 24 HOURS OF DISCHARGE FROM THE HOSPITAL WITH TELEHEALTH INSTALLED AT [facility] [place], RN TO VISIT 2-3 X A WEEK FOR 4 WEEKS ESTABLISHED BY PATIENT NEEDS. LABORATORY: CBC, CMP TO BE DRAWN ON THE THIRD DAY HOME, (RAN STAT) FAX RESULTS TO [phone]. TELEHEALTH PARAMETERS: WEIGHT: NOTIFY MD OF WEIGHT GAIN OF 2 LBS IN 24 HOURS OR 5 LBS IN ONE WEEK HR: NOTIFY MD OF HR <55 BPM OR HR>100 BPM BP: NOTIFY MD IF BP <90/55 OR BP>140/100 O2 SAT: NOTIFY MD IF PO2<93% ON ROOM AIR SEND TELEHEALTH REPORT TO LOG HOOKER AND CARDIOVASCULAR SURGEON THE FIRST WEEK OF CARE AND THEN BI-WEEKLY. PLEASE ADDITIONALLY COMMUNICATE ANY ABNORMALS AND NEW FINDINGS TO THE SURGEONS OFFICE. Discharge Disposition: HOME SELF-CARE
--- NOTE | 2018-07-22 16:14 | CDI ---
Documentation Clarification Form Date: 07/24/2018 3:05:00 PM From: Joan Royal Renate Rodriguez, Gear Hobber Hours-8:30 am & 5 pm MAmelia Admit Date: 07/08/2018 12:54:00 PM Patient Name: Vivian Quinones Visit Number: [id number] Discharge Date: 07/20/2018 2:29:00 PM ATTENTION: The Clinical Documentation Specialists (CDI) and [facility] Coding Staff appreciate your assistance in clarifying documentation. Please respond to the clarification below the line at the bottom and electronically sign. The CDI & [facility] Coding staff will review the response and follow-up if needed. Please note: Queries are made part of the Legal Health Record. If you have any questions, please contact the author of this message via ITS. Dear James Valverde NP/Dr. Figueroa, "Systolic heart failure-EF 40-45% " is documented in your 07/14/18 prg note. History/Risk Factors: CAD, HTN Echocardiogram Results: Moderately impaired left ventricular systolic function with EF 40-45% Chest X Ray: effusion Treatment: IV Lasix In your professional opinion, can you please clarify the acuity of CHF if known? Systolic Heart Failure: Acute Chronic Acute on Chronic Unable to Determine Other, please specify Systolic heart failure is new onset, acute. MTDD
== END 2018-07-20 14:29 | disposition home health service (06) | DRG 233 ==
LOC: EDSEX → EC 11:31 → 3SCARD 12:54 → 2SICU 07-15 06:41
PROVIDERS: ADMIT Hospitalist; ATTEND Surgery
PROC: B2111ZZ Fluoroscopy of Multiple Coronary Arteries using Low Osmolar Contrast (ICD-10-PCS; 2018-07-09)
PROC: B2151ZZ Fluoroscopy of Left Heart using Low Osmolar Contrast (ICD-10-PCS; 2018-07-09)
PROC: 4A023N7 Measurement of Cardiac Sampling and Pressure, Left Heart, Percutaneous Approach (ICD-10-PCS; principal; 2018-07-09 11:00)
PROC: 021209W Bypass Coronary Artery, Three Arteries from Aorta with Autologous Venous Tissue, Open Approach (ICD-10-PCS; 2018-07-15)
PROC: 06BQ4ZZ Excision of Left Saphenous Vein, Percutaneous Endoscopic Approach (ICD-10-PCS; 2018-07-15)
PROC: 06BP4ZZ Excision of Right Saphenous Vein, Percutaneous Endoscopic Approach (ICD-10-PCS; 2018-07-15)
PROC: 5A1221Z Performance of Cardiac Output, Continuous (ICD-10-PCS; 2018-07-15)
PROC: 30243N1 Transfusion of Nonautologous Red Blood Cells into Central Vein, Percutaneous Approach (ICD-10-PCS; 2018-07-15)
PROC: 02100Z9 Bypass Coronary Artery, One Artery from Left Internal Mammary, Open Approach (ICD-10-PCS; 2018-07-15 08:00)
DX: I21.4 Non-ST elevation (NSTEMI) myocardial infarction (principal); I50.21 Acute systolic (congestive) heart failure; I97.630 Postprocedural hematoma of a circulatory system organ or structure following a cardiac catheterization; D62 Acute posthemorrhagic anemia; J98.11 Atelectasis; I11.0 Hypertensive heart disease with heart failure; I72.8 Aneurysm of other specified arteries; I65.23 Occlusion and stenosis of bilateral carotid arteries; J44.9 Chronic obstructive pulmonary disease, unspecified; I25.10 Atherosclerotic heart disease of native coronary artery without angina pectoris; F17.210 Nicotine dependence, cigarettes, uncomplicated; R00.1 Bradycardia, unspecified; K58.9 Irritable bowel syndrome, unspecified; I34.0 Nonrheumatic mitral (valve) insufficiency; F40.240 Claustrophobia; I25.5 Ischemic cardiomyopathy; I25.2 Old myocardial infarction; I95.1 Orthostatic hypotension; M81.0 Age-related osteoporosis without current pathological fracture; Z71.6 Tobacco abuse counseling; Z79.899 Other long term (current) drug therapy; Z90.710 Acquired absence of both cervix and uterus; Z85.42 Personal history of malignant neoplasm of other parts of uterus; Z87.01 Personal history of pneumonia (recurrent); Z90.49 Acquired absence of other specified parts of digestive tract; Z86.73 Personal history of transient ischemic attack (TIA), and cerebral infarction without residual deficits; Z82.49 Family history of ischemic heart disease and other diseases of the circulatory system
CPT/HCPCS: 36415; 36430; 71045; 71046; 76936; 80048; 80053; 80061; 80074; 81001; 82330; 82805; 83036; 83516; 83735; 84132; 84443; 84484; 85025; 85027; 85049; 85520; 85610; 85730; 86850; 86891; 86900; 86901; 86920; 87070; 87086; 93005; 93306; 93458; 93880; 93922; 93930; 93970; 93975; 93976; 94002; 94150; 94640; 94760; 96365; 96366; 99285

== ENCOUNTER 2018-08-04 02:24 | Emergency (ER) | payer OTHER ==
--- NOTE | 2018-08-04 02:36 | ED ---
SOB HPI - General Stated Complaint: HANANE Time Seen by Provider: 08/04/18 02:29 Source: patient Mode of arrival: EMS Limitations: no limitations - History of Present Illness Initial Comments: Vivian is a pleasant 63-year-old female with a history of CAD status post CABG on July 15 of this year. Patient presents the emergency department today via EMS for evaluation of shortness of breath. Patient reports that she was sitting at home when she began to feel short of breath and feel as though she was wheezing. She reports that she does have an oxygen take at home that belonged to her stepfather, she gave herself some oxygen and upon EMS arrival they found her to be wheezing gave her breathing treatment. Patient reports that her shortness of breath has resolved completely after the breathing treatment. Upon arrival the emergency department patient has no acute complaints. Patient denies any recent fevers, chills nausea vomiting chest pain palpitations. She does report she's had some URI-like symptoms and has been taking Mucinex this week. - Related Data Home Medications Medication Instructions Recorded Confirmed Vitamin B Complex 1 cap PO DAILY 07/08/18 08/04/18 Previous Rx's Medication Instructions Recorded Acetaminophen Tab [Tylenol] 325 mg PO Q4HR PRN #120 tab 07/20/18 Aspirin 325 mg PO DAILY #30 tab 07/20/18 Atorvastatin [Lipitor] 40 mg PO DAILY #30 tab 07/20/18 Clopidogrel [Plavix] 75 mg PO DAILY #30 tab 07/20/18 Furosemide [Lasix] 20 mg PO DAILY #7 tab 07/20/18 HYDROcodone/APAP 5-325MG [[place] 1 each PO Q6HR PRN #20 tab 07/20/18 5-325] Lisinopril [Zestril] 5 mg PO DAILY@1200 #30 tab 07/20/18 Metoprolol Tartrate [Lopressor] 50 mg PO BID #60 tab 07/20/18 Pantoprazole [Protonix] 40 mg PO [place]-KINGSLEYFSAneesh #30 tablet. 07/20/18 Sennosides-Docusate Sodium 2 each PO HS #14 tab 07/20/18 [Senokot-S] Furosemide [Lasix] 20 mg PO DAILY #30 tab 08/04/18 Allergies Allergy/AdvReac Type Severity Reaction Status Date / Time No Known Allergies Allergy Unverified 07/15/18 06:23 Review of Systems ROS Statement: Those systems with pertinent positive or pertinent negative responses have been documented in the HPI. ROS Other: All systems not noted in ROS Statement are negative. Past Medical History Past Medical History: CVA/TIA, Hypertension Additional Past Medical History / Comment(s): Uterine Cancer, TIA History of Any Multi-Drug Resistant Organisms: None Reported Past Surgical History: Section, Cholecystectomy, Coronary Bypass/CABG, Hysterectomy Additional Past Surgical History / Comment(s): Oophorectomy (laterality unknown to pt) d/t large benign tumor. Past Anesthesia/Blood Transfusion Reactions: No Reported Reaction Additional Past Anesthesia/Blood Transfusion Reaction / Comment(s): Pt has clausterphobia Past Psychological History: No Psychological Hx Reported Smoking Status: Current every day smoker Past Alcohol Use History: None Reported Past Drug Use History: None Reported - Past Family History Father Family Medical History: Myocardial Infarction ([place]) Additional Family Medical History / Comment(s): Father at the age of 45yrs from a [place]. He also had carotid artery disease. Mother Family Medical History: Liver Disease Additional Family Medical History / Comment(s): Mother had nonalcholic cirrhosis of the liver. Daughter(s) Family Medical History: Coronary Artery Disease (CAD), Myocardial Infarction ([place]) Additional Family Medical History / Comment(s): One daughter at 38 and one at 42, both from myocardial infarction General Exam - General Exam Comments Initial Comments: Physical Exam GENERAL: Patient is well-developed and well-nourished. Patient is nontoxic and well-hydrated and is in no distress. HENT: Normocephalic, Atraumatic. EYES: PERRL, EOMI PULMONARY: Unlabored respirations. No audible rales rhonchi or wheezing was noted. CARDIOVASCULAR: There is a regular rate and rhythm without any murmurs gallops or rubs. Well-healing sternotomy incision ABDOMEN: Soft and nontender with normal bowel sounds. SKIN: Well healing bruises on the bilateral lower extremities consistent with vein harvesting : Deferred NEUROLOGIC: Patient is alert and oriented x3. Moving all extremities spontaneously MUSCULOSKELETAL: Normal extremities with adequate strength and full range of motion. No lower extremity swelling or edema. No calf tenderness. PSYCHIATRIC: Normal psychiatric evaluation. Limitations: no limitations Limitations: no limitations Course Vital Signs 08/04/18 08/04/1819 02:31 03:15 04:53 Temperature 97.5 F L 98.1 F Pulse Rate 68 62 60 Respiratory 20 18 18 Rate Blood Pressure 168/104 160/88 133/79 O2 Sat by Pulse 99 99 97 Oximetry Medical Decision Making - Medical Decision Making The patient was seen and evaluated immediately upon arrival to the emergency department 63-year-old female 20 days status post CABG presenting with an episode of shortness of breath and wheezing which resolved with a single DuoNeb treatment Cardiac workup was initiated and resulted. BNP is elevated at 10,500 troponin is negative chest x-rays unchanged from previous Results were discussed with the patient who reports now that she is supposed to be on Lasix but ran out has not taken it in over a week. She'll be given IV Lasix as well as a by mouth dose which she can take later today. And a prescription for IV Lasix. Cardiac thoracic surgery was paged to discuss the case Patient care was discussed with Dr. Brandon of CT surgery who agrees wiht plan for out patient management of CHF and early follow up, will plan to have her seen in office this week Patient is scheduled to see PCP on 08/08 and will call her [employer] Dr. William on Sunday for follow up as well Patient remained hemodynamically stable with no further episodes of shortness of breath no demand for oxygen at this time patient's comfortable with the plan for discharge home. Patient will be discharged home with plan to follow up with cardiothoracic surgery and primary care outpatient. All questions pertaining care were answered return parameters were discussed the patient was discharged home in stable condition. - Lab Data Result diagrams: 08/04/18 02:46 08/04/18 02:46 Lab Results 08/04/18 08/04/18 08/04/18 Range/Units 02:46 02:46 02:46 WBC 12.1 H (3.8-10.6) k/uL RBC 3.39 L (3.80-5.40) m/uL Hgb 10.2 L (11.4-16.0) gm/dL Hct 31.9 L (34.0-46.0) % MCV 94.0 (80.0-100.0) fL MCH 30.0 (25.0-35.0) pg MCHC 31.9 (31.0-37.0) g/dL RDW 15.4 (11.5-15.5) % Plt Count 463 H (150-450) k/uL Neutrophils % 73 % Lymphocytes % 13 % Monocytes % 5 % Eosinophils % 6 % Basophils % 1 % Neutrophils # 8.9 H (1.3-7.7) k/uL Lymphocytes # 1.6 (1.0-4.8) k/uL Monocytes # 0.7 (0-1.0) k/uL Eosinophils # 0.7 (0-0.7) k/uL Basophils # 0.1 (0-0.2) k/uL PT (9.0-12.0) sec INR (<1.2) APTT (22.0-30.0) sec Sodium 131 L (137-145) mmol/L Potassium 4.0 (3.5-5.1) mmol/L Chloride 95 L (98-107) mmol/L Carbon Dioxide 27 (22-30) mmol/L Anion Gap 9 mmol/L BUN 5 L (7-17) mg/dL Creatinine 0.45 L (0.52-1.04) mg/dL Est GFR (CKD-EPI)AfAm >90 (>60 ml/min/1.73 sqM) Est GFR (CKD-EPI)NonAf >90 (>60 ml/min/1.73 sqM) Glucose 139 H (74-99) mg/dL Calcium 9.1 (8.4-10.2) mg/dL Magnesium 1.5 L (1.6-2.3) mg/dL Total Bilirubin 0.7 (0.2-1.3) mg/dL AST 19 (14-36) U/L ALT 27 (9-52) U/L Alkaline Phosphatase 107 (38-126) U/L Troponin I (0.000-0.034) ng/mL NT-Pro-B Natriuret Pep 50294 pg/mL Total Protein 6.1 L (6.3-8.2) g/dL Albumin 3.5 (3.5-5.0) g/dL 08/04/18 08/04/18 Range/Units 02:46 02:46 WBC (3.8-10.6) k/uL RBC (3.80-5.40) m/uL Hgb (11.4-16.0) gm/dL Hct (34.0-46.0) % MCV (80.0-100.0) fL MCH (25.0-35.0) pg MCHC (31.0-37.0) g/dL RDW (11.5-15.5) % Plt Count (150-450) k/uL Neutrophils % % Lymphocytes % % Monocytes % % Eosinophils % % Basophils % % Neutrophils # (1.3-7.7) k/uL Lymphocytes # (1.0-4.8) k/uL Monocytes # (0-1.0) k/uL Eosinophils # (0-0.7) k/uL Basophils # (0-0.2) k/uL PT 10.4 (9.0-12.0) sec INR 1.0 (<1.2) APTT 22.9 (22.0-30.0) sec Sodium (137-145) mmol/L Potassium (3.5-5.1) mmol/L Chloride (98-107) mmol/L Carbon Dioxide (22-30) mmol/L Anion Gap mmol/L BUN (7-17) mg/dL Creatinine (0.52-1.04) mg/dL Est GFR (CKD-EPI)AfAm (>60 ml/min/1.73 sqM) Est GFR (CKD-EPI)NonAf (>60 ml/min/1.73 sqM) Glucose (74-99) mg/dL Calcium (8.4-10.2) mg/dL Magnesium (1.6-2.3) mg/dL Total Bilirubin (0.2-1.3) mg/dL AST (14-36) U/L ALT (9-52) U/L Alkaline Phosphatase (38-126) U/L Troponin I <0.012 (0.000-0.034) ng/mL NT-Pro-B Natriuret Pep pg/mL Total Protein (6.3-8.2) g/dL Albumin (3.5-5.0) g/dL Disposition Clinical Impression: Congestive heart failure, COPD (chronic obstructive pulmonary disease) Disposition: HOME SELF-CARE Condition: Stable Instructions (If sedation given, give patient instructions): Heart Failure (ER) Prescriptions: Furosemide [Lasix] 20 mg PO DAILY #30 tab Is patient prescribed a controlled substance at d/c from ED?: No Referrals: None,Stated [Primary Care Provider] - 1-2 days
[2018-08-04] MEDS ORDERED: methylPREDNISolone SOD SUCCI 125 MG/2 ML VIAL IV STA (02:44)
[2018-08-04 03:08] LABS: Basophils # (A) 0.1 k/uL (0-0.2); Basophils % (A) 1 %; Eosinophils # (A) 0.7 k/uL (0-0.7); Eosinophils % (A) 6 %; HCT 31.9 % (34.0-46.0); HGB 10.2 gm/dL (11.4-16.0); Lymphocytes # (A) 1.6 k/uL (1.0-4.8); Lymphocytes % (A) 13 %; MCHC 31.9 g/dL (31.0-37.0); Mean Platelet Volume 6.8; Monocytes # (A) 0.7 k/uL (0-1.0); Monocytes % (A) 5 %; Neutrophils # (A) 8.9 k/uL (1.3-7.7); Neutrophils % (A) 73 %; Platelet Count 463 k/uL (150-450); RBC 3.39 m/uL (3.80-5.40); RDW 15.4 % (11.5-15.5); WBC 12.1 k/uL (3.8-10.6)
[2018-08-04 03:13] LABS: ALT 27 U/L (9-52); AST 19 U/L (14-36); Albumin 3.5 g/dL (3.5-5.0); Alkaline Phosphatase 107 U/L (38-126); Anion Gap 9 mmol/L; Blood Urea Nitrogen 5 mg/dL (7-17); Calcium 9.1 mg/dL (8.4-10.2); Carbon Dioxide 27 mmol/L (22-30); Chloride 95 mmol/L (98-107); Glucose 139 mg/dL (74-99); Magnesium 1.5 mg/dL (1.6-2.3); Sodium 131 mmol/L (137-145); Total Bilirubin 0.7 mg/dL (0.2-1.3); Total Protein 6.1 g/dL (6.3-8.2)
[2018-08-04 03:15] VITALS: RESP 18
[2018-08-04 03:18] LABS: Partial Thromboplastin Time 22.9 sec (22.0-30.0); Prothrombin Time 10.4 sec (9.0-12.0)
--- NOTE | 2018-08-04 03:57 | XR ---
EXAM: XR Chest, 2 Views CLINICAL HISTORY: ITS.REASON XR Reason: difficulty breathing TECHNIQUE: Frontal and lateral views of the chest. COMPARISON: 07/20/18 FINDINGS: Left greater than right lung base opacities compatible with pleural effusions with adjacent atelectasis which appear slightly increased compared to the previous. A component of pneumonia at lung bases not excluded. No other significant changes. Postop changes, pulmonary hyperinflation and other unchanged findings. IMPRESSION: Increased pleural effusions with adjacent atelectasis. Correlate for any evidence of pneumonia. Overall, exam is similar in appearance to prior.
[2018-08-04] MEDS ORDERED: FUROSEMIDE 10 MG/ML 4 ML VIAL IV STA (04:56)
[2018-08-04] MEDS ORDERED: FUROSEMIDE 20 MG TAB PO STA (04:57)
[2018-08-04 05:47] VITALS: BP 134/76; PULSE 62; TEMP 97.5
== END 2018-08-04 05:48 | disposition home or self-care (01) ==
LOC: EC 02:24
DX: I11.0 Hypertensive heart disease with heart failure (principal); I50.9 Heart failure, unspecified; J44.9 Chronic obstructive pulmonary disease, unspecified; I25.10 Atherosclerotic heart disease of native coronary artery without angina pectoris; F17.200 Nicotine dependence, unspecified, uncomplicated; Z86.73 Personal history of transient ischemic attack (TIA), and cerebral infarction without residual deficits; Z85.42 Personal history of malignant neoplasm of other parts of uterus; Z79.899 Other long term (current) drug therapy; Z95.1 Presence of aortocoronary bypass graft
CPT/HCPCS: 36415; 93005; 83880; 80053; 83735; 84484; 85025; 85610; 85730; 71046; 99285; 96374; 96375; J1940; J2930

== ENCOUNTER 2019-01-29 06:26 | Observation (INO) | payer OTHER ==
[2019-01-29] MEDS ORDERED: OXYMETAZOLINE 0.05% NASL SPRAY 1 SPRAY BOTTLE ONE (06:50)
[2019-01-29] MEDS ORDERED: METOPROLOL TARTRATE 50 MG TAB ONE (06:50)
[2019-01-29] MEDS ORDERED: LISINOPRIL 10 MG TAB ONE (06:50)
[2019-01-29] MEDS ORDERED: SODIUM CHLORIDE 0.9% 1,000 ML BAG ONE (06:50)
[2019-01-29 09:40] VITALS: RESP 18
[2019-01-29] MEDS ORDERED: NITROGLYCERIN SL TABS 0.4 MG TAB SUBLINGUAL PRN (09:49)
--- NOTE | 2019-01-29 09:50 | ED ---
General Adult HPI - History of Present Illness Initial comments: Paper chartHPI, physical exam, MDM - Related Data Home Medications Medication Instructions Recorded Confirmed Vitamin B Complex 1 cap PO DAILY 07/08/18 01/29/19 Aspirin EC [Ecotrin Low Dose] 81 mg PO DAILY 01/29/19 01/29/19 Lisinopril [Zestril] 10 mg PO BID 01/29/19 01/29/19 amLODIPine [Norvasc] 10 mg PO DAILY 01/29/19 01/29/19 Previous Rx's Medication Instructions Recorded Atorvastatin [Lipitor] 40 mg PO DAILY #30 tab 07/20/18 Clopidogrel [Plavix] 75 mg PO DAILY #30 tab 07/20/18 Metoprolol Tartrate [Lopressor] 50 mg PO BID #60 tab 07/20/18 Allergies Allergy/AdvReac Type Severity Reaction Status Date / Time No Known Allergies Allergy Verified 01/29/19 09:19 Review of Systems ROS Statement: Those systems with pertinent positive or pertinent negative responses have been documented in the HPI. ROS Other: All systems not noted in ROS Statement are negative. Past Medical History Past Medical History: CVA/TIA, Hypertension Additional Past Medical History / Comment(s): Uterine Cancer, TIA History of Any Multi-Drug Resistant Organisms: None Reported Past Surgical History: Section, Cholecystectomy, Coronary Bypass/CABG, Hysterectomy Additional Past Surgical History / Comment(s): Oophorectomy (laterality unknown to pt) d/t large benign tumor. Past Anesthesia/Blood Transfusion Reactions: No Reported Reaction Additional Past Anesthesia/Blood Transfusion Reaction / Comment(s): Pt has clausterphobia Past Psychological History: No Psychological Hx Reported Smoking Status: Current every day smoker Past Alcohol Use History: None Reported Past Drug Use History: None Reported - Past Family History Father Family Medical History: Myocardial Infarction ([place]) Additional Family Medical History / Comment(s): Father at the age of 45yrs from a [place]. He also had carotid artery disease. Mother Family Medical History: Liver Disease Additional Family Medical History / Comment(s): Mother had nonalcholic cirrhosis of the liver. Daughter(s) Family Medical History: Coronary Artery Disease (CAD), Myocardial Infarction ([place]) Additional Family Medical History / Comment(s): One daughter at 38 and one at 42, both from myocardial infarction Course Vital Signs 01/29/19 09:25 Pulse Rate 65 Respiratory 18 Rate Blood Pressure 176/89 O2 Sat by Pulse 95 Oximetry Disposition Clinical Impression: Chest discomfort, Dizziness, Hypertension, Epistaxis Disposition: ADMITTED IP TO THIS HOSP Condition: Fair Referrals: France Hough MD [Primary Care Provider] - 1-2 days
--- NOTE | 2019-01-29 10:12 | XR ---
EXAMINATION TYPE: XR chest 2V DATE OF EXAM: 01/29/2019 COMPARISON: Prior chest x-ray dated 08/08/2018 HISTORY: Chest pain TECHNIQUE: Frontal and lateral views of the chest are obtained. FINDINGS: Patient is post median sternotomy and rotated. There are overlying cardiac leads. Prominent lung volumes are compatible with underlying COPD. Aorta is dense. There is no focal air space opacit y, pleural effusion, or pneumothorax seen. The cardiac silhouette size is stable, enlarged. The os seous structures are intact. IMPRESSION: No acute cardiopulmonary process. Stable cardiomegaly.
[2019-01-29 11:45] LABS: ALT 26 U/L (9-52); AST 23 U/L (14-36); African American GFR (CKD) >90 (>60 ml/min/1.73 sqM); Albumin 4.2 g/dL (3.5-5.0); Alkaline Phosphatase 123 U/L (38-126); Anion Gap 9 mmol/L; Blood Urea Nitrogen 12 mg/dL (7-17); Calcium 9.6 mg/dL (8.4-10.2); Carbon Dioxide 23 mmol/L (22-30); Chloride 105 mmol/L (98-107); Glucose 110 mg/dL (74-99); Non-African American GFR(CKD) >90 (>60 ml/min/1.73 sqM); Potassium 4.2 mmol/L (3.5-5.1); Sodium 137 mmol/L (137-145); Total Bilirubin 0.4 mg/dL (0.2-1.3); Total Protein 7.4 g/dL (6.3-8.2)
[2019-01-29 11:58] LABS: INR 0.9 (<1.2); Partial Thromboplastin Time 22.4 sec (22.0-30.0); Prothrombin Time 9.9 sec (9.0-12.0)
[2019-01-29 11:58] LABS: Appearance,Urine Clear (Clear); Bilirubin,Urine Negative (Negative); Blood,Urine Small (Negative); Color,Urine Colorless; Glucose,Urine (UA) Negative (Negative); Ketones,Urine Negative (Negative); Leukocyte Esterase,Urine Negative (Negative); Nitrite,Urine Negative (Negative); Protein,Urine Negative (Negative); RBC,Urine <1 /hpf (0-5); Specific Gravity,Urine 1.004 (1.001-1.035); Urobilinogen,Urine <2.0 mg/dL (<2.0); WBC,Urine <1 /hpf (0-5)
[2019-01-29 12:00] LABS: Basophils # (A) 0.1 k/uL (0-0.2); Basophils % (A) 1 %; Eosinophils # (A) 0.2 k/uL (0-0.7); Eosinophils % (A) 2 %; HCT 41.5 % (34.0-46.0); HGB 14.1 gm/dL (11.4-16.0); Lymphocytes # (A) 3.9 k/uL (1.0-4.8); Lymphocytes % (A) 37 %; MCH 30.9 pg (25.0-35.0); MCHC 33.8 g/dL (31.0-37.0); MCV 91.3 fL (80.0-100.0); Mean Platelet Volume 6.4; Monocytes # (A) 0.6 k/uL (0-1.0); Monocytes % (A) 5 %; Neutrophils # (A) 5.8 k/uL (1.3-7.7); Neutrophils % (A) 54 %; Platelet Count 326 k/uL (150-450); RBC 4.55 m/uL (3.80-5.40); RDW 12.8 % (11.5-15.5); WBC 10.7 k/uL (3.8-10.6)
--- NOTE | 2019-01-29 14:18 | P.HPIM ---
History of Present Illness Patient is a pleasant 63-year-old female given vitamin compensative epistaxis for which patient had nasal packing on the right side in thepatient is in aspirin and Plavix had a carotid artery bypass grafting recently in month of July. Patient is on dual antiplatelet therapy aspirin and Plavix. Patient is also complaining of retrosternal burning sensation with a mild alone with nausea denied any lightheadedness associated with that crusting her cardiac history ER physician believe patient needs to be monitored overnight and rule out acute current syndromes. EKG did not show any acute ST-T wave changes troponins are negative. Patient chest pain is mild resolved at this time nonpleuritic not associated with food. Denied any dizziness shortness of breath associated with that. Review of Systems REVIEW OF SYSTEMS: CONSTITUTIONAL: No fever, no malaise, no fatigue. HEENT: No recent visual problems or hearing problems. Denied any sore throat. CARDIOVASCULAR: No orthopnea, PND, no palpitations, no syncope. PULMONARY: No shortness of breath, no cough, no hemoptysis. GASTROINTESTINAL: No diarrhea, no nausea, no vomiting, no abdominal pain. NEUROLOGICAL: No headaches, no weakness, no numbness. HEMATOLOGICAL: Denies any bleeding or petechiae. GENITOURINARY: Denies any burning micturition, frequency, or urgency. MUSCULOSKELETAL/RHEUMATOLOGICAL: Denies any joint pain, swelling, or any muscle pain. ENDOCRINE: Denies any polyuria or polydipsia. The rest of the 14-point review of systems is negative. Past Medical History Past Medical History: Coronary Artery Disease (CAD), COPD, CVA/TIA, Hyperlipidemia, Hypertension, Myocardial Infarction ([place]), Pneumonia Additional Past Medical History / Comment(s): TIA, 1985 uterine cancer with hysterectomy, bronchitis, epistaxis off and on since CABG 06/2018 thought d/t m edication. Last Myocardial Infarction Date:: 2018 History of Any Multi-Drug Resistant Organisms: None Reported Past Surgical History: Section, Cholecystectomy, Coronary Bypass/CABG, Heart Catheterization, Hysterectomy Additional Past Surgical History / Comment(s): 06/2018 Urgent CABG 4 vessel, oophorectomy (laterality unknown to pt) d/t large benign tumor, open cholecystectomy, R leg injury with surgical intervention. Past Anesthesia/Blood Transfusion Reactions: No Reported Reaction Additional Past Anesthesia/Blood Transfusion Reaction / Comment(s): Pt has clausterphobia Smoking Status: Current every day smoker - Past Family History Father Family Medical History: Myocardial Infarction ([place]) Additional Family Medical History / Comment(s): Father at the age of 45yrs from a [place]. He also had carotid artery disease. Mother Family Medical History: Liver Disease Additional Family Medical History / Comment(s): Mother had nonalcholic cirrhosis of the liver. Daughter(s) Family Medical History: Coronary Artery Disease (CAD), Myocardial Infarction ([place]) Additional Family Medical History / Comment(s): One daughter at 38 and one at 42, both from myocardial infarction Medications and Allergies Home Medications Medication Instructions Recorded Confirmed Type Vitamin B Complex 1 cap PO DAILY 07/08/18 01/29/19 History Atorvastatin [Lipitor] 40 mg PO DAILY #30 tab 07/20/18 01/29/19 Rx Clopidogrel [Plavix] 75 mg PO DAILY #30 tab 07/20/18 01/29/19 Rx Metoprolol Tartrate [Lopressor] 50 mg PO BID #60 tab 07/20/18 01/29/19 Rx Aspirin EC [Ecotrin Low Dose] 81 mg PO DAILY 01/29/19 01/29/19 History Lisinopril [Zestril] 10 mg PO BID 01/29/19 01/29/19 History amLODIPine [Norvasc] 10 mg PO DAILY 01/29/19 01/29/19 History Allergies Allergy/AdvReac Type Severity Reaction Status Date / Time No Known Allergies Allergy Verified 01/29/19 09:19 Physical Exam Vitals: Vital Signs Temp Pulse Resp BP Pulse Ox 01/29/19 13:21 55 L 18 178/88 94 L 01/29/19 11:14 97.4 F L 55 L 18 173/81 99 01/29/19 10:12 56 L 18 177/88 96 01/29/19 09:25 65 18 176/89 95 Intake and Output 01/28/19 01/29/19 01/29/19 22:59 06:59 14:59 Other: Weight 58.967 kg PHYSICAL EXAMINATION: GENERAL: The patient is alert and oriented x3, not in any acute distress. Well developed, well nourished. HEENT: Pupils are round and equally reacting to light. EOMI. No scleral icterus. No conjunctival pallor. Normocephalic, atraumatic. No pharyngeal erythema. No thyromegaly. Has massive packing to the right CARDIOVASCULAR: S1 and S2 present. No murmurs, rubs, or gallops. PULMONARY: Chest is clear to auscultation, no wheezing or crackles. ABDOMEN: Soft, nontender, nondistended, normoactive bowel sounds. No palpable organomegaly. MUSCULOSKELETAL: No joint swelling or deformity. EXTREMITIES: No cyanosis, clubbing, or pedal edema. NEUROLOGICAL: Gross neurological examination did not reveal any focal deficits. SKIN: No rashes. Results CBC & Chem 7: 01/29/19 06:50 01/29/19 06:50 Labs: Abnormal Lab Results - Last 24 Hours (Table) 01/29/19 01/29/19 01/29/19 Range/Units 06:50 06:50 07:10 WBC 10.7 H (3.8-10.6) k/uL Glucose 110 H (74-99) mg/dL Urine Blood Small H (Negative) Thrombosis Risk Factor Assmnt - Choose All That Apply Any of the Below Risk Factors Present?: Yes Each Factor Represents 1 point: Abnormal pulmonary function (COPD) Other Risk Factors: Yes Each Risk Factor Represents 2 Points: Age 61-74 years, Malignancy Other congenital or acquired thrombophilia - If yes, enter type in comment: No Thrombosis Risk Factor Assessment Total Risk Factor Score: 5 Thrombosis Risk Factor Assessment Level: High Risk Assessment and Plan Plan: -Epistaxis: Secondary to aspirin and Plavix which will be held today we'll remove the nasal packing tomorrow. -Chest pain: Mild resolved appears to be atypical noncardiac may be related to gastroesophageal reflux disease patient will be started on Protonix, patient can use to smoke counseling regarding that was provided. -Coronary artery disease with recent CABG continue with lisinopril atorvastatin and the metoprolol -Congestive heart failure chronic systolic dysfunction EF of around 45% not in acute exacerbation continue with the above-mentioned medications. -Hyperlipidemia -CVA TIA in the past -COPD without any acute exacerbation
[2019-01-29] MEDS: ACETAMINOPHEN TAB 325 MG TAB PO PRN (16:40)
[2019-01-29] MEDS: PANTOPRAZOLE 40 MG/10 ML VIAL IVP SCH (16:41)
[2019-01-29] MEDS: amLODIPine 10 MG TAB PO SCH (16:41)
[2019-01-29] MEDS: LISINOPRIL 10 MG TAB PO SCH (20:27)
[2019-01-29] MEDS: METOPROLOL TARTRATE 50 MG TAB PO SCH (20:27)
[2019-01-30 04:23] LABS: Cholesterol 144 mg/dL (<200); HDL Cholesterol 37 mg/dL (40-60); LDL Cholesterol,Calculated 79 mg/dL (0-99); Triglycerides 141 mg/dL (<150)
[2019-01-30 07:27] VITALS: BP 133/77; PULSE 72; TEMP 97.6
[2019-01-30] MEDS: LISINOPRIL 10 MG TAB PO SCH (08:59)
[2019-01-30] MEDS: ACETAMINOPHEN TAB 325 MG TAB PO PRN (08:59)
[2019-01-30] MEDS: METOPROLOL TARTRATE 50 MG TAB PO SCH (08:59)
[2019-01-30] MEDS: PANTOPRAZOLE 40 MG/10 ML VIAL IVP SCH (09:00)
[2019-01-30] MEDS: amLODIPine 10 MG TAB PO SCH (09:00)
[2019-01-30] MEDS ORDERED: ATORVASTATIN 40 MG TAB PO SCH (09:00)
--- NOTE | 2019-01-30 13:52 | P.DS ---
Providers Date of admission: 01/29/19 09:52 Attending physician: David Tolliver Consults: 01/30/19 12:13 Consult Physician Routine Consulting Provider: Young William Consult Reason/Comments: chest pain Do you want consulting provider notified?: Yes Primary care physician: [facility] Course: 63-year-old female given vitamin compensative epistaxis for which patient had nasal packing on the right side in thepatient is in aspirin and Plavix had a carotid artery bypass grafting recently in month of July. Patient is on dual antiplatelet therapy aspirin and Plavix. Patient is also complaining of retrosternal burning sensation with a mild alone with nausea denied any lightheadedness associated with that crusting her cardiac history ER physician believe patient needs to be monitored overnight and rule out acute current syndromes. EKG did not show any acute ST-T wave changes troponins are negative. Patient chest pain is mild resolved at this time nonpleuritic not associated with food. Denied any dizziness shortness of breath associated with that. 01/30/2019 We ruled out acute coronary syndromes patient is clinically doing well. Patient was ordered by cardiology patient apparently was complaining of chronic cough because of which cardiology will discontinue NAYAN inhibitor instead they're planning on starting her on diuretic therapy. I'll discontinue Plavix because of her nosebleed patient will resume her aspirin. Patient's nasal picking or packing was removed and no bleeding at this time. Patient will follow-up with the databases computer consultant outpatient. PHYSICAL EXAMINATION: GENERAL: The patient is alert and oriented x3, not in any acute distress. Well developed, well nourished. HEENT: Pupils are round and equally reacting to light. EOMI. No scleral icterus. No conjunctival pallor. Normocephalic, atraumatic. No pharyngeal erythema. No thyromegaly. CARDIOVASCULAR: S1 and S2 present. No murmurs, rubs, or gallops. PULMONARY: Chest is clear to auscultation, no wheezing or crackles. ABDOMEN: Soft, nontender, nondistended, normoactive bowel sounds. No palpable organomegaly. MUSCULOSKELETAL: No joint swelling or deformity. EXTREMITIES: No cyanosis, clubbing, or pedal edema. NEUROLOGICAL: Gross neurological examination did not reveal any focal deficits. SKIN: No rashes. Assessment and Plan Plan: -Epistaxis: Secondary to aspirin and Plavix, Plavix will be discontinued upon discharge -Chest pain: Mild resolved appears to be atypical noncardiac brief episode which resolved -Coronary artery disease with recent CABG -Congestive heart failure chronic systolic dysfunction EF of around 45% not in acute exacerbation -Hyperlipidemia -CVA TIA in the past -COPD without any acute exacerbation Patient Condition at Discharge: Fair Plan - Discharge Summary Discharge Rx Participant: No New Discharge Prescriptions: Continue Vitamin B Complex 1 cap PO DAILY Atorvastatin [Lipitor] 40 mg PO DAILY #30 tab Metoprolol Tartrate [Lopressor] 50 mg PO BID #60 tab amLODIPine [Norvasc] 10 mg PO DAILY Lisinopril [Zestril] 10 mg PO BID Aspirin EC [Ecotrin Low Dose] 81 mg PO DAILY Discontinued Clopidogrel [Plavix] 75 mg PO DAILY #30 tab Discharge Medication List Vitamin B Complex 1 cap PO DAILY 07/08/18 [History] Atorvastatin [Lipitor] 40 mg PO DAILY #30 tab 07/20/18 [Rx] Metoprolol Tartrate [Lopressor] 50 mg PO BID #60 tab 07/20/18 [Rx] Aspirin EC [Ecotrin Low Dose] 81 mg PO DAILY 01/29/19 [History] Lisinopril [Zestril] 10 mg PO BID 01/29/19 [History] amLODIPine [Norvasc] 10 mg PO DAILY 01/29/19 [History] Follow up Appointment(s)/Referral(s): Young William MD [STAFF PHYSICIAN] - 1 Week France Hough MD [Primary Care Provider] - 3 Days Discharge Disposition: HOME SELF-CARE
[2019-01-30] MEDS ORDERED: HYDROCHLOROTHIAZIDE 25 MG TAB PO SCH (14:00)
--- NOTE | 2019-01-30 14:04 | P.CRDCN ---
History of Present Illness History of present illness: This is a pleasant 63-year-old female past medical history significant for coronary artery disease status post bypass grafting in July 2018, hypertension, dyslipidemia, myocardial infarction, ischemic cardiomyopathy and chronic nicotine dependence. She follows in the office with Dr. William. We have been asked to see her in consultation for chest pain. She presented to the [facility] yesterday with symptoms of persistent cough and nose bleed. She states she has been persistently coughing since having her bypass surgery. She has had a discussion in the office with Dr. William regarding this and it was thought to be secondary to lisinopril. She states her cough has been so persistent and bothersome lately it is causing her at times to vomit and she has been having intermittent epistaxis. She is seen and examined sitting up in bed in no acute distress. She did have nasal packing placed in the emergency department that has since been removed. She is having no further epistaxis. She continues to have a mild dry cough. She denies chest discomfort, shortness of breath, dizziness or palpitations. Currently maintained on lisinopril 20 mg twice a day, aspirin 81 mg daily, Plavix 75 mg daily, atorvastatin 40 mg daily, Lopressor 50 mg twice a day and amlodipine 10 mg daily. Blood pressure this morning 133/77 with heart rate of 72. On arrival to the emergency department blood pressure was 176/89 and 177/88. Most recent echocardiogram obtained in June 2018 reveals impaired LV systolic function with ejection fraction 40-45%, inferior lateral hypokinesia, mild MR, mild TR. Laboratory data reviewed, WBC 10.7, hemoglobin 14.1, platelets 326, sodium 137, potassium 4.2, creatinine 0.71, magnesium 2.0, cardiac enzymes negative 3, LDL 79. EKG on arrival reveals sinus mechanism with an inferior Q-wave. Chest x-ray is negative for any acute cardiopulmonary process. At the time of my exam: CONSTITUTIONAL: Denies fever. Denies chills. EYES: Denies blurred vision. Denies vision changes. Denies eye pain. EARS, NOSE, MOUTH & THROAT: Denies headache. Denies sore throat. Denies ear pain. CARDIOVASCULAR: Denies chest pain. Denies shortness of breath. Denies orthopnea. Denies PND. Denies palpitations. RESPIRATORY: Denies cough. GASTROINTESTINAL: Denies abdominal pain. Denies diarrhea. Denies constipation. Denies nausea. Denies vomiting. MUSCULOSKELETAL: Denies myalgias. INTEGUMENTARY: Denies pruitis. Denies rash. NEUROLOGIC: Denies numbness. Denies tingling. Denies weakness. PSYCHIATRIC: Denies anxiety. Denies depression. ENDOCRINE: Denies fatigue. Denies weight change. Denies polydipsia. Denies polyurina. GENITOURINARY: Denies burning, hematuria or urgency with micturation. HEMATOLOGIC: Denies history of anemia. Denies bleeding. GENERAL: This is a 63-year-old female in no apparent distress at the time of my examination. HEENT: Head is atraumatic, normocephalic. Pupils are equal, round. Sclerae anicteric. Conjunctivae are clear. Mucous membranes of the mouth are moist. Neck is supple. There is no jugular venous distention. No carotid bruit is heard. LUNGS: Scattered rhonchi, no rales or wheezes. No chest wall tenderness is noted on palpation or with deep breathing. HEART: Regular rate and rhythm without murmurs, rubs or gallops. S1 and S2 heard. ABDOMEN: Soft, nontender. Bowel sounds are heard. No organomegaly noted. EXTREMITIES: No evidence of peripheral edema and no calf tenderness noted. VASCULAR: Radial and dorsalis pedis pulses palpated, no evidence of clubbing. NEUROLOGIC: Patient is awake, alert and oriented x3. ASSESSMENT Epistaxis Persistent dry cough likely secondary to NAYAN inhibitor History of coronary artery disease status post bypass grafting in the setting of an acute myocardial infarction Ischemic cardiomyopathy Hypertension Dyslipidemia Chronic nicotine dependence PLAN Recommend trial discontinuation of lisinopril. If she continues to have a cough other etiologies will need to be evaluated. Initiate hydrochlorothiazide 25 mg daily for blood pressure control in place of lisinopril. Advised the patient to check her blood pressures daily at home and bring to her follow-up visit in the office with Dr. William next week. Electrolyte and kidney function labs to be drawn in one week. Thank you kindly for this consultation. Nurse Practitioner note has been reviewed, I agree with a documented findings and plan of care. Patient was seen and examined. Past Medical History Past Medical History: Coronary Artery Disease (CAD), COPD, CVA/TIA, Hyperlip idemia, Hypertension, Myocardial Infarction (NC), Pneumonia Additional Past Medical History / Comment(s): TIA, 1985 uterine cancer with hysterectomy, bronchitis, epistaxis off and on since CABG 06/2018 thought d/t medication. Last Myocardial Infarction Date:: 2018 History of Any Multi-Drug Resistant Organisms: None Reported Past Surgical History: Section, Cholecystectomy, Coronary Bypass/CABG, Heart Catheterization, Hysterectomy Additional Past Surgical History / Comment(s): 06/2018 Urgent CABG 4 vessel, oophorectomy (laterality unknown to pt) d/t large benign tumor, open cholecystectomy, R leg injury with surgical intervention. Past Anesthesia/Blood Transfusion Reactions: No Reported Reaction Additional Past Anesthesia/Blood Transfusion Reaction / Comment(s): Pt has clausterphobia Smoking Status: Current every day smoker - Past Family History Father Family Medical History: Myocardial Infarction (NC) Additional Family Medical History / Comment(s): Father at the age of 45yrs from a NC. He also had carotid artery disease. Mother Family Medical History: Liver Disease Additional Family Medical History / Comment(s): Mother had nonalcholic cirrhosis of the liver. Daughter(s) Family Medical History: Coronary Artery Disease (CAD), Myocardial Infarction (NC) Additional Family Medical History / Comment(s): One daughter at 38 and one at 42, both from myocardial infarction Medications and Allergies Home Medications Medication Instructions Recorded Confirmed Type Vitamin B Complex 1 cap PO DAILY 07/08/18 01/29/19 History Atorvastatin [Lipitor] 40 mg PO DAILY #30 tab 07/20/18 01/29/19 Rx Metoprolol Tartrate [Lopressor] 50 mg PO BID #60 tab 07/20/18 01/29/19 Rx Aspirin EC [Ecotrin Low Dose] 81 mg PO DAILY 01/29/19 01/29/19 History amLODIPine [Norvasc] 10 mg PO DAILY 01/29/19 01/29/19 History Hydrochlorothiazide [Hydrodiuril] 25 mg PO DAILY #90 tab 01/30/19 Rx Allergies Allergy/AdvReac Type Severity Reaction Status Date / Time No Known Allergies Allergy Verified 01/29/19 09:19 Physical Exam Vitals: Vital Signs Temp Pulse Pulse Pulse Resp BP BP 01/30/19 07:39 01/30/19 07:15 97.6 F 72 18 133/77 01/30/19 03:45 50 L 18 01/30/19 03:09 97.8 F 50 L 18 01/30/19 00:00 97.6 F 52 L 18 139/68 01/29/19 23:30 54 L 19 01/29/19 19:40 56 L 18 01/29/19 19:25 97.5 F L 59 L 18 151/73 01/29/19 15:40 97.3 F L 64 18 01/29/19 15:02 97.3 F L 60 18 163/93 BP Pulse Ox 01/30/19 07:39 94 L 01/30/19 07:15 92 L 01/30/19 03:45 01/30/19 03:09 136/61 96 01/30/19 00:00 94 L 01/29/19 23:30 01/29/19 19:40 01/29/19 19:25 94 L 01/29/19 15:40 177/92 93 L 01/29/19 15:02 95 Intake and Output 01/29/19 01/30/19 01/30/19 22:59 06:59 14:59 Intake Total 120 240 340 Balance 120 240 340 Intake: Oral 120 240 240 Other 100 Other: Voiding Method Toilet Toilet Toilet # Voids 1 Results 01/29/19 06:50 01/29/19 06:50 Cardiac Enzymes 01/29/19 01/29/19 Range/Units 14:51 19:08 Troponin I <0.012 <0.012 (0.000-0.034) ng/mL Lipids 01/29/19 Range/Units 06:50 Triglycerides 141 (<150) mg/dL Cholesterol 144 (<200) mg/dL HDL Cholesterol 37 L (40-60) mg/dL Current Medications Generic Name Dose Route Start Last Admin Trade Name Freq PRN Reason Stop Dose Admin Acetaminophen 650 mg 01/29/19 16:14 01/30/19 08:59 Tylenol Tab PO 650 mg Q6HR PRN Administration Fever and/ or Pain Amlodipine Besylate 10 mg 01/29/19 14:15 01/30/19 09:00 Norvasc PO 10 mg DAILY RUEL Administration Atorvastatin Calcium 40 mg 01/30/19 09:00 01/30/19 09:00 Lipitor PO 40 mg DAILY RUEL Administration Lisinopril 10 mg 01/29/19 21:00 01/30/19 08:59 Zestril PO 10 mg BID RUEL Administration Metoprolol Tartrate 50 mg 01/29/19 21:00 01/30/19 08:59 Lopressor PO 50 mg BID RUEL Administration Nitroglycerin 0.4 mg 01/29/19 09:49 Nitrostat SUBLINGUAL Q5M PRN Chest Pain Pantoprazole Sodium 40 mg 01/31/19 07:30 Protonix PO [facility] Intake and Output 01/29/19 01/30/19 01/30/19 22:59 06:59 14:59 Intake Total 120 240 340 Balance 120 240 340 Intake: Oral 120 240 240 Other 100 Other: Voiding Method Toilet Toilet Toilet # Voids 1 01/29/19 06:50 01/29/19 06:50
[2019-01-31] MEDS ORDERED: PANTOPRAZOLE 40 MG TABLET PO SCH (07:30)
== END 2019-01-30 15:13 | disposition home or self-care (01) ==
LOC: EC 06:26 → 1SOBS 09:52
PROVIDERS: ADMIT Hospitalist; ATTEND Hospitalist
DX: R04.0 Epistaxis (principal); R07.89 Other chest pain; R11.0 Nausea; R05 Cough; Z95.1 Presence of aortocoronary bypass graft; I11.0 Hypertensive heart disease with heart failure; I50.22 Chronic systolic (congestive) heart failure; E78.5 Hyperlipidemia, unspecified; J44.9 Chronic obstructive pulmonary disease, unspecified; F17.200 Nicotine dependence, unspecified, uncomplicated; I25.10 Atherosclerotic heart disease of native coronary artery without angina pectoris; I25.5 Ischemic cardiomyopathy; I25.2 Old myocardial infarction; Z87.01 Personal history of pneumonia (recurrent); Z86.73 Personal history of transient ischemic attack (TIA), and cerebral infarction without residual deficits; Z85.42 Personal history of malignant neoplasm of other parts of uterus; Z90.49 Acquired absence of other specified parts of digestive tract; Z90.710 Acquired absence of both cervix and uterus; Z82.49 Family history of ischemic heart disease and other diseases of the circulatory system; Z83.79 Family history of other diseases of the digestive system; Z79.899 Other long term (current) drug therapy; Z79.82 Long term (current) use of aspirin; Z79.02 Long term (current) use of antithrombotics/antiplatelets
CPT/HCPCS: 96374; 96376; 30901; 99285; 94760; 93005; 80061; 80053; 83735; 84484; 85025; 85610; 85730; 81001; 71046; G0378 ×2; C9113 ×2

== ENCOUNTER 2022-02-18 18:45 | Inpatient (IN) | payer MEDICARE, OTHER ==
[2022-02-18] MEDS ORDERED: ALBUTEROL HFA INHALER INHALATION STA (19:05)
[2022-02-18] MEDS ORDERED: methylPREDNISolone SOD SUCCI 125 MG/2 ML VIAL IV STA ×2 (19:05→23:18)
--- NOTE | 2022-02-18 19:22 | ED ---
SOB HPI - General Stated Complaint: HANANE Time Seen by Provider: 02/18/22 18:50 Source: patient, EMS, RN notes reviewed Mode of arrival: EMS - History of Present Illness Initial Comments: 66-year-old female history of bypass surgery in the past as well as COPD who currently is still smoking one half pack per day of cigarettes who presents by EMS with complaints of shortness of breath exertional dyspnea cough with bright red blood in her phlegm. No fevers chills or sweats she states she does have a history of pulmonary nodule. No other current complaints no other modifying factors at rest she does not feel short of breath just talking she states she's short of breath. She states this is been going on progressively getting worse for about a week but then states that initially been going on longer. Per paramedics she has decreased lung sounds on the left side. She has saturation 90% on room air up to 99% on 4 L of oxygen. MD Complaint: shortness of breath, cough - Related Data Home Medications Medication Instructions Recorded Confirmed Vitamin B Complex 1 cap PO DAILY 07/08/18 01/29/19 Aspirin EC [Ecotrin Low Dose] 81 mg PO DAILY 01/29/19 01/29/19 amLODIPine [Norvasc] 10 mg PO DAILY 01/29/19 01/29/19 Previous Rx's Medication Instructions Recorded Atorvastatin [Lipitor] 40 mg PO DAILY #30 tab 07/20/18 Metoprolol Tartrate [Lopressor] 50 mg PO BID #60 tab 07/20/18 hydroCHLOROthiazide [Hydrodiuril] 25 mg PO DAILY #90 tab 01/30/19 Allergies Allergy/AdvReac Type Severity Reaction Status Date / Time No Known Allergies Allergy Verified 02/18/22 20:33 Review of Systems ROS Statement: Those systems with pertinent positive or pertinent negative responses have been documented in the HPI. ROS Other: All systems not noted in ROS Statement are negative. Past Medical History Past Medical History: Coronary Artery Disease (CAD), COPD, CVA/TIA, Hyperlipidemia, Hypertension, Myocardial Infarction (MD), Pneumonia Additional Past Medical History / Comment(s): TIA, 1985 uterine cancer with hysterectomy, bronchitis, epistaxis off and on since CABG 06/2018 thought d/t medication. Last Myocardial Infarction Date:: 2018 History of Any Multi-Drug Resistant Organisms: None Reported Past Surgical History: Section, Cholecystectomy, Coronary Bypass/CABG, Heart Catheterization, Hysterectomy Additional Past Surgical History / Comment(s): 06/2018 Urgent CABG 4 vessel, oophorectomy (laterality unknown to pt) d/t large benign tumor, open cholecystectomy, R leg injury with surgical intervention. Past Anesthesia/Blood Transfusion Reactions: No Reported Reaction Additional Past Anesthesia/Blood Transfusion Reaction / Comment(s): Pt has clausterphobia Past Psychological History: No Psychological Hx Reported Additional Psychological History / Comment(s): Pt resides alone. She is independent. She states she has a [place] driver's license but currently no vehicle. When asked how she will get to [place] she answered she did not know. Pt has clausterphobia. Past Alcohol Use History: None Reported Additional Past Alcohol Use History / Comment(s): Pt started smoking in 1974 and is a less than a half a pack a day smoker. Past Drug Use History: None Reported - Past Family History Father Family Medical History: Myocardial Infarction (MD) Additional Family Medical History / Comment(s): Father at the age of 45yrs from a MD. He also had carotid artery disease. Mother Family Medical History: Liver Disease Additional Family Medical History / Comment(s): Mother had nonalcholic cirrhosis of the liver. Daughter(s) Family Medical History: Coronary Artery Disease (CAD), Myocardial Infarction (MD) Additional Family Medical History / Comment(s): One daughter at 38 and one at 42, both from myocardial infarction General Exam - General Exam Comments Initial Comments: This is a well-developed thin appearing female who is awake alert oriented 4 Limitations: no limitations General appearance: alert, in no apparent distress Head exam: Present: atraumatic, normocephalic, normal inspection Eye exam: Present: normal appearance, PERRL, EOMI. Absent: scleral icterus, conjunctival injection, periorbital swelling ENT exam: Present: normal exam, mucous membranes moist Neck exam: Present: normal inspection, full ROM, other. Absent: tenderness, meningismus, lymphadenopathy Respiratory exam: Present: wheezes, decreased breath sounds (No studies or bruits). Absent: respiratory distress, rales, rhonchi, stridor Cardiovascular Exam: Present: regular rate, normal rhythm, normal heart sounds. Absent: systolic murmur, diastolic murmur, rubs, gallop, clicks GI/Abdominal exam: Present: soft, normal bowel sounds. Absent: distended, tenderness, guarding, rebound, rigid Extremities exam: Present: normal inspection, full ROM, normal capillary refill. Absent: tenderness, pedal edema, joint swelling, calf tenderness Back exam: Present: normal inspection Neurological exam: Present: alert, oriented X3, CN II-XII intact Psychiatric exam: Present: normal affect, normal mood Skin exam: Present: warm, dry, intact, normal color. Absent: rash Course Vital Signs 02/18/22 02/18/22 02/18/22 18:45 20:33 22:25 Temperature 97.8 F 98.6 F Pulse Rate 57 L 58 L 64 Respiratory 20 20 20 Rate Blood Pressure 141/81 145/79 142/73 O2 Sat by Pulse 99 92 L 96 Oximetry Medical Decision Making - Medical Decision Making I did discuss findings with the patient she is a smoker she states she sees Dr. Zavaleta for monitoring of the mass. Patient will be admitted with consultation by pulmonary medicine. I did discuss the case with Dr. Meneses. Dr. Akhtar was not aware and either was at the time of discussion of the - Lab Data Result diagrams: 02/18/22 19:44 Lab Results 02/18/22 02/18/22 02/18/22 Range/Units 19:44 19:44 19:44 PT 10.5 (9.0-12.0) sec INR 1.0 (<1.2) APTT 22.9 (22.0-30.0) sec D-Dimer 1.49 H (<0.60) mg/L FEU Sodium 128 L (137-145) mmol/L Potassium 3.8 (3.5-5.1) mmol/L Chloride 94 L (98-107) mmol/L Carbon Dioxide 24 (22-30) mmol/L Anion Gap 10 mmol/L BUN 9 (7-17) mg/dL Creatinine 0.50 L (0.52-1.04) mg/dL Est GFR (CKD-EPI)AfAm >90 (>60 ml/min/1.73 sqM) Est GFR (CKD-EPI)NonAf >90 (>60 ml/min/1.73 sqM) Glucose 101 H (74-99) mg/dL Plasma Lactic Acid Florentin 1.4 (0.7-2.0) mmol/L Calcium 8.5 (8.4-10.2) mg/dL Magnesium 1.5 L (1.6-2.3) mg/dL Total Bilirubin 0.7 (0.2-1.3) mg/dL AST 23 (14-36) U/L ALT 17 (4-34) U/L Alkaline Phosphatase 122 (38-126) U/L Troponin I (0.000-0.034) ng/mL Total Protein 6.4 (6.3-8.2) g/dL Albumin 3.6 (3.5-5.0) g/dL Coronavirus (PCR) (Not Detectd) Influenza Type A RNA (Not Detectd) Influenza Type B (PCR) (Not Detectd) 02/18/22 02/18/22 02/18/22 Range/Units 19:44 20:12 20:12 PT (9.0-12.0) sec INR (<1.2) APTT (22.0-30.0) sec D-Dimer (<0.60) mg/L FEU Sodium (137-145) mmol/L Potassium (3.5-5.1) mmol/L Chloride (98-107) mmol/L Carbon Dioxide (22-30) mmol/L Anion Gap mmol/L BUN (7-17) mg/dL Creatinine (0.52-1.04) mg/dL Est GFR (CKD-EPI)AfAm (>60 ml/min/1.73 sqM) Est GFR (CKD-EPI)NonAf (>60 ml/min/1.73 sqM) Glucose (74-99) mg/dL Plasma Lactic Acid Florentin (0.7-2.0) mmol/L Calcium (8.4-10.2) mg/dL Magnesium (1.6-2.3) mg/dL Total Bilirubin (0.2-1.3) mg/dL AST (14-36) U/L ALT (4-34) U/L Alkaline Phosphatase (38-126) U/L Troponin I 0.017 (0.000-0.034) ng/mL Total Protein (6.3-8.2) g/dL Albumin (3.5-5.0) g/dL Coronavirus (PCR) Not Detected (Not Detectd) Influenza Type A RNA Not Detected (Not Detectd) Influenza Type B (PCR) Not Detected (Not Detectd) - EKG Data -: EKG Interpreted by Me EKG shows normal: sinus rhythm EKG Comments: Slight bradycardia read by me rate of 55. Interval 151 QRS duration 118 daily since QTC 50/491 old inferior changes seen. Artifact present - Radiology Data Radiology results: report reviewed (I did review the imaging and there is evidence of a mediastinal mass.), image reviewed Disposition Clinical Impression: Hemoptysis, COPD exacerbation, Lung mass Disposition: ADMITTED IP TO THIS [facility] Condition: Stable Referrals: Marty Green MD [Primary Care Provider] - 1-2 days Decision Date: 02/18/22 Decision Time: 23:18
--- NOTE | 2022-02-18 19:42 | XR ---
EXAMINATION TYPE: XR chest 2V DATE OF EXAM: 02/18/2022 7:33 PM COMPARISON: Chest x-ray 01/29/2019 TECHNIQUE: XR chest 2V . CLINICAL INDICATION:Female, 66 years old with history of difficulty breathing; FINDINGS: Lungs/Pleura: Small left pleural effusion with passive atelectasis. Right lung is clear. No pneumotho rax. Pulmonary vascularity: Unremarkable. Heart/mediastinum: Visualized portions of the cardiomediastinal silhouette are within normal limits. Atherosclerotic calcifications are seen in the aorta. Musculoskeletal: Multiple level degenerative disc disease changes seen throughout the spine. Midline sternotomy wires and surgical clips project over the mediastinum. IMPRESSION: Small left pleural effusion.
[2022-02-18 20:32] LABS: Partial Thromboplastin Time 22.9 sec (22.0-30.0); Prothrombin Time 10.5 sec (9.0-12.0)
[2022-02-18 21:04] LABS: ALT 17 U/L (4-34); AST 23 U/L (14-36); African American GFR (CKD) >90 (>60 ml/min/1.73 sqM); Albumin 3.6 g/dL (3.5-5.0); Alkaline Phosphatase 122 U/L (38-126); Anion Gap 10 mmol/L; Blood Urea Nitrogen 9 mg/dL (7-17); Calcium 8.5 mg/dL (8.4-10.2); Carbon Dioxide 24 mmol/L (22-30); Chloride 94 mmol/L (98-107); Glucose 101 mg/dL (74-99); Magnesium 1.5 mg/dL (1.6-2.3); Non-African American GFR(CKD) >90 (>60 ml/min/1.73 sqM); Potassium 3.8 mmol/L (3.5-5.1); Sodium 128 mmol/L (137-145); Total Bilirubin 0.7 mg/dL (0.2-1.3); Total Protein 6.4 g/dL (6.3-8.2)
[2022-02-18] MEDS ORDERED: MAGNESIUM SULFATE-D5W PMX 1 GM in DEXTROSE/WATER 1 100ML.BAG IVPB ONE (21:40)
--- NOTE | 2022-02-18 23:07 | CT ---
EXAMINATION TYPE: CT angio chest DATE OF EXAM: 02/18/2022 COMPARISON: None HISTORY: poss PE. chest pain and SOB. hx of lung nodule CT DLP: 250.8 mGycm Automated exposure control for dose reduction was used. CONTRAST: Performed with IV Contrast, patient injected with 100 mL of Isovue 370. There are 3-D post processed images. Thoracic aorta is atheromatous. There is mediastinal mass with encasement of the left and right pulmo nary arteries. Arteries are slightly narrowed. Mass measures 7.6 x 7 cm. There is left bronchial derrick opathy. Right pulmonary hilum appears normal. There is some pulmonary emphysema. There are some coars e reticular interstitial infiltrate in the left lung. No discrete pulmonary mass. Heart is enlarged. No pericardial effusion. There is some pleural thickening and atelectasis left posterior lung base. T he thoracic spine is intact. No compression fracture. There are sternal wires. No evidence of filling defect in the pulmonary arteries. The thoracic aorta is intact with no aneurysm or dissection. Ascending aorta measures 3.4 cm. The upper abdominal soft tissues appear intact. IMPRESSION: No evidence of pulmonary embolism. 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 This could rel ate to lymphoma. No discrete pulmonary mass seen. Emphysema. Pleural thickening and atelectasis left posterior lung base. Follow-up recommended.
[2022-02-18 23:17] LABS: Basophils # (A) 0.1 k/uL (0-0.2); Basophils % (A) 1 %; Eosinophils # (A) 0.1 k/uL (0-0.7); Eosinophils % (A) 1 %; HCT 39.4 % (34.0-46.0); HGB 13.4 gm/dL (11.4-16.0); Lymphocytes # (A) 1.8 k/uL (1.0-4.8); Lymphocytes % (A) 19 %; MCH 29.6 pg (25.0-35.0); MCHC 34.1 g/dL (31.0-37.0); MCV 86.7 fL (80.0-100.0); Mean Platelet Volume 7.7; Monocytes # (A) 0.3 k/uL (0-1.0); Monocytes % (A) 3 %; Neutrophils # (A) 7.1 k/uL (1.3-7.7); Neutrophils % (A) 75 %; Platelet Count 461 k/uL (150-450); RBC 4.54 m/uL (3.80-5.40); RDW 12.8 % (11.5-15.5); WBC 9.4 k/uL (3.8-10.6)
[2022-02-18] MEDS ORDERED: NALOXONE 0.4 MG/ML 1 ML VIAL IVP PRN (23:18)
[2022-02-19] MEDS: methylPREDNISolone SOD SUCCI 125 MG/2 ML VIAL IV SCH ×3 (06:05→17:20)
[2022-02-19] MEDS: IPRATROPIUM-ALBUTEROL 3 ML NEB INHALATION SCH ×4 (08:56→19:53)
[2022-02-19] MEDS ORDERED: NON FORMULARY DRUG (Vitamin B Complex [Vitamin B Complex] 1 EACH Capsule) PO SCH (09:00)
[2022-02-19] MEDS ORDERED: ATORVASTATIN 40 MG TAB PO SCH (09:00)
[2022-02-19] MEDS: amLODIPine 10 MG TAB PO SCH (09:08)
[2022-02-19] MEDS: NICOTINE 14MG/24HR PATCH TRANSDERM SCH (09:08)
[2022-02-19] MEDS: ASPIRIN 81 MG PO SCH (09:08)
[2022-02-19] MEDS: hydroCHLOROthiazide 25 MG TAB PO SCH (09:08)
[2022-02-19] MEDS: METOPROLOL TARTRATE 50 MG TAB PO SCH ×2 (09:08→20:34)
--- NOTE | 2022-02-19 13:02 | P.CNPUL ---
History of Present Illness Consult date: 02/19/22 Requesting physician: Juvencio Meneses Reason for consult: dyspnea, cough, COPD, hypoxemia, lung mass, abnormal CXR/CT Chief complaint: Shortness of breath. History of present illness: Pulmonary consult dated 02/19/2022. 66-year-old female, presents to the emergency department on February 18, comp laining of shortness of breath. The patient is been smoking for more than 45 years. The patient does continue to smoke cigarettes. In addition to shortness of breath, she complains of cough, and bright red blood in her sputum. She hasn't been feeling well for at least a week, maybe a bit longer. She's had poor appetite, and gradual weight loss. She denies any fever or chills. She has chest tightness, but no chest pain. The patient is seen in the emergency room, and admitted with a COPD exacerbation. The patient has a history of hypertension, hyperlipidemia, coronary disease, and previous bypass surgery. She also has a history of CVA, and previous uterine cancer with hysterectomy. White count 9.4, hemoglobin 13.4, hematocrit 39.4, and platelet count 461,000. D-dimer was 1.49. Sodium 128, potassium 3.8, chlorides 94, CO2 24, anion gap is 10, BUN 9, creatinine 0.5. Testing for coronavirus was negative, as was influenza A and influenza B. Chest x-ray is unremarkable save for small left pleural effusion. The patient's CT angiogram was negative for pulmonary embolism, but did reveal a large mediastinal mass, which is quite impressive. It does encase the pulmonary arteries on the left, and left mainstem bronchus. Review of Systems REVIEW OF SYSTEMS: CONSTITUTIONAL: Gradual weight loss. NEUROLOGIC: [ Negative.] HEENT: [ Negative.] CARDIAC: [Negative.] PULMONARY: Shortness of breath, cough, wheezing, chest congestion, and hemoptysis. GI: Chronic poor appetite. : [Negative.] RHEUMATOLOGIC: [ Negative.] IMMUNOLOGIC: [ Negative.] ENDOCRINE: [Negative. ] DERMATOLOGIC: [Negative.] Past Medical History Past Medical History: Coronary Artery Disease (CAD), COPD, CVA/TIA, Hyperlipidemia, Hypertension, Myocardial Infarction (NH), Pneumonia Additional Past Medical History / Comment(s): TIA, 1985 uterine cancer with hysterectomy, bronchitis, epistaxis off and on since CABG 06/2018 thought d/t medication. Last Myocardial Infarction Date:: 2018 History of Any Multi-Drug Resistant Organisms: None Reported Past Surgical History: Section, Cholecystectomy, Coronary Bypass/CABG, Heart Catheterization, Hysterectomy Additional Past Surgical History / Comment(s): 06/2018 Urgent CABG 4 vessel, oophorectomy (laterality unknown to pt) d/t large benign tumor, open cholecystectomy, R leg injury with surgical intervention. Past Anesthesia/Blood Transfusion Reactions: No Reported Reaction Additional Past Anesthesia/Blood Transfusion Reaction / Comment(s): Pt has clausterphobia Past Psychological History: No Psychological Hx Reported Additional Psychological History / Comment(s): Pt resides alone. She is independent. 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 When asked how she will get to [employer] she answered she did not know. Pt has clausterphobia. Smoking Status: Current every day smoker Past Alcohol Use History: None Reported Additional Past Alcohol Use History / Comment(s): Pt started smoking in 1974 and is a less than a half a pack a day smoker. Past Drug Use History: None Reported - Past Family History Father Family Medical History: Myocardial Infarction (NH) Additional Family Medical History / Comment(s): Father at the age of 45yrs from a NH. He also had carotid artery disease. Mother Family Medical History: Liver Disease Additional Family Medical History / Comment(s): Mother had nonalcholic cirrhosis of the liver. Daughter(s) Family Medical History: Coronary Artery Disease (CAD), Myocardial Infarction (NH) Additional Family Medical History / Comment(s): One daughter at 38 and one at 42, both from myocardial infarction Medications and Allergies Home Medications Medication Instructions Recorded Confirmed Type hydroCHLOROthiazide [Hydrodiuril] 25 mg PO DAILY #90 tab 01/30/19 02/19/22 Rx Budesonide [Pulmicort] 0.5 mg INHALATION RT-BID 02/19/22 02/19/22 History Formoterol Fumarate [Perforomist] 20 mcg INHALATION RT-BID 02/19/22 02/19/22 History Metoprolol Tartrate [Lopressor] 25 mg PO BID 02/19/22 02/19/22 History Pravastatin Sodium [Pravachol] 10 mg PO DAILY 02/19/22 02/19/22 History Allergies Allergy/AdvReac Type Severity Reaction Status Date / Time No Known Allergies Allergy Verified 02/19/22 10:36 Physical Exam Osteopathic Statement: *. No significant issues noted on an osteopathic structural exam other than those noted in the History and Physical/Consult. Vitals: Vital Signs Temp Pulse Pulse Resp BP BP Pulse Ox 02/19/22 11:43 97.5 F L 92 L 02/19/22 11:27 56 L 02/19/22 11:16 79 02/19/22 09:07 78 90 L 02/19/22 08:58 80 82 L 02/19/22 08:00 76 20 141/83 91 L 02/19/22 01:19 EDT 18 02/19/22 00:45 97.8 F 66 20 130/78 97 02/18/22 23:39 97.8 F 72 18 145/77 93 L 02/18/22 22:25 98.6 F 64 20 142/73 96 02/18/22 20:33 58 L 20 145/79 92 L 02/18/22 18:45 97.8 F 57 L 20 141/81 99 Intake and Output 02/18/22 02/19/22 02/19/22 23:59 06:59 14:59 Other: Voiding Method Toilet Weight No acute distress, oriented 3. Currently, patient is on 4 L of oxygen. Mild conversational dyspnea. No audible wheezing. HEENT examination is grossly unremarkable. Neck supple. Full range of motion. No adenopathy thyromegaly or neck vein distention. Cardiovascular examination reveals regular rhythm rate. S1-S2 normal. No S3 or S4. No discernible murmur noted. Heart rate 56 bpm. Lungs reveal diminished breath sounds on the left. Scattered rhonchi throughout. No crackles or wheezes. Saturations are 92% on 4 L. Abdomen soft bowel sounds are heard. No masses or tenderness. Extremities are intact. No cyanosis clubbing or edema. Skin is without rash or lesion. Neurologic examination is brief but nonfocal. Results - Laboratory Findings CBC and BMP: 02/18/22 22:47 02/18/22 19:44 PT/INR, D-dimer PT 10.5 sec (9.0-12.0) 02/18/22 19:44 INR 1.0 (<1.2) 02/18/22 19:44 D-Dimer 1.49 mg/L FEU (<0.60) H 02/18/22 19:44 Abnormal lab findings: Abnormal Labs 02/18/22 02/18/22 02/18/22 19:44 19:44 22:47 Plt Count 461 H D-Dimer 1.49 H Sodium 128 L Chloride 94 L Creatinine 0.50 L Glucose 101 H Magnesium 1.5 L - Diagnostic Findings Chest x-ray: image reviewed CT scan - chest: image reviewed Assessment and Plan Assessment: Acute exacerbation of COPD. 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 Hyponatremia, rule out SIADH. History of CAD with previous bypass grafting, 2019. History of ongoing tobacco use with nicotine addiction. History of hypertension. History of hyperlipidemia. History of CVA. Prior history of myocardial infarction. History of uterine cancer, status post hysterectomy. Plan: Plan dated 02/19/2022. Currently, the patient is on Symbicort 160/4.5, 2 puffs twice a day, as well as updrafts with albuterol sulfate and ipratropium bromide. In addition, the patient's on Solu-Medrol 60 mg every 6 hours. She's also on a nicotine patch. My partner will assess her, and determine whether or not to attempt bronchoscopy and biopsy, or consult cardiothoracic surgery for mediastinoscopy. Either biopsy technique, I believe will provide us an answer. Additional recommendations and suggestions are forthcoming. Time with Patient: Greater than 30
--- NOTE | 2022-02-19 17:14 | P.CONS ---
History of Present Illness - Reason for Consult Consult date: 02/19/22 Mediastinal mass Requesting physician: Juvencio Meneses - Chief Complaint Hemoptysis, HANANE - History of Present Illness Ms. Quinones is a very pleasant 66 yo female with history of lung nodule being monitored by Dr. Zavaleta, who is here with increasing SOB, cough and hemoptysis. W ork up with CT chest revealed mediastinal mass and thoracic LAD concerning for lymphoma. We were consulted for further recommendations on work up of her mass. Patient was last seen by Dr. Zavaleta in 06/2021 at which time her repeat CT of the lungs revealed a stable small lung nodule. Plan was to repeat her CT scan in 6 months and follow-up with him to discuss the results. She has had several healt h ailments since June however including arrhythmia and following with cardiology. She developed increasing shortness of breath and was not able to get her computed tomography scan in 12/2021 as planned. Her shortness of breath has been ongoing for about a couple months and slowly worsening. She developed hemoptysis about a week ago and ended up here due to this. She does have oxygen at home she says however she normally does not use it. Over the last 2 months she has tried to use that with minimal improvement of her breathing. Denies any unexplained fevers or night sweats. She mentions very slow weight loss that has been ongoing for several months, possibly a few years, however she is not sure if she has lost any significant weight over the last 12 months. No other significant complaints at this time. She does admit to struggling with transportation to get to testing and appointments. Has very little support here, which is one of the reasons for the delayed initiation of care for her shortness of breath that has been worsening. Onc History: Seen by Dr. Zavaleta in 04/2021 for the first time, and followed up in 06/2021. Ms Quinones is a pleasant white female, with multiple medical problems. The patient presented to the ER at [facility] on 02/27/21, due to sudden onset of palpitations. Her heart rate was in the high 170 range. EKG done by EMS had shown SVT. The patient had had a recent decrease in her metoprolol dose due to low blood pressure. This episode did not resolve with treatment. At the time of presentation the patient was also complaining of some shortness of breath, as well as cough. She had a chest x-ray which showed evidence of COPD but no other acute abnormality. She then had a CT angiogram which was negative for PE. This also showed COPD related changes, as well as bilateral subcentimeter lung nodules. The largest was in the left lower lobe, spiculated, 6 mm. 3 mm and 2 mm nodules also noted in the right upper lobe. Patient was therefore referred here for further evaluation and recommendations. She has a history of smoking about half to 1 pack a day since her late teens. She has history of early-stage uterine cancer treated with hysterectomy alone in the . Patient does have a chronic long-standing cough which according to her and her granddaughter accompanied her, appears to be more prominent and frequent since late fall 2020. she does have some clear expectoration, but no hemoptysis. She has chronic shortness of breath on exertion, possibly mildly worse, and also reports weight loss of about 9-10 pounds since the fall. She complains of chest wall discomfort described as an aching soreness (not lik e anginal symptoms according to her) which is present off and on since her CABG in 08/02. multiple labs were performed including CBC and CMP, showing mild leukocytosis due to neutrophilia and borderline lymphocyte increase. Chem panel showed sodium of 127. given the clinical presentation benign nodules are felt to be more likely. A follow-up CT was done in late 06/07, about 3 months from the initial study. This showed the dominant left-sided nodule to be slightly smaller with other nodules stable. The patient's initial labs had incidentally shown mild leukocytosis with lymphocytosis at 5.7. She denied any fevers/chills/nausea/vomiting. No adenopathy noted. respiratory status is stable. She continues to smoke. No unusual bleeding or bruising noted. appetite is unchanged. Review of systems otherwise as per HPI and negative She followed up in 06/2021... the patient's CT scan shows stable findings. Given the small size and stability of the nodules, as well as evidence of other benign smoking-related changes, a benign etiology is much more likely. Patient will have repeat CT scans now in 6 months to check for stability. scans will be ordered sooner if the patient devel ops any suspicious signs / symptoms. - the patient was incidentally noted to have mild leukocytosis with lymphocytosis. Possible etiologies were discussed in detail. A mild reactive condition due to smoking is a possibility. However if there is persistent lymphocytosis greater than 5000, a lymphoproliferative disorder is also in the differential. Therefore testing for the same will be ordered. She was agreeable to proceed. No follow up after 06/2021. Past Medical History Past Medical History: Coronary Artery Disease (CAD), COPD, CVA/TIA, Hyperlipid emia, Hypertension, Myocardial Infarction (OR), Pneumonia Additional Past Medical History / Comment(s): TIA, 1985 uterine cancer with hysterectomy, bronchitis, epistaxis off and on since CABG 06/2018 thought d/t medication. Last Myocardial Infarction Date:: 2018 History of Any Multi-Drug Resistant Organisms: None Reported Past Surgical History: Section, Cholecystectomy, Coronary Bypass/CABG, Heart Catheterization, Hysterectomy Additional Past Surgical History / Comment(s): 06/2018 Urgent CABG 4 vessel, oophorectomy (laterality unknown to pt) d/t large benign tumor, open cholecystectomy, R leg injury with surgical intervention. Past Anesthesia/Blood Transfusion Reactions: No Reported Reaction Additional Past Anesthesia/Blood Transfusion Reaction / Comm: Pt has clausterphobia Past Psychological History: No Psychological Hx Reported Additional Psychological History / Comment(s): Pt resides alone. She is independent. She states she has a [employer] driver's license but currently no vehicle. When asked how she will get to [employer] she answered she did not know. Pt has clausterphobia. Smoking Status: Current every day smoker Past Alcohol Use History: None Reported Additional Past Alcohol Use History / Comment(s): Pt started smoking in 1974 and is a less than a half a pack a day smoker. Past Drug Use History: None Reported - Past Family History Father Family Medical History: Myocardial Infarction (OR) Additional Family Medical History / Comment(s): Father at the age of 45yrs from a OR. He also had carotid artery disease. Mother Family Medical History: Liver Disease Additional Family Medical History / Comment(s): Mother had nonalcholic cirrhosis of the liver. Daughter(s) Family Medical History: Coronary Artery Disease (CAD), Myocardial Infarction (OR) Additional Family Medical History / Comment(s): One daughter at 38 and one at 42, both from myocardial infarction Medications and Allergies Home Medications Medication Instructions Recorded Confirmed Type hydroCHLOROthiazide [Hydrodiuril] 25 mg PO DAILY #90 tab 01/30/19 02/19/22 Rx Budesonide [Pulmicort] 0.5 mg INHALATION RT-BID 02/19/22 02/19/22 History Formoterol Fumarate [Perforomist] 20 mcg INHALATION RT-BID 02/19/22 02/19/22 History Metoprolol Tartrate [Lopressor] 25 mg PO BID 02/19/22 02/19/22 History Pravastatin Sodium [Pravachol] 10 mg PO DAILY 02/19/22 02/19/22 History Allergies Allergy/AdvReac Type Severity Reaction Status Date / Time No Known Allergies Allergy Verified 02/19/22 10:36 Physical Exam Vitals: Vital Signs Temp Pulse Pulse Resp BP BP Pulse Ox 02/19/22 11:43 97.5 F L 92 L 02/19/22 11:27 56 L 02/19/22 11:16 79 02/19/22 09:07 78 90 L 02/19/22 08:58 80 82 L 02/19/22 08:00 76 20 141/83 91 L 02/19/22 01:19 EDT 18 02/19/22 00:45 97.8 F 66 20 130/78 97 02/18/22 23:39 97.8 F 72 18 145/77 93 L 02/18/22 22:25 98.6 F 64 20 142/73 96 02/18/22 20:33 58 L 20 145/79 92 L 02/18/22 18:45 97.8 F 57 L 20 141/81 99 Intake and Output 02/18/22 02/19/22 02/19/22 23:59 06:59 14:59 Other: Voiding Method Toilet Weight Gen.: In no acute distress HEENT: Mucosa moist, no scleral icterus. Neck: Supple Lungs: No respiratory distress, however pt on oxygen. Heart: Regular rate. Abdomen: Soft, nontender, nondistended. Neuro: Alert and oriented 3. Skin: No jaundice. Psych: Appropriate affect. Results CBC & Chem 7: 02/18/22 22:47 02/18/22 19:44 Labs: Abnormal Lab Results - Last 24 Hours (Table) 02/18/22 02/18/22 02/18/22 Range/Units 19:44 19:44 22:47 Plt Count 461 H (150-450) k/uL D-Dimer 1.49 H (<0.60) mg/L FEU Sodium 128 L (137-145) mmol/L Chloride 94 L (98-107) mmol/L Creatinine 0.50 L (0.52-1.04) mg/dL Glucose 101 H (74-99) mg/dL Magnesium 1.5 L (1.6-2.3) mg/dL Chest x-ray: report reviewed CT scan - chest: report reviewed Assessment and Plan Assessment: 1. Hemoptysis 2. Mediastinal mass 3. Thoracic LAD 4. Smoking 5. Lung nodules 6. Hyponatremia, possibly SIADH 7. Thrombocytosis, likely reactive Plan: Ms. Quinones is a very pleasant 66-year-old female with multiple comorbidities who is here for increasing shortness of breath for the past 2 months as well as hemoptysis for the past week. Workup with chest imaging revealed large mediastinal mass as well as thoracic lymphadenopathy. CT report commented on no pulmonary masses. She has a history of small lung nodules that were being m onitored and were stable as of 7-8 months ago. Denies any other B symptoms. Pulmonary on board. Discussed patient's overall condition with her. Overall findings on the CT are very concerning for malignancy, possibly lymphoma. Will obtain flow cytometry and CT of the abdomen and pelvis. Agree with biopsy of the mediastinal mass however his CT of the abdomen pelvis revealed any other lesions, we could consider biopsy elsewhere. Further recommendations based on flow and biopsy results. Her hyponatremia is possibly due to dehydration versus SIADH. Mild thrombocytosis likely reactive. D-dimer elevated however CT/PE was negative for PE, and likely elevated due to underlying undiagnosed malignancy. Patient continues to smoke, counseled on smoking cessation. Discussed with patient she is agreeable to the plan. All of her questions were answered.
[2022-02-19] MEDS ORDERED: ONDANSETRON 4 MG TAB PO PRN (18:07)
[2022-02-19] MEDS ORDERED: LORazepam 0.5 MG TAB PO STA (18:49)
[2022-02-19] MEDS ORDERED: LORazepam 1 MG/0.5 ML VIAL IV STA ×2 (19:00→19:05)
[2022-02-19] MEDS ORDERED: CALCIUM CARBONATE 500 MG CHEWABLE PO PRN (19:14)
[2022-02-19] MEDS ORDERED: TEMAZEPAM 15 MG CAP PO PRN (19:14)
[2022-02-19] MEDS ORDERED: ACETAMINOPHEN TAB 325 MG TAB PO PRN (19:14)
[2022-02-19] MEDS ORDERED: LACTULOSE 20 GM/30 ML CUP PO PRN (19:14)
--- NOTE | 2022-02-19 19:16 | P.HPIM ---
History of Present Illness H&P Date: 02/19/22 Chief Complaint: Short of breath This is a 66-year-old patient who follows with Dr. Green. Chronic stable medical conditions include CAD with bypass, hypertension, hyperlipidemia, uterine cancer hysterectomy,. Patient long-standing smoker. Presenting with increased shortness of breath. Bringing up phlegm. No fever no chills. Decreased appetite. Losing weight. Has been coughing up some blood for about a week. On home oxygen 2 L. Occasional chest pressure. Able to get around the house. Tired rundown. Review of systems: GEN.: Tired, decreased appetite, EYES: None HEENT: None NECK: None RESPIRATORY: As above CARDIOVASCULAR: As above GASTROINTESTINAL: None GENITOURINARY: None MUSCULOSKELETAL: None LYMPHATICS: None HEMATOLOGICAL: None PSYCHIATRY: . Anxious NEUROLOGICAL: None Past medical history to include: CAD with CABG, COPD, TIA, hypertension, hyperlipidemia, myocardial infarction, 1985 uterine cancer hysterectomy, Social history: Lives alone. Smoked about half a pack to a pack a day currently half close to 47 years. No alcohol. Physical examination: VITAL SIGNS: 97.8, 57, 20, 141/81, 99% on 3 L upon presentation] GENERAL: BMI 22.5, sitting in bed awake, tired a bit short of breath. EYES: Pupils equal. Conjunctiva normal. HEENT: External appearance of nose and ears normal, oral cavity grossly normal. NECK: JVD not raised; masses not palpable. HEART: First and second heart sounds are normal; no edema. LUNGS: Respiratory rate increased; decreased breath sounds, wheezing. ABDOMEN: Soft, nontender, liver spleen not palpable, no masses palpable. PSYCH: Alert and oriented x3; mood and affect bit anxiousl. MUSCULOSKELETAL:No Clubbing/cyanosis;muscles-grossly intact NEUROLOGICAL: Cranial nerves grossly intact; no facial asymmetry, power and sensation grossly intact. LYMPHATICS: No lymph nodes palpable in the axilla and neck INVESTIGATIONS, reviewed in the clinical context: WBC 9.4 hemoglobin 13.4 platelets 461 sodium 128 potassium 3.8. 9 creatinine 0.50 Troponin I 0.017 proBNP 2350 COVID-19/influenza type A/type b: Not detected EKG tracing personally reviewed by me-sinus bradycardia. Nonspecific T-wave mary nges. Chest x-ray film personally reviewed by [id number] consolidation/atelectasis CT angiogram chest: Mediastinal mass with encasement of the left and right pulmonary arteries measuring 7.6 x 7 cm. Left bronchial adenopathy. Some emphysema. Coarse reticular interstitial infiltrates in the left lung. Assessment and plan: -Acute COPD exacerbation in a current smoker Symbicort, DuoNeb, IV Solu-Medrol -Pneumonia suspected gram-negative organism. IV ceftriaxone -Mediastinal mass measuring 7.6 x 7 cm. With lymphadenopathy Consult pulmonary for possible bronchoscopy versus video endoscope even cardiothoracic. -Chronic nicotine dependence, cigarette smoker Nicotine patch -Essential hypertension Lopressor -Hyperlipidemia Pravachol -CAD with a prior history of CABG Aspirin, Lopressor, Pravachol -Hyponatremia, likely hypovolemic from decreased oral intake Normal saline. Symbicort, DuoNeb, IV Solu Medrol, IV ceftriaxone, consult pulmonary, resume home medications, saline. Nicotine patch. Past Medical History Past Medical History: Coronary Artery Disease (CAD), COPD, CVA/TIA, Hyperlipidemia, Hypertension, Myocardial Infarction ([place]), Pneumonia Additional Past Medical History / Comment(s): TIA, 1985 uterine cancer with hysterectomy, bronchitis, epistaxis off and on since CABG 06/2018 thought d/t medication. Last Myocardial Infarction Date:: 2018 History of Any Multi-Drug Resistant Organisms: None Reported Past Surgical History: Section, Cholecystectomy, Coronary Bypass/CABG, Heart Catheterization, Hysterectomy Additional Past Surgical History / Comment(s): 06/2018 Urgent CABG 4 vessel, oophorectomy (laterality unknown to pt) d/t large benign tumor, open cholecystectomy, R leg injury with surgical intervention. Past Anesthesia/Blood Transfusion Reactions: No Reported Reaction Additional Past Anesthesia/Blood Transfusion Reaction / Comment(s): Pt has clausterphobia Past Psychological History: No Psychological Hx Reported Additional Psychological History / Comment(s): Pt resides alone. She is independent. 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 When asked how she will get to [employer] she answered she did not know. Pt has clausterphobia. Smoking Status: Current every day smoker Past Alcohol Use History: None Reported Additional Past Alcohol Use History / Comment(s): Pt started smoking in 1974 and is a less than a half a pack a day smoker. Past Drug Use History: None Reported - Past Family History Father Family Medical History: Myocardial Infarction ([place]) Additional Family Medical History / Comment(s): Father at the age of 45yrs from a [place]. He also had carotid artery disease. Mother Family Medical History: Liver Disease Additional Family Medical History / Comment(s): Mother had nonalcholic cirrhosis of the liver. Daughter(s) Family Medical History: Coronary Artery Disease (CAD), Myocardial Infarction ([place]) Additional Family Medical History / Comment(s): One daughter at 38 and one at 42, both from myocardial infarction Medications and Allergies Home Medications Medication Instructions Recorded Confirmed Type hydroCHLOROthiazide [Hydrodiuril] 25 mg PO DAILY #90 tab 01/30/19 02/19/22 Rx Budesonide [Pulmicort] 0.5 mg INHALATION RT-BID 02/19/22 02/19/22 History Formoterol Fumarate [Perforomist] 20 mcg INHALATION RT-BID 02/19/22 02/19/22 History Metoprolol Tartrate [Lopressor] 25 mg PO BID 02/19/22 02/19/22 History Pravastatin Sodium [Pravachol] 10 mg PO DAILY 02/19/22 02/19/22 History Allergies Allergy/AdvReac Type Severity Reaction Status Date / Time No Known Allergies Allergy Verified 02/19/22 10:36 Physical Exam Vitals: Vital Signs Temp Pulse Pulse Resp BP BP Pulse Ox 02/19/22 11:27 56 L 02/19/22 11:16 79 02/19/22 09:07 78 90 L 02/19/22 08:58 80 82 L 02/19/22 08:00 76 20 141/83 91 L 02/19/22 01:19 EDT 18 02/19/22 00:45 97.8 F 66 20 130/78 97 02/18/22 23:39 97.8 F 72 18 145/77 93 L 02/18/22 22:25 98.6 F 64 20 142/73 96 02/18/22 20:33 58 L 20 145/79 92 L 02/18/22 18:45 97.8 F 57 L 20 141/81 99 Intake and Output 02/18/22 02/19/22 02/19/22 23:59 06:59 14:59 Other: Voiding Method Toilet Weight Results CBC & Chem 7: 02/18/22 22:47 02/18/22 19:44 Labs: Abnormal Lab Results - Last 24 Hours (Table) 02/18/22 02/18/22 02/18/22 Range/Units 19:44 19:44 22:47 Plt Count 461 H (150-450) k/uL D-Dimer 1.49 H (<0.60) mg/L FEU Sodium 128 L (137-145) mmol/L Chloride 94 L (98-107) mmol/L Creatinine 0.50 L (0.52-1.04) mg/dL Glucose 101 H (74-99) mg/dL Magnesium 1.5 L (1.6-2.3) mg/dL Thrombosis Risk Factor Assmnt - Choose All That Apply Any of the Below Risk Factors Present?: Yes Each Factor Represents 1 point: Abnormal pulmonary function (COPD) Other Risk Factors: Yes Each Risk Factor Represents 2 Points: Age 61-74 years Thrombosis Risk Factor Assessment Total Risk Factor Score: 3 Thrombosis Risk Factor Assessment Level: Moderate Risk
[2022-02-19] MEDS: SYMBICORT 160-4.5 MCG INHALER INHALATION SCH (19:53)
[2022-02-19] MEDS: IOPAMIDOL CONTRAST (ORAL USE) VIAL PO PRN ×2 (20:34→21:40)
[2022-02-19] MEDS: SODIUM CHLORIDE 0.9% 1,000 ML IV SCH (20:35)
[2022-02-19] MEDS: ONDANSETRON 4 MG TAB PO PRN (20:36)
--- NOTE | 2022-02-19 22:39 | CT ---
EXAMINATION TYPE: CT abdomen pelvis wo/w con DATE OF EXAM: 02/19/2022 COMPARISON: None HISTORY: Abd pain CT DLP: 1067.1 mGycm Automated exposure control for dose reduction was used. CONTRAST: Performed with IV Contrast, patient injected with 100 mL of Isovue 300. Images obtained from the diaphragm to the floor the pelvis with and without IV contrast. There is ora l contrast also. There is some pleural thickening and atelectasis at the left posterior lung base. There are clips fro m cholecystectomy. No focal liver defect. Spleen is intact. There is no evidence of pancreatic mass. The stomach is intact. There is no adrenal mass. Kidneys show satisfactory contrast opacification. No hydronephrosis. There is 3.1 cm aneurysm of the lower abdominal aorta with thrombus. There is no retroperitoneal adenopathy . There is arterial flow in the iliac and femoral arteries. There is extensive osteophyte vascular ca lcification. The ureters are not dilated. There is hypoattenuation in the urinary bladder consistent with previous contrast exam. No bladder mass. There is hysterectomy. No free fluid in the pelvis. No evidence of a bowel obstruction. No mesenteric edema. No ascites or free air. No evidence of any significant adenopathy in the abdomen and pelvis. There is oval-shaped 2 x 2.7 cm density on the right lateral pelvis that is likely the right ovary. IMPRESSION: Atherosclerotic vascular disease. Mild aneurysm of the lower abdominal aorta. No evidence of malignan cy in the abdomen and pelvis. There is some minimal pleural reaction and fluid and atelectasis at the left posterior lung base. This appears unchanged compared to exam yesterday.
[2022-02-20] MEDS: methylPREDNISolone SOD SUCCI 40 MG/ML 1 ML VIAL IV SCH ×3 (00:44→17:07)
[2022-02-20 05:28] LABS: African American GFR (CKD) >90 (>60 ml/min/1.73 sqM); Anion Gap 8 mmol/L; Blood Urea Nitrogen 8 mg/dL (7-17); Carbon Dioxide 26 mmol/L (22-30); Chloride 94 mmol/L (98-107); Glucose 122 mg/dL (74-99); Non-African American GFR(CKD) >90 (>60 ml/min/1.73 sqM); Potassium 3.2 mmol/L (3.5-5.1); Sodium 128 mmol/L (137-145)
[2022-02-20 05:39] LABS: LDH 484 U/L (313-618)
[2022-02-20] MEDS ORDERED: Potassium Replacement Protocol 1 EACH MISC MISCELLANE PRN (06:35)
[2022-02-20] MEDS: hydroCHLOROthiazide 25 MG TAB PO SCH (07:47)
[2022-02-20] MEDS: PRAVASTATIN SODIUM 20 MG TAB PO SCH (07:47)
[2022-02-20] MEDS: POTASSIUM CHLORIDE ER 20 MEQ TAB.ER PO SCH ×2 (07:47→08:44)
[2022-02-20] MEDS: ASPIRIN 81 MG PO SCH (07:48)
[2022-02-20] MEDS: NICOTINE 14MG/24HR PATCH TRANSDERM SCH (07:48)
[2022-02-20] MEDS: METOPROLOL TARTRATE 50 MG TAB PO SCH ×2 (07:48→21:37)
[2022-02-20] MEDS: amLODIPine 10 MG TAB PO SCH (07:48)
[2022-02-20] MEDS: SYMBICORT 160-4.5 MCG INHALER INHALATION SCH ×2 (08:59→20:01)
[2022-02-20] MEDS: IPRATROPIUM-ALBUTEROL 3 ML NEB INHALATION SCH ×4 (09:00→20:01)
[2022-02-20] MEDS: SODIUM CHLORIDE 0.9% 1,000 ML IV SCH ×2 (09:01→21:38)
[2022-02-20 10:09] LABS: Basophils # (A) 0.02 X 10*3/uL (0.00-0.10); Basophils % (A) 0.1 %; Eosinophils # (A) 0 X 10*3/uL (0.04-0.35); Eosinophils % (A) 0 %; HCT 35.9 % (37.2-46.3); HGB 12.2 g/dL (12.0-15.0); Immature Grans, Automated 0.4 %; Lymphocytes # (A) 1.22 X 10*3/uL (0.90-5.00); Lymphocytes % (A) 6.8 %; MCH 29.6 pg (27.0-32.0); MCV 87.1 fL (80.0-97.0); Mean Platelet Volume 9.9 fL (9.5-12.2); Monocytes # (A) 0.47 X 10*3/uL (0.20-1.00); Monocytes % (A) 2.6 %; NRBC Per 100 WBC 0 /100 WBCS (0.0-0.0); Neutrophils # (A) 16.11 X 10*3/uL (1.80-7.70); Neutrophils % (A) 90.1 %; Platelet Count 438 X 10*3/uL (140-440); RBC 4.12 X 10*6/uL (4.10-5.20); RDW 13.3 % (11.5-14.5); WBC 17.89 X 10*3/uL (4.50-10.00)
--- NOTE | 2022-02-20 12:49 | P.PN ---
Subjective Progress Note Date: 02/20/22 66-year-old female, presents to the emergency department on February 18, complaining of shortness of breath. The patient is been smoking for more than 45 years. The patient does continue to smoke cigarettes. In addition to shortness of breath, she complains of cough, and bright red blood in her sputum. She hasn't been feeling well for at least a week, maybe a bit longer. She's had poor appetite, and gradual weight loss. She denies any fever or chills. She has chest tightness, but no chest pain. The patient is seen in the emergency room, and admitted with a COPD exacerbation. The patient has a history of hypertension, hyperlipidemia, coronary disease, and previous bypass surgery. She also has a history of CVA, and previous uterine cancer with hysterectomy. White count 9.4, hemoglobin 13.4, hematocrit 39.4, and platelet count 461,000. D-dimer was 1.49. Sodium 128, potassium 3.8, chlorides 94, CO2 24, anion gap is 10, BUN 9, creatinine 0.5. Testing for coronavirus was negative, as was influenza A and influenza B. Chest x-ray is unremarkable save for small left pleural effusion. The patient's CT angiogram was negative for pulmonary embolism, but did reveal a large mediastinal mass, which is quite impressive. It does encase the pulmonary arteries on the left, and left julia tem bronchus. The patient is seen today 02/20/2022 in follow-up on the regular medical floor. She is currently resting comfortably in bed. Awake and alert in no acute distress. Maintaining O2 saturations in the low 90s on 2 L/m per nasal cannula. Afebrile. Hemodynamically stable. Blood culture reveals no growth to date. White count 17.8. Hemoglobin 12.2. Sodium 128. Potassium 3.2. BUN 8. Creatinine 0.43. She is continued on Symbicort, DuoNeb inhalations, IV Solu- Medrol. Antibiotics in the form of ceftriaxone. NicoDerm patch in place. Objective - Vital Signs Vital signs: Vital Signs Temp 97.8 F 02/20/22 08:00 Pulse 66 02/20/22 12:18 Resp 18 02/20/22 08:00 BP 125/60 02/20/22 08:00 Pulse Ox 92 L 02/20/22 08:00 FiO2 Intake & Output 02/19/22 02/20/22 02/20/22 18:59 06:59 18:59 Other: Voiding Method Toilet Toilet # Voids 3 2 - Exam GENERAL EXAM: Alert, active, comfortable in no apparent distress. HEAD: Normocephalic. EYES: Normal reaction of pupils, equal size. NOSE: Clear with pink turbinates. THROAT: No erythema or exudates. NECK: No masses, no JVD. CHEST: No chest wall deformity. LUNGS: Equal air entry with diminished breath sounds in the left. Scattered rhonchi. CVS: S1 and S2 normal with no audible murmur, regular rhythm. ABDOMEN: No hepatosplenomegaly, normal bowel sounds, no guarding or rigidity. SPINE: No scoliosis or deformity SKIN: No rashes CENTRAL NERVOUS SYSTEM: No focal deficits, tone is normal in all 4 extremities. EXTREMITIES: There is no peripheral edema. No clubbing, no cyanosis. Periphera l pulses are intact. - Labs CBC & Chem 7: 02/20/22 04:24 02/20/22 04:24 Labs: Abnormal Lab Results - Last 24 Hours (Table) 02/20/22 02/20/22 Range/Units 04:24 04:24 WBC 17.89 H (4.50-10.00) X 10*3/uL Hct 35.9 L (37.2-46.3) % Immature Gran # 0.07 H (0.00-0.04) X 10*3/uL Neutrophils # 16.11 H (1.80-7.70) X 10*3/uL Eosinophils # 0 L (0.04-0.35) X 10*3/uL Sodium 128 L (137-145) mmol/L Potassium 3.2 L (3.5-5.1) mmol/L Chloride 94 L (98-107) mmol/L Creatinine 0.43 L (0.52-1.04) mg/dL Glucose 122 H (74-99) mg/dL Osmolality 266 L (280-301) mosm/kg Microbiology - Last 24 Hours (Table) 02/18/22 19:44 Blood Culture - Preliminary Blood No Growth after 24 hours Assessment and Plan Assessment: Acute exacerbation of COPD. 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 No evidence of malignancy and CT of the abdomen and pelvis Hyponatremia, rule out SIADH. Current sodium 128 History of CAD with previous bypass grafting, 2019. History of ongoing tobacco use with nicotine addiction. History of hypertension. History of hyperlipidemia. History of CVA. Prior history of myocardial infarction. History of uterine cancer, status post hysterectomy. Plan: The patient was seen and evaluated CT scan of the abdomen and pelvis revealed no malignancy Labs and medications reviewed Plan for bronchoscopy with biopsies tomorrow Patient agreeable to the plan Educated regarding the importance of complete smoking cessation NicoDerm patch in place We will continue to follow I have personally seen and examined the patient, performed the documentation and the assessment and plan as written. Number of minutes spent on the visit: 10.
--- NOTE | 2022-02-20 13:19 | P.GSCN ---
History of Present Illness History of present illness: 66-year-old white female Vic has been admitted with history of shortness of breath history of coughing up blood for 1 week patient had a [address] of the abdomen which shows 3.1 cm infrarenal abdominal aortic aneurysm with some atherosclerosis disease. No history of rest pain or tissue loss and graft medical history history of coronary artery disease post CABG patient also has history of uterine cancer post hysterectomy patient had a CTA of the chest which showed 7.6 x 7 cm mass On examination neck is supple Chest few crackles the lung bases first and second sound present Abdomen soft nontender pulsatile mass which is aorta Vascular femorals are 1+ bilateral lower extremity extremity no varicosity no ischemic ulceration noted Computed tomography scan shows infrarenal abdominal aortic aneurysm at this point no surgical intervention when patient discharged to follow-up in the [facility] Past Medical History Past Medical History: Coronary Artery Disease (CAD), COPD, CVA/TIA, Hyperlipidemia, Hypertension, Myocardial Infarction ([place]), Pneumonia Additional Past Medical History / Comment(s): TIA, 1985 uterine cancer with hysterectomy, bronchitis, epistaxis off and on since CABG 06/2018 thought d/t medication. Last Myocardial Infarction Date:: 2018 History of Any Multi-Drug Resistant Organisms: None Reported Past Surgical History: Section, Cholecystectomy, Coronary Bypass/CABG, Heart Catheterization, Hysterectomy Additional Past Surgical History / Comment(s): 06/2018 Urgent CABG 4 vessel, oophorectomy (laterality unknown to pt) d/t large benign tumor, open cholecystectomy, R leg injury with surgical intervention. Past Anesthesia/Blood Transfusion Reactions: No Reported Reaction Additional Past Anesthesia/Blood Transfusion Reaction / Comm: Pt has cla usterphobia Past Psychological History: No Psychological Hx Reported Additional Psychological History / Comment(s): Pt resides alone. She is independent. 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 When asked how she will get to [employer] she answered she did not know. Pt has clausterphobia. Smoking Status: Current every day smoker Past Alcohol Use History: None Reported Additional Past Alcohol Use History / Comment(s): Pt started smoking in 1974 and is a less than a half a pack a day smoker. Past Drug Use History: None Reported - Past Family History Father Family Medical History: Myocardial Infarction ([place]) Additional Family Medical History / Comment(s): Father at the age of 45yrs from a [place]. He also had carotid artery disease. Mother Family Medical History: Liver Disease Additional Family Medical History / Comment(s): Mother had nonalcholic cirrhosis of the liver. Daughter(s) Family Medical History: Coronary Artery Disease (CAD), Myocardial Infarction ([place]) Additional Family Medical History / Comment(s): One daughter at 38 and one at 42, both from myocardial infarction Medications and Allergies Home Medications Medication Instructions Recorded Confirmed Type hydroCHLOROthiazide [Hydrodiuril] 25 mg PO DAILY #90 tab 01/30/19 02/19/22 Rx Budesonide [Pulmicort] 0.5 mg INHALATION RT-BID 02/19/22 02/19/22 History Formoterol Fumarate [Perforomist] 20 mcg INHALATION RT-BID 02/19/22 02/19/22 History Metoprolol Tartrate [Lopressor] 25 mg PO BID 02/19/22 02/19/22 History Pravastatin Sodium [Pravachol] 10 mg PO DAILY 02/19/22 02/19/22 History Allergies Allergy/AdvReac Type Severity Reaction Status Date / Time No Known Allergies Allergy Verified 02/19/22 10:36 Surgical - Exam Vital Signs Temp Pulse Resp BP Pulse Ox 97.8 F 57 L 20 141/81 99 02/18/22 18:45 02/18/22 18:45 02/18/22 18:45 02/18/22 18:45 02/18/22 18:45 Results - Labs 02/20/22 04:24 02/20/22 04:24 Abnormal Lab Results - Last 24 Hours (Table) 02/20/22 02/20/22 Range/Units 04:24 04:24 WBC 17.89 H (4.50-10.00) X 10*3/uL Hct 35.9 L (37.2-46.3) % Immature Gran # 0.07 H (0.00-0.04) X 10*3/uL Neutrophils # 16.11 H (1.80-7.70) X 10*3/uL Eosinophils # 0 L (0.04-0.35) X 10*3/uL Sodium 128 L (137-145) mmol/L Potassium 3.2 L (3.5-5.1) mmol/L Chloride 94 L (98-107) mmol/L Creatinine 0.43 L (0.52-1.04) mg/dL Glucose 122 H (74-99) mg/dL Osmolality 266 L (280-301) mosm/kg Microbiology - Last 24 Hours (Table) 02/18/22 19:44 Blood Culture - Preliminary Blood No Growth after 24 hours Diabetes panel 02/20/22 Range/Units 04:24 Sodium 128 L (137-145) mmol/L Potassium 3.2 L (3.5-5.1) mmol/L Chloride 94 L (98-107) mmol/L Carbon Dioxide 26 (22-30) mmol/L BUN 8 (7-17) mg/dL Creatinine 0.43 L (0.52-1.04) mg/dL Glucose 122 H (74-99) mg/dL Calcium 9.0 (8.4-10.2) mg/dL Calcium panel 02/20/22 Range/Units 04:24 Calcium 9.0 (8.4-10.2) mg/dL Pituitary panel 02/20/22 Range/Units 04:24 Sodium 128 L (137-145) mmol/L Potassium 3.2 L (3.5-5.1) mmol/L Chloride 94 L (98-107) mmol/L Carbon Dioxide 26 (22-30) mmol/L BUN 8 (7-17) mg/dL Creatinine 0.43 L (0.52-1.04) mg/dL Glucose 122 H (74-99) mg/dL Calcium 9.0 (8.4-10.2) mg/dL Adrenal panel 02/20/22 Range/Units 04:24 Sodium 128 L (137-145) mmol/L Potassium 3.2 L (3.5-5.1) mmol/L Chloride 94 L (98-107) mmol/L Carbon Dioxide 26 (22-30) mmol/L BUN 8 (7-17) mg/dL Creatinine 0.43 L (0.52-1.04) mg/dL Glucose 122 H (74-99) mg/dL Calcium 9.0 (8.4-10.2) mg/dL
--- NOTE | 2022-02-20 14:49 | P.PN ---
Progress Note - Text Progress Note Date: 02/20/22 Chief Complaint: Short of breath This is a 66-year-old patient who follows with Dr. Green. Chronic stable medical conditions include CAD with bypass, hypertension, hyperlipidemia, uterine cancer hysterectomy,. Patient long-standing smoker. Presenting with increased shortness of breath. Bringing up phlegm. No fever no chills. Decreased appetite. Losing weight. Has been coughing up some blood for about a week. On home oxygen 2 L. Occasional chest pressure. Able to get around the house. Tired rundown. 02/20/2022: Tired. Some shortness of breath. Computed tomography scan abdomen and pelvis unremarkable. Seen by vascular. We'll follow up outpatient. Plan for bronchoscopy tomorrow by pulmonary. Active Medications Acetaminophen (Acetaminophen Tab 325 Mg Tab) 650 mg PO Q6HR PRN PRN Reason: Mild Pain or Fever > 100.5 Albuterol/Ipratropium (Ipratropium-Albuterol 3 Ml Neb) 3 ml INHALATION RT-QID [facility] Last Admin: 02/20/22 12:03 Dose: 3 ml Amlodipine Besylate (Amlodipine 10 Mg Tab) 10 mg PO DAILY [facility] Last Admin: 02/20/22 07:48 Dose: 10 mg Aspirin (Aspirin 81 Mg) 81 mg PO DAILY [facility] Last Admin: 02/20/22 07:48 Dose: 81 mg Budesonide/Formoterol Fumarate (Symbicort 160-4.5 Mcg Inhaler) 2 puff INHALATION RT-BID [facility] Last Admin: 02/20/22 08:59 Dose: Not Given Calcium Carbonate/Glycine (Calcium Carbonate 500 Mg Chewable) 1,000 mg PO Q4HR PRN PRN Reason: Dyspepsia Hydrochlorothiazide (Hydrochlorothiazide 25 Mg Tab) 25 mg PO DAILY [facility] Last Admin: 02/20/22 07:47 Dose: 25 mg Ceftriaxone Sodium 1 gm/ (Sodium Chloride) 50 mls @ 100 mls/hr IVPB Q12HR [facility]; Protocol Last Admin: 02/20/22 07:48 Dose: 100 mls/hr Sodium Chloride (Saline 0.9%) 1,000 mls @ 75 mls/hr IV .[id number] [facility] Last Admin: 02/20/22 09:01 Dose: 75 mls/hr Lactulose (Lactulose 20 Gm/30 Ml Cup) 20 gm PO DAILY PRN PRN Reason: Constipation Methylprednisolone Sodium Succinate (Methylprednisolone Sod Succi 40 Mg/Ml 1 Ml Vial) 40 mg IV Q8HR [facility] Last Admin: 02/20/22 08:30 Dose: 40 mg Metoprolol Tartrate (Metoprolol Tartrate 50 Mg Tab) 50 mg PO BID [facility] Last Admin: 02/20/22 07:48 Dose: 50 mg Miscellaneous Information (Potassium Replacement Protocol 1 Each Misc) 1 each MISCELLANE DAILY PRN; Protocol PRN Reason: Per Protocol Naloxone HCl (Naloxone 0.4 Mg/Ml 1 Ml Vial) 0.2 mg IVP Q2M PRN PRN Reason: Opioid Reversal Nicotine (Nicotine 14mg/24hr Patch) 1 patch TRANSDERM DAILY [facility] Last Admin: 02/20/22 07:48 Dose: 1 patch Ondansetron HCl (Ondansetron 4 Mg Tab) 8 mg PO Q8HR PRN PRN Reason: Nausea And Vomiting Last Admin: 02/19/22 20:36 Dose: 8 mg Pravastatin Sodium (Pravastatin Sodium 20 Mg Tab) 10 mg PO DAILY [facility] Last Admin: 02/20/22 07:47 Dose: 10 mg Temazepam (Temazepam 15 Mg Cap) 15 mg PO HS PRN PRN Reason: Insomnia Past medical history to include: CAD with CABG, COPD, TIA, hypertension, hyperlipidemia, myocardial infarction, 1985 uterine cancer hysterectomy, Social history: Lives alone. Smoked about half a pack to a pack a day currently half close to 47 years. No alcohol. Physical examination: VITAL SIGNS: 97.8, 57, 18, 1 25 x 60, 92% on 5 L GENERAL: Laying in bed, tired. EYES: Pupils equal. Conjunctiva normal. HEENT: External appearance of nose and ears normal, oral cavity grossly normal. NECK: JVD not raised; masses not palpable. HEART: First and second heart sounds are normal; no edema. LUNGS: Respiratory rate increased; decreased breath sounds, wheezing. ABDOMEN: Soft, nontender, liver spleen not palpable, no masses palpable. PSYCH: Alert and oriented x3; mood and affect bit anxiousl. INVESTIGATIONS, reviewed in the clinical context: 02/20/2022: WBC 17.8, hemoglobin 12.2 potassium 3.2 sodium 128 creatinine 0.43 Computed tomography scan abdomen and pelvis: Unremarkable WBC 9.4 hemoglobin 13.4 platelets 461 sodium 128 potassium 3.8. 9 creatinine 0.50 Troponin I 0.017 proBNP 2350 COVID-19/influenza type A/type b: Not detected EKG tracing personally reviewed by me-sinus bradycardia. Nonspecific T-wave changes. Chest x-ray film personally reviewed by [id number]-lcehy consolidation/atelectasis CT angiogram chest: Mediastinal mass with encasement of the left and right pulmonary arteries measuring 7.6 x 7 cm. Left bronchial adenopathy. Some emphysema. Coarse reticular interstitial infiltrates in the left lung. Assessment and plan: -Acute COPD exacerbation in a current smoker: Slow to respond Symbicort, DuoNeb, IV Solu-Medrol -Pneumonia suspected gram-negative organism. IV ceftriaxone -Mediastinal mass measuring 7.6 x 7 cm. With lymphadenopathy Bronchoscopy tomorrow -Chronic nicotine dependence, cigarette smoker Nicotine patch -Essential hypertension Lopressor -Hyperlipidemia Pravachol -CAD with a prior history of CABG Aspirin, Lopressor, Pravachol -Hyponatremia, likely hypovolemic from decreased oral intake Normal saline. Symbicort, DuoNeb, IV Solu Medrol, IV ceftriaxone, . For bronchoscopy tomorrow. Discussed with patient.
--- NOTE | 2022-02-20 19:09 | P.PN ---
Subjective Progress Note Date: 02/20/22 Principal diagnosis: COPD exacerbation, mediastinal mass In follow-up today patient is breathing comfortable at rest, denies fevers or sweats, nausea, vomiting, energy levels are fair. Objective - Vital Signs Vital signs: Vital Signs Temp 97.7 F 02/20/22 14:00 Pulse 68 02/20/22 15:51 Resp 17 02/20/22 14:00 BP 118/64 02/20/22 14:00 Pulse Ox 91 L 02/20/22 14:00 FiO2 Intake & Output 02/20/22 02/20/22 02/21/22 06:59 18:59 06:59 Other: Voiding Method Toilet # Voids 2 4 - Constitutional General appearance: Present: average body habitus, cooperative, no acute distress - EENT Eyes: Present: anicteric sclerae, EOMI ENT: Present: hearing grossly normal - Respiratory Details: Respirations even and unlabored at rest - Cardiovascular Details: Skin warm and dry to the touch - Neurologic Neurologic: Present: CNII-XII intact - Musculoskeletal Musculoskeletal: Present: strength equal bilaterally - Psychiatric Psychiatric: Present: A&O x's 3, appropriate affect, intact judgment & insight - Labs CBC & Chem 7: 02/20/22 04:24 02/20/22 04:24 Labs: Abnormal Lab Results - Last 24 Hours (Table) 02/20/22 02/20/22 Range/Units 04:24 04:24 WBC 17.89 H (4.50-10.00) X 10*3/uL Hct 35.9 L (37.2-46.3) % Immature Gran # 0.07 H (0.00-0.04) X 10*3/uL Neutrophils # 16.11 H (1.80-7.70) X 10*3/uL Eosinophils # 0 L (0.04-0.35) X 10*3/uL Sodium 128 L (137-145) mmol/L Potassium 3.2 L (3.5-5.1) mmol/L Chloride 94 L (98-107) mmol/L Creatinine 0.43 L (0.52-1.04) mg/dL Glucose 122 H (74-99) mg/dL Osmolality 266 L (280-301) mosm/kg Microbiology - Last 24 Hours (Table) 11/05/22 19:44 Blood Culture - Preliminary Blood No Growth after 24 hours - Imaging and Cardiology CT scan - abdomen: report reviewed CT scan - pelvis: report reviewed Assessment and Plan (1) Mediastinal mass Current Visit: Yes Status: Acute Priority: High Code(s): J98.59 - OTHER DISEASES OF MEDIASTINUM, NOT ELSEWHERE CLASSIFIED SNOMED Code(s): 27729152 (2) Hemoptysis Current Visit: Yes Status: Acute Priority: High Code(s): R04.2 - HEMOPTYSIS SNOMED Code(s): 01818517 (3) Lung mass Current Visit: Yes Status: Acute Priority: High Code(s): R91.8 - OTHER NONSPECIFIC ABNORMAL FINDING OF LUNG FIELD SNOMED Code(s): 346908586 Plan: Plan is for bronchoscopy and biopsy with pulmonary tomorrow. Pending pathology results. Did review the results of the CT of the abdomen and pelvis with the patient, there is no evidence of unusual masses are unusual findings. Pending flow cytometry on peripheral blood as ordered by covering Oncologist over the weekend.
[2022-02-21] MEDS: methylPREDNISolone SOD SUCCI 40 MG/ML 1 ML VIAL IV SCH ×3 (02:21→17:04)
[2022-02-21] MEDS: IPRATROPIUM-ALBUTEROL 3 ML NEB INHALATION SCH ×4 (08:15→20:03)
[2022-02-21] MEDS: SYMBICORT 160-4.5 MCG INHALER INHALATION SCH ×2 (08:15→20:03)
[2022-02-21] MEDS: NICOTINE 14MG/24HR PATCH TRANSDERM SCH (08:29)
[2022-02-21] MEDS: METOPROLOL TARTRATE 50 MG TAB PO SCH ×2 (08:29→20:37)
[2022-02-21] MEDS: ASPIRIN 81 MG PO SCH (08:29)
[2022-02-21] MEDS: amLODIPine 10 MG TAB PO SCH (08:29)
[2022-02-21] MEDS: PRAVASTATIN SODIUM 20 MG TAB PO SCH (08:29)
[2022-02-21 09:17] LABS: African American GFR (CKD) 116.1 (60.0-200.0); Anion Gap 12.5 mmol/L (10.00-18.00); BUN/Creat Ratio 16.8 Ratio (12.00-20.00); Blood Urea Nitrogen 8.4 mg/dL (9.0-27.0); Calcium 9.1 mg/dL (8.7-10.3); Carbon Dioxide 23.5 mmol/L (20.0-27.5); Non-African American GFR(CKD) 100.1 (60.0-200.0); Potassium 3.6 mmol/L (3.5-5.5)
--- NOTE | 2022-02-21 09:53 | CA ---
Transthoracic Echo Report Name: Vivian Quinones Age: 66 Gender: F : 1955 Exam Date: 02/20/2022 09:51 Exam Location: [facility] Ht (in): 63 Wt (lb): 127 Ordering Physician: Juvencio Meneses MD Attending/Referring Phys: Sisal Operator Beatrice Brower RDCS Procedure CPT: Indications: Chest Pain Cardiac Hx: Technical Quality: Good Contrast 1: Total Dose (mL): Contrast 2: Total Dose (mL): MEASUREMENTS (Male / Female) Normal Values 2D ECHO LV Diastolic Diameter PLAX 4.8 cm 4.2 - 5.9 / 3.9 - 5.3 cm LV Systolic Diameter PLAX 2.8 cm IVS Diastolic Thickness 1.3 cm 0.6 - 1.0 / 0.6 - 0.9 cm LVPW Diastolic Thickness 1.2 cm 0.6 - 1.0 / 0.6 - 0.9 cm LV Relative Wall Thickness 0.5 RV Internal Dim ED PLAX 3.6 cm LA Systolic Diameter LX 3.9 cm 3.0 - 4.0 / 2.7 - 3.8 cm LA Volume 63.7 cm??? 18 - 58 / 22 - 52 cm??? M-MODE Aortic Root Diameter MM 3.0 cm MV E Point Septal Separation 0.7 cm AV Cusp Separation MM 1.9 cm DOPPLER AV Peak Velocity 166.3 cm/s AV Peak Gradient 11.1 mmHg MV Area PHT 2.3 cm??? Mitral E Point Velocity 91.7 cm/s Mitral A Point Velocity 101.1 cm/s Mitral E to A Ratio 0.9 MV Deceleration Time 327.0 ms TR Peak Velocity 291.4 cm/s TR Peak Gradient 34.0 mmHg Right Ventricular Systolic Press 39.0 mmHg FINDINGS Left Ventricle Left ventricular ejection fraction is estimated at 40-45 %. Left ventricular cavity size normal. Mild concentric left ventricular hypertrophy. Basel mid inferior wall hypokinesis, posterior wall hypokinesis Right Ventricle Mild right ventricular dilatation. Mild pulmonary hypertension. Right Atrium Normal right atrial size. Left Atrium Moderately increased left atrial volume. Mildly increased left atrial area. No evidence for an atrial septal defect. Mitral Valve Mitral valve thickened. Mitral annular calcification. Moderate mitral regurgitation. Aortic Valve Trileaflet aortic valve. No aortic valve stenosis or regurgitation. Tricuspid Valve Mild tricuspid regurgitation. Pulmonic Valve Trace to mild pulmonic regurgitation. Pericardium Normal pericardium. No pericardial effusion. Aorta Normal size aortic root and proximal ascending aorta. CONCLUSIONS Mildly impaired all the function was EF between 40-45% Moderate mitral regurgitation Previewed by: Dr. Vito Bird MD (Electronically Signed) Final Date: 21 February 2022 09:53
[2022-02-21] MEDS ORDERED: MIDAZOLAM 2 MG/2 ML VIAL ONE (12:18)
[2022-02-21] MEDS ORDERED: ePHEDrine 50 MG/ML 1 ML VIAL ONE (12:18)
[2022-02-21] MEDS ORDERED: PROPOFOL 10 MG/ML 20 ML VIAL IV ONE (12:18)
[2022-02-21] MEDS ORDERED: SUCCINYLCHOLINE CHLORIDE 200 MG/10 ML VIAL IV ONE (12:18)
[2022-02-21] MEDS ORDERED: fentaNYL (PF) 50 MCG/ML 2 ML AMP ONE (12:18)
[2022-02-21] MEDS ORDERED: LIDOCAINE 2% INJ 20 MG/ML (2 ML VIAL) ONE (12:18)
[2022-02-21] MEDS: SODIUM CHLORIDE 0.9% 1,000 ML IV SCH (12:42)
[2022-02-21] MEDS ORDERED: SODIUM CHLORIDE 0.9% 1,000 ML IV ONE (13:18)
--- NOTE | 2022-02-21 13:42 | P.PN ---
Subjective Progress Note Date: 02/21/22 66-year-old female, presents to the emergency department on February 18, complaining of shortness of breath. The patient is been smoking for more than 45 years. The patient does continue to smoke cigarettes. In addition to shortness of breath, she complains of cough, and bright red blood in her sputum. She hasn't been feeling well for at least a week, maybe a bit longer. She's had poor appetite, and gradual weight loss. She denies any fever or chills. She has chest tightness, but no chest pain. The patient is seen in the emergency room, and admitted with a COPD exacerbation. The patient has a history of hypertension, hyperlipidemia, coronary disease, and previous bypass surgery. She also has a history of CVA, and previous uterine cancer with hysterectomy. White count 9.4, hemoglobin 13.4, hematocrit 39.4, and platelet count 461,000. D-dimer was 1.49. Sodium 128, potassium 3.8, chlorides 94, CO2 24, anion gap is 10, BUN 9, creatinine 0.5. Testing for coronavirus was negative, as was influenza A and influenza B. Chest x-ray is unremarkable save for small left pleural effusion. The patient's CT angiogram was negative for pulmonary embolism, but did reveal a large mediastinal mass, which is quite impressive. It does encase the pulmonary arteries on the left, and left julia tem bronchus. The patient is seen today 02/20/2022 in follow-up on the regular medical floor. She is currently resting comfortably in bed. Awake and alert in no acute distress. Maintaining O2 saturations in the low 90s on 2 L/m per nasal cannula. Afebrile. Hemodynamically stable. Blood culture reveals no growth to date. White count 17.8. Hemoglobin 12.2. Sodium 128. Potassium 3.2. BUN 8. Creatinine 0.43. She is continued on Symbicort, DuoNeb inhalations, IV Solu- Medrol. Antibiotics in the form of ceftriaxone. NicoDerm patch in place. The patient is seen today February 2020 follow-up on the regular medical floor. She is awake and alert in no acute distress. She is maintaining O2 saturation admissions in the 90s on 5 L/m per nasal cannula. Today's with a loose nonproductive cough. Sputum culture pending. Blood culture reveals no growth. Sodium 1:30. Potassium 3.6. BUN 8. Creatinine 0.5. She is continued on DuoNeb inhalations, Symbicort, IV Solu-Medrol. NicoDerm patch in place. Antibiotics in the form of ceftriaxone. Plan is for bronchoscopy with biopsies today. Objective - Vital Signs Vital signs: Vital Signs Temp 96.9 F L 02/21/22 13:20 Pulse 65 02/21/22 13:20 Resp 14 02/21/22 13:20 BP 127/63 02/21/22 13:20 Pulse Ox 95 02/21/22 13:20 FiO2 Intake & Output 02/20/22 02/21/22 02/21/22 18:59 06:59 18:59 Intake Total 300 Balance 300 Intake: IV 300 Other: Voiding Method Toilet # Voids 4 2 - Exam GENERAL EXAM: Alert, pleasant 66-year-old female, on 5 L nasal cannula, comfortable in no apparent distress. HEAD: Normocephalic. EYES: Normal reaction of pupils, equal size. NOSE: Clear with pink turbinates. THROAT: No erythema or exudates. NECK: No masses, no JVD. CHEST: No chest wall deformity. LUNGS: Equal air entry with diminished breath sounds in the left. Scattered rhonchi. CVS: S1 and S2 normal with no audible murmur, regular rhythm. ABDOMEN: No hepatosplenomegaly, normal bowel sounds, no guarding or rigidity. SPINE: No scoliosis or deformity SKIN: No rashes CENTRAL NERVOUS SYSTEM: No focal deficits, tone is normal in all 4 extremities. EXTREMITIES: There is no peripheral edema. No clubbing, no cyanosis. Peripheral pulses are intact. - Labs CBC & Chem 7: 02/20/22 04:24 02/21/22 03:39 Labs: Abnormal Lab Results - Last 24 Hours (Table) 02/21/22 Range/Units 03:39 Sodium 130 L (135-145) mmol/L Chloride 94 L (96-109) mmol/L BUN 8.4 L (9.0-27.0) mg/dL Creatinine 0.5 L (0.6-1.5) mg/dL Glucose 111 H (70-110) mg/dL Microbiology - Last 24 Hours (Table) 02/20/22 20:00 Gram Stain - Preliminary Sputum Sputum Culture - Preliminary 02/18/22 19:44 Blood Culture - Preliminary Blood No Growth after 48 hours Assessment and Plan Assessment: Large mediastinal mass, likely related to lung cancer more so than lymphoma. No evidence of malignancy on CT of the abdomen and pelvis. Status post bronchoscopy and biopsy of left mediastinal mass today 02/21/2022 Acute exacerbation of COPD. Hyponatremia, rule out SIADH. Current sodium 130 History of CAD with previous bypass grafting, 2019. History of ongoing tobacco use with nicotine addiction. History of hypertension. History of hyperlipidemia. History of CVA. Prior history of myocardial infarction. History of uterine cancer, status post hysterectomy. Plan: The patient was seen and evaluated Labs and medications reviewed Continue the current treatment plan Bronchoscopy with biopsies performed today Again educated regarding the importance of complete smoking cessation NicoDerm patch in place Titrate the FiO2 as tolerated We will continue to follow I have personally seen and examined the patient, performed the documentation and the assessment and plan as written. Number of minutes spent on the visit: 10.
--- NOTE | 2022-02-21 15:29 | P.PN ---
Progress Note - Text Progress Note Date: 02/21/22 Chief Complaint: Short of breath This is a 66-year-old patient who follows with Dr. Green. Chronic stable medical conditions include CAD with bypass, hypertension, hyperlipidemia, uterine cancer hysterectomy,. Patient long-standing smoker. Presenting with increased shortness of breath. Bringing up phlegm. No fever no chills. Decreased appetite. Losing weight. Has been coughing up some blood for about a week. On home oxygen 2 L. Occasional chest pressure. Able to get around the house. Tired rundown. 02/20/2022: Tired. Some shortness of breath. Computed tomography scan abdomen and pelvis unremarkable. Seen by vascular. We'll follow up outpatient. Plan for bronchoscopy tomorrow by pulmonary. 02/21/2022: Patient is seen this morning. Pending bronchoscopy. Laying in bed. Tired. Congested cough. Not able to expectorate. Active Medications Acetaminophen (Acetaminophen Tab 325 Mg Tab) 650 mg PO Q6HR PRN PRN Reason: Mild Pain or Fever > 100.5 Last Admin: 02/21/22 02:28 Dose: 650 mg Albuterol/Ipratropium (Ipratropium-Albuterol 3 Ml Neb) 3 ml INHALATION RT-QID [facility] Last Admin: 02/21/22 10:55 Dose: 3 ml Amlodipine Besylate (Amlodipine 10 Mg Tab) 10 mg PO DAILY [facility] Last Admin: 02/21/22 08:29 Dose: 10 mg Aspirin (Aspirin 81 Mg) 81 mg PO DAILY [facility] Last Admin: 02/21/22 08:29 Dose: 81 mg Budesonide/Formoterol Fumarate (Symbicort 160-4.5 Mcg Inhaler) 2 puff INHALATION RT-BID [facility] Last Admin: 02/21/22 08:15 Dose: 2 puff Calcium Carbonate/Glycine (Calcium Carbonate 500 Mg Chewable) 1,000 mg PO Q4HR PRN PRN Reason: Dyspepsia Ceftriaxone Sodium 1 gm/ (Sodium Chloride) 50 mls @ 100 mls/hr IVPB Q12HR [facility]; Protocol Last Admin: 02/21/22 08:28 Dose: 100 mls/hr Sodium Chloride (Saline 0.9%) 1,000 mls @ 75 mls/hr IV .[id number] [facility] Last Admin: 02/21/22 12:42 Dose: Not Given Lactulose (Lactulose 20 Gm/30 Ml Cup) 20 gm PO DAILY PRN PRN Reason: Constipation Methylprednisolone Sodium Succinate (Methylprednisolone Sod Succi 40 Mg/Ml 1 Ml Vial) 40 mg IV Q8HR [facility] Last Admin: 02/21/22 08:28 Dose: 40 mg Metoprolol Tartrate (Metoprolol Tartrate 50 Mg Tab) 50 mg PO BID [facility] Last Admin: 02/21/22 08:29 Dose: 50 mg Miscellaneous Information (Potassium Replacement Protocol 1 Each Misc) 1 each MISCELLANE DAILY PRN; Protocol PRN Reason: Per Protocol Naloxone HCl (Naloxone 0.4 Mg/Ml 1 Ml Vial) 0.2 mg IVP Q2M PRN PRN Reason: Opioid Reversal Nicotine (Nicotine 14mg/24hr Patch) 1 patch TRANSDERM DAILY [facility] Last Admin: 02/21/22 08:29 Dose: 1 patch Ondansetron HCl (Ondansetron 4 Mg Tab) 8 mg PO Q8HR PRN PRN Reason: Nausea And Vomiting Last Admin: 02/19/22 20:36 Dose: 8 mg Pravastatin Sodium (Pravastatin Sodium 20 Mg Tab) 10 mg PO DAILY [facility] Last Admin: 02/21/22 08:29 Dose: 10 mg Temazepam (Temazepam 15 Mg Cap) 15 mg PO HS PRN PRN Reason: Insomnia Past medical history to include: CAD with CABG, COPD, TIA, hypertension, hyperlipidemia, myocardial infarction, 1985 uterine cancer hysterectomy, Social history: Lives alone. Smoked about half a pack to a pack a day currently half close to 47 years. No alcohol. Physical examination: VITAL SIGNS: 96.9, 65, 14, 1 27 x 63, 95% on 6 L GENERAL: Laying in bed, tired. EYES: Pupils equal. Conjunctiva normal. HEENT: External appearance of nose and ears normal, oral cavity grossly normal. NECK: JVD not raised; masses not palpable. HEART: First and second heart sounds are normal; no edema. LUNGS: Respiratory rate increased; decreased breath sounds, wheezing. ABDOMEN: Soft, nontender, liver spleen not palpable, no masses palpable. PSYCH: Alert and oriented x3; mood and affect bit anxiousl. INVESTIGATIONS, reviewed in the clinical context: 02/21/2022: Sodium 1:30 potassium 3.6 creatinine 0.5 02/20/2022: WBC 17.8, hemoglobin 12.2 potassium 3.2 sodium 128 creatinine 0.43 Computed tomography scan abdomen and pelvis: Unremarkable WBC 9.4 hemoglobin 13.4 platelets 461 sodium 128 potassium 3.8. 9 creatinine 0.50 Troponin I 0.017 proBNP 2350 COVID-19/influenza type A/type b: Not detected EKG tracing personally reviewed by me-sinus bradycardia. Nonspecific T-wave changes. Chest x-ray film personally reviewed by [id number] consolidation/atelectasis CT angiogram chest: Mediastinal mass with encasement of the left and right pulmonary arteries measuring 7.6 x 7 cm. Left bronchial adenopathy. Some emphysema. Coarse reticular interstitial infiltrates in the left lung. Assessment and plan: -Acute COPD exacerbation in a current smoker: Slow to respond Symbicort, DuoNeb, IV Solu-Medrol -Pneumonia suspected gram-negative organism. IV ceftriaxone -Mediastinal mass measuring 7.6 x 7 cm. With lymphadenopathy Bronchoscopy this afternoon -Chronic nicotine dependence, cigarette smoker Nicotine patch -Essential hypertension Lopressor -Hyperlipidemia Pravachol -CAD with a prior history of CABG Aspirin, Lopressor, Pravachol -Hyponatremia, likely hypovolemic from decreased oral intake Normal saline. Symbicort, DuoNeb, IV Solu Medrol, IV ceftriaxone, . For bronchoscopy this afternoon. Discussed with patient.
--- NOTE | 2022-02-21 22:02 | OP ---
OPERATIVE REPORT PROCEDURES PERFORMED: Bronchoscopy, endobronchial biopsies from left mainstem bronchus. Brushings of endobronchial tumor, left mainstem bronchus. Washings of tumor, left mainstem bronchus. Multiple transcarinal Borjas needle aspirations, and multiple transbronchial Borjas needle aspirations. PREOPERATIVE DIAGNOSIS: Large mediastinal mass, highly consistent with malignancy. POSTOPERATIVE DIAGNOSIS: Large mediastinal mass, highly consistent with malignancy. ANESTHESIA USED: General anesthesia done by ULTRASOUND TECHNICIAN. DESCRIPTION OF PROCEDURE: The patient was brought into the endoscopy suite #1. The patient was intubated by ULTRASOUND TECHNICIAN, and she was placed on mechanical ventilation. After adequate sedation, the patient was connected to mechanical ventilation, and an adapter was applied. Then, the bronchoscope was advanced through the adapter into the endotracheal tube, and an examination was done of the dyllan, which was noted to be quite prominent especially in the anterior carinal area. Examination of right upper lobe, right middle lobe, right lower lobe were normal findings. Then, as we entered the left mainstem bronchus, there was a large tumor protruding into the left mainstem bronchus at 11 o'clock. Tumor was noted to be necrotic and there was significant amount of purulent secretions, which were all suctioned and the left lung was cleared from secretions. A thorough examination was done of the left upper lobe lingula and left lower lobe, no endobronchial tumor was noted. However, the tumor that was eroding from apparently the mediastinum into the upper portion and lateral portion of the left mainstem bronchus was noted, multiple biopsies of the tumor were done. Brushings were done. Washings were done of the left mainstem bronchus tumor. Then, multiple transcarinal Borjas needles were done; however, we have noted that there was mostly a dry tap. No tissue cells were obtained. In spite of multiple attempts, they were successful at times, but no tissue was noted from the Borjas needle itself. Then, multiple transbronchial Borjas needles were done through the tumor that was noted in the left mainstem bronchus. These transcarinal transbronchial Borjas needles were seen by Pathology, and the Pathologist felt we were dealing with malignancy, but exact malignancy is yet to be determined. The procedure was well tolerated, no complications, blood loss was extremely minimal and negligible. MMODL / IJN: [id number] /
--- NOTE | 2022-02-21 22:07 | P.PN ---
Subjective Progress Note Date: 02/21/22 Principal diagnosis: COPD exacerbation, mediastinal mass In follow-up today patient is breathing comfortable at rest, denies acute pain. She is in the process of leaving the unit for her bronchoscopy Objective - Vital Signs Vital signs: Vital Signs Temp 97.4 F L 02/21/22 19:56 Pulse 68 02/21/22 20:13 Resp 16 02/21/22 19:56 BP 130/69 02/21/22 19:56 Pulse Ox 93 L 02/21/22 20:04 FiO2 Intake & Output 02/21/22 02/21/22 02/22/22 06:59 18:59 06:59 Intake Total 300 Balance 300 Intake: IV 300 Other: Voiding Method Toilet # Voids 2 - Constitutional General appearance: Present: average body habitus, cooperative, no acute distress - EENT Eyes: Present: anicteric sclerae, EOMI ENT: Present: hearing grossly normal - Respiratory Details: respirations unlabored at rest - Musculoskeletal Musculoskeletal: Present: generalized weakness, strength equal bilaterally - Psychiatric Psychiatric: Present: A&O x's 3, appropriate affect, intact judgment & insight - Labs CBC & Chem 7: 02/20/22 04:24 02/21/22 03:39 Labs: Abnormal Lab Results - Last 24 Hours (Table) 02/21/22 Range/Units 03:39 Sodium 130 L (135-145) mmol/L Chloride 94 L (96-109) mmol/L BUN 8.4 L (9.0-27.0) mg/dL Creatinine 0.5 L (0.6-1.5) mg/dL Glucose 111 H (70-110) mg/dL Microbiology - Last 24 Hours (Table) 02/18/22 19:44 Blood Culture - Preliminary Blood No Growth after 72 hours 02/20/22 20:00 Gram Stain - Preliminary Sputum Sputum Culture - Preliminary Assessment and Plan (1) Mediastinal mass Current Visit: Yes Status: Acute Priority: High Code(s): J98.59 - OTHER DISEASES OF MEDIASTINUM, NOT ELSEWHERE CLASSIFIED SNOMED Code(s): 86690898 (2) Hemoptysis Current Visit: Yes Status: Acute Priority: High Code(s): R04.2 - HEMOPTYSIS SNOMED Code(s): 25231795 (3) Lung mass Current Visit: Yes Status: Acute Priority: High Code(s): R91.8 - OTHER NONSPECIFIC ABNORMAL FINDING OF LUNG FIELD SNOMED Code(s): 407226430 Plan: Bronchoscopy today. Pending procedure note findings and pathology results. CT AP, no unusual masses or suspicious findings. Pending flow cytometry on peripheral blood. Oncology recommendations pending results of testing
[2022-02-22] MEDS: SODIUM CHLORIDE 0.9% 1,000 ML IV SCH ×2 (00:14→16:38)
[2022-02-22] MEDS: methylPREDNISolone SOD SUCCI 40 MG/ML 1 ML VIAL IV SCH ×4 (00:16→21:13)
[2022-02-22] MEDS: IPRATROPIUM-ALBUTEROL 3 ML NEB INHALATION SCH ×4 (08:03→21:34)
[2022-02-22] MEDS: SYMBICORT 160-4.5 MCG INHALER INHALATION SCH ×2 (08:03→21:32)
[2022-02-22] MEDS: ASPIRIN 81 MG PO SCH (08:17)
[2022-02-22] MEDS: METOPROLOL TARTRATE 50 MG TAB PO SCH ×2 (08:17→21:13)
[2022-02-22] MEDS: PRAVASTATIN SODIUM 20 MG TAB PO SCH (08:17)
[2022-02-22] MEDS: amLODIPine 10 MG TAB PO SCH (08:17)
[2022-02-22] MEDS: NICOTINE 14MG/24HR PATCH TRANSDERM SCH (08:18)
[2022-02-22] MEDS: ONDANSETRON 4 MG TAB PO PRN (11:30)
--- NOTE | 2022-02-22 14:03 | P.PN ---
Subjective Progress Note Date: 02/22/22 66-year-old female, presents to the emergency department on February 18, complaining of shortness of breath. The patient is been smoking for more than 45 years. The patient does continue to smoke cigarettes. In addition to shortness of breath, she complains of cough, and bright red blood in her sputum. She hasn't been feeling well for at least a week, maybe a bit longer. She's had poor appetite, and gradual weight loss. She denies any fever or chills. She has chest tightness, but no chest pain. The patient is seen in the emergency room, and admitted with a COPD exacerbation. The patient has a history of hypertension, hyperlipidemia, coronary disease, and previous bypass surgery. She also has a history of CVA, and previous uterine cancer with hysterectomy. White count 9.4, hemoglobin 13.4, hematocrit 39.4, and platelet count 461,000. D-dimer was 1.49. Sodium 128, potassium 3.8, chlorides 94, CO2 24, anion gap is 10, BUN 9, creatinine 0.5. Testing for coronavirus was negative, as was influenza A and influenza B. Chest x-ray is unremarkable save for small left pleural effusion. The patient's CT angiogram was negative for pulmonary embolism, but did reveal a large mediastinal mass, which is quite impressive. It does encase the pulmonary arteries on the left, and left julia tem bronchus. The patient is seen today 02/20/2022 in follow-up on the regular medical floor. She is currently resting comfortably in bed. Awake and alert in no acute distress. Maintaining O2 saturations in the low 90s on 2 L/m per nasal cannula. Afebrile. Hemodynamically stable. Blood culture reveals no growth to date. White count 17.8. Hemoglobin 12.2. Sodium 128. Potassium 3.2. BUN 8. Creatinine 0.43. She is continued on Symbicort, DuoNeb inhalations, IV Solu- Medrol. Antibiotics in the form of ceftriaxone. NicoDerm patch in place. The patient is seen today February 2020 follow-up on the regular medical floor. She is awake and alert in no acute distress. She is maintaining O2 saturation admissions in the 90s on 5 L/m per nasal cannula. Today's with a loose nonproductive cough. Sputum culture pending. Blood culture reveals no growth. Sodium 1:30. Potassium 3.6. BUN 8. Creatinine 0.5. She is continued on DuoNeb inhalations, Symbicort, IV Solu-Medrol. NicoDerm patch in place. Antibiotics in the form of ceftriaxone. Plan is for bronchoscopy with biopsies today. The patient is seen today 02/22/2022 in follow-up on the regular medical floor. She is currently sitting up in bed. Awake and alert in no acute distress. She is maintaining O2 saturations and then 90s on 5 L nasal cannula. She does have home oxygen currently. She did undergo bronchoscopy with biopsies yesterday and tolerated the procedure well. Suspect we're dealing with some form of cancer. Pathology official results are pending. She is continued on Symbicort, DuoNeb inhalations, IV Solu-Medrol. NicoDerm patches in place. She's on empiric antibiotics in the form of ceftriaxone. Objective - Vital Signs Vital signs: Vital Signs Temp 97.6 F 02/22/22 13:40 Pulse 61 02/22/22 13:40 Resp 20 02/22/22 13:40 BP 122/53 02/22/22 13:40 Pulse Ox 99 02/22/22 13:40 FiO2 Intake & Output 02/21/22 02/22/22 02/22/22 18:59 06:59 18:59 Intake Total 300 Balance 300 Intake: IV 300 Other: # Voids 2 - Exam GENERAL EXAM: Alert, pleasant 66-year-old female, on 5 L nasal cannula, comfortable in no apparent distress. HEAD: Normocephalic. EYES: Normal reaction of pupils, equal size. NOSE: Clear with pink turbinates. THROAT: No erythema or exudates. NECK: No masses, no JVD. CHEST: No chest wall deformity. LUNGS: Equal air entry with diminished breath sounds in the left. Scattered rhonchi. CVS: S1 and S2 normal with no audible murmur, regular rhythm. ABDOMEN: No hepatosplenomegaly, normal bowel sounds, no guarding or rigidity. SPINE: No scoliosis or deformity SKIN: No rashes CENTRAL NERVOUS SYSTEM: No focal deficits, tone is normal in all 4 extremities. EXTREMITIES: There is no peripheral edema. No clubbing, no cyanosis. Peripheral pulses are intact. - Labs CBC & Chem 7: 02/20/22 04:24 11/08/22 03:39 Labs: Microbiology - Last 24 Hours (Table) 02/18/22 19:44 Blood Culture - Preliminary Blood No Growth after 72 hours Assessment and Plan Assessment: Large mediastinal mass, likely related to lung cancer more so than lymphoma. No evidence of malignancy on CT of the abdomen and pelvis. Status post bronchoscopy and biopsy of left mediastinal mass 02/21/2022 Acute exacerbation of COPD. Hyponatremia, rule out SIADH. Current sodium 130 History of CAD with previous bypass grafting, 2019. History of ongoing tobacco use with nicotine addiction. History of hypertension. History of hyperlipidemia. History of CVA. Prior history of myocardial infarction. History of uterine cancer, status post hysterectomy. Plan: The patient was seen and evaluated Labs and medications reviewed Continue the current treatment plan Bronchoscopy with biopsies performed yesterday Pathology results are pending, suspect cancer Again educated regarding the importance of complete smoking cessation NicoDerm patch in place Titrate the FiO2 as tolerated Home once cleared by medicine We will continue to follow I have personally seen and examined the patient, performed the documentation and the assessment and plan as written. Number of minutes spent on the visit: 10.
--- NOTE | 2022-02-22 17:00 | P.PN ---
Progress Note - Text Progress Note Date: 02/22/22 Chief Complaint: Short of breath This is a 66-year-old patient who follows with Dr. Green. Chronic stable medical conditions include CAD with bypass, hypertension, hyperlipidemia, uterine cancer hysterectomy,. Patient long-standing smoker. Presenting with increased shortness of breath. Bringing up phlegm. No fever no chills. Decreased appetite. Losing weight. Has been coughing up some blood for about a week. On home oxygen 2 L. Occasional chest pressure. Able to get around the house. Tired rundown. 02/20/2022: Tired. Some shortness of breath. Computed tomography scan abdomen and pelvis unremarkable. Seen by vascular. We'll follow up outpatient. Plan for bronchoscopy tomorrow by pulmonary. 02/21/2022: Patient is seen this morning. Pending bronchoscopy. Laying in bed. Tired. Congested cough. Not able to expectorate. 02/22/2022: Patient underwent bronchoscopy yesterday. Biopsy done. Congested cough. Bringing us a sputum. Tired. Short of breath. Discussed with Dr. Mcleod. Discussed with the patient. Encourage oral intake. Active Medications Acetaminophen (Acetaminophen Tab 325 Mg Tab) 650 mg PO Q6HR PRN PRN Reason: Mild Pain or Fever > 100.5 Last Admin: 02/21/22 02:28 Dose: 650 mg Albuterol/Ipratropium (Ipratropium-Albuterol 3 Ml Neb) 3 ml INHALATION RT-QID [facility] Last Admin: 02/22/22 15:26 Dose: 3 ml Amlodipine Besylate (Amlodipine 10 Mg Tab) 10 mg PO DAILY [facility] Last Admin: 02/22/22 08:17 Dose: 10 mg Aspirin (Aspirin 81 Mg) 81 mg PO DAILY [facility] Last Admin: 02/22/22 08:17 Dose: 81 mg Budesonide/Formoterol Fumarate (Symbicort 160-4.5 Mcg Inhaler) 2 puff INHALATION RT-BID [facility] Last Admin: 02/22/22 08:03 Dose: 2 puff Calcium Carbonate/Glycine (Calcium Carbonate 500 Mg Chewable) 1,000 mg PO Q4HR PRN PRN Reason: Dyspepsia Ceftriaxone Sodium 1 gm/ (Sodium Chloride) 50 mls @ 100 mls/hr IVPB Q12HR [facility]; Protocol Last Admin: 02/22/22 08:17 Dose: 100 mls/hr Sodium Chloride (Saline 0.9%) 1,000 mls @ 75 mls/hr IV .[id number] [facility] Last Admin: 02/22/22 16:38 Dose: Not Given Lactulose (Lactulose 20 Gm/30 Ml Cup) 20 gm PO DAILY PRN PRN Reason: Constipation Methylprednisolone Sodium Succinate (Methylprednisolone Sod Succi 40 Mg/Ml 1 Ml Vial) 40 mg IV Q8HR [facility] Last Admin: 02/22/22 16:37 Dose: 40 mg Metoprolol Tartrate (Metoprolol Tartrate 50 Mg Tab) 50 mg PO BID [facility] Last Admin: 02/22/22 08:17 Dose: 50 mg Miscellaneous Information (Potassium Replacement Protocol 1 Each Misc) 1 each MISCELLANE DAILY PRN; Protocol PRN Reason: Per Protocol Naloxone HCl (Naloxone 0.4 Mg/Ml 1 Ml Vial) 0.2 mg IVP Q2M PRN PRN Reason: Opioid Reversal Nicotine (Nicotine 14mg/24hr Patch) 1 patch TRANSDERM DAILY [facility] Last Admin: 02/22/22 08:18 Dose: 1 patch Ondansetron HCl (Ondansetron 4 Mg Tab) 8 mg PO Q8HR PRN PRN Reason: Nausea And Vomiting Last Admin: 02/22/22 11:30 Dose: 8 mg Pravastatin Sodium (Pravastatin Sodium 20 Mg Tab) 10 mg PO DAILY [facility] Last Admin: 02/22/22 08:17 Dose: 10 mg Temazepam (Temazepam 15 Mg Cap) 15 mg PO HS PRN PRN Reason: Insomnia Past medical history to include: CAD with CABG, COPD, TIA, hypertension, hyperlipidemia, myocardial infarction, 1985 uterine cancer hysterectomy, Social history: Lives alone. Smoked about half a pack to a pack a day currently half close to 47 years. No alcohol. Physical examination: VITAL SIGNS: 97.6, 61, 20, 1 22 x 53, 99% on 5 L GENERAL: Laying in bed, tired. EYES: Pupils equal. Conjunctiva normal. HEENT: External appearance of nose and ears normal, oral cavity grossly normal. NECK: JVD not raised; masses not palpable. HEART: First and second heart sounds are normal; no edema. LUNGS: Respiratory rate increased; decreased breath sounds, wheezing. ABDOMEN: Soft, nontender, liver spleen not palpable, no masses palpable. PSYCH: Alert and oriented x3; mood and affect bit anxiousl. INVESTIGATIONS, reviewed in the clinical context: 02/21/2022: Sodium 1:30 potassium 3.6 creatinine 0.5 02/20/2022: WBC 17.8, hemoglobin 12.2 potassium 3.2 sodium 128 creatinine 0.43 Computed tomography scan abdomen and pelvis: Unremarkable WBC 9.4 hemoglobin 13.4 platelets 461 sodium 128 potassium 3.8. 9 creatinine 0.50 Troponin I 0.017 proBNP 2350 COVID-19/influenza type A/type b: Not detected EKG tracing personally reviewed by me-sinus bradycardia. Nonspecific T-wave changes. Chest x-ray film personally reviewed by [id number] consolidation/atelectasis CT angiogram chest: Mediastinal mass with encasement of the left and right pulmonary arteries measuring 7.6 x 7 cm. Left bronchial adenopathy. Some emphysema. Coarse reticular interstitial infiltrates in the left lung. Assessment and plan: -Acute COPD exacerbation in a current smoker: Better Symbicort, DuoNeb, IV Solu-Medrol cutback to 40 mg every 12 -Pneumonia suspected gram-negative organism. IV ceftriaxone -Mediastinal mass measuring 7.6 x 7 cm. With lymphadenopathy Bronchoscopy with biopsy of the tumor by Dr. mcleod on February 21 handout on 12/03/2021 -Chronic nicotine dependence, cigarette smoker Nicotine patch -Essential hypertension Lopressor -Hyperlipidemia Pravachol -CAD with a prior history of CABG Aspirin, Lopressor, Pravachol -Hyponatremia, likely hypovolemic from decreased oral intake Normal saline. Symbicort, DuoNeb, IV Solu Medrol cutback, IV ceftriaxone, . Bronchoscopy findings discussed with Dr. Mcleod. Discussed with patient. Increase activity. DC saline
[2022-02-23] MEDS: methylPREDNISolone SOD SUCCI 40 MG/ML 1 ML VIAL IV SCH (08:26)
[2022-02-23] MEDS: NICOTINE 14MG/24HR PATCH TRANSDERM SCH (08:26)
[2022-02-23] MEDS: ASPIRIN 81 MG PO SCH (08:27)
[2022-02-23] MEDS: amLODIPine 10 MG TAB PO SCH (08:27)
[2022-02-23] MEDS: METOPROLOL TARTRATE 50 MG TAB PO SCH (08:27)
[2022-02-23] MEDS: PRAVASTATIN SODIUM 20 MG TAB PO SCH (08:27)
[2022-02-23 08:34] VITALS: RESP 18
[2022-02-23] MEDS: SYMBICORT 160-4.5 MCG INHALER INHALATION SCH (08:47)
[2022-02-23] MEDS: IPRATROPIUM-ALBUTEROL 3 ML NEB INHALATION SCH ×3 (08:47→16:13)
--- NOTE | 2022-02-23 12:15 | P.PN ---
Subjective Progress Note Date: 02/23/22 66-year-old female, presents to the emergency department on February 18, complaining of shortness of breath. The patient is been smoking for more than 45 years. The patient does continue to smoke cigarettes. In addition to shortness of breath, she complains of cough, and bright red blood in her sputum. She hasn't been feeling well for at least a week, maybe a bit longer. She's had poor appetite, and gradual weight loss. She denies any fever or chills. She has chest tightness, but no chest pain. The patient is seen in the emergency room, and admitted with a COPD exacerbation. The patient has a history of hypertension, hyperlipidemia, coronary disease, and previous bypass surgery. She also has a history of CVA, and previous uterine cancer with hysterectomy. White count 9.4, hemoglobin 13.4, hematocrit 39.4, and platelet count 461,000. D-dimer was 1.49. Sodium 128, potassium 3.8, chlorides 94, CO2 24, anion gap is 10, BUN 9, creatinine 0.5. Testing for coronavirus was negative, as was influenza A and influenza B. Chest x-ray is unremarkable save for small left pleural effusion. The patient's CT angiogram was negative for pulmonary embolism, but did reveal a large mediastinal mass, which is quite impressive. It does encase the pulmonary arteries on the left, and left julia tem bronchus. The patient is seen today 02/20/2022 in follow-up on the regular medical floor. She is currently resting comfortably in bed. Awake and alert in no acute distress. Maintaining O2 saturations in the low 90s on 2 L/m per nasal cannula. Afebrile. Hemodynamically stable. Blood culture reveals no growth to date. White count 17.8. Hemoglobin 12.2. Sodium 128. Potassium 3.2. BUN 8. Creatinine 0.43. She is continued on Symbicort, DuoNeb inhalations, IV Solu- Medrol. Antibiotics in the form of ceftriaxone. NicoDerm patch in place. The patient is seen today February 2020 follow-up on the regular medical floor. She is awake and alert in no acute distress. She is maintaining O2 saturation admissions in the 90s on 5 L/m per nasal cannula. Today's with a loose nonproductive cough. Sputum culture pending. Blood culture reveals no growth. Sodium 1:30. Potassium 3.6. BUN 8. Creatinine 0.5. She is continued on DuoNeb inhalations, Symbicort, IV Solu-Medrol. NicoDerm patch in place. Antibiotics in the form of ceftriaxone. Plan is for bronchoscopy with biopsies today. The patient is seen today 02/22/2022 in follow-up on the regular medical floor. She is currently sitting up in bed. Awake and alert in no acute distress. She is maintaining O2 saturations and then 90s on 5 L nasal cannula. She does have home oxygen currently. She did undergo bronchoscopy with biopsies yesterday and tolerated the procedure well. Suspect we're dealing with some form of cancer. Pathology official results are pending. She is continued on Symbicort, DuoNeb inhalations, IV Solu-Medrol. NicoDerm patches in place. She's on empiric antibiotics in the form of ceftriaxone. The patient is seen today 02/23/2022 in follow-up on the regular medical floor. She is currently resting comfortably in bed. Awake and alert in no acute distress. No worsening shortness of breath, cough or congestion at she is maintaining O2 saturations in the 90s on 4 L/m per nasal cannula. She does desaturate to 82% on room air. She will require home oxygen. Blood cultures revealed no growth. Sputum culture reveals no growth. Bronchoscopy with biopsies and fine needle aspirate of the lymph nodes. Pathology is pending. She is continued on Symbicort, DuoNeb inhalations, IV Solu-Medrol. Antibiotics in the form of ceftriaxone. NicoDerm patch in place. Objective - Vital Signs Vital signs: Vital Signs Temp 97.3 F L 02/23/22 08:00 Pulse 64 02/23/22 08:58 Resp 18 02/23/22 08:00 BP 107/67 02/23/22 08:00 Pulse Ox 91 L 02/23/22 11:35 FiO2 Intake & Output 02/22/22 02/23/22 02/23/22 18:59 06:59 18:59 Intake Total 300 Balance 300 Intake: Oral 300 Other: # Voids 5 2 - Exam GENERAL EXAM: Alert, 66-year-old female, on 4 L nasal cannula, comfortable in no apparent distress. HEAD: Normocephalic. EYES: Normal reaction of pupils, equal size. NOSE: Clear with pink turbinates. THROAT: No erythema or exudates. NECK: No masses, no JVD. CHEST: No chest wall deformity. LUNGS: Equal air entry with diminished breath sounds in the left. Scattered rhonchi. CVS: S1 and S2 normal with no audible murmur, regular rhythm. ABDOMEN: No hepatosplenomegaly, normal bowel sounds, no guarding or rigidity. SPINE: No scoliosis or deformity SKIN: No rashes CENTRAL NERVOUS SYSTEM: No focal deficits, tone is normal in all 4 extremities. EXTREMITIES: There is no peripheral edema. No clubbing, no cyanosis. Peripheral pulses are intact. - Labs CBC & Chem 7: 02/20/22 04:24 02/21/22 03:39 Labs: Microbiology - Last 24 Hours (Table) 02/20/22 20:00 Gram Stain - Final Sputum Sputum Culture - Final 02/18/22 19:44 Blood Culture - Preliminary Blood No Growth after 96 hours Assessment and Plan Assessment: Large mediastinal mass, likely related to lung cancer more so than lymphoma. No evidence of malignancy on CT of the abdomen and pelvis. Status post bronchoscopy and biopsies 02/21/2022, pathology pending Acute exacerbation of COPD. Acute hypoxemic respiratory failure secondary to above. Hyponatremia, rule out SIADH. Current sodium 130 History of CAD with previous bypass grafting, 2019. History of ongoing tobacco use with nicotine addiction. History of hypertension. History of hyperlipidemia. History of CVA. Prior history of myocardial infarction. History of uterine cancer, status post hysterectomy. Plan: The patient was seen and evaluated Labs and medications reviewed Pathology results are pending, suspect cancer Again educated regarding the importance of complete smoking cessation NicoDerm patch in place Cleared for discharge from the pulmonary standpoint Will need home oxygen Follow up with Dr. Mcleod in our office in 1 week I have personally seen and examined the patient, performed the documentation and the assessment and plan as written. Number of minutes spent on the visit: 10.
[2022-02-23 15:09] VITALS: BP 118/63; TEMP 97.6
--- NOTE | 2022-02-23 16:17 | P.DS ---
Providers Date of admission: 02/18/22 23:18 Expected date of discharge: 02/23/22 Attending physician: Juvencio Meneses Consults: 02/18/22 23:23 Consult Physician Routine Consulting Provider: Kristopher Wing Consult Reason/Comments: Mediastinal mass, hemoptysis Do you want consulting provider notified?: Yes, Notify in am Consult Physician Routine Consulting Provider: Leif Zavaleta Consult Reason/Comments: B cell mass, hemoptysis Do you want consulting provider notified?: Yes, Notify in am 02/19/22 12:12 Consult Physician Routine Consulting Provider: Moshe Holt Consult Reason/Comments: PAD Do you want consulting provider notified?: Yes Primary care physician: Marty Peter [facility] Course: Chief Complaint: Short of breath This is a 66-year-old patient who follows with Dr. Green. Chronic stable medical conditions include CAD with bypass, hypertension, hyperlipidemia, uterine cancer hysterectomy,. Patient long-standing smoker. Presenting with increased shortness of breath. Bringing up phlegm. No fever no chills. Decreased appetite. Losing weight. Has been coughing up some blood for about a week. On home oxygen 2 L. Occasional chest pressure. Able to get around the house. Tired rundown. 02/20/2022: Tired. Some shortness of breath. Computed tomography scan abdomen and pelvis unremarkable. Seen by vascular. We'll follow up outpatient. Plan for bronchoscopy tomorrow by pulmonary. 02/21/2022: Patient is seen this morning. Pending bronchoscopy. Laying in bed. Tired. Congested cough. Not able to expectorate. 02/22/2022: Patient underwent bronchoscopy yesterday. Biopsy done. Congested cough. Bringing us a sputum. Tired. Short of breath. Discussed with Dr. Mcneal. Discussed with the patient. Encourage oral intake. 02/23/2022: Breathing better. Diet. Diet discussed. Discussed with oncology. Pathology pending. Will follow up outpatient with Dr. Zavaleta and Dr. Wing. We'll take 5 days of Ceftin, prednisone taper, DuoNeb. Questions answered. Patient expressed that she is somewhat disinclined to get chemotherapy if this comes out to be cancer. But to think about it further. Discussion and discharge planning more than 35 minutes Past medical history to include: CAD with CABG, COPD, TIA, hypertension, hyperlipidemia, myocardial infarction, 1985 uterine cancer hysterectomy, Social history: Lives alone. Smoked about half a pack to a pack a day currently half close to 47 years. No alcohol. Physical examination: VITAL SIGNS: 97.6, 63, 18, 11 [birth year]1962, 96% on 4 L GENERAL: Reclining in bed, EYES: Pupils equal. Conjunctiva normal. HEENT: External appearance of nose and ears normal, oral cavity grossly normal. NECK: JVD not raised; masses not palpable. HEART: First and second heart sounds are normal; no edema. LUNGS: Respiratory rate increased; decreased breath sounds,. ABDOMEN: Soft, nontender, liver spleen not palpable, no masses palpable. PSYCH: Alert and oriented x3; mood and affect bit anxiousl. INVESTIGATIONS, reviewed in the clinical context: 02/21/2022: Sodium 1:30 potassium 3.6 creatinine 0.5 02/20/2022: WBC 17.8, hemoglobin 12.2 potassium 3.2 sodium 128 creatinine 0.43 Computed tomography scan abdomen and pelvis: Unremarkable WBC 9.4 hemoglobin 13.4 platelets 461 sodium 128 potassium 3.8. 9 creatinine 0.50 Troponin I 0.017 proBNP 2350 COVID-19/influenza type A/type b: Not detected EKG tracing personally reviewed by me-sinus bradycardia. Nonspecific T-wave changes. Chest x-ray film personally reviewed by [id number] consolidation/atelectasis CT angiogram chest: Mediastinal mass with encasement of the left and right pulmonary arteries measuring 7.6 x 7 cm. Left bronchial adenopathy. Some emphysema. Coarse reticular interstitial infiltrates in the left lung. Assessment and plan: -Acute COPD exacerbation in a current smoker: Better Symbicort, DuoNeb, IV Solu-Medrol cutback to 40 mg every 12 Discharge on prednisone taper. -Chronic hypoxic respiratory failure from underlying COPD On 2 L of oxygen at home -Acute hypoxic respiratory failure from pneumonia Oxygen supplementation -Pneumonia suspected gram-negative organism. IV ceftriaxone. DC on 5 days of Ceftin -Mediastinal mass measuring 7.6 x 7 cm. With lymphadenopathy Bronchoscopy with biopsy of the tumor by Dr. mcneal on February 21. Follow outpatient with oncology and pulmonary. -Chronic nicotine dependence, cigarette smoker Nicotine patch -Essential hypertension Lopressor -Hyperlipidemia Pravachol -CAD with a prior history of CABG Aspirin, Lopressor, Pravachol -Hyponatremia, likely hypovolemic from decreased oral intake Normal saline. Disposition: Home Patient Condition at Discharge: Stable Plan - Discharge Summary Discharge Rx Participant: No New Discharge Prescriptions: New predniSONE 10 mg PO DAILY #30 tab Aspirin 81 mg PO DAILY #30 tab cefUROXime axetiL [Ceftin] 500 mg PO BID #10 tab Ipratropium-Albuterol Nebulize [Duoneb 0.5 mg-3 mg/3 ml Soln] 3 ml INHALATION TID #90 each Nicotine 14Mg/24Hr Patch [Habitrol] 1 patch TRANSDERM DAILY #30 patch amLODIPine [Norvasc] 10 mg PO DAILY #30 tab Continue Pravastatin Sodium [Pravachol] 10 mg PO DAILY Formoterol Fumarate [Perforomist] 20 mcg INHALATION RT-BID Budesonide [Pulmicort] 0.5 mg INHALATION RT-BID Changed Metoprolol Tartrate [Lopressor] 50 mg PO BID #60 tab Discontinued hydroCHLOROthiazide [Hydrodiuril] 25 mg PO DAILY #90 tab Discharge Medication List Budesonide [Pulmicort] 0.5 mg INHALATION RT-BID 02/19/22 [History] Formoterol Fumarate [Perforomist] 20 mcg INHALATION RT-BID 02/19/22 [History] Pravastatin Sodium [Pravachol] 10 mg PO DAILY 02/19/22 [History] Aspirin 81 mg PO DAILY #30 tab 02/23/22 [Rx] Ipratropium-Albuterol Nebulize [Duoneb 0.5 mg-3 mg/3 ml Soln] 3 ml INHALATION TID #90 each 02/23/22 [Rx] Metoprolol Tartrate [Lopressor] 50 mg PO BID #60 tab 02/23/22 [Rx] Nicotine 14Mg/24Hr Patch [Habitrol] 1 patch TRANSDERM DAILY #30 patch 02/23/22 [Rx] amLODIPine [Norvasc] 10 mg PO DAILY #30 tab 02/23/22 [Rx] cefUROXime axetiL [Ceftin] 500 mg PO BID #10 tab 02/23/22 [Rx] predniSONE 10 mg PO DAILY #30 tab 02/23/22 [Rx] Follow up Appointment(s)/Referral(s): [facility] [NON-STAFF] - As Needed Kenney Mcneal MD [STAFF PHYSICIAN] - 03/08/22 2:15 pm Leif Zavaleta MD [STAFF PHYSICIAN] - 03/03/22 4:30 pm () [facility] [NON-STAFF] - As Needed (Oxygen) Marty Green MD [Primary Care Provider] - 02/27/22 1:00 pm Patient Instructions/Handouts: COPD (Chronic Obstructive Pulmonary Disease) (DC) Activity/Diet/Wound Care/Special Instructions: [facility] Medicaid transition program: #[phone] Please call the phone number on the back of your Medicaid card to set up medical rides to appointments. They will need at least 24 hour notice. Medicaid contact: #[phone]. [facility] may be able to assist with transportation. Please call : #[phone] home fio2 3l/ COPD Discharge/Stand Alone Forms: Who Do I Call?, Help In The Home
[2022-02-23 16:22] VITALS: PULSE 72
--- NOTE | 2022-02-23 19:29 | P.PN ---
Subjective Progress Note Date: 02/23/22 Principal diagnosis: COPD exacerbation, mediastinal mass, Left lung necrotic mass In follow-up today patient has no complaints. Her breathing is stable. She is not requiring O2. Denies any pain Objective - Vital Signs Vital signs: Vital Signs Temp 97.6 F 02/23/22 14:00 Pulse 72 02/23/22 16:22 Resp 18 02/23/22 14:00 BP 118/63 02/23/22 14:00 Pulse Ox 96 02/23/22 14:00 FiO2 Intake & Output 02/23/22 02/23/22 02/24/22 06:59 18:59 06:59 Intake Total 300 Balance 300 Intake: Oral 300 Other: # Voids 2 - Constitutional General appearance: Present: average body habitus, cooperative, no acute distr ess - EENT Eyes: Present: anicteric sclerae, EOMI ENT: Present: hearing grossly normal - Respiratory Respiratory: left: diminished, bilateral: CTA - Cardiovascular Rhythm: regular Heart sounds: normal: S1, S2 Abnormal Heart Sounds: Absent: systolic murmur, diastolic murmur, rub, S3 Gallop, S4 Gallop, click, other - Neurologic Neurologic: Present: CNII-XII intact - Musculoskeletal Musculoskeletal: Present: strength equal bilaterally - Psychiatric Psychiatric: Present: A&O x's 3, appropriate affect, intact judgment & insight - Labs CBC & Chem 7: 02/20/22 04:24 02/21/22 03:39 Labs: Microbiology - Last 24 Hours (Table) 02/20/22 20:00 Gram Stain - Final Sputum Sputum Culture - Final 02/18/22 19:44 Blood Culture - Preliminary Blood No Growth after 96 hours Assessment and Plan (1) Mediastinal mass Status: Acute Priority: High Code(s): J98.59 - OTHER DISEASES OF MEDIASTINUM, NOT ELSEWHERE CLASSIFIED SNOMED Code(s): 07840286 (2) Hemoptysis Status: Acute Priority: High Code(s): R04.2 - HEMOPTYSIS SNOMED Code(s): 65044135 (3) Lung mass Status: Acute Priority: High Code(s): R91.8 - OTHER NONSPECIFIC ABNORMAL FINDING OF LUNG FIELD SNOMED Code(s): 405510266 Plan: Bronchoscopy yesterday, procedure note reviewed. Pending pathology results. Results available after patient discharge. Positive for a non-small cell carcinoma. Blocks have been requested for NGS and PDL [address] AP, no unusual masses or suspicious findings. Flow cytometry was neg for a lymphoid malignancy PET scan ordered outpt, f/u Dr. Isamar Tee. Patient will be contacted with appointment date and times. Patient does not drive-She has no car. Discussed with Certified Legal Investigator who has been able to set pt up with volunteer services that will get her to and from appointments!
--- NOTE | 2022-02-24 09:27 | CDI ---
Documentation Clarification Form Date: 02/24/2022 09:12:01 AM From: Olivia CannonGuzmanALDO, CCDS Admit Date: 02/18/2022 11:18:00 PM Patient Name: Vivian Quinones Visit Number: [id number] Discharge Date: 02/23/2022 04:23:00 PM ATTENTION: The Clinical Documentation Specialists (CDI) and [facility] Coding Staff appreciate your assistance in clarifying documentation. Please respond to the clarification below the line at the bottom and electronically sign. The CDI & [facility] Coding staff will review the response and follow-up if needed. Please note: Queries are made part of the Legal Health Record. If you have any questions, please contact the author of this message via ITS. Dr. Juvencio Meneses: The final diagnosis of the pathology report states Left Main Stem: Severely atypical cells consistent with poorly differentiated non-small cell carcinoma. Documented clarification of the pathology results is requested. History/risk factors per the 02/19 H/P: CAD and OH status post CABG, Hypertension, Hyperlipidemia, Uterine Cancer status post Hysterectomy, On Home O2 2L, TIA and current smoker < 1/2 ppd. Clinical Indicators: Presented to the ED via EMS with SOB, exertional dyspnea, cough with red blood in the phlegm. Admit with Hemoptysis, COPD Exacerbation and Lung Mass that has been monitoring by Oncology. 02/18 CXR: Small left pleural effusion. 02/18 CT Chest: Large mediastinal mass encasing the pulmonary arteries with left bronchial adenopathy. This could relate to lymphoma. No discrete pulmonary mass seen. Emphysema. Pleural thickening and atelectasis left posterior lung base. Follow-up recommended. 02/21 Procedure: Bronchoscopy, endobronchial biopsies from left mainstem bronchus. Brushings of endobronchial tumor left mainstem bronchus. Washings of tumor left mainstem bronchus. Multiple transcarinal Borjas needle aspirations, and multiple transbronchial Borjas needle aspirations. Preop Diagnosis: Large mediastinal mass, highly consistent with malignancy. Postop Diagnosis: Large mediastinal mass, highly consistent with malignancy. Treatment: O2 3Lnc, INH Ventolin 2 puffs x1, IV Solumedrol 125 mg x1, IV Mag Sulf/Dextrose 100 mls @ 100 mls/hr x1. Discharged to home with 5 days of Ceftin, Prednisone and INH breathing treatments, outpatient follow up with Oncology and Pulmonary. Please clarify if you agree with the pathology report diagnosis of severely atypical cells consistent with poorly differentiated non-small cell carcinoma. [ ] Yes [ ] No [ ] Other (please specify) [ ] Unable to determine (Template Last Revised: June 2020) yes MTDD
--- NOTE | 2022-02-24 21:06 | CDI ---
Documentation Clarification Form Date: 02/24/2022 08:50:57 PM From: Allison Leach Phone: Admit Date: 02/18/2022 11:18:00 PM Patient Name: Vivian Quinones Visit Number: [id number] Discharge Date: 02/23/2022 04:23:00 PM ATTENTION: The Clinical Documentation Specialists (CDI) and [facility] Coding Staff appreciate your assistance in clarifying documentation. Please respond to the clarification below the line at the bottom and electronically sign. The CDI & [facility] Coding staff will review the response and follow-up if needed. Please note: Queries are made part of the Legal Health Record. If you have any questions, please contact the author of this message via ITS. Dr. Juvencio Meneses Chronic poor appetite and slow weight loss are documented in the Consult Note 02/19 and throughout the Progress Notes. Based on this information and the findings below, is there an additional diagnosis that is clinically appropriate for this patient? 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 [ ] Anorexia [ ] Mild Protein-Calorie Malnutrition [ ] Moderate Protein-Calorie Malnutrition [ ] Severe Protein-Calorie Malnutrition [ ] Other condition, please specify [ ] Unable to Determine (Template Last Revised: June 2020) Mild protein calorie malnutrition MTDD
== END 2022-02-23 16:23 | disposition home or self-care (01) | DRG 180 ==
LOC: SUPCPDRO 18:45 → EC 18:45 → 4SSUR 23:18
PROVIDERS: ADMIT Hospitalist; ATTEND Hospitalist
PROC: 0BB78ZX Excision of Left Main Bronchus, Via Natural or Artificial Opening Endoscopic, Diagnostic (ICD-10-PCS; principal; 2022-02-21 12:00)
PROC: 0B978ZX Drainage of Left Main Bronchus, Via Natural or Artificial Opening Endoscopic, Diagnostic (ICD-10-PCS; 2022-02-21 12:00)
PROC: 0B978ZX Drainage of Left Main Bronchus, Via Natural or Artificial Opening Endoscopic, Diagnostic (ICD-10-PCS; 2022-02-21 12:00)
DX: C34.02 Malignant neoplasm of left main bronchus (principal); J15.6 Pneumonia due to other Gram-negative bacteria; J96.21 Acute and chronic respiratory failure with hypoxia; J85.0 Gangrene and necrosis of lung; R04.2 Hemoptysis; I47.1 Supraventricular tachycardia; E87.1 Hypo-osmolality and hyponatremia; E44.1 Mild protein-calorie malnutrition; J43.9 Emphysema, unspecified; I10 Essential (primary) hypertension; E86.0 Dehydration; E86.1 Hypovolemia; Z99.81 Dependence on supplemental oxygen; F17.210 Nicotine dependence, cigarettes, uncomplicated; R59.1 Generalized enlarged lymph nodes; E78.5 Hyperlipidemia, unspecified; I25.10 Atherosclerotic heart disease of native coronary artery without angina pectoris; R00.1 Bradycardia, unspecified; I71.43 Infrarenal abdominal aortic aneurysm, without rupture; D72.828 Other elevated white blood cell count; D72.820 Lymphocytosis (symptomatic); D75.838 Other thrombocytosis; Z20.822 Contact with and (suspected) exposure to COVID-19; Z68.22 Body mass index [BMI] 22.0-22.9, adult; Z79.51 Long term (current) use of inhaled steroids; Z28.310 Unvaccinated for COVID-19; Z95.1 Presence of aortocoronary bypass graft; Z79.82 Long term (current) use of aspirin; Z79.899 Other long term (current) drug therapy; Z86.73 Personal history of transient ischemic attack (TIA), and cerebral infarction without residual deficits; I25.2 Old myocardial infarction; Z85.42 Personal history of malignant neoplasm of other parts of uterus; Z90.710 Acquired absence of both cervix and uterus
CPT/HCPCS: 31623; 31624; 31625; 31629; 36415; 71046; 71275; 74178; 80048; 80053; 83605; 83615; 83735; 83880; 83930; 84484; 85025; 85379; 85610; 85730; 87040; 87070; 87205; 87502; 87635; 88104; 88108; 88173; 88184; 88185; 88305; 88341; 88342; 93005; 93306; 94640; 94760; 96365; 96375; 99285